=== PATIENT | male | born 1945 | race Caucasian/White ===

== ENCOUNTER 2017-09-05 23:33 | Emergency (ER) | payer OTHER ==
[~2017-09-05] VITALS: Ht 185.4 cm; Wt 97.0 kg
[~2017-09-05 23:33] MED LIST: ASPI81TA28 PO; ATEN-175 PO; GLC/500 PO; GLIP2.5T11 PO; HYDR-4079 PO; LOSA100T65 PO; MELO-83 PO; PRLSR20 PO; SIMV10TA2 PO
[2017-09-05 23:37] VITALS: TEMP 36.7; Ht 185.4 cm; Wt 97.0 kg
--- NOTE | 2017-09-06 00:07 | EMERGENCY ROOM VISIT NOTE ---
History Report prepared by Maki: Kaila Coe Under the Supervision of: Dr. Donna Duran D.O. 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 He denies any leg pain, chest pain, or SOB. 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 A total of 10 systems reviewed and were otherwise negative. Past Medical & Surgical Medical Problems: (1) Diabetes Family History Cancer Diabetes mellitus (DM) Heart disease High blood pressure Lung disease Social History Smoking Status: Former Smoker Smokeless Tobacco Use: No Alcohol Use: none Housing Status: lives alone Occupation Status: retired Current/Historical Medications Scheduled Aspirin (Aspirin Ec), 81 MG PO QAM Atenolol (Tenormin), 100 MG PO QAM Glipizide (Glipizide Er), 2.5 MG PO QAM Losartan Potassium (Cozaar), 100 MG PO QDD Meloxicam (Meloxicam), 15 MG PO QAM Metformin Hcl (Glucophage), 500 MG PO QDD Omeprazole (Prilosec), 20 MG PO QAM Simvastatin (Zocor), 10 MG PO QDD Scheduled PRN Hydrocodone/Acetaminophen 10MG/325MG (Pepin 10MG/325MG), 1 TAB PO QID PRN for Pain Allergies Coded Allergies: No Known Allergies (Verified , 07/18/17) Physical Exam Vital Signs Date Time Temp Pulse Resp B/P (MAP) Pulse Ox O2 Delivery O2 Flow Rate FiO2 09/06/17 00:34 78 18 148/47 97 09/05/17 23:37 36.7 61 18 193/79 95 Room Air Physical Exam LOWER EXTREMITIES: The patient has significant edema to the left knee and thigh. He is currently wearing compression stockings that are too small for him and cut off just below the knee. The swelling starts just proximal to the compression stockings. The right lower extremity is unremarkable. Patient has a blister on the left lower queen which is dressed. Medical Decision & Procedures ED Course 2351: Past medical records reviewed. The patient was evaluated in room B10. A complete history and physical exam was performed. 0002:: Nursing staff were able to fit the patient for thigh high NAY hose. 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 Differential diagnosis include DVT, cellulitis, functional edema, as well as others were entertained. This is a 71-year-old male patient who has edema to his left knee and thigh. This has developed secondary to the compression stockings which come up to just below the knee. This is a functional edema. Those stockings which were too small were removed. He was fitted for thigh-high NAY hose. I have encouraged the patient to follow-up with his PCP if the edema persists. Medication Reconcilliation Current Medication List: was personally reviewed by me Blood Pressure Screening Patient's blood pressure: Elevated blood pressure Blood pressure disposition: Elevated BP felt to be situational Impression Primary Impression: Edema of left lower extremity Scribe Attestation The scribe's documentation has been prepared under my direction and personally reviewed by me in its entirety. I confirm that the note above accurately reflects all work, treatment, procedures, and medical decision making performed by me. Departure Information Dispostion Home / Self-Care Referrals Nabeel Lopez D.O. (PCP) Forms HOME CARE DOCUMENTATION FORM, IMPORTANT VISIT INFORMATION Patient Instructions My [email or web address] Additional Instructions Wear the thigh high NAY hose for control of lower extremity edema. Follow up with PCP if swelling persists
[2017-09-06 00:34] VITALS: BP 148/47; PULSE 78; O2SAT 97
== END 2017-09-06 00:35 | disposition home or self-care (01) ==
LOC: C.EDB 23:35
DX: R60.0 Localized edema (principal); E11.9 Type 2 diabetes mellitus without complications; Z79.84 Long term (current) use of oral hypoglycemic drugs; Z79.82 Long term (current) use of aspirin; Z87.891 Personal history of nicotine dependence

== ENCOUNTER 2018-05-18 13:38 | Inpatient (IN) ==
[2018-05-18] MEDS ORDERED: SODIUM CHLORIDE 0.9% 250 ML IV PRN ×3 (14:21→22:27)
[2018-05-18 14:37] LABS: Albumin Level 1.6 gm/dl (3.4-5.0); BUN Creatinine Ratio 71.9 (10-20); Calcium 8.1 mg/dl (8.5-10.1); Creatinine Clr Calc Pharmacy 112.3 ml/min; Est GFR (Non-African American) 94.9; Hematocrit (blood only) 20.2 % (42-52); Hemoglobin 6.2 g/dL (14.0-18.0); Mean Corpuscular Hgb Conc 30.7 g/dL (32-36); Mean Corpuscular Volume 79.8 fL (80-100); Mean Platelet Volume 9.6 fL (7.4-10.4); Platelet Count 182 K/uL (130-400); Potassium 4.1 mmol/L (3.5-5.1); RDW Coefficient of Variation 19.5 % (11.5-14.5); RDW Standard Deviation 57.3 fL (36.4-46.3); Red Blood Count 2.53 M/uL (4.7-6.1); White Blood Count 8.72 K/uL (4.8-10.8)
[2018-05-18 14:40] LABS: Albumin Globulin Ratio 0.3 (0.9-2); Bilirubin,Total 0.5 mg/dl (0.2-1); Globulin 4.7 gm/dl (2.5-4.0); Total Protein 6.3 gm/dl (6.4-8.2)
[2018-05-18 14:44] LABS: INR 2.4 (0.9-1.1); Partial Thromboplastin Ratio 1.6; Partial Thromboplastin Time 42.4 Seconds (21.0-31.0); Prothrombin Time 23.5 Seconds (9.0-12.0)
[2018-05-18 14:51] LABS: Anisocytosis Present; Basophilic Stippling 1+; Basophils # (auto) 0.01 K/uL (0-0.2); Basophils % (auto) 0.1 %; Echinocytes 1+; Eosinophils # (auto) 0.15 K/uL (0-0.5); Eosinophils % (auto) 1.7 %; Hypochromasia Present; Immature Granulocytes # (auto) 0.03 K/uL (0.00-0.02); Immature Granulocytes % (auto) 0.3 %; Lymphocytes # (auto) 0.82 K/uL (1.2-3.4); Lymphocytes % (auto) 9.4 %; Monocytes # (auto) 0.53 K/uL (0.11-0.59); Monocytes % (auto) 6.1 %; Neutrophils # (auto) 7.18 K/uL (1.4-6.5); Neutrophils % (auto) 82.4 %
--- NOTE | 2018-05-18 14:51 | XRay Report ---
XR chest 1V portable CLINICAL HISTORY: Sepsis dyspnea COMPARISON STUDY: No previous studies for comparison. FINDINGS: Findings of a prior median sternotomy. Small parenchymal infiltrate medial aspect right low er lobe as well as left lower lobe. Mid and upper lungs are clear. Severe degenerative change of the shoulders bilaterally. IMPRESSION: Small bibasilar parenchymal infiltrates. The above report was generated using voice recognition software. It may contain grammatical, syntax or spelling errors. Electronically signed by: Kole Ro M.D. 05/18/2018 2:49 PM
--- NOTE | 2018-05-18 14:54 | XRay Report ---
XR ankle LT min 3V routine CLINICAL HISTORY: Wound at the level of the medial malleolus. COMPARISON: None DISCUSSION: There are extensive vascular calcifications present. There is periostitis at the level of the medial malleolus. Given history of overlying wound this could indicate early osteomyelitis. An M RI might be considered in follow-up for further evaluation. There is bony fragmentation involving the midfoot, likely on a neuropathic basis. IMPRESSION: 1. Periostitis the level of medial malleolus. Given history of overlying wound, this may indicate ost eomyelitis. An MRI could be obtained in follow-up as deemed clinically indicated. 2. Presumed neuropathic changes within the midfoot. Electronically signed by: Osbaldo Hoover M.D. 05/18/2018 2:53 PM
[2018-05-18] MEDS ORDERED: VANCOMYCIN HCL 1,750 MG in SODIUM CHLORIDE 0.9% 500 ML IV ONE (15:03)
[2018-05-18] MEDS ORDERED: VANCOMYCIN CONSULT ACTIVE PRN ×2 (15:03→20:22)
[2018-05-18] MEDS ORDERED: PIPERACILL/TAZOBAC CONSULT ACTIVE PRN ×2 (15:03→20:25)
[2018-05-18] MEDS ORDERED: PIPERACILLIN/TAZOBACTAM 4.5 GM/120 ML BAG IV ONE (15:03)
[2018-05-18] MEDS ORDERED: SODIUM CHLORIDE 0.9% 1000ML 1,000 ML IV ONE (15:18)
[2018-05-18] MEDS ORDERED: MoRPHine SULFATE 4 MG/ML 1 ML CARP\\VIAL IV STA (15:18)
[2018-05-18] MEDS ORDERED: GLUCOSE 40% GEL 15 GM TUBE PO PRN (20:09)
[2018-05-18] MEDS ORDERED: GLUCOSE 10 TABS/TUBE PO PRN (20:09)
[2018-05-18] MEDS ORDERED: ALBUT/IPRATROP 3MG/0.5MG NEB 3 ML VIAL INH PRN (20:09)
[2018-05-18] MEDS ORDERED: CARBOHYDRATES FOR HYPOGLYCEMIA PO PRN (20:09)
[2018-05-18] MEDS ORDERED: GLUCAGON FOR INJ 1 MG VIAL SQ PRN (20:09)
[2018-05-18] MEDS ORDERED: SODIUM CHLORIDE 0.9% 1000ML 1,000 ML IV SCH (20:30)
--- NOTE | 2018-05-18 21:19 | History & Physical Report ---
Date of Service May 18, 2018 Assessment & Plan (1) Anemia: Pt with hx iron deficiency anemia. Baseline Hgb: 8-9. Presented to ER with bleeding lower extremity wounds. No reported melena, hematochezia. Pt on plavix and xarelto In ER T: 36.5, P: 98, R: 21, BP: 110/52, 100% on RA. Hgb: 6.2, Hct: 20, Plt: 182, INR: 2.4, BUN: 51, Cr: 0.7 -tele to monitor -fecal occult blood pending -transfuse 2 units PRBCs -monitor H&H and transfuse as needed -gentle IVF -hold plavix and xarelto for now (2) Wound of lower extremity: Hx PVD. Hx MRSA WBC: 8, lactate 2.7 In ER pt given 1L NSS, zosyn, vancomycin L Ankle xray: Periostitis the level of medial malleolus. Given history of overlying wound, this may indicate osteomyelitis. Presumed neuropathic changes within the midfoot. -pending blood cultures -trend lactate -zosyn, vancomycin -MRI L ankle to r/o osteomyelitis -wound consult -monitor cbc -may need ID, ortho consult (3) PVD (peripheral vascular disease): Pt follows with vascular surgery in [place] Dr Fonseca. Pts sister reports that pt had recent bilateral leg revascularization in the past 1-2 months -obtain outside records -will hold plavix for now with anemia and re-evaluate and once have further info on if pt had stent placement (4) History of aortic valve replacement with bioprosthetic valve: aortic stenosis s/p bioprosthetic valve replacement in 09/2017 at [facility] (5) CAD (coronary artery disease): CAD s/p CABG x 2 in 09/2017 at [place] -continue statin, metoprolol (6) Atrial fibrillation: Hx a-fib after cardiac surgery in 09/2017, requiring cardioversion -hold xarelto at this time with anemia (7) Chronic diastolic heart failure: (8) Cirrhosis: Hx cirrhosis. LFT's chronically elevated with AST: 56, ALT: 45, Alk Phos: 123, normal bili. (04/2018: AST: 54, ALT: 46, Alk Phos: 136) -monitor liver functions (9) BPH (benign prostatic hyperplasia): (10) Urinary retention: Hx BPH and chronic urinary retention. Follows with Urology [facility]. Reported consideration for suprapubic cath placement in future. 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 Will hold on SCDs with active leg wounds and hold on chemo prophylaxis and reassess. Full Code as per discussion with pt and pt's sister Follows with Dr Campoverde at [facility] for routine care Pt was seen with Dr Gardner. See addendum History of Present Illness Chief Complaint: bleeding extremity wounds Primary Care Provider: [facility] Pt is 72 y/o M with complex past medical history, CAD s/p CABG x 2 in 09/2017 at [place], aortic stenosis s/p bioprosthetic valve replacement in 09/2017 at [facility], atrial fibrillation after surgery requiring cardioversion, HLD, DM II, diastolic HF, malnutrition, depression, BPH and urinary retention with chronic denis catheter, HIT, PVD, iron deficiency anemia presented to ER from [facility] with bleeding lower extremity wounds. Pt with chronic bilateral leg, ankle, feet ulcers. Reported that pt has been following Dr Aldana podiatry in [place] and wound clinic in [place]. Also has been following with vascular surgery in [place] Dr Fonseca. Pts sister reports that pt had recent bilateral leg revascularization in the past 1-2 months and she is unsure if stents were placed. Pts sister states that pt has been having bleeding from wounds but seems worse today. Reports chronic pain to bilateral feet. Pt also with sacral ulcer. Sister reports pt has been eating and drinking ok. Denies vomiting or diarrhea. Denies fever/chills, diaphoresis, GORMAN, dizziness, syncope, vision changes, neck pain, CP, SOB, orthopnea, palpitations, cough, sore throat, ch oking, otalgia, rhinorrhea, abdominal pain, extremity edema. Pt with hx rectal bleeding after cardiac surgery. It is reported that at that time pt had normal EGD and pt had to have rectal artery embolization. Denies recent melena, hematochezia, hematuria. Hx sternotomy wound seeping intermittently since surgery in 09/2017 with reported recurrent seeping over the past week and pt was started on doxycycline yesterday at [facility]. 02/23/[address] Gould: Normal esophagus, gastritis. EUS: Dilation common bile duct 10 mm History of hospitalization at [facility] 03/01/18-03/04/18 for extremity wounds/cellulitis, discharge summary report MRSA, lower extremity arterial Dopplers without significant stenosis, MRI left foot no osteomyelitis, MRI left tib-fib and right tib-fib no acute stenosis Allergies Allergy/AdvReac Type Severity Reaction Status Date / Time heparin Allergy Unknown Verified 05/18/18 16:18 Home Medications Home Medications Medication Instructions Recorded Confirmed Type Allevyn Gentle Border Lite 1 applic TOPICAL UD 05/18/18 05/18/18 History Aquacel Ag Dressing 1 applic TOPICAL Q OTHER DAY 05/18/18 05/18/18 History Med Pass Supplement 200 ml PO TID 05/18/18 05/18/18 History Silicone Border Dressing 1 applic TOPICAL UD 05/18/18 05/18/18 History Silver Alginate 1 applic TOPICAL Q OTHER DAY 05/18/18 05/18/18 History acetaminophen [Tylenol Extra 500 mg PO Q4 PRN 05/18/18 05/18/18 History Strength] amiodarone 200 mg PO AMHS 05/18/18 05/18/18 History ascorbic acid (vitamin C) [Vitamin 500 mg PO QAM 05/18/18 05/18/18 History C] atorvastatin 40 mg PO HS 05/18/18 05/18/18 History bumetanide 1 mg PO DAILY 05/18/18 05/18/18 History bumetanide 2 mg PO DAILY 05/18/18 05/18/18 History clopidogrel 75 mg PO DAILY 05/18/18 05/18/18 History doxycycline hyclate 100 mg PO BID 05/18/18 05/18/18 History duloxetine 60 mg PO DAILY 05/18/18 05/18/18 History ferrous sulfate 325 mg PO BID 05/18/18 05/18/18 History glipizide 2.5 mg PO QAM 05/18/18 05/18/18 History hydrocodone-acetaminophen [[place]] 1 tab PO Q6H PRN 05/18/18 05/18/18 History ipratropium-albuterol 3 ml INHALATION Q6 PRN 05/18/18 05/18/18 History magnesium oxide 400 mg PO BID 05/18/18 05/18/18 History melatonin 5 mg PO HS 05/18/18 05/18/18 History metoprolol succinate 12.5 mg PO DAILY 05/18/18 05/18/18 History omeprazole 20 mg PO DAILYBB 05/18/18 05/18/18 History oxycodone 5 mg PO QID 05/18/18 05/18/18 History polyethylene glycol 3350 17 g PO TID 05/18/18 05/18/18 History potassium chloride 10 meq PO DAILY 05/18/18 05/18/18 History pregabalin [Lyrica] 100 mg PO TID 05/18/18 05/18/18 History rivaroxaban [Xarelto] 20 mg PO HS 05/18/18 05/18/18 History tamsulosin 0.4 mg PO HS 05/18/18 05/18/18 History jcnx-ahs-awxi-C-Zn-Cu-tos 1 dose PO BID 05/18/18 05/18/18 History [ArgiMent AT] zinc oxide 1 applic TOPICAL QS 05/18/18 05/18/18 History Past Med/Surg History Medical History Cirrhosis (Chronic) 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) Chronic diastolic heart failure (Chronic) Atrial fibrillation (Chronic) PVD (peripheral vascular disease) (Chronic) Malnutrition (Chronic) Aortic stenosis (Chronic) CAD (coronary artery disease) (Chronic) Diastolic heart failure (Chronic) Urinary retention (Chronic) BPH (benign prostatic hyperplasia) (Chronic) Diabetes mellitus, type II (Chronic) GERD (gastroesophageal reflux disease) HLD (hyperlipidemia) (Chronic) Hypertension (Chronic) Surgical History History of cholecystectomy (Chronic) History of aortic valve replacement with bioprosthetic valve (Chronic) History of coronary artery bypass graft x 2 (Chronic) Social History Preferred Language: Israeli Communication Ability: Effective Beliefs That Will Affect Care: None Current Living Situation: Prison Other Information That Helps Us Care for You: No Feels Safe at Home: Yes Smoking Status: Former smoker Hx Alcohol Use: No Hx Substance Use: No Review of Systems All systems reviewed & are unremarkable except as noted in HPI & below Physical Exam Vital Signs (Past 24 Hours): Last Vital Signs Temp 36.5 C 05/18/18 20:53 Pulse 57 L 05/18/18 20:53 Resp 16 05/18/18 20:53 BP 95/57 L 05/18/18 20:53 Pulse Ox 97 05/18/18 20:53 Physical Exam: General: chronic ill appearing elderly male Head: normocephalic, atraumatic Eyes: PERRL, EOM's intact, conjunctiva non-injected, anicteric ENT: normal inspection external ears, nose, mucous membranes dry Neck: supple, trachea midline Lungs: clear, no respiratory distress CV: RRR, systolic murmur Abd: normal BS, soft, non-tender Ext: no calf tenderness, bilateral ankles and feet with multiple wounds, ulcers, escar, right medial ankle with some venous bleeding, left ankle without acute bleeding Neuro: Alert, oriented to person, place, flat affect Skin: warm, dry, sacral ulcer, as above in extremities Results & Data Laboratory Results Short CBC 05/18/18 Range/Units 13:49 WBC 8.72 (4.8-10.8) K/uL Hgb 6.2 L* (14.0-18.0) g/dL Hct 20.2 L* (42-52) % Plt Count 182 (130-400) K/uL BMP 05/18/18 13:49 Sodium 134 L Potassium 4.1 Chloride 98 Carbon Dioxide 28 BUN 51 H Creatinine 0.70 Glucose 203 H Calcium 8.1 L Liver Function 05/18/18 Range/Units 13:49 Total Bilirubin 0.5 (0.2-1) mg/dl AST 56 H (15-37) U/L ALT 45 (12-78) U/L Alkaline Phosphatase 123 H (45-117) U/L Albumin 1.6 L (3.4-5.0) gm/dl Diagnostic Findings CXR: IMPRESSION: Small bibasilar parenchymal infiltrates. XRAY L ANKLE: IMPRESSION: 1. Periostitis the level of medial malleolus. Given history of overlying wound, this may indicate osteomyelitis. An MRI could be obtained in follow-up as deemed clinically indicated. 2. Presumed neuropathic changes within the midfoot. Supervising Physician Co-Signing Physician Notes 1. Anemia-multifactorial 2. wounds, possible osteomyelitis 3. PVD 4. CAD s/p CABG 2018 with poorly healing sternotomy wound 5. Bedbound status 6. Atrial fibrillation on Xarelto 7. s/p AVR with bioprosthetic valve I have seen and examined the patient and have discussed the case with the provider above. I agree with the assessment and plan as stated. Baseline H&H is 8.5/25, now 6.2/20 on arrival today. Two units of packed red blood cells were given. He reports chronic bleeding from the wounds and is notably on Plavix and Xarelto. In fact, 2 weeks ago he reports significant bleeding from his wounds in his lower extremities. He reports being bedbound since his CABG last fall and resides at [facility]. There is a question of periostitis on the x-ray. He denies any fevers or chills and is not septic, however, osteomyelitis is a concern. Agree with MRI. Agree with broad-spectrum antibiotics pending clinical improvement and normal blood cultures. Holding Xarelto and Plavix as above. DO Jj (1) Anemia Anemia type: unspecified type Qualified Code(s): D64.9 - Anemia, unspecified
[2018-05-18] MEDS ORDERED: FUROSEMIDE 40 MG in SYRINGE 0 ML IV ONE (21:30)
[2018-05-18] MEDS: ATORVASTATIN 40 MG TAB PO SCH (22:04)
[2018-05-18] MEDS: OXYCODONE HCL IR 5 MG TAB (IMMEDIATE RELEASE) PO SCH (22:04)
[2018-05-18] MEDS: MAGNESIUM OXIDE 400 MG TAB PO SCH (22:04)
[2018-05-18] MEDS: PREGABALIN 100 MG CAP PO SCH (22:04)
[2018-05-18] MEDS: FERROUS SULFATE 325 MG TAB PO SCH (22:05)
[2018-05-18] MEDS: AMIODARONE 200 MG TAB PO SCH (22:05)
[2018-05-18] MEDS: INSULIN ASPART 100 UNITS/ML 3 ML PEN SC SCH (22:06)
[2018-05-18] MEDS: INSULIN GLARGINE SOLOSTAR 100 UNITS/ML 3 ML PEN SC SCH (22:06)
[2018-05-18] MEDS: TAMSULOSIN HCL 0.4 MG CAP PO SCH (22:09)
[2018-05-18] MEDS: PIPERACILLIN/TAZOBACTAM 3.375 GM in DEXTROSE 5% 100 ML IV SCH (22:39)
--- NOTE | 2018-05-18 22:52 | Pharmacy Report ---
Pharmacy Abx Dose Short Note - Date of Service May 18, 2018 - Assessment & Plan Assessment 72 year old M receiving vanco/zosyn for treatment of SST Day # 02/18 of antimicrobial therapy. Pt population p'kinetics: t1/2=7hrs, ke=0.0974. Plan Vancomycin * Vanco 1750mg IV x1 * Then Vanco 1250mg IV Q8 * Goal trough until c/s's result will be 15-20mcg/mL * Trough prior to Css ordered for 05/19 @1530 Zosyn * Appropriately dosed based on eCrCl>20cc/min and clinical status Pharmacy will continue to follow and will adjust dose/frequency as necessary. Thank you.
--- NOTE | 2018-05-18 23:01 | Emergency Department Note ---
Entered by Harinder Morales acting as a scribe for Jef Gutierrez MD History of Present Illness General Chief complaint: Foot Injury/Pain Stated complaint: L foot wound/bleed /[place] Time Seen by Provider: 05/18/18 13:58 Source: patient and family History of Present Illness Onset (ago): hour(s) (today) Location: left (foot) Pain Consistency: + other (persistent) Quality: + sharp Associated symptoms: no cough and no fever/chills The patient is a 72 year old white male with a history of diabetes, HTN, HLD, a fib, PVD, and GERD who presents to the Emergency Room from [facility] with complaints of persistent sharp left foot pain beginning today. The patient reports that he has had a wound in that area in the past, and a blister today appears to have ruptured. Family reports that the patient is on Oxycontin and does not walk at baseline. She states that the patient has chronic wounds in his left foot. She states that he had revascularization of the lower extremities one month ago. She also notes that the patient had a valve replacement and CABG in [place] last year. The patient denies recent trauma, coughing, fevers, or chills. He notes that he developed a rash on his hands over the past few days that currently appears improved. The nurse reports that the patient had lab work this morning at [facility], and his hemoglobin was 6.8. Home Medications Home Medications Medication Instructions Recorded Confirmed Type Allevyn Gentle Border Lite 1 applic TOPICAL UD 05/18/18 05/18/18 History Aquacel Ag Dressing 1 applic TOPICAL Q OTHER DAY 05/18/18 05/18/18 History Med Pass Supplement 200 ml PO TID 05/18/18 05/18/18 History Silicone Border Dressing 1 applic TOPICAL UD 05/18/18 05/18/18 History Silver Alginate 1 applic TOPICAL Q OTHER DAY 05/18/18 05/18/18 History acetaminophen [Tylenol Extra 500 mg PO Q4 PRN 05/18/18 05/18/18 History Strength] amiodarone 200 mg PO AMHS 05/18/18 05/18/18 History ascorbic acid (vitamin C) [Vitamin 500 mg PO QAM 05/18/18 05/18/18 History C] atorvastatin 40 mg PO HS 05/18/18 05/18/18 History bumetanide 1 mg PO DAILY 05/18/18 05/18/18 History bumetanide 2 mg PO DAILY 05/18/18 05/18/18 History clopidogrel 75 mg PO DAILY 05/18/18 05/18/18 History doxycycline hyclate 100 mg PO BID 05/18/18 05/18/18 History duloxetine 60 mg PO DAILY 05/18/18 05/18/18 History ferrous sulfate 325 mg PO BID 05/18/18 05/18/18 History glipizide 2.5 mg PO QAM 05/18/18 05/18/18 History hydrocodone-acetaminophen [Amelia] 1 tab PO Q6H PRN 05/18/18 05/18/18 History ipratropium-albuterol 3 ml INHALATION Q6 PRN 05/18/18 05/18/18 History magnesium oxide 400 mg PO BID 05/18/18 05/18/18 History melatonin 5 mg PO HS 05/18/18 05/18/18 History metoprolol succinate 12.5 mg PO DAILY 05/18/18 05/18/18 History omeprazole 20 mg PO DAILYBB 05/18/18 05/18/18 History oxycodone 5 mg PO QID 05/18/18 05/18/18 History polyethylene glycol 3350 17 g PO TID 05/18/18 05/18/18 History potassium chloride 10 meq PO DAILY 05/18/18 05/18/18 History pregabalin [Lyrica] 100 mg PO TID 05/18/18 05/18/18 History rivaroxaban [Xarelto] 20 mg PO HS 05/18/18 05/18/18 History tamsulosin 0.4 mg PO HS 05/18/18 05/18/18 History [id number]-[id number]-tos 1 dose PO BID 05/18/18 05/18/18 History [ArgiMent AT] zinc oxide 1 applic TOPICAL QS 05/18/18 05/18/18 History Allergies Allergy/AdvReac Type Severity Reaction Status Date / Time heparin Allergy Unknown Verified 05/18/18 16:18 Past Med/Surg History Medical History Cirrhosis (Chronic) 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) Chronic diastolic heart failure (Chronic) Atrial fibrillation (Chronic) PVD (peripheral vascular disease) (Chronic) Malnutrition (Chronic) Aortic stenosis (Chronic) CAD (coronary artery disease) (Chronic) Diastolic heart failure (Chronic) Urinary retention (Chronic) BPH (benign prostatic hyperplasia) (Chronic) Diabetes mellitus, type II (Chronic) GERD (gastroesophageal reflux disease) HLD (hyperlipidemia) (Chronic) Hypertension (Chronic) Surgical History History of cholecystectomy (Chronic) History of aortic valve replacement with bioprosthetic valve (Chronic) History of coronary artery bypass graft x 2 (Chronic) Social History Preferred Language: Turkmen Communication Ability: Effective Beliefs That Will Affect Care: None Current Living Situation: Shelter Other Information That Helps Us Care for You: No Feels Safe at Home: Yes Smoking Status: Former smoker Hx Alcohol Use: No Hx Substance Use: No Review of Systems See HPI for pertinent positives & negatives. and A total of 10 systems reviewed and were otherwise negative Physical Exam Vital Signs Vital Signs - 24 hr 05/18/18 13:48 05/18/18 14:00 05/18/18 14:21 Temperature 36.5 C Temperature Source Oral Sepsis Recent Fever Within 48 Hours No Sepsis New/Unexplained Change in Mental Status No Sepsis Action Taken by Nursing No Action Required Pulse Rate 98 H 77 Pulse Rate [Apical] Pulse Rate from SpO2 Sensor 87 Pulse Rhythm Pulse Rhythm [Apical] Pulse Strength Respiratory Rate 21 17 Blood Pressure 110/52 L 109/55 L Blood Pressure [Right Arm] Blood Pressure Mean 71 73 Blood Pressure Mean [Right Arm] Blood Pressure Position Pulse Oximetry 100 100 99 Oxygen Delivery Method Room Air Room Air Room Air 05/18/18 14:30 05/18/18 15:00 05/18/18 15:30 Temperature Temperature Source Sepsis Recent Fever Within 48 Hours Sepsis New/Unexplained Change in Mental Status Sepsis Action Taken by Nursing Pulse Rate 70 71 65 Pulse Rate [Apical] Pulse Rate from SpO2 Sensor 71 68 Pulse Rhythm Pulse Rhythm [Apical] Pulse Strength Respiratory Rate 20 25 H 17 Blood Pressure 101/50 L Blood Pressure [Right Arm] Blood Pressure Mean 67 Blood Pressure Mean [Right Arm] Blood Pressure Position Pulse Oximetry Oxygen Delivery Method 05/18/18 15:42 05/18/18 16:00 05/18/18 16:01 Temperature Temperature Source Sepsis Recent Fever Within 48 Hours Sepsis New/Unexplained Change in Mental Status Sepsis Action Taken by Nursing Pulse Rate 68 66 66 Pulse Rate [Apical] Pulse Rate from SpO2 Sensor 70 67 72 Pulse Rhythm Pulse Rhythm [Apical] Pulse Strength Respiratory Rate 20 16 16 Blood Pressure 102/53 L 99/59 L Blood Pressure [Right Arm] Blood Pressure Mean 69 72 Blood Pressure Mean [Right Arm] Blood Pressure Position Pulse Oximetry Oxygen Delivery Method 05/18/18 16:30 05/18/18 16:31 05/18/18 17:00 Temperature Temperature Source Sepsis Recent Fever Within 48 Hours Sepsis New/Unexplained Change in Mental Status Sepsis Action Taken by Nursing Pulse Rate 60 59 L 58 L Pulse Rate [Apical] Pulse Rate from SpO2 Sensor 60 59 L 59 L Pulse Rhythm Pulse Rhythm [Apical] Pulse Strength Respiratory Rate 12 12 16 Blood Pressure 88/46 L 101/54 L Blood Pressure [Right Arm] Blood Pressure Mean 60 69 Blood Pressure Mean [Right Arm] Blood Pressure Position Pulse Oximetry Oxygen Delivery Method 05/18/18 17:01 05/18/18 17:30 05/18/18 17:58 Temperature 36.5 C Temperature Source Oral Sepsis Recent Fever Within 48 Hours Sepsis New/Unexplained Change in Mental Status Sepsis Action Taken by Nursing Pulse Rate 57 L 57 L Pulse Rate [Apical] 59 L Pulse Rate from SpO2 Sensor 56 L Pulse Rhythm Pulse Rhythm [Apical] Regular Pulse Strength Respiratory Rate 16 13 15 Blood Pressure 94/47 L 98/49 L Blood Pressure [Right Arm] 101/54 L Blood Pressure Mean 62 65 Blood Pressure Mean [Right Arm] 69 Blood Pressure Position Pulse Oximetry 98 99 98 Oxygen Delivery Method Room Air Room Air 05/18/18 18:00 05/18/18 18:12 05/18/18 18:17 Temperature 36.4 C L 36.6 C Temperature Source Oral Oral Sepsis Recent Fever Within 48 Hours Sepsis New/Unexplained Change in Mental Status Sepsis Action Taken by Nursing Pulse Rate 57 L 58 L 55 L Pulse Rate [Apical] Pulse Rate from SpO2 Sensor 57 L Pulse Rhythm Pulse Rhythm [Apical] Pulse Strength Respiratory Rate 15 15 14 Blood Pressure 96/51 L 96/50 L 89/44 L Blood Pressure [Right Arm] Blood Pressure Mean 66 65 59 Blood Pressure Mean [Right Arm] Blood Pressure Position Pulse Oximetry 99 100 94 Oxygen Delivery Method Room Air 05/18/18 18:30 05/18/18 18:48 05/18/18 19:00 Temperature 36.6 C Temperature Source Oral Sepsis Recent Fever Within 48 Hours Sepsis New/Unexplained Change in Mental Status Sepsis Action Taken by Nursing Pulse Rate 58 L 55 L 56 L Pulse Rate [Apical] Pulse Rate from SpO2 Sensor Pulse Rhythm Pulse Rhythm [Apical] Pulse Strength Respiratory Rate 13 12 15 Blood Pressure 94/49 L 91/74 L 92/56 L Blood Pressure [Right Arm] Blood Pressure Mean 64 79 68 Blood Pressure Mean [Right Arm] Blood Pressure Position Pulse Oximetry 99 Oxygen Delivery Method 05/18/18 20:09 05/18/18 20:26 05/18/18 20:42 Temperature 36.3 C L 36.3 C L 36.6 C Temperature Source Oral Oral Oral Sepsis Recent Fever Within 48 Hours Sepsis New/Unexplained Change in Mental Status Sepsis Action Taken by Nursing Pulse Rate 59 L 52 L Pulse Rate [Apical] 65 Pulse Rate from SpO2 Sensor Pulse Rhythm Regular Regular Pulse Rhythm [Apical] Pulse Strength Normal Normal Respiratory Rate 16 16 Blood Pressure 86/49 L 96/45 L Blood Pressure [Right Arm] 116/60 Blood Pressure Mean 61 62 Blood Pressure Mean [Right Arm] 78 Blood Pressure Position Lying Lying Pulse Oximetry 97 97 96 Oxygen Delivery Method Room Air 05/18/18 20:53 05/18/18 21:15 05/18/18 21:45 Temperature 36.5 C 36.4 C L 36.8 C Temperature Source Oral Oral Oral Sepsis Recent Fever Within 48 Hours Sepsis New/Unexplained Change in Mental Status Sepsis Action Taken by Nursing Pulse Rate 57 L 57 L 54 L Pulse Rate [Apical] Pulse Rate from SpO2 Sensor Pulse Rhythm Regular Regular Regular Pulse Rhythm [Apical] Pulse Strength Normal Normal Normal Respiratory Rate 16 16 16 Blood Pressure 95/57 L 94/51 L 104/57 L Blood Pressure [Right Arm] Blood Pressure Mean 69 65 72 Blood Pressure Mean [Right Arm] Blood Pressure Position Lying Lying Lying Pulse Oximetry 97 97 94 Oxygen Delivery Method 05/18/18 21:57 05/18/18 22:48 Temperature 36.5 C 36.5 C Temperature Source Oral Oral Sepsis Recent Fever Within 48 Hours Sepsis New/Unexplained Change in Mental Status Sepsis Action Taken by Nursing Pulse Rate 50 L 56 L Pulse Rate [Apical] Pulse Rate from SpO2 Sensor Pulse Rhythm Regular Regular Pulse Rhythm [Apical] Pulse Strength Normal Normal Respiratory Rate 16 16 Blood Pressure 97/55 L 98/47 L Blood Pressure [Right Arm] Blood Pressure Mean 69 64 Blood Pressure Mean [Right Arm] Blood Pressure Position Lying Lying Pulse Oximetry 96 96 Oxygen Delivery Method GENERAL: Mildly uncomfortable and pale in appearance, non-toxic. EYE EXAM: Normal conjunctiva. PERRL, no anisocoria and EOM's grossly intact w/o pain. OROPHARYNX: Moist MM. NECK: Supple, no nuchal rigidity, no adenopathy, non-tender. No signs of meningismus. LUNGS: Clear to auscultation. Normal chest wall mechanics. HEART: NSR, no MRG. CHEST: Two small wounds to the midline anterior chest. ABDOMEN: Abdomen soft, non-tender, normo-active bowel sounds, no masses, no rebound or guarding. BACK: No CVA TTP. SKIN: No rashes and no bruising. UPPER EXTREMITIES: Upper extremities are grossly normal. LOWER EXTREMITIES: R leg is bandaged and non-bleeding. Left leg is well- perfused, warm, sensation intact, and compartments soft. There are multiple wounds over the left foot and continuous bleeding from the left medial malleolus, other wounds are non-bleeding. No fluctuance or crepitus. Left foot is tender to palpation. NEURO EXAM: A and O x3. GCS 15. Moves all 4 extremities on command w/o issue. Course 1413: The patient was evaluated in room A9B, and a complete history and physical examination were performed. 1530: I obtained consent for blood transfusion. The sister is the power of corporate attorney. 1609: I consulted Zoë Malik PA-C: [facility] Hospitalist with Dr. Gardner. The patient will be reevaluated for hospitalization. Consultations Consultation #1: I consulted Zoë Malik PA-C: [facility] Hospitalist with Dr. Gardner. The patient will be reevaluated for hospitalization. Time: 16:09 Administered Medications Amiodarone HCl (Cordarone) 200 mg PO AMHS ESTER Stop: 06/17/18 20:59 Last Admin: 05/18/18 22:05 Dose: 200 mg Documented by: [id number] Atorvastatin Calcium (Lipitor) 40 mg PO HS ESTER Stop: 06/17/18 20:59 Last Admin: 05/18/18 22:04 Dose: 40 mg Documented by: [id number] Ferrous Sulfate (Feosol) 325 mg PO BID ESTER Stop: 06/17/18 20:59 Last Admin: 05/18/18 22:05 Dose: 325 mg Documented by: [id number] Piperacillin Sod/Tazobactam (Sod 3.375 gm/ Dextrose) 115 mls @ 28.75 mls/hr IV Q8H [facility]; Protocol Stop: 05/28/18 21:59 Last Admin: 05/18/18 22:39 Dose: 28.8 mls/hr Documented by: [id number] Insulin Aspart (Novolog Flexpen) 0 units SC ACHS [facility] Stop: 06/17/18 20:59 Last Admin: 05/18/18 22:06 Dose: 1 units Documented by: [id number] Cosigned by: [id number] Insulin Glargine (Lantus Solostar Pen) 0 units SC BID [facility]; Protocol Stop: 06/17/18 20:59 Last Admin: 05/18/18 22:06 Dose: 5 units Documented by: [id number] Cosigned by: [id number] Magnesium Oxide (Mag-Ox) 400 mg PO BID [facility] Stop: 06/17/18 20:59 Last Admin: 05/18/18 22:04 Dose: 400 mg Documented by: [id number] Oxycodone HCl (Roxicodone Immediate Rel) 5 mg PO QID [facility] Stop: 06/01/18 20:59 Last Admin: 05/18/18 22:04 Dose: 5 mg Documented by: [id number] Pregabalin (Lyrica) 100 mg PO TID [facility] Stop: 06/17/18 20:59 Last Admin: 05/18/18 22:04 Dose: 100 mg Documented by: [id number] Tamsulosin HCl (Flomax) 0.4 mg PO HS [facility] Stop: 06/17/18 20:59 Last Admin: 05/18/18 22:09 Dose: 0.4 mg Documented by: [id number] Discontinued Medications Vancomycin HCl 1,750 mg/ (Sodium Chloride) 535 mls @ 200 mls/hr IV NOW ONE Stop: 05/18/18 17:43 Last Infusion: 05/18/18 19:09 Dose: 0 mls/hr Documented by: [id number] Admin: 05/18/18 16:28 Dose: 200 mls/hr Documented by: [id number] Piperacillin Sod/Tazobactam Sod (Zosyn) 4.5 gm in 120 mls @ 240 mls/hr IV NOW ONE Stop: 05/18/18 15:32 Last Infusion: 05/18/18 16:29 Dose: 0 mls/hr Documented by: [id number] Admin: 05/18/18 15:36 Dose: 240 mls/hr Documented by: [id number] Sodium Chloride (Nss 1000ml) 1,000 mls @ 999 mls/hr IV .Q1H1M ONE Stop: 05/18/18 16:18 Last Infusion: 05/18/18 16:29 Dose: 0 mls/hr Documented by: [id number] Admin: 05/18/18 15:31 Dose: 999 mls/hr Documented by: [id number] Sodium Chloride (Nss 1000ml) 1,000 mls @ 50 mls/hr IV .Q20H ESTER Stop: 05/19/18 16:29 Last Admin: 05/18/18 22:05 Dose: 50 mls/hr Documented by: [id number] Furosemide 40 mg/ Syringe 4 mls @ 4 mls/min IV ONE ONE Stop: 05/18/18 21:31 Last Admin: 05/18/18 22:39 Dose: 4 mls/min Documented by: [id number] Morphine Sulfate (Morphine Sulfate) 4 mg IV NOW STA Stop: 05/18/18 15:19 Last Admin: 05/18/18 15:33 Dose: 4 mg Documented by: [id number] Medical Decision Making Medical Records Attestation: I reviewed the patient's medical records. Home Medications Current Medication List: was personally reviewed by me Laboratory Data Attestation: I reviewed the patient's lab results. Result diagrams: 05/18/18 13:49 05/18/18 13:49 Lab Results 05/18/18 05/18/18 05/18/18 Range/Units 13:49 13:49 13:49 WBC 8.72 (4.8-10.8) K/uL RBC 2.53 L (4.7-6.1) M/uL Hgb 6.2 L* (14.0-18.0) g/dL Hct 20.2 L* (42-52) % MCV 79.8 L (80-100) fL MCH 24.5 L (25-34) pg MCHC 30.7 L (32-36) g/dL RDW Std Deviation 57.3 H (36.4-46.3) fL RDW Coeff of [place] 19.5 H (11.5-14.5) % Plt Count 182 (130-400) K/uL MPV 9.6 (7.4-10.4) fL Immature Gran % (Auto) 0.3 % Neut % (Auto) 82.4 % Lymph % (Auto) 9.4 % [place] % (Auto) 6.1 % Eos % (Auto) 1.7 % Baso % (Auto) 0.1 % Immature Gran # (Auto) 0.03 H (0.00-0.02) K/uL Neut # (Auto) 7.18 H (1.4-6.5) K/uL Lymph # (Auto) 0.82 L (1.2-3.4) K/uL [place] # (Auto) 0.53 (0.11-0.59) K/uL Eos # (Auto) 0.15 (0-0.5) K/uL Baso # (Auto) 0.01 (0-0.2) K/uL Hypochromasia Present Basophilic Stippling 1+ Anisocytosis Present Echinocytes 1+ PT 23.5 H (9.0-12.0) Seconds INR 2.4 H (0.9-1.1) APTT 42.4 H (21.0-31.0) Seconds PTT Ratio 1.6 Sodium 134 L (136-145) mmol/L Potassium 4.1 (3.5-5.1) mmol/L Chloride 98 (98-107) mmol/L Carbon Dioxide 28 (21-32) mmol/L Anion Gap 8.0 (3-11) BUN 51 H (7-18) mg/dl Creatinine 0.70 (0.6-1.4) mg/dl Est Cr Clr Drug Dosing 112.3 ml/min Est GFR ( Amer) 110.0 Est GFR (Non-Af Amer) 94.9 BUN/Creatinine Ratio 71.9 H (10-20) Glucose 203 H (70-99) mg/dl POC Glucose (70-99) Lactate (0.4-2.0) mmol/L Calcium 8.1 L (8.5-10.1) mg/dl Magnesium 2.0 (1.8-2.4) mg/dl Total Bilirubin 0.5 (0.2-1) mg/dl AST 56 H (15-37) U/L ALT 45 (12-78) U/L Alkaline Phosphatase 123 H (45-117) U/L Total Protein 6.3 L (6.4-8.2) gm/dl Albumin 1.6 L (3.4-5.0) gm/dl Globulin 4.7 H (2.5-4.0) gm/dl Albumin/Globulin Ratio 0.3 L (0.9-2) Nasal Screen MRSA (PCR) (Negative) Blood Type Antibody Screen Crossmatch 05/18/18 05/18/18 05/18/18 Range/Units 15:05 15:05 20:30 WBC (4.8-10.8) K/uL RBC (4.7-6.1) M/uL Hgb (14.0-18.0) g/dL Hct (42-52) % MCV (80-100) fL MCH (25-34) pg MCHC (32-36) g/dL RDW Std Deviation (36.4-46.3) fL RDW Coeff of [place] (11.5-14.5) % Plt Count (130-400) K/uL MPV (7.4-10.4) fL Immature Gran % (Auto) % Neut % (Auto) % Lymph % (Auto) % [place] % (Auto) % Eos % (Auto) % Baso % (Auto) % Immature Gran # (Auto) (0.00-0.02) K/uL Neut # (Auto) (1.4-6.5) K/uL Lymph # (Auto) (1.2-3.4) K/uL [place] # (Auto) (0.11-0.59) K/uL Eos # (Auto) (0-0.5) K/uL Baso # (Auto) (0-0.2) K/uL Hypochromasia Basophilic Stippling Anisocytosis Echinocytes PT (9.0-12.0) Seconds INR (0.9-1.1) APTT (21.0-31.0) Seconds PTT Ratio Sodium (136-145) mmol/L Potassium (3.5-5.1) mmol/L Chloride (98-107) mmol/L Carbon Dioxide (21-32) mmol/L Anion Gap (3-11) BUN (7-18) mg/dl Creatinine (0.6-1.4) mg/dl Est Cr Clr Drug Dosing ml/min Est GFR ( Amer) Est GFR (Non-Af Amer) BUN/Creatinine Ratio (10-20) Glucose (70-99) mg/dl POC Glucose (70-99) Lactate 2.7 H* (0.4-2.0) mmol/L Calcium (8.5-10.1) mg/dl Magnesium (1.8-2.4) mg/dl Total Bilirubin (0.2-1) mg/dl AST (15-37) U/L ALT (12-78) U/L Alkaline Phosphatase (45-117) U/L Total Protein (6.4-8.2) gm/dl Albumin (3.4-5.0) gm/dl Globulin (2.5-4.0) gm/dl Albumin/Globulin Ratio (0.9-2) Nasal Screen MRSA (PCR) Positive A (Negative) Blood Type A Positive Antibody Screen NEGATIVE Crossmatch See Detail 05/18/18 Range/Units 20:35 WBC (4.8-10.8) K/uL RBC (4.7-6.1) M/uL Hgb (14.0-18.0) g/dL Hct (42-52) % MCV (80-100) fL MCH (25-34) pg MCHC (32-36) g/dL RDW Std Deviation (36.4-46.3) fL RDW Coeff of [place] (11.5-14.5) % Plt Count (130-400) K/uL MPV (7.4-10.4) fL Immature Gran % (Auto) % Neut % (Auto) % Lymph % (Auto) % [place] % (Auto) % Eos % (Auto) % Baso % (Auto) % Immature Gran # (Auto) (0.00-0.02) K/uL Neut # (Auto) (1.4-6.5) K/uL Lymph # (Auto) (1.2-3.4) K/uL [place] # (Auto) (0.11-0.59) K/uL Eos # (Auto) (0-0.5) K/uL Baso # (Auto) (0-0.2) K/uL Hypochromasia Basophilic Stippling Anisocytosis Echinocytes PT (9.0-12.0) Seconds INR (0.9-1.1) APTT (21.0-31.0) Seconds PTT Ratio Sodium (136-145) mmol/L Potassium (3.5-5.1) mmol/L Chloride (98-107) mmol/L Carbon Dioxide (21-32) mmol/L Anion Gap (3-11) BUN (7-18) mg/dl Creatinine (0.6-1.4) mg/dl Est Cr Clr Drug Dosing ml/min Est GFR ( Amer) Est GFR (Non-Af Amer) BUN/Creatinine Ratio (10-20) Glucose (70-99) mg/dl POC Glucose 176 H (70-99) Lactate (0.4-2.0) mmol/L Calcium (8.5-10.1) mg/dl Magnesium (1.8-2.4) mg/dl Total Bilirubin (0.2-1) mg/dl AST (15-37) U/L ALT (12-78) U/L Alkaline Phosphatase (45-117) U/L Total Protein (6.4-8.2) gm/dl Albumin (3.4-5.0) gm/dl Globulin (2.5-4.0) gm/dl Albumin/Globulin Ratio (0.9-2) Nasal Screen MRSA (PCR) (Negative) Blood Type Antibody Screen Crossmatch Imaging Data Radiologist's Impression: Radiology results as stated below per my review and the radiologist's interpretation: XR ankle LT min 3V routine CLINICAL HISTORY: Wound at the level of the medial malleolus. COMPARISON: None DISCUSSION: There are extensive vascular calcifications present. There is periostitis at the level of the medial malleolus. Given history of overlying wound this could indicate early osteomyelitis. An MRI might be considered in follow-up for further evaluation. There is bony fragmentation involving the midfoot, likely on a neuropathic basis. IMPRESSION: 1. Periostitis the level of medial malleolus. Given history of overlying wound, this may indicate osteomyelitis. An MRI could be obtained in follow-up as deemed clinically indicated. 2. Presumed neuropathic changes within the midfoot. Electronically signed by: Osbaldo Hoover M.D. 05/18/2018 2:53 PM XR chest 1V portable CLINICAL HISTORY: Sepsis dyspnea COMPARISON STUDY: No previous studies for comparison. FINDINGS: Findings of a prior median sternotomy. Small parenchymal infiltrate medial aspect right lower lobe as well as left lower lobe. Mid and upper lungs are clear. Severe degenerative change of the shoulders bilaterally. IMPRESSION: Small bibasilar parenchymal infiltrates. The above report was generated using voice recognition software. It may contain grammatical, syntax or spelling errors. Electronically signed by: Kole Ro M.D. 05/18/2018 2:49 PM Blood Pressure Blood Pressure Findings: Low blood pressure Blood Pressure Disposition: further management by hospitalist MDM Narrative Prior records/ancillary studies reviewed. Triage nursing notes reviewed. The patient is a 72 year old white male with a history of diabetes, HTN, HLD, and GERD who presents to the Emergency Room from [facility] with complaints of persistent sharp left foot pain beginning today. Differential diagnosis: Etiologies such as osteomyelitis, coagulopathy, cellulitis, abscess, MRSA infection, DVT, necrotizing fasciitis, dermatitis, drug eruption, as well as others were entertained. Patient was seen and evaluated the bedside. The patient was having some left leg pain and associated bleeding from the wound. The patient does have a recent history of A. fib and started on a anticoagulant medication. The patient also does have a history of what the sister at bedside self describes as either a bypass or stent placement in the bilateral lower extremities for PAD. The patient's wounds were examined on the left lower extremity. There is some bleeding to the left medial malleolus. The other wounds do not appear bleeding at this time. Appears well perfused and is sensate soft compartments. Patient did have blood work completed along with a plain film of the ankle. The patient did have low hemoglobin was consented by his power of corporate attorney who is his sister . The patient was also given some pain medication and started on broad-spectrum antibiotics given concern for possible osteomyelitis of the left ankle. Given these concerns the patient was admitted to the medicine service for further evaluation and treatment. I did asked the patient about bright red blood per rectum or dark tarry stools which they denied. Rectal exam deferred at this time. The patient does have a history of anemia. Impression & Plan Osteomyelitis, Anemia Critical Care Time I have personally spent 55 minutes of critical care time in the direct management of this patient. This includes bedside care, interpretation of diagnostic studies, and testing, discussion with consultants, patient, and family members, and other required patient management activities. This 55 minutes is in excess of all separately billable procedures. Critical Care Time: Yes Total Critical Care Time: 55 Discharge Plan Visit Data *Final* Discharge Date/Time: 05/18/18 19:30 Chief Complaint: Foot Injury/Pain Stated Complaint: L foot wound/bleed /[place] ED Provider: Jef Gutierrez Discharge Problem: Osteomyelitis, Anemia Patient Disposition: Admitted As Inpatient Discharge Instructions Interventions: ED Discharge Assessment Last Done: 05/18/18 19:30 Discharge Problem: Osteomyelitis Qualifiers: Osteomyelitis type: unspecified type Osteomyelitis location: ankle Laterality: left Qualified Code(s): M86.9 - Osteomyelitis, unspecified Anemia Qualifiers: Anemia type: unspecified type Qualified Code(s): D64.9 - Anemia, unspecified The scribe's documentation has been prepared under my direction and personally reviewed by me in its entirety. I confirm that the note above accurately reflects all work, treatment, procedures, and medical decision making performed by me.
[2018-05-18 23:42] LABS: Hematocrit (blood only) 22.8 % (42-52); Hemoglobin 7.4 g/dL (14.0-18.0)
[2018-05-19] MEDS: VANCOMYCIN HCL 1,250 MG in SODIUM CHLORIDE 0.9% 250 ML IV SCH ×3 (00:21→17:00)
[2018-05-19] MEDS ORDERED: GADOBUTROL 65ML VIAL IV PRN (02:48)
[2018-05-19] MEDS: PIPERACILLIN/TAZOBACTAM 3.375 GM in DEXTROSE 5% 100 ML IV SCH ×3 (05:23→22:07)
[2018-05-19] MEDS: PANTOprazole 40 MG TAB PO SCH (05:23)
[2018-05-19] MEDS ORDERED: ACETAMINOPHEN 325 MG TAB PO SCH (06:00)
[2018-05-19 07:23] LABS: Hematocrit (blood only) 23.8 % (42-52); Hemoglobin 7.7 g/dL (14.0-18.0); Mean Corpuscular Hgb Conc 32.4 g/dL (32-36); Mean Corpuscular Volume 81.8 fL (80-100); Mean Platelet Volume 9.3 fL (7.4-10.4); Platelet Count 166 K/uL (130-400); RDW Coefficient of Variation 18.3 % (11.5-14.5); RDW Standard Deviation 55.1 fL (36.4-46.3); Red Blood Count 2.91 M/uL (4.7-6.1); White Blood Count 7.23 K/uL (4.8-10.8)
[2018-05-19 07:37] LABS: INR 1.6 (0.9-1.1); Prothrombin Time 16.1 Seconds (9.0-12.0)
[2018-05-19 07:47] LABS: Albumin Level 1.6 gm/dl (3.4-5.0); BUN Creatinine Ratio 90.4 (10-20); Calcium 8.3 mg/dl (8.5-10.1); Creatinine Clr Calc Pharmacy 167.5 ml/min; Est GFR (African American) 130.8; Est GFR (Non-African American) 112.8; Magnesium 1.9 mg/dl (1.8-2.4); Potassium 3.6 mmol/L (3.5-5.1)
--- NOTE | 2018-05-19 07:52 | Magnetic Resonance Report ---
MR ankle LT wo/w con HISTORY: 72 years-old Male ankle wound r/o osteo, chronic ankle wound with concern for osteomyelitis . COMPARISON: Left ankle radiographs 05/18/2018. TECHNIQUE: Multiplanar multisequence MRI of the left ankle was obtained both with and without the use of 8 mL Gadavist. FINDINGS: Motion degraded exam. The study is also limited secondary to positioning of the patient. There is ext ensive subcutaneous and deep tissue edema about the lower leg, ankle and imaged foot. Moderate to ext ensive atrophy of the intrinsic musculature. There is no drainable fluid collection identified. Moder ate tendinosis of the tibialis posterior tendon without acute tear identified. Moderate tendinosis of the peroneus longus and brevis tendons. There is a long segment split tear noted about the peroneus brevis tendon extending for a length of approximately 5.5 cm from the supramalleolar to inframalleola r distributions. The extensor tendons appear intact. Mild tendinosis of the Achilles tendon without t ear identified. Moderate sized enthesophytes of the calcaneus. Mild thickening about the medial and l ateral cords of the plantar fascia suggest sequela of chronic plantar fasciitis. Mild thickening abou t the anterior talofibular ligament is suggestive of chronic sprain. The interosseous ligaments, calc aneofibular and posterior talofibular ligaments appear intact. Interosseous band of the Lisfranc liga ment is identified and appears intact. Multifocal joint space narrowing with chondromalacia and marginal osteophytosis noted about the midfo ot and hindfoot. Moderate degenerative changes of the tibiotalar joint. Fragmentation about the midfo ot is better appreciated on comparison radiographs. 5 mm osteochondral defect about the lateral talar dome. Scattered multifocal bone marrow edema about the hindfoot and midfoot is likely degenerative r elated and/or secondary to neuropathic changes. Moderate bone marrow edema involves the medial malleo gabriele with only minimally decreased T1 marrow signal. Mild periostitis with periosteal edema and enhanc ement within this distribution. IMPRESSION: 1. Limited exam as above. 2. Moderate bone marrow edema with enhancement, periostitis and periosteal edema involves the medial malleolus correlating with the previously described radiographic findings. Additionally, there is sli ghtly decreased T1 marrow signal within this distribution. Constellation of findings are concerning f or early mild osteomyelitis. Correlate clinically. 3. Extensive subcutaneous and deep tissue edema about the lower leg, ankle and imaged foot with mild areas of associated enhancement are suggestive of cellulitis changes. No drainable fluid collection. 4. Atrophy of the intrinsic foot musculature suggests chronic denervation changes. 5. 5 mm osteochondral defect of the lateral talar dome. 6. Additional findings as above. The above report was generated using voice recognition software. It may contain grammatical, syntax o r spelling errors. Dictated: 05/19/2018 7:31 AM Transcribed: 05/19/2018 7:51 AM Tanisha [id number] [facility] Electronically signed by: Josh Machuca M.D. 05/19/2018 8:56 AM
[2018-05-19 07:56] LABS: Albumin Globulin Ratio 0.3 (0.9-2); Bilirubin,Total 1.2 mg/dl (0.2-1); C Reactive Protein 6.16 mg/dl (0-0.29); Globulin 4.7 gm/dl (2.5-4.0); Total Protein 6.3 gm/dl (6.4-8.2)
[2018-05-19] MEDS: PREGABALIN 100 MG CAP PO SCH ×3 (07:59→20:51)
[2018-05-19] MEDS: OXYCODONE HCL IR 5 MG TAB (IMMEDIATE RELEASE) PO SCH ×4 (07:59→20:51)
[2018-05-19] MEDS: AMIODARONE 200 MG TAB PO SCH ×2 (08:01→19:54)
[2018-05-19] MEDS: MAGNESIUM OXIDE 400 MG TAB PO SCH ×2 (08:02→19:53)
[2018-05-19] MEDS: FERROUS SULFATE 325 MG TAB PO SCH ×2 (08:02→19:54)
[2018-05-19] MEDS: DULOXETINE HCL 60 MG CAP PO SCH (08:02)
[2018-05-19] MEDS: ASCORBIC ACID 500 MG TAB PO SCH (08:03)
[2018-05-19] MEDS: METOPROLOL SUCC 25MG EXT REL TAB PO SCH (08:04)
[2018-05-19] MEDS: INSULIN GLARGINE SOLOSTAR 100 UNITS/ML 3 ML PEN SC SCH ×2 (08:06→20:51)
[2018-05-19] MEDS: INSULIN ASPART 100 UNITS/ML 3 ML PEN SC SCH ×4 (08:09→20:53)
[2018-05-19 08:31] LABS: Estimated Average Glucose 111 mg/dl; Hemoglobin A1C 5.5 % (4.5-5.6)
--- NOTE | 2018-05-19 13:23 | Wound Consultation ---
Date of Consultation May 19, 2018 Assessment & Plan (1) Diabetic foot ulcer associated with type 2 diabetes mellitus: Diabetic foot ulcer of the right lateral foot needed debridement. Using scissors eschar was removed. Patient tolerated this well with no complications. Represents non-excisional debridement less than 20 cm. Wound culture was obtained as it was purulent drainage. Would await cultures before making any changes to antibiotics. Wound will be dressed with Aquacel Ag. Present on Admission?: Yes (2) Osteomyelitis of ankle, left, acute: MRI was positive for osteomyelitis. Would recommend orthopedic and infectious disease consult. (3) Cellulitis of left leg: Patient with numerous wounds of his left lower extremity. Wounds of the left medial ankle, left anterior foot and left dorsal foot will be dressed with Aquacel Ag. The rest of the wounds are covered with black eschar will be painted with Betadine. We will continue to monitor the patient as needed. Thank you for allowing me to participate in the care of this patient. Please not hesitate to call with any questions. History of Present Illness Attending Physician: Walt Hicks MD This is a 72-year-old male with complicated medical history including aortic stenosis, CAD, diastolic heart failure, atrial fibrillation, peripheral vascular disease, type 2 diabetes mellitus, GERD, dyslipidemia, hypertension and anemia was admitted with cellulitis and anemia. Patient with numerous wounds on his bilateral lower extremities left greater than right. Left ankle x-ray showed periostitis at the level of the medial malleolus suggestive of possible osteomyelitis. MRI does suggest mild early osteomyelitis. Patient reports that he did have revascularization of his lower extremities 1-2 months ago done in [place]. We are still awaiting these records. Patient is currently on Vanco and Zosyn for cellulitis. Lactic acid has improved. Patient continues to complain of chronic pain. Allergies Allergy/AdvReac Type Severity Reaction Status Date / Time heparin Allergy Unknown Verified 05/18/18 16:18 Home Medications Home Medications Medication Instructions Recorded Confirmed Type Allevyn Gentle Border Lite 1 applic TOPICAL UD 05/18/18 05/18/18 History Aquacel Ag Dressing 1 applic TOPICAL Q OTHER DAY 05/18/18 05/18/18 History Med Pass Supplement 200 ml PO TID 05/18/18 05/18/18 History Silicone Border Dressing 1 applic TOPICAL UD 05/18/18 05/18/18 History Silver Alginate 1 applic TOPICAL Q OTHER DAY 05/18/18 05/18/18 History acetaminophen [Tylenol Extra 500 mg PO Q4 PRN 05/18/18 05/18/18 History Strength] amiodarone 200 mg PO AMHS 05/18/18 05/18/18 History ascorbic acid (vitamin C) [Vitamin 500 mg PO QAM 05/18/18 05/18/18 History C] atorvastatin 40 mg PO HS 05/18/18 05/18/18 History bumetanide 1 mg PO DAILY 05/18/18 05/18/18 History bumetanide 2 mg PO DAILY 05/18/18 05/18/18 History clopidogrel 75 mg PO DAILY 05/18/18 05/18/18 History doxycycline hyclate 100 mg PO BID 05/18/18 05/18/18 History duloxetine 60 mg PO DAILY 05/18/18 05/18/18 History ferrous sulfate 325 mg PO BID 05/18/18 05/18/18 History glipizide 2.5 mg PO QAM 05/18/18 05/18/18 History hydrocodone-acetaminophen [[place]] 1 tab PO Q6H PRN 05/18/18 05/18/18 History ipratropium-albuterol 3 ml INHALATION Q6 PRN 05/18/18 05/18/18 History magnesium oxide 400 mg PO BID 05/18/18 05/18/18 History melatonin 5 mg PO HS 05/18/18 05/18/18 History metoprolol succinate 12.5 mg PO DAILY 05/18/18 05/18/18 History omeprazole 20 mg PO DAILYBB 05/18/18 05/18/18 History oxycodone 5 mg PO QID 05/18/18 05/18/18 History polyethylene glycol 3350 17 g PO TID 05/18/18 05/18/18 History potassium chloride 10 meq PO DAILY 05/18/18 05/18/18 History pregabalin [Lyrica] 100 mg PO TID 05/18/18 05/18/18 History rivaroxaban [Xarelto] 20 mg PO HS 05/18/18 05/18/18 History tamsulosin 0.4 mg PO HS 05/18/18 05/18/18 History [id number]-C-Zn-Cu-tos 1 dose PO BID 05/18/18 05/18/18 History [ArgiMent AT] zinc oxide 1 applic TOPICAL QS 05/18/18 05/18/18 History Patient History Medical History Cirrhosis (Chronic) 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) Chronic diastolic heart failure (Chronic) Atrial fibrillation (Chronic) PVD (peripheral vascular disease) (Chronic) Malnutrition (Chronic) Aortic stenosis (Chronic) CAD (coronary artery disease) (Chronic) Diastolic heart failure (Chronic) Urinary retention (Chronic) BPH (benign prostatic hyperplasia) (Chronic) Diabetes mellitus, type II (Chronic) GERD (gastroesophageal reflux disease) HLD (hyperlipidemia) (Chronic) Hypertension (Chronic) Surgical History History of cholecystectomy (Chronic) History of aortic valve replacement with bioprosthetic valve (Chronic) History of coronary artery bypass graft x 2 (Chronic) Social History Preferred Language: Marshallese Communication Ability: Effective Beliefs That Will Affect Care: None Current Living Situation: Prison Other Information That Helps Us Care for You: No Feels Safe at Home: Yes Smoking Status: Former smoker Hx Alcohol Use: No Hx Substance Use: No Review of Systems 10 point review of systems negative except per. Physical Exam Vital Signs (Past 24 Hours): Last Vital Signs Temp 36.4 C L 05/19/18 12:39 Pulse 56 L 05/19/18 12:39 Resp 18 05/19/18 12:39 BP 103/51 L 05/19/18 12:39 Pulse Ox 94 05/19/18 12:39 Constitutional: + ill appearing Respiratory: normal respiratory effort, lungs clear to auscultation Skin: Patient with numerous lesions on left and right lower extremities measuring as recorded in nursing documentation. Right lateral midfoot wound measuring 1.3 x 2 x 0.2 cm. This wound is covered with eschar and has purulent drainage. Left medial ankle measuring 4.5 x 4.5 x 0.1 cm. This wound is covered with eschar and slough. There is moderate drainage. Left anterior foot wound measuring 1 x 1 x 0.2 cm. Wound is covered with eschar and slough. Dorsal foot wound measuring 2.5 x 2.5 x 0.1 cm. This is covered with eschar and slough. Neurologic: awake Psychiatric: A+Ox3, euthymic affect Results & Data Diagnostic Findings Left Ankle MRI Slightly decreased T1 marrow signal within this distribution. The constellation of findings are concerning for early mild osteomyelitis. Extensive subcutaneous and deep tissue edema about the lower leg ankle and foot with mild areas of associated enhancement suggestive of cellulitis change.
[2018-05-19] MEDS ORDERED: SODIUM CHLORIDE 0.9% 250 ML IV PRN (14:11)
--- NOTE | 2018-05-19 14:35 | Infectious Disease Consult ---
Date of Consultation May 19, 2018 Assessment & Plan (1) Wound of lower extremity: continue abx, follow cultures, ortho eval pending (2) Osteomyelitis: History of Present Illness Attending Physician: Walt Hicks MD pt admitted with bleeding lower leg wounds. follows with podiatry and wound care in [facility], vascular in [place]. Saw wound care here in hospital, debridement of right foot done at bedside, purulent drainage noted, cutlure obtained, results pending. afebrile since admission. placed on emperic abx, vanco and zosyn, tolerating well. dressing changed. MRI left ankle + osteo and soft tissue edema, esr 70, no abscess noted. ortho eval pending. wbc nml. no allergies to abx. no cp, sob, cough, denies n/v/d/abd pain ,eating well. only c/o pain in legs, chronic. Allergies Allergy/AdvReac Type Severity Reaction Status Date / Time heparin Allergy Unknown Verified 05/18/18 16:18 Home Medications Home Medications Medication Instructions Recorded Confirmed Type Allevyn Gentle Border Lite 1 applic TOPICAL UD 05/18/18 05/18/18 History Aquacel Ag Dressing 1 applic TOPICAL Q OTHER DAY 05/18/18 05/18/18 History Med Pass Supplement 200 ml PO TID 05/18/18 05/18/18 History Silicone Border Dressing 1 applic TOPICAL UD 05/18/18 05/18/18 History Silver Alginate 1 applic TOPICAL Q OTHER DAY 05/18/18 05/18/18 History acetaminophen [Tylenol Extra 500 mg PO Q4 PRN 05/18/18 05/18/18 History Strength] amiodarone 200 mg PO AMHS 05/18/18 05/18/18 History ascorbic acid (vitamin C) [Vitamin 500 mg PO QAM 05/18/18 05/18/18 History C] atorvastatin 40 mg PO HS 05/18/18 05/18/18 History bumetanide 1 mg PO DAILY 05/18/18 05/18/18 History bumetanide 2 mg PO DAILY 05/18/18 05/18/18 History clopidogrel 75 mg PO DAILY 05/18/18 05/18/18 History doxycycline hyclate 100 mg PO BID 05/18/18 05/18/18 History duloxetine 60 mg PO DAILY 05/18/18 05/18/18 History ferrous sulfate 325 mg PO BID 05/18/18 05/18/18 History glipizide 2.5 mg PO QAM 05/18/18 05/18/18 History hydrocodone-acetaminophen [[employer]] 1 tab PO Q6H PRN 05/18/18 05/18/18 History ipratropium-albuterol 3 ml INHALATION Q6 PRN 05/18/18 05/18/18 History magnesium oxide 400 mg PO BID 05/18/18 05/18/18 History melatonin 5 mg PO HS 05/18/18 05/18/18 History metoprolol succinate 12.5 mg PO DAILY 05/18/18 05/18/18 History omeprazole 20 mg PO DAILYBB 05/18/18 05/18/18 History oxycodone 5 mg PO QID 05/18/18 05/18/18 History polyethylene glycol 3350 17 g PO TID 05/18/18 05/18/18 History potassium chloride 10 meq PO DAILY 05/18/18 05/18/18 History pregabalin [Lyrica] 100 mg PO TID 05/18/18 05/18/18 History rivaroxaban [Xarelto] 20 mg PO HS 05/18/18 05/18/18 History tamsulosin 0.4 mg PO HS 05/18/18 05/18/18 History ecnz-[id number]-C-Zn-Cu-tos 1 dose PO BID 05/18/18 05/18/18 History [ArgiMent AT] zinc oxide 1 applic TOPICAL QS 05/18/18 05/18/18 History Patient History Medical History Cirrhosis (Chronic) 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) Chronic diastolic heart failure (Chronic) Atrial fibrillation (Chronic) PVD (peripheral vascular disease) (Chronic) Malnutrition (Chronic) Aortic stenosis (Chronic) CAD (coronary artery disease) (Chronic) Diastolic heart failure (Chronic) Urinary retention (Chronic) BPH (benign prostatic hyperplasia) (Chronic) Diabetes mellitus, type II (Chronic) GERD (gastroesophageal reflux disease) HLD (hyperlipidemia) (Chronic) Hypertension (Chronic) Surgical History History of cholecystectomy (Chronic) History of aortic valve replacement with bioprosthetic valve (Chronic) History of coronary artery bypass graft x 2 (Chronic) Family History Other Cancer Coronary heart disease Diabetes Social History Preferred Language: Armenian Communication Ability: Effective Beliefs That Will Affect Care: None Current Living Situation: Assisted Other Information That Helps Us Care for You: No Feels Safe at Home: Yes Smoking Status: Former smoker Hx Alcohol Use: No Hx Substance Use: No Review of Systems all remaining ros reviewed and are negative Physical Exam Vital Signs (Past 24 Hours): Last Vital Signs Temp 36.4 C L 05/19/18 12:39 Pulse 56 L 05/19/18 12:39 Resp 18 05/19/18 12:39 BP 103/51 L 05/19/18 12:39 Pulse Ox 94 05/19/18 12:39 Constitutional: WD/WN, vitals as above Eyes: PERRL, conjunctivae normal, anicteric sclerae ENMT: external ear and nose normal, oropharynx normal Neck: normal visual inspection Respiratory: normal respiratory effort, lungs clear to auscultation Cardiovascular: Rate/Rhythm: regular rate Heart Sounds: + murmur Gastrointestinal (Abdomen): normal bowel sounds, soft, nontender, no hepatosplenomegaly Musculoskeletal: no cyanosis or clubbing, extremities motor strength 5/5 Skin: no rashes, warm and dry b/l leg dressing c/d/i. no drainage or bleeding Psychiatric: A+Ox3, euthymic affect (1) Osteomyelitis Laterality: left Osteomyelitis location: ankle Osteomyelitis type: unspecified type Qualified Code(s): M86.9 - Osteomyelitis, unspecified
[2018-05-19] MEDS ORDERED: VANCOMYCIN TROUGH ONE (15:30)
--- NOTE | 2018-05-19 18:51 | Orthopedic Consultation ---
Date of Consultation May 19, 2018 Assessment & Plan (1) Osteomyelitis of ankle, left, acute: Primary reason for consult was osteomyelitis left tibia. Patient has no abscess but has bone edema within the tibia likely related osteomyelitis. He has periosteal reaction calcification around the medial malleolus area which would be consistent with chronic osteomyelitis. Patient also has multiple areas of eschar localized gangrene. I think the prognosis for these wounds to heal is poor. Patient not currently septic and would treat him with long-term IV antibiotics and wound care. We can consult with Dr. Joel when he returns in a week. I think he may want to consider amputations as he is nonambulatory. I did bring this up with him and he did not want to consider this option. History of Present Illness Attending Physician: Walt Hicks MD Elderly ill male with multiple nonhealing wounds both lower extremities. Patient apparently nonambulatory and bedbound Allergies Allergy/AdvReac Type Severity Reaction Status Date / Time heparin Allergy Unknown Verified 05/18/18 16:18 Home Medications Home Medications Medication Instructions Recorded Confirmed Type Allevyn Gentle Border Lite 1 applic TOPICAL UD 05/18/18 05/18/18 History Aquacel Ag Dressing 1 applic TOPICAL Q OTHER DAY 05/18/18 05/18/18 History Med Pass Supplement 200 ml PO TID 05/18/18 05/18/18 History Silicone Border Dressing 1 applic TOPICAL UD 05/18/18 05/18/18 History Silver Alginate 1 applic TOPICAL Q OTHER DAY 05/18/18 05/18/18 History acetaminophen [Tylenol Extra 500 mg PO Q4 PRN 05/18/18 05/18/18 History Strength] amiodarone 200 mg PO AMHS 05/18/18 05/18/18 History ascorbic acid (vitamin C) [Vitamin 500 mg PO QAM 05/18/18 05/18/18 History C] atorvastatin 40 mg PO HS 05/18/18 05/18/18 History bumetanide 1 mg PO DAILY 05/18/18 05/18/18 History bumetanide 2 mg PO DAILY 05/18/18 05/18/18 History clopidogrel 75 mg PO DAILY 05/18/18 05/18/18 History doxycycline hyclate 100 mg PO BID 05/18/18 05/18/18 History duloxetine 60 mg PO DAILY 05/18/18 05/18/18 History ferrous sulfate 325 mg PO BID 05/18/18 05/18/18 History glipizide 2.5 mg PO QAM 05/18/18 05/18/18 History hydrocodone-acetaminophen [[place]] 1 tab PO Q6H PRN 05/18/18 05/18/18 History ipratropium-albuterol 3 ml INHALATION Q6 PRN 05/18/18 05/18/18 History magnesium oxide 400 mg PO BID 05/18/18 05/18/18 History melatonin 5 mg PO HS 05/18/18 05/18/18 History metoprolol succinate 12.5 mg PO DAILY 05/18/18 05/18/18 History omeprazole 20 mg PO DAILYBB 05/18/18 05/18/18 History oxycodone 5 mg PO QID 05/18/18 05/18/18 History polyethylene glycol 3350 17 g PO TID 05/18/18 05/18/18 History potassium chloride 10 meq PO DAILY 05/18/18 05/18/18 History pregabalin [Lyrica] 100 mg PO TID 05/18/18 05/18/18 History rivaroxaban [Xarelto] 20 mg PO HS 05/18/18 05/18/18 History tamsulosin 0.4 mg PO HS 05/18/18 05/18/18 History [id number]-C-Zn-Cu-tos 1 dose PO BID 05/18/18 05/18/18 History [ArgiMent AT] zinc oxide 1 applic TOPICAL QS 05/18/18 05/18/18 History Patient History Medical History Cirrhosis (Chronic) 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) Chronic diastolic heart failure (Chronic) Atrial fibrillation (Chronic) PVD (peripheral vascular disease) (Chronic) Malnutrition (Chronic) Aortic stenosis (Chronic) CAD (coronary artery disease) (Chronic) Diastolic heart failure (Chronic) Urinary retention (Chronic) BPH (benign prostatic hyperplasia) (Chronic) Diabetes mellitus, type II (Chronic) GERD (gastroesophageal reflux disease) HLD (hyperlipidemia) (Chronic) Hypertension (Chronic) Surgical History History of cholecystectomy (Chronic) History of aortic valve replacement with bioprosthetic valve (Chronic) History of coronary artery bypass graft x 2 (Chronic) Family History Other Cancer Coronary heart disease Diabetes Social History Preferred Language: Persian Communication Ability: Effective Beliefs That Will Affect Care: None marital status: Single Current Living Situation: Shelter Other Information That Helps Us Care for You: No Feels Safe at Home: Yes Smoking Status: Former smoker Hx Alcohol Use: No Hx Substance Use: No Review of Systems Patient awake alert not feeling ill and review of systems otherwise non contributory Physical Exam Vital Signs (Past 24 Hours): Last Vital Signs Temp 36.6 C 05/19/18 17:31 Pulse 56 L 05/19/18 17:31 Resp 20 05/19/18 17:31 BP 103/54 L 05/19/18 17:31 Pulse Ox 97 05/19/18 17:31 Physical Exam: Left leg demonstrates multiple pretibial skin lesions demonstrates full-thickness eschar over the heel with open skin wound over the medial malleolus with exposed subcutaneous tissues no exposed bone no abscess but weeping drainage. He has full-thickness skin loss over his second toe with a hammertoe and eschar over the dorsum of the toe. Over his first MTP joint medially another eschar and some other smaller eschars. His foot is pink otherwise. Right leg he has an open wound with some drainage over the fifth metatarsal has a bandage over it. Has a smaller eschar over the heel has some other smaller eschars including over the medial first metatarsal phalangeal joint all likely full-thickness skin loss due to gangrene.
--- NOTE | 2018-05-19 19:49 | Pharmacy Report ---
Pharmacy Abx Dose Short Note - Date of Service May 19, 2018 - Assessment & Plan Assessment 72 year old M receiving empiric vancomycin and piperacillin/tazobactam for treatment of lower extremity wound/osteomyelitis Day #2 of antimicrobial therapy. Plan Purulence of the wound is noted. Ankle MRI indicative of early osteomyelitis. CRP: 6.6 and ESR: 70 (both elevated) Blood x 2 and deep right foot wound culture are pending. Broad spectrum antibiotics appropriate at this time. Vancomycin * Trough level of 22.9 mcg/mL is slightly supratherapeutic * Continue dose of 1250 mg IV, but will increase frequency to every 10 hours * Goal trough level for osteomyelitis : 15 to 20 mcg/mL * Trough level ordered for tomorrow prior to the third dose of this new regimen (@1130) * Ordered earlier than typical due to big change in renal function from yesterday (0.7 -> 0.46) Zosyn * Continue 3.375 g IV q8h (based on BMI less than 35 and CrCl > 20 mL/min) Pharmacy will continue to follow and will adjust dose/frequency as necessary. Thank you.
[2018-05-19] MEDS: BUMETANIDE 1 MG TAB PO SCH (19:51)
[2018-05-19] MEDS: TAMSULOSIN HCL 0.4 MG CAP PO SCH (19:53)
[2018-05-19] MEDS: ATORVASTATIN 40 MG TAB PO SCH (19:55)
--- NOTE | 2018-05-20 | Hospitalist Progress Note ---
Date of Service May 20, 2018 delayed entry date of service 05/19 Assessment & Plan (1) Anemia: Acute Blood Loss Anemia from Lower Leg Wound Bleeeding Pt with hx iron deficiency anemia. Baseline Hgb: 8-9. Presented to ER with bleeding lower extremity wounds. No reported melena, hematochezia. Pt on plavix and xarelto In ER T: 36.5, P: 98, R: 21, BP: 110/52, 100% on RA. Hgb: 6.2, Hct: 20, Plt: 182, INR: 2.4, BUN: 51, Cr: 0.7 -- Hg 7.7 after 2 units PRBC 1 more unit ordered - FOBT pending - hold Plavix and Xarelto for now (2) Wound of lower extremity: OSTEOMYELITIS LEFT ANKLE Hx PVD. Hx MRSA WBC: 8, lactate 2.7 In ER pt given 1L NSS, zosyn, vancomycin L Ankle xray: Periostitis the level of medial malleolus. Given history of overlying wound, this may indicate osteomyelitis. Presumed neuropathic changes within the midfoot. -- cultures pending -- Wound Care consulted -- ID and Ortho consulted -- continue Vanco and Zosyn (3) PVD (peripheral vascular disease): Pt follows with vascular surgery in [place] Dr Fonseca. Pts sister reports that pt had recent bilateral leg revascularization in the past 1-2 months -obtain outside records -will hold plavix for now with anemia and re-evaluate and once have further info on if pt had stent placement (4) History of aortic valve replacement with bioprosthetic valve: aortic stenosis s/p bioprosthetic valve replacement in 09/2017 at [facility] (5) CAD (coronary artery disease): CAD s/p CABG x 2 in 09/2017 at [place] -continue statin, metoprolol (6) Atrial fibrillation: Hx a-fib after cardiac surgery in 09/2017, requiring cardioversion -hold xarelto at this time with anemia -- in sinus rhythm (7) Chronic diastolic heart failure: resume Bumex 1mg daily (8) Cirrhosis: Hx cirrhosis. LFT's chronically elevated with AST: 56, ALT: 45, Alk Phos: 123, normal bili. (04/2018: AST: 54, ALT: 46, Alk Phos: 136) -monitor liver functions (9) BPH (benign prostatic hyperplasia): (10) Urinary retention: Hx BPH and chronic urinary retention. Follows with Urology [facility]. Reported consideration for suprapubic cath placement in future. 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 Will hold on SCDs with active leg wounds and hold on chemo prophylaxis and reassess. Full Code as per discussion with pt and pt's sister Follows with Dr Campoverde at [facility] for routine care Subjective ff up for anemia, chronic leg wounds seen resting in bed, not in distress comfortable states pain on the legs adequately controlled denies chest pain, dyspnea, dizziness denies fever/chills no other symptoms Physical Exam Vital Signs (Past 24 Hours): Last Vital Signs Temp 36.8 C 05/19/18 19:26 Pulse 52 L 05/19/18 19:26 Resp 18 05/19/18 19:26 BP 99/60 L 05/19/18 19:26 Pulse Ox 97 05/19/18 19:26 Physical Exam: General- oriented x 3, not in distress, speaks in sentences with no effort or accessory muscle use Eyes- anicteric Neck- no JVD Lungs- clear breath sounds bilaterally, no rales/wheezes Heart- normal rate, regular rhythm; no murmurs Abdomen- normal bowel sounds, nondistended, soft, nontender Extremities- lower leg wounds: dressingin place, no active bleeding no pretibial edema, no calf tenderness Neuro- alert, oriented x 3; no gross focal neurologic deficits Skin- warm & dry Results & Data Laboratory Results Laboratory Results - last 24 hr 05/18/18 05/19/18 05/19/18 15:05 06:49 06:49 WBC RBC Hgb Hct MCV MCH MCHC RDW Std Deviation RDW Coeff of [place] Plt Count MPV ESR PT INR Sodium 138 Potassium 3.6 Chloride 101 Carbon Dioxide 30 Anion Gap 7.0 BUN 41 H Creatinine 0.46 L Est Cr Clr Drug Dosing 167.5 Est GFR ( Amer) 130.8 Est GFR (Non-Af Amer) 112.8 BUN/Creatinine Ratio 90.4 H Glucose 65 L POC Glucose Estimat Average Glucose 111 Hemoglobin A1c 5.5 Calcium 8.3 L Magnesium 1.9 Total Bilirubin 1.2 H D AST 54 H ALT 43 Alkaline Phosphatase 114 C-Reactive Protein 6.16 H Total Protein 6.3 L Albumin 1.6 L Globulin 4.7 H Albumin/Globulin Ratio 0.3 L Vancomycin Trough Blood Type A Positive Antibody Screen NEGATIVE Crossmatch See Detail 05/19/18 05/19/18 05/19/18 06:49 06:49 06:49 WBC 7.23 RBC 2.91 L Hgb 7.7 L Hct 23.8 L MCV 81.8 MCH 26.5 MCHC 32.4 RDW Std Deviation 55.1 H RDW Coeff of [place] 18.3 H Plt Count 166 MPV 9.3 ESR 70 H PT 16.1 H INR 1.6 H Sodium Potassium Chloride Carbon Dioxide Anion Gap BUN Creatinine Est Cr Clr Drug Dosing Est GFR ( Amer) Est GFR (Non-Af Amer) BUN/Creatinine Ratio Glucose POC Glucose Estimat Average Glucose Hemoglobin A1c Calcium Magnesium Total Bilirubin AST ALT Alkaline Phosphatase C-Reactive Protein Total Protein Albumin Globulin Albumin/Globulin Ratio Vancomycin Trough Blood Type Antibody Screen Crossmatch 05/19/18 05/19/18 05/19/18 07:15 12:23 15:25 WBC RBC Hgb Hct MCV MCH MCHC RDW Std Deviation RDW Coeff of [place] Plt Count MPV ESR PT INR Sodium Potassium Chloride Carbon Dioxide Anion Gap BUN Creatinine Est Cr Clr Drug Dosing Est GFR ( Amer) Est GFR (Non-Af Amer) BUN/Creatinine Ratio Glucose POC Glucose 79 105 H Estimat Average Glucose Hemoglobin A1c Calcium Magnesium Total Bilirubin AST ALT Alkaline Phosphatase C-Reactive Protein Total Protein Albumin Globulin Albumin/Globulin Ratio Vancomycin Trough 22.9 Blood Type Antibody Screen Crossmatch 05/19/18 05/19/18 16:04 20:04 WBC RBC Hgb Hct MCV MCH MCHC RDW Std Deviation RDW Coeff of [place] Plt Count MPV ESR PT INR Sodium Potassium Chloride Carbon Dioxide Anion Gap BUN Creatinine Est Cr Clr Drug Dosing Est GFR ( Amer) Est GFR (Non-Af Amer) BUN/Creatinine Ratio Glucose POC Glucose 115 H 114 H Estimat Average Glucose Hemoglobin A1c Calcium Magnesium Total Bilirubin AST ALT Alkaline Phosphatase C-Reactive Protein Total Protein Albumin Globulin Albumin/Globulin Ratio Vancomycin Trough Blood Type Antibody Screen Crossmatch (1) Anemia Anemia type: unspecified type Qualified Code(s): D64.9 - Anemia, unspecified
[2018-05-20] MEDS: VANCOMYCIN HCL 1,250 MG in SODIUM CHLORIDE 0.9% 250 ML IV SCH ×2 (02:22→12:57)
[2018-05-20] MEDS: MoRPHine SULFATE 2 MG/ML CARP IV PRN ×2 (03:10→20:10)
[2018-05-20] MEDS: PIPERACILLIN/TAZOBACTAM 3.375 GM in DEXTROSE 5% 100 ML IV SCH ×3 (05:17→22:01)
[2018-05-20] MEDS: PANTOprazole 40 MG TAB PO SCH (05:18)
[2018-05-20 07:15] LABS: C Reactive Protein 5.65 mg/dl (0-0.29); Creatinine Clr Calc Pharmacy 158.9 ml/min; Est GFR (African American) 128.5; Est GFR (Non-African American) 110.9
[2018-05-20] MEDS: OXYCODONE HCL IR 5 MG TAB (IMMEDIATE RELEASE) PO SCH ×4 (08:13→22:11)
[2018-05-20] MEDS: FERROUS SULFATE 325 MG TAB PO SCH ×2 (08:14→22:04)
[2018-05-20] MEDS: METOPROLOL SUCC 25MG EXT REL TAB PO SCH (08:14)
[2018-05-20] MEDS: BUMETANIDE 1 MG TAB PO SCH (08:14)
[2018-05-20] MEDS: ASCORBIC ACID 500 MG TAB PO SCH (08:14)
[2018-05-20] MEDS: DULOXETINE HCL 60 MG CAP PO SCH (08:14)
[2018-05-20] MEDS: MAGNESIUM OXIDE 400 MG TAB PO SCH ×2 (08:15→22:03)
[2018-05-20] MEDS: AMIODARONE 200 MG TAB PO SCH ×2 (08:15→22:04)
[2018-05-20] MEDS: PREGABALIN 100 MG CAP PO SCH ×3 (08:26→22:11)
[2018-05-20] MEDS: INSULIN ASPART 100 UNITS/ML 3 ML PEN SC SCH ×4 (08:28→22:12)
[2018-05-20] MEDS: INSULIN GLARGINE SOLOSTAR 100 UNITS/ML 3 ML PEN SC SCH ×2 (08:29→22:11)
[2018-05-20] MEDS ORDERED: VANCOMYCIN TROUGH ONE (11:30)
--- NOTE | 2018-05-20 13:18 | Infectious Disease Progress Nt ---
Date of Service May 20, 2018 Assessment & Plan (1) Wound of lower extremity: continue abx, if no gnr growing tomorrow, will stop zosyn. continue vanco for now, await final sensitities of S. aureus, hopefully can transition to po, agree that amputation may be best option for treatment of left leg osteo but patient has declined. will need ongoing wound care post d/c. (2) Osteomyelitis: Subjective pt remains on IV abx. right leg wound growing S. aureus, final pending. afebrile. blood cultures negative. s/p ortho eval, suggest amp due to osteo left foot, pt declined. Physical Exam Vital Signs (Past 24 Hours): Last Vital Signs Temp 36.5 C 05/20/18 10:37 Pulse 53 L 05/20/18 10:37 Resp 16 05/20/18 10:37 BP 115/57 L 05/20/18 10:37 Pulse Ox 99 05/20/18 10:37 Results & Data Laboratory Results Microbiology 05/19/18 11:50 Foot,Right Gram Stain - Final 05/19/18 11:50 Foot,Right Deep Wound Culture - Preliminary Staphylococcus aureus 05/18/18 15:10 Blood Blood Culture - Preliminary No growth to date. 05/18/18 15:05 Blood Blood Culture - Preliminary No growth to date. (1) Osteomyelitis Laterality: left Osteomyelitis location: ankle Osteomyelitis type: unspecified type Qualified Code(s): M86.9 - Osteomyelitis, unspecified
[2018-05-20 13:21] LABS: Basophils # (auto) 0.01 K/uL (0-0.2); Basophils % (auto) 0.1 %; Hematocrit (blood only) 25.3 % (42-52); Immature Granulocytes # (auto) 0.02 K/uL (0.00-0.02); Immature Granulocytes % (auto) 0.3 %; Lymphocytes # (auto) 0.74 K/uL (1.2-3.4); Mean Corpuscular Hgb Conc 31.6 g/dL (32-36); Mean Corpuscular Volume 82.1 fL (80-100); Mean Platelet Volume 9.1 fL (7.4-10.4); Monocytes % (auto) 8.9 %; Neutrophils # (auto) 5.15 K/uL (1.4-6.5); Neutrophils % (auto) 76.7 %; Platelet Count 162 K/uL (130-400); RDW Coefficient of Variation 18.4 % (11.5-14.5); RDW Standard Deviation 55.3 fL (36.4-46.3); Red Blood Count 3.08 M/uL (4.7-6.1); White Blood Count 6.72 K/uL (4.8-10.8)
[2018-05-20 13:45] LABS: Calcium 8.1 mg/dl (8.5-10.1); Creatinine Clr Calc Pharmacy 173.4 ml/min; Est GFR (African American) 133.2; Est GFR (Non-African American) 114.9; Potassium 3.8 mmol/L (3.5-5.1)
--- NOTE | 2018-05-20 15:11 | Pharmacy Report ---
Pharmacy Abx Dose Short Note - Date of Service May 20, 2018 - Assessment & Plan Assessment * 72 year old M receiving empiric vancomycin and piperacillin/tazobactam for treatment of lower extremity wound/osteomyelitis * Day #3 of antimicrobial therapy. * Purulence of the wound is noted. Ankle MRI indicative of early osteomyelitis. * CRP: 6.6 and ESR: 70 (both elevated) * Blood x 2 are negative to date; deep right foot wound culture with S.aureus (sensitivities pending) * Broad spectrum antibiotics appropriate at this time. Plan Vancomycin * Trough level of 21.7 mcg/mL is ~therapeutic, but does indicate that patient is likely accumulating vancomycin somewhat * Continue dose of 1250 mg IV, but will increase frequency to every 12 hours * Goal trough level for osteomyelitis : 18 to 20 mcg/mL * Trough level ordered in 48 hours to assess appropriateness of new regimen. Zosyn * Continue 3.375 g IV q8h (based on BMI less than 35 and CrCl > 20 mL/min) Pharmacy will continue to follow and will adjust dose/frequency as necessary. Thank you.
--- NOTE | 2018-05-20 15:59 | Hospitalist Progress Note ---
Date of Service May 20, 2018 Assessment & Plan (1) Anemia: Acute Blood Loss Anemia from Lower Leg Wound Bleeeding Pt with hx iron deficiency anemia. Baseline Hgb: 8-9. Presented to ER with bleeding lower extremity wounds. No reported melena, hematochezia. Pt on plavix and xarelto In ER T: 36.5, P: 98, R: 21, BP: 110/52, 100% on RA. Hgb: 6.2, Hct: 20, Plt: 182, INR: 2.4, BUN: 51, Cr: 0.7 -- Hg 7.7 after 2 units PRBC 1 more unit ordered Hemoglobin at 8.0 Repeat CBC tomorrow - FOBT negative -No bleeding from legs today No planned procedure from Ortho -Resume Plavix and Xarelto, monitor for bleeding, monitor H&H (2) Wound of lower extremity: OSTEOMYELITIS LEFT ANKLE Hx PVD. Hx MRSA WBC: 8, lactate 2.7 In ER pt given 1L NSS, zosyn, vancomycin L Ankle xray: Periostitis the level of medial malleolus. Given history of overl sebastien wound, this may indicate osteomyelitis. Presumed neuropathic changes within the midfoot. --Blood cultures negative so far Wound cultures positive for staph -- Wound Care consulted -- ID and Ortho consulted ID recommends to continue Vanco and Zosyn at this time Course of service evaluated patient, patient declines amputation of the left lower extremity to address osteomyelitis -- continue Vanco and Zosyn (3) PVD (peripheral vascular disease): Pt follows with vascular surgery in [place] Dr Fonseca. Pts sister reports that pt had recent bilateral leg revascularization in the past 1-2 months -obtain outside records -Resume Xarelto and Plavix at this time (4) History of aortic valve replacement with bioprosthetic valve: aortic stenosis s/p bioprosthetic valve replacement in 09/2017 at [facility] (5) CAD (coronary artery disease): CAD s/p CABG x 2 in 09/2017 at [place] -continue statin, metoprolol Resume Plavix (6) Atrial fibrillation: Hx a-fib after cardiac surgery in 09/2017, requiring cardioversion -- in sinus rhythm Resume Xarelto Continue beta-alex (7) Chronic diastolic heart failure: Continue Bumex 1mg daily (8) Cirrhosis: Hx cirrhosis. LFT's chronically elevated with AST: 56, ALT: 45, Alk Phos: 123, normal bili. (04/2018: AST: 54, ALT: 46, Alk Phos: 136) -monitor liver functions (9) BPH (benign prostatic hyperplasia): (10) Urinary retention: Hx BPH and chronic urinary retention. Follows with Urology [facility]. Reported consideration for suprapubic cath placement in future. 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 Xarelto to be resumed today Full Code as per discussion with pt and pt's sister Follows with Dr Campoverde at [facility] for routine care Subjective ff up for anemia, chronic leg wounds Seen in bed, comfortable, appears brighter today States leg pain is improving, no fever chills Denies chest pain, dizziness, palpitations, nausea or vomiting No other symptoms Physical Exam Vital Signs (Past 24 Hours): Last Vital Signs Temp 36.3 C L 05/20/18 15:02 Pulse 52 L 05/20/18 15:02 Resp 18 05/20/18 15:02 BP 131/57 L 05/20/18 15:02 Pulse Ox 93 05/20/18 15:02 Physical Exam: General- oriented x 3, not in distress, speaks in sentences with no effort or accessory muscle use Eyes- anicteric Neck- no JVD Lungs- clear BS bilaterally, no crackles or wheezes Heart- normal rate, regular rhythm; no murmurs Abdomen- normal bowel sounds, nondistended, soft, nontender Extremities-dressings in place, no bleeding or discharge, no pretibial edema, no calf tenderness Neuro- alert, oriented x 3; no gross focal neurologic deficits Skin- warm & dry Results & Data Laboratory Results Laboratory Results - last 24 hr 05/18/18 05/19/18 05/19/18 15:05 15:25 16:04 WBC RBC Hgb Hct MCV MCH MCHC RDW Std Deviation RDW Coeff of [place] Plt Count MPV Immature Gran % (Auto) Neut % (Auto) Lymph % (Auto) [place] % (Auto) Eos % (Auto) Baso % (Auto) Immature Gran # (Auto) Neut # (Auto) Lymph # (Auto) [place] # (Auto) Eos # (Auto) Baso # (Auto) ESR Sodium Potassium Chloride Carbon Dioxide Anion Gap BUN Creatinine Est Cr Clr Drug Dosing Est GFR ( Amer) Est GFR (Non-Af Amer) BUN/Creatinine Ratio Glucose POC Glucose 115 H Calcium C-Reactive Protein Stool Occult Bld Scrn Vancomycin Trough 22.9 Crossmatch See Detail 05/19/18 05/20/18 05/20/18 20:04 05:56 05:56 WBC RBC Hgb Hct MCV MCH MCHC RDW Std Deviation RDW Coeff of [place] Plt Count MPV Immature Gran % (Auto) Neut % (Auto) Lymph % (Auto) [place] % (Auto) Eos % (Auto) Baso % (Auto) Immature Gran # (Auto) Neut # (Auto) Lymph # (Auto) [place] # (Auto) Eos # (Auto) Baso # (Auto) ESR 77 H Sodium Potassium Chloride Carbon Dioxide Anion Gap BUN Creatinine 0.48 L Est Cr Clr Drug Dosing 158.9 Est GFR ( Amer) 128.5 Est GFR (Non-Af Amer) 110.9 BUN/Creatinine Ratio Glucose POC Glucose 114 H Calcium C-Reactive Protein 5.65 H Stool Occult Bld Scrn Vancomycin Trough Crossmatch 05/20/18 05/20/18 05/20/18 06:59 11:00 12:12 WBC RBC Hgb Hct MCV MCH MCHC RDW Std Deviation RDW Coeff of [place] Plt Count MPV Immature Gran % (Auto) Neut % (Auto) Lymph % (Auto) [place] % (Auto) Eos % (Auto) Baso % (Auto) Immature Gran # (Auto) Neut # (Auto) Lymph # (Auto) [place] # (Auto) Eos # (Auto) Baso # (Auto) ESR Sodium Potassium Chloride Carbon Dioxide Anion Gap BUN Creatinine Est Cr Clr Drug Dosing Est GFR ( Amer) Est GFR (Non-Af Amer) BUN/Creatinine Ratio Glucose POC Glucose 101 H 120 H Calcium C-Reactive Protein Stool Occult Bld Scrn Vancomycin Trough 21.7 Crossmatch 05/20/18 05/20/18 05/20/18 13:09 13:09 14:45 WBC 6.72 RBC 3.08 L Hgb 8.0 L Hct 25.3 L MCV 82.1 MCH 26.0 MCHC 31.6 L RDW Std Deviation 55.3 H RDW Coeff of [place] 18.4 H Plt Count 162 MPV 9.1 Immature Gran % (Auto) 0.3 Neut % (Auto) 76.7 Lymph % (Auto) 11.0 [place] % (Auto) 8.9 Eos % (Auto) 3.0 Baso % (Auto) 0.1 Immature Gran # (Auto) 0.02 Neut # (Auto) 5.15 Lymph # (Auto) 0.74 L [place] # (Auto) 0.60 H Eos # (Auto) 0.20 Baso # (Auto) 0.01 ESR Sodium 138 Potassium 3.8 Chloride 102 Carbon Dioxide 30 Anion Gap 6.0 BUN 27 H Creatinine 0.44 L Est Cr Clr Drug Dosing 173.4 Est GFR ( Amer) 133.2 Est GFR (Non-Af Amer) 114.9 BUN/Creatinine Ratio 63.0 H Glucose 100 H POC Glucose Calcium 8.1 L C-Reactive Protein Stool Occult Bld Scrn Negative Vancomycin Trough Crossmatch 05/20/18 15:49 WBC RBC Hgb Hct MCV MCH MCHC RDW Std Deviation RDW Coeff of [place] Plt Count MPV Immature Gran % (Auto) Neut % (Auto) Lymph % (Auto) [place] % (Auto) Eos % (Auto) Baso % (Auto) Immature Gran # (Auto) Neut # (Auto) Lymph # (Auto) [place] # (Auto) Eos # (Auto) Baso # (Auto) ESR Sodium Potassium Chloride Carbon Dioxide Anion Gap BUN Creatinine Est Cr Clr Drug Dosing Est GFR ( Amer) Est GFR (Non-Af Amer) BUN/Creatinine Ratio Glucose POC Glucose 90 Calcium C-Reactive Protein Stool Occult Bld Scrn Vancomycin Trough Crossmatch (1) Anemia Anemia type: unspecified type Qualified Code(s): D64.9 - Anemia, unspecified
[2018-05-20] MEDS ORDERED: CLOPIDOGREL BISULFATE 75 MG TAB PO ONE (16:10)
--- NOTE | 2018-05-20 16:13 | Wound Progress Note ---
Date of Service May 20, 2018 Assessment & Plan (1) Diabetic foot ulcer associated with type 2 diabetes mellitus: No debridement was required. Wound appears marginally improved. Continue to dress wound with Aquacel Ag. (2) Osteomyelitis of ankle, left, acute: Orthopedics outpatient is recommending amputation. At this time patient is declining this. Infectious disease is following as well. They are recommending long-term antibiotics for the patient. (3) Cellulitis of left leg: Wounds appear minimally improved. Wound of the left medial ankle, left anterior foot left dorsal foot we will continue to dress with Aquacel Ag. We will continue to paint the rest the wounds which are covered with plastic eschar with Betadine. We will continue to follow the patient. Patient can follow-up in the office a week after discharge. Subjective Is a 72-year-old male seen in follow-up of diabetic foot ulcer, osteomyelitis of his left ankle and cellulitis of his left leg. Patient has been dressing wound to left medial ankle, left anterior foot and left dorsal foot with Aquacel Ag. Rest the wounds have been dressed with Betadine. Orthopedics recommending amputation as patient's best option however patient is declining at this time. Infectious disease monitoring his antibiotics. Patient denies any new complaints. Review of Systems All systems reviewed & are unremarkable except as noted in HPI & below Physical Exam Vital Signs (Past 24 Hours): Temp Pulse Resp BP Pulse Ox 36.3 C L 52 L 18 131/57 L 93 05/20/18 15:02 05/20/18 15:02 05/20/18 15:02 05/20/18 15:02 05/20/18 15:02 Skin: Wounds are stable may be slightly improved.
[2018-05-20] MEDS: RIVAROXABAN 20 MG TAB PO SCH (17:17)
[2018-05-20] MEDS: TAMSULOSIN HCL 0.4 MG CAP PO SCH (22:03)
[2018-05-20] MEDS: ATORVASTATIN 40 MG TAB PO SCH (22:04)
[2018-05-21] MEDS ORDERED: VANCOMYCIN HCL 1,250 MG in SODIUM CHLORIDE 0.9% 250 ML IV SCH
[2018-05-21] MEDS: MoRPHine SULFATE 2 MG/ML CARP IV PRN ×2 (05:05→21:30)
[2018-05-21] MEDS: PIPERACILLIN/TAZOBACTAM 3.375 GM in DEXTROSE 5% 100 ML IV SCH (06:36)
[2018-05-21] MEDS: PANTOprazole 40 MG TAB PO SCH (06:36)
[2018-05-21] MEDS: METOPROLOL SUCC 25MG EXT REL TAB PO SCH (08:53)
[2018-05-21] MEDS: DULOXETINE HCL 60 MG CAP PO SCH (08:53)
[2018-05-21] MEDS: OXYCODONE HCL IR 5 MG TAB (IMMEDIATE RELEASE) PO SCH ×4 (08:53→21:26)
[2018-05-21] MEDS: MAGNESIUM OXIDE 400 MG TAB PO SCH ×2 (08:53→17:31)
[2018-05-21] MEDS: ASCORBIC ACID 500 MG TAB PO SCH (08:54)
[2018-05-21] MEDS: BUMETANIDE 1 MG TAB PO SCH (08:54)
[2018-05-21] MEDS: FERROUS SULFATE 325 MG TAB PO SCH ×2 (08:54→21:28)
[2018-05-21] MEDS: CLOPIDOGREL BISULFATE 75 MG TAB PO SCH (08:54)
[2018-05-21] MEDS: INSULIN ASPART 100 UNITS/ML 3 ML PEN SC SCH ×4 (08:56→21:24)
[2018-05-21] MEDS: PREGABALIN 100 MG CAP PO SCH ×3 (08:58→21:30)
[2018-05-21] MEDS: INSULIN GLARGINE SOLOSTAR 100 UNITS/ML 3 ML PEN SC SCH ×2 (08:59→21:22)
[2018-05-21] MEDS: AMIODARONE 200 MG TAB PO SCH ×2 (08:59→21:23)
--- NOTE | 2018-05-21 09:26 | Infectious Disease Progress Nt ---
Date of Service May 21, 2018 Assessment & Plan (1) Wound of lower extremity: will change abx to doxy 100mg po bid, will need 6 weeks. Right leg wound improving per wound care, will need continued wound care post d/c. Unclear if MRSA cause for osteo noted on imaging of left foot, no cultures done, blood cultures negative, no gnr identified. will continue with doxy and assess response. Suspect he will ultimately need surgical intervention to left leg but is currently declining. will plan to continue doxy x 6 weeks and will follow at wound center post d/c. (2) Osteomyelitis: Subjective pt remains on IV abx. right leg wound growing MRSA afebrile. blood cultures negative. s/p ortho eval, suggest amp due to osteo left foot, pt declined. Physical Exam Vital Signs (Past 24 Hours): Last Vital Signs Temp 36.4 C L 05/21/18 07:31 Pulse 45 L 05/21/18 07:31 Resp 19 05/21/18 07:31 BP 109/62 05/21/18 07:31 Pulse Ox 96 05/21/18 07:31 Results & Data Laboratory Results Microbiology 05/19/18 11:50 Foot,Right Gram Stain - Final 05/19/18 11:50 Foot,Right Deep Wound Culture - Preliminary Staph aureus MRSA 05/18/18 15:10 Blood Blood Culture - Preliminary No growth to date. 05/18/18 15:05 Blood Blood Culture - Preliminary No growth to date. (1) Osteomyelitis Laterality: left Osteomyelitis location: ankle Osteomyelitis type: unspecified type Qualified Code(s): M86.9 - Osteomyelitis, unspecified
[2018-05-21] MEDS: DOXYCYCLINE HYCLATE 100 MG CAP PO SCH ×2 (12:24→21:27)
--- NOTE | 2018-05-21 14:58 | Hospitalist Progress Note ---
Date of Service May 21, 2018 Assessment & Plan (1) Anemia: Acute Blood Loss Anemia from Lower Leg Wound Bleeding Stool has been negative for any blood Complicated by chronic disease and malnutrition Admitted with hemoglobin of 6.9 and received 3 units of packed red cells blood until now Hemoglobin is 8.0 as of 05/20 No more bleeding from the legs Monitor CBC -Resume Plavix and Xarelto, monitor for bleeding, monitor H&H (2) Wound of lower extremity: OSTEOMYELITIS LEFT ANKLE Hx PVD. Hx MRSA Received 1L NSS and started on intravenous Zosyn, vancomycin L Ankle xray: Periostitis the level of medial malleolus. Given history of overlying wound, this may indicate osteomyelitis. Presumed neuropathic changes within the midfoot. Blood cultures negative so far Wound cultures positive for staph Appreciate Ortho input and recommendation; Orthopedic is recommending amputation. At this time patient is declining this. Appreciate wound care input and recommendation::Wounds appear stable. Wound of the left medial ankle, left anterior foot left dorsal foot we will continue to dress with Aquacel Ag. No debridement was required. Wound appears stable. Continue to dress wound with Aquacel Ag. Appreciate ID input and recommendation:Suspect he will ultimately need surgical intervention to left leg but is currently declining. will plan to continue doxy x 6 weeks and will follow at wound center post d/c. Advised to oral doxycycline for 6 weeks in total Clinically stable to be discharged (3) PVD (peripheral vascular disease): Pt follows with vascular surgery in [place] Dr Fonseca. Pts sister reports that pt had recent bilateral leg revascularization in the past 1-2 months -obtain outside records -Resume Xarelto and Plavix at this time (4) History of aortic valve replacement with bioprosthetic valve: Aortic stenosis s/p bioprosthetic valve replacement in 09/2017 at [facility] (5) CAD (coronary artery disease): CAD s/p CABG x 2 in 09/2017 at [place] Continue statin, metoprolol Resume Plavix (6) Atrial fibrillation: Hx a-fib after cardiac surgery in 09/2017, requiring cardioversion -- in sinus rhythm Resume Xarelto Continue beta-alex (7) Chronic diastolic heart failure: Continue Bumex 1mg daily (8) Cirrhosis: Hx cirrhosis. LFT's chronically elevated with AST: 56, ALT: 45, Alk Phos: 123, normal bili. (04/2018: AST: 54, ALT: 46, Alk Phos: 136) -monitor liver functions (9) BPH (benign prostatic hyperplasia): (10) Urinary retention: Hx BPH and chronic urinary retention. Follows with Urology [facility]. Reported consideration for suprapubic cath placement in future. 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 (13) Malnutrition: Hx protein-calorie malnutrition -fruit dumper consult DVT Prophylaxis Xarelto to be resumed today Full Code as per discussion with pt and pt's sister Follows with Dr Campoverde at [facility] for routine care Subjective 05/21 The patient was seen and examined in telemetry unit Pt is 72 y/o M with complex past medical history, CAD s/p CABG x 2 in 09/2017 at [facility], aortic stenosis s/p bioprosthetic valve replacement in 09/2017 at [facility], atrial fibrillation after surgery requiring cardioversion, HLD, DM II, diastolic HF, malnutrition, depression, BPH and urinary retention with chronic denis catheter, HIT, PVD, iron deficiency anemia presented to ER from [facility] with bleeding lower extremity wounds. Complains of some pain in the legs Has been bedbound for the last 3 or 4 months Generalized weakness, denies any other significant symptoms Physical Exam Vital Signs (Past 24 Hours): Last Vital Signs Temp 36.4 C L 05/21/18 10:38 Pulse 52 L 05/21/18 10:38 Resp 19 05/21/18 10:38 BP 111/56 L 05/21/18 10:38 Pulse Ox 95 05/21/18 10:38 Physical Exam: Lying in bed comfortably Constitutional: + ill appearing, + thin and + lethargic Eyes: PERRL, conjunctivae normal, anicteric sclerae ENMT: external ear and nose normal, oropharynx normal Neck: trachea midline, no thyromegaly Respiratory: normal respiratory effort, lungs clear to auscultation Cardiovascular: Rate/Rhythm: regular rate and regular rhythm Heart Sounds: normal S1 and normal S2 Gastrointestinal (Abdomen): Inspection/Auscultation: abdomen normal to inspection and normal bowel sounds Musculoskeletal: Extremities: + muscle atrophy, + lower extremity abnormal to inspection (Both legs are bandaged, left ankle with possible osteomyelitis) Bilateral and + limited ROM of lower extremity (Chronic leg wounds bilaterally) Bilateral Skin: + ecchymosis (Generalized ecchymosis) Neurologic: Alert and awake. Very weak and lethargic. Has been been bedbound for the last 3 or 4 months Results & Data Medications Administered Current Inpatient Medications Albuterol (Duoneb) 3 ml INH Q6 PRN PRN Reason: Shortness Of Breath Or Wheezing Stop: 06/17/18 20:08 Amiodarone HCl (Cordarone) 200 mg PO AMHS ESTER Stop: 06/17/18 20:59 Last Admin: 05/21/18 08:59 Dose: Not Given Documented by: Ascorbic Acid (Vitamin C) 500 mg PO QAM ESTER Stop: 06/18/18 08:59 Last Admin: 05/21/18 08:54 Dose: 500 mg Documented by: Atorvastatin Calcium (Lipitor) 40 mg PO HS ESTER Stop: 06/17/18 20:59 Last Admin: 05/20/18 22:04 Dose: 40 mg Documented by: Bumetanide (Bumex) 1 mg PO DAILY ESTER Stop: 06/18/18 19:44 Last Admin: 05/21/18 08:54 Dose: 1 mg Documented by: Clopidogrel Bisulfate (Plavix) 75 mg PO DAILY ESTER Stop: 06/20/18 08:59 Last Admin: 05/21/18 08:54 Dose: 75 mg Documented by: Dextrose (Dextrose 50%) 25 - 50 ml IV UD PRN; Protocol PRN Reason: Hypoglycemia Protocol Stop: 06/17/18 20:08 Doxycycline Hyclate (Vibramycin) 100 mg PO BID ESTER Stop: 07/02/18 09:29 Last Admin: 05/21/18 12:24 Dose: 100 mg Documented by: Duloxetine HCl (Cymbalta) 60 mg PO DAILY ESTER Stop: 06/18/18 08:59 Last Admin: 05/21/18 08:53 Dose: 60 mg Documented by: Ferrous Sulfate (Feosol) 325 mg PO 1000,2200 ESTER Stop: 06/17/18 20:59 Gadobutrol (Gadavist 65ml) 8 ml IV ONCE PRN PRN Reason: Interaction Checking Stop: 05/23/18 02:47 Last Admin: 05/19/18 02:27 Dose: 8 ml Documented by: Glucagon (Glucagen) 1 mg SQ UD PRN; Protocol PRN Reason: Hypoglycemia Protocol Stop: 06/17/18 20:08 Glucose (Dex4 Glucose) 4 - 8 tabs PO UD PRN; Protocol PRN Reason: Hypoglycemia Protocol Stop: 06/17/18 20:08 Glucose (Glucose 40%) 15 - 30 gm PO UD PRN; Protocol PRN Reason: Hypoglycemia Protocol Stop: 06/17/18 20:08 Sodium Chloride (Nss) 250 mls @ 15 mls/hr IV .[id number] PRN PRN Reason: For Transfusion Stop: 06/18/18 14:10 Insulin Aspart (Novolog Flexpen) 0 units SC ACHS [facility] Stop: 06/17/18 20:59 Last Admin: 05/21/18 12:22 Dose: 4 units Documented by: Insulin Glargine (Lantus Solostar Pen) 0 units SC BID [facility]; Protocol Stop: 06/17/18 20:59 Last Admin: 05/21/18 08:59 Dose: Not Given Documented by: Magnesium Oxide (Mag-Ox) 400 mg PO 1200,1800 [facility] Stop: 06/17/18 20:59 Metoprolol Succinate (Toprol Xl) 12.5 mg PO DAILY [facility] Stop: 06/18/18 08:59 Last Admin: 05/21/18 08:53 Dose: Not Given Documented by: Miscellaneous (Carbohydrates For Hypoglycemia) 15 - 30 gm PO UD PRN PRN Reason: Hypoglycemia Treatment Stop: 06/17/18 20:08 Morphine Sulfate (Morphine Sulfate) 2 mg IV Q4H PRN PRN Reason: Severe Pain Stop: 06/01/18 20:08 Last Admin: 05/21/18 05:05 Dose: 2 mg Documented by: Oxycodone HCl (Roxicodone Immediate Rel) 5 mg PO QID [facility] Stop: 06/01/18 20:59 Last Admin: 05/21/18 12:21 Dose: 5 mg Documented by: Pantoprazole Sodium (Protonix) 40 mg PO DAILYBB [facility] Stop: 06/18/18 06:29 Last Admin: 05/21/18 06:36 Dose: 40 mg Documented by: Pregabalin (Lyrica) 100 mg PO TID [facility] Stop: 05/09/19 20:59 Last Admin: 05/21/18 14:55 Dose: 100 mg Documented by: Rivaroxaban (Xarelto) 20 mg PO QDD [facility] Stop: 06/19/18 16:29 Last Admin: 05/20/18 17:17 Dose: 20 mg Documented by: Tamsulosin HCl (Flomax) 0.4 mg PO HS [facility] Stop: 06/17/18 20:59 Last Admin: 05/20/18 22:03 Dose: 0.4 mg Documented by: (1) Anemia Anemia type: unspecified type Qualified Code(s): D64.9 - Anemia, unspecified
--- NOTE | 2018-05-21 15:31 | Wound Progress Note ---
Date of Service May 21, 2018 Assessment & Plan (1) Diabetic foot ulcer associated with type 2 diabetes mellitus: No debridement was required. Wound appears stable. Continue to dress wound with Aquacel Ag. (2) Osteomyelitis of ankle, left, acute: Orthopedics outpatient is recommending amputation. At this time patient is declining this. Infectious disease is following as well. They are recommending long-term antibiotics for the patient. Long conversation with patient and his sister. Sister is more open to the idea of amputation. Patient is noncommittal. I answered all her questions satisfactorily. (3) Cellulitis of left leg: Wounds appear stable. Wound of the left medial ankle, left anterior foot left dorsal foot we will continue to dress with Aquacel Ag. We will continue to paint the rest the wounds which are covered with plastic eschar with Betadine. We will continue to follow the patient. Patient can follow-up in the office a week after discharge. Subjective 72-year-old male seen for follow-up of diabetic foot ulcer, osteomyelitis of his left ankle and talus of his left leg. He has been dressing the wound of his right foot, left medial ankle left anterior foot left dorsal foot with Aquacel Ag. The rest the wounds are being pain with Betadine. Patient remains noncommittal regarding amputation. I did spend a good amount of time talking to assist her and she is more open to the idea. Antibiotic to be monitored by infectious disease. Patient denies any new complaints. Physical Exam Vital Signs (Past 24 Hours): Last Vital Signs Temp 36.4 C L 05/21/18 10:38 Pulse 52 L 05/21/18 10:38 Resp 19 05/21/18 10:38 BP 111/56 L 05/21/18 10:38 Pulse Ox 95 05/21/18 10:38 Skin: Wounds remain stable. There has been no significant improvement. Neurologic: awake Psychiatric: A+Ox3, euthymic affect
[2018-05-21] MEDS: RIVAROXABAN 20 MG TAB PO SCH (17:31)
[2018-05-21] MEDS: ATORVASTATIN 40 MG TAB PO SCH (21:23)
[2018-05-21] MEDS: TAMSULOSIN HCL 0.4 MG CAP PO SCH (21:23)
[2018-05-22] MEDS: MoRPHine SULFATE 2 MG/ML CARP IV PRN ×2 (01:05→06:13)
[2018-05-22] MEDS: PANTOprazole 40 MG TAB PO SCH (06:13)
[2018-05-22 07:10] LABS: Eosinophils # (auto) 0.27 K/uL (0-0.5); Hematocrit (blood only) 26.8 % (42-52); Hemoglobin 8.4 g/dL (14.0-18.0); Immature Granulocytes # (auto) 0.01 K/uL (0.00-0.02); Immature Granulocytes % (auto) 0.1 %; Lymphocytes # (auto) 1.09 K/uL (1.2-3.4); Lymphocytes % (auto) 16.2 %; Mean Corpuscular Hgb Conc 31.3 g/dL (32-36); Mean Corpuscular Volume 84.8 fL (80-100); Mean Platelet Volume 9.1 fL (7.4-10.4); Monocytes # (auto) 0.55 K/uL (0.11-0.59); Monocytes % (auto) 8.2 %; Neutrophils # (auto) 4.79 K/uL (1.4-6.5); Neutrophils % (auto) 71.5 %; Platelet Count 158 K/uL (130-400); RDW Standard Deviation 58.5 fL (36.4-46.3); Red Blood Count 3.16 M/uL (4.7-6.1); White Blood Count 6.71 K/uL (4.8-10.8)
[2018-05-22 07:38] LABS: BUN Creatinine Ratio 61.6 (10-20); Blood Urea Nitrogen 19 mg/dl (7-18); Calcium 8.2 mg/dl (8.5-10.1); Carbon Dioxide 32 mmol/L (21-32); Chloride 103 mmol/L (98-107); Creatinine Clr Calc Pharmacy 243.9 ml/min; Est GFR (African American) > 150.0; Est GFR (Non-African American) 132.7; Glucose 90 mg/dl (70-99); Magnesium 1.9 mg/dl (1.8-2.4); Potassium 3.7 mmol/L (3.5-5.1); Sodium 137 mmol/L (136-145)
[2018-05-22] MEDS: OXYCODONE HCL IR 5 MG TAB (IMMEDIATE RELEASE) PO SCH ×4 (09:35→21:47)
[2018-05-22] MEDS: PREGABALIN 100 MG CAP PO SCH ×3 (09:36→21:54)
[2018-05-22] MEDS: CLOPIDOGREL BISULFATE 75 MG TAB PO SCH (09:36)
[2018-05-22] MEDS: DULOXETINE HCL 60 MG CAP PO SCH (09:36)
[2018-05-22] MEDS: DOXYCYCLINE HYCLATE 100 MG CAP PO SCH ×2 (09:37→21:34)
[2018-05-22] MEDS: AMIODARONE 200 MG TAB PO SCH ×2 (09:37→21:33)
[2018-05-22] MEDS: FERROUS SULFATE 325 MG TAB PO SCH ×2 (09:37→21:34)
[2018-05-22] MEDS: METOPROLOL SUCC 25MG EXT REL TAB PO SCH (09:37)
[2018-05-22] MEDS: BUMETANIDE 1 MG TAB PO SCH (09:37)
[2018-05-22] MEDS: ASCORBIC ACID 500 MG TAB PO SCH (09:37)
[2018-05-22] MEDS: INSULIN GLARGINE SOLOSTAR 100 UNITS/ML 3 ML PEN SC SCH ×2 (09:38→22:03)
[2018-05-22] MEDS: INSULIN ASPART 100 UNITS/ML 3 ML PEN SC SCH ×4 (09:41→22:04)
[2018-05-22] MEDS ORDERED: SODIUM CHLORIDE 0.9% 250 ML IV PRN (11:05)
--- NOTE | 2018-05-22 11:05 | Hospitalist Progress Note ---
Date of Service May 22, 2018 delayed entry date of service as noted above Assessment & Plan (1) Anemia: Acute Blood Loss Anemia from Lower Leg Wound Bleeding Stool has been negative for any blood Complicated by chronic disease and malnutrition Patient still reports weakness Hemoglobin 8.4 Ordered 1 more unit of packed RBCs Hemoglobin stable since Xarelto and Plavix resumed, continue to closely monitor (2) Wound of lower extremity: OSTEOMYELITIS LEFT ANKLE Hx PVD. Hx MRSA Received 1L NSS and started on intravenous Zosyn, vancomycin L Ankle xray: Periostitis the level of medial malleolus. Given history of overlying wound, this may indicate osteomyelitis. Presumed neuropathic changes within the midfoot. Blood cultures negative so far Wound cultures positive for MRSA Appreciate Ortho input and recommendation; Orthopedic is recommending a mputation. --Patient would like to think further about proceeding with amputation, to discuss this with his sister for the next Advised to oral doxycycline for 6 weeks in total (3) PVD (peripheral vascular disease): Pt follows with vascular surgery in [place] Dr Fonseca. Pts sister reports that pt had recent bilateral leg revascularization in the past 1-2 months -obtain outside records --Continue Xarelto and Plavix at this time (4) History of aortic valve replacement with bioprosthetic valve: Aortic stenosis s/p bioprosthetic valve replacement in 09/2017 at [facility] (5) CAD (coronary artery disease): CAD s/p CABG x 2 in 09/2017 at [place] Continue statin, metoprolol , Plavix (6) Atrial fibrillation: Hx a-fib after cardiac surgery in 09/2017, requiring cardioversion -- in sinus rhythm Continue beta-alex, Xarelto (7) Chronic diastolic heart failure: Continue Bumex 1mg daily (8) Cirrhosis: Hx cirrhosis. LFT's chronically elevated with AST: 56, ALT: 45, Alk Phos: 123, normal bili. (04/2018: AST: 54, ALT: 46, Alk Phos: 136) -monitor liver functions (9) BPH (benign prostatic hyperplasia): (10) Urinary retention: Hx BPH and chronic urinary retention. Follows with Urology [facility]. Reported consideration for suprapubic cath placement in future. 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 (13) Malnutrition: Hx protein-calorie malnutrition -americanization teacher consult DVT Prophylaxis Xarelto Full Code as per discussion with pt and pt's sister Follows with Dr Campoverde at [facility] for routine care Subjective Follow-up for anemia, osteomyelitis left foot Seen resting in bed, not in distress Comfortable States he feels slightly better but still feels weak Denies chest pain, shortness of breath, dizziness, nausea Pain in the lower legs well-controlled No recurrence of bleeding on the legs Physical Exam Vital Signs (Past 24 Hours): Last Vital Signs Temp 36.4 C L 05/22/18 07:04 Pulse 55 L 05/22/18 07:04 Resp 18 05/22/18 07:04 BP 115/61 05/22/18 07:04 Pulse Ox 97 05/22/18 07:04 Physical Exam: General- oriented x 3, not in distress, speaks in sentences with no effort or accessory muscle use Eyes- anicteric Neck- no JVD Lungs- clear breath sounds BL No crackles or wheezing Heart- normal rate, regular rhythm; no murmurs Abdomen- normal bowel sounds, nondistended, soft, nontender Extremities-dressings in place, no bleeding, no discharge no pretibial edema, no calf tenderness Neuro- alert, oriented x 3; no gross focal neurologic deficits Skin- warm & dry Results & Data Laboratory Results Laboratory Results - last 24 hr 05/22/18 05/22/18 05/23/18 11:23 20:39 07:44 WBC RBC Hgb Hct MCV MCH MCHC RDW Std Deviation RDW Coeff of [place] Plt Count MPV POC Glucose 107 H 110 H Stl C. diff Tox B Gene Blood Type A Positive Antibody Screen NEGATIVE Crossmatch See Detail 05/23/18 05/23/18 05/23/18 07:55 10:22 11:46 WBC 7.94 RBC 3.66 L Hgb 9.9 L Hct 30.9 L MCV 84.4 MCH 27.0 MCHC 32.0 RDW Std Deviation 57.2 H RDW Coeff of [place] 18.6 H Plt Count 171 MPV 9.7 POC Glucose 132 H Stl C. diff Tox B Gene Negative Cdiff Gene Blood Type Antibody Screen Crossmatch 05/23/18 16:28 WBC RBC Hgb Hct MCV MCH MCHC RDW Std Deviation RDW Coeff of [place] Plt Count MPV POC Glucose 119 H Stl C. diff Tox B Gene Blood Type Antibody Screen Crossmatch (1) Anemia Anemia type: unspecified type Qualified Code(s): D64.9 - Anemia, unspecified
[2018-05-22] MEDS ORDERED: VANCOMYCIN TROUGH ONE (11:30)
[2018-05-22] MEDS: MAGNESIUM OXIDE 400 MG TAB PO SCH ×2 (13:51→17:29)
[2018-05-22] MEDS: RIVAROXABAN 20 MG TAB PO SCH (17:29)
[2018-05-22] MEDS: TAMSULOSIN HCL 0.4 MG CAP PO SCH (21:33)
[2018-05-22] MEDS: ATORVASTATIN 40 MG TAB PO SCH (21:33)
[2018-05-23] MEDS: PANTOprazole 40 MG TAB PO SCH (06:19)
[2018-05-23 08:30] LABS: Hematocrit (blood only) 30.9 % (42-52); Hemoglobin 9.9 g/dL (14.0-18.0); Mean Corpuscular Volume 84.4 fL (80-100); Mean Platelet Volume 9.7 fL (7.4-10.4); Platelet Count 171 K/uL (130-400); RDW Coefficient of Variation 18.6 % (11.5-14.5); RDW Standard Deviation 57.2 fL (36.4-46.3); Red Blood Count 3.66 M/uL (4.7-6.1); White Blood Count 7.94 K/uL (4.8-10.8)
[2018-05-23] MEDS: PREGABALIN 100 MG CAP PO SCH ×3 (08:33→21:36)
[2018-05-23] MEDS: INSULIN GLARGINE SOLOSTAR 100 UNITS/ML 3 ML PEN SC SCH ×2 (08:34→21:40)
[2018-05-23] MEDS: DULOXETINE HCL 60 MG CAP PO SCH (08:34)
[2018-05-23] MEDS: OXYCODONE HCL IR 5 MG TAB (IMMEDIATE RELEASE) PO SCH ×4 (08:34→21:35)
[2018-05-23] MEDS: CLOPIDOGREL BISULFATE 75 MG TAB PO SCH (08:34)
[2018-05-23] MEDS: AMIODARONE 200 MG TAB PO SCH ×2 (08:34→21:39)
[2018-05-23] MEDS: ASCORBIC ACID 500 MG TAB PO SCH (08:35)
[2018-05-23] MEDS: DOXYCYCLINE HYCLATE 100 MG CAP PO SCH ×2 (08:36→21:38)
[2018-05-23] MEDS: FERROUS SULFATE 325 MG TAB PO SCH ×2 (08:36→21:37)
[2018-05-23] MEDS: INSULIN ASPART 100 UNITS/ML 3 ML PEN SC SCH ×4 (08:37→21:38)
[2018-05-23] MEDS: MAGNESIUM OXIDE 400 MG TAB PO SCH ×2 (12:33→17:14)
[2018-05-23] MEDS: LOPERAMIDE HCL 2 MG CAP PO PRN ×2 (12:57→23:45)
--- NOTE | 2018-05-23 14:00 | Hospitalist Progress Note ---
Date of Service May 23, 2018 Assessment & Plan (1) Anemia: Acute Blood Loss Anemia from Lower Leg Wound Bleeding Stool has been negative for any blood Complicated by chronic disease and malnutrition Patient still reports weakness Hemoglobin 8.4 Ordered 1 more unit of packed RBCs Hemoglobin improved to 9, clinically better Hemoglobin stable since Xarelto and Plavix resumed, continue to closely monitor (2) Diarrhea: C. difficile negative Imodium as needed, clear liquids for now Possibly advance diet to soft diet tomorrow morning is better (3) Wound of lower extremity: OSTEOMYELITIS LEFT ANKLE Hx PVD. Hx MRSA Received 1L NSS and started on intravenous Zosyn, vancomycin L Ankle xray: Periostitis the level of medial malleolus. Given history of overlying wound, this may indicate osteomyelitis. Presumed neuropathic changes within the midfoot. Blood cultures negative so far Wound cultures positive for staph Appreciate Ortho input and recommendation; Orthopedic is recommending amputation. At this time patient is declining this. --Discussed with patient and his sister at length at the bedside Patient would like to speak with orthopedic service again regarding details of amputation Will request orthopedic service to discuss possible amputation with patient again (4) PVD (peripheral vascular disease): Pt follows with vascular surgery in [place] Dr Fonseca. Pts sister reports that pt had recent bilateral leg revascularization in the past 1-2 months -obtain outside records --Continue Plavix and Xarelto (5) History of aortic valve replacement with bioprosthetic valve: Aortic stenosis s/p bioprosthetic valve replacement in 09/2017 at [facility] (6) CAD (coronary artery disease): CAD s/p CABG x 2 in 09/2017 at [place] Continue statin, metoprolol, Plavix (7) Atrial fibrillation: Hx a-fib after cardiac surgery in 09/2017, requiring cardioversion -- in sinus rhythm Continue beta-alex, Xarelto (8) Chronic diastolic heart failure: Hold Bumex in light of diarrhea Monitor, resume Bumex when diarrhea resolves (9) Cirrhosis: Hx cirrhosis. LFT's chronically elevated with AST: 56, ALT: 45, Alk Phos: 123, normal bili. (04/2018: AST: 54, ALT: 46, Alk Phos: 136) -monitor liver functions (10) BPH (benign prostatic hyperplasia): (11) Urinary retention: Hx BPH and chronic urinary retention. Follows with Urology [facility]. Reported consideration for suprapubic cath placement in future. 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 difficile negative Diarrhea Seems to be slowing down this afternoon Leg pain about the same, no bleeding noted on the wounds No other symptoms Physical Exam Vital Signs (Past 24 Hours): Last Vital Signs Temp 36.6 C 05/23/18 12:00 Pulse 57 L 05/23/18 12:00 Resp 16 05/23/18 12:00 BP 125/72 05/23/18 12:00 Pulse Ox 97 05/23/18 12:00 Physical Exam: General- oriented x 3, not in distress, speaks in sentences with no effort or accessory muscle use Eyes- anicteric Neck- no JVD Lungs- clear BS bilaterally Heart- normal rate, regular rhythm; no murmurs Abdomen- normal bowel sounds, nondistended, soft, nontender Extremities- no pretibial edema, no calf tenderness Neuro- alert, oriented x 3; no gross focal neurologic deficits Skin- warm & dry (1) Anemia Anemia type: unspecified type Qualified Code(s): D64.9 - Anemia, unspecified
[2018-05-23] MEDS: RIVAROXABAN 20 MG TAB PO SCH (17:14)
[2018-05-23] MEDS: TRAMADOL HCL 50 MG TABLET PO PRN (20:53)
[2018-05-23] MEDS: TAMSULOSIN HCL 0.4 MG CAP PO SCH (21:39)
[2018-05-23] MEDS: ATORVASTATIN 40 MG TAB PO SCH (21:39)
[2018-05-24] MEDS: PANTOprazole 40 MG TAB PO SCH (06:45)
[2018-05-24] MEDS: INSULIN ASPART 100 UNITS/ML 3 ML PEN SC SCH ×4 (08:34→20:58)
[2018-05-24] MEDS: INSULIN GLARGINE SOLOSTAR 100 UNITS/ML 3 ML PEN SC SCH ×2 (08:35→20:59)
[2018-05-24] MEDS: FERROUS SULFATE 325 MG TAB PO SCH ×2 (08:37→20:52)
[2018-05-24] MEDS: DOXYCYCLINE HYCLATE 100 MG CAP PO SCH ×2 (08:37→20:52)
[2018-05-24] MEDS: ASCORBIC ACID 500 MG TAB PO SCH (08:37)
[2018-05-24] MEDS: OXYCODONE HCL IR 5 MG TAB (IMMEDIATE RELEASE) PO SCH ×4 (08:37→20:51)
[2018-05-24] MEDS: PREGABALIN 100 MG CAP PO SCH ×3 (08:37→20:51)
[2018-05-24] MEDS: AMIODARONE 200 MG TAB PO SCH ×2 (08:38→20:53)
[2018-05-24] MEDS: CLOPIDOGREL BISULFATE 75 MG TAB PO SCH (08:38)
[2018-05-24] MEDS: DULOXETINE HCL 60 MG CAP PO SCH (08:38)
[2018-05-24] MEDS: MAGNESIUM OXIDE 400 MG TAB PO SCH ×2 (13:06→18:25)
--- NOTE | 2018-05-24 14:54 | Hospitalist Progress Note ---
Date of Service May 24, 2018 Assessment & Plan (1) Anemia: Acute Blood Loss Anemia from Lower Leg Wound Bleeding Stool has been negative for any blood Complicated by chronic disease and malnutrition Patient still reports weakness Hemoglobin 8.4 Ordered 1 more unit of packed RBCs Hemoglobin improved to 9, clinically better Hemoglobin stable since Xarelto and Plavix resumed, continue to closely monitor We will check CBC tomorrow (2) Diarrhea: C. difficile negative Imodium as needed, clear liquids for now Possibly advance diet to soft diet tomorrow morning is better No more diarrhea (3) Wound of lower extremity: OSTEOMYELITIS LEFT ANKLE Hx PVD. Hx MRSA Received 1L NSS and started on intravenous Zosyn, vancomycin L Ankle xray: Periostitis the level of medial malleolus. Given history of overlying wound, this may indicate osteomyelitis. Presumed neuropathic changes within the midfoot. Blood cultures negative so far Wound cultures positive for staph Appreciate Ortho input and recommendation; Orthopedic is recommending amputation. At this time patient is declining this. --Discussed with patient and his sister at length at the bedside Patient would like to speak with orthopedic service again regarding details of amputation Will request orthopedic service to discuss possible amputation with patient again Patient has been planning for possible surgery Ortho will evaluate him today (4) PVD (peripheral vascular disease): Pt follows with vascular surgery in [place] Dr Fonseca. Pts sister reports that pt had recent bilateral leg revascularization in the past 1-2 months -obtain outside records --Continue Plavix and Xarelto (5) History of aortic valve replacement with bioprosthetic valve: Aortic stenosis s/p bioprosthetic valve replacement in 09/2017 at [facility] (6) CAD (coronary artery disease): CAD s/p CABG x 2 in 09/2017 at [place] Continue statin, metoprolol, Plavix (7) Atrial fibrillation: Hx a-fib after cardiac surgery in 09/2017, requiring cardioversion -- in sinus rhythm Continue beta-alex, Xarelto (8) Chronic diastolic heart failure: Hold Bumex in light of diarrhea Monitor, resume Bumex when diarrhea resolves No acute fluid overload (9) Cirrhosis: Hx cirrhosis. LFT's chronically elevated with AST: 56, ALT: 45, Alk Phos: 123, normal bili. (04/2018: AST: 54, ALT: 46, Alk Phos: 136) -monitor liver functions (10) BPH (benign prostatic hyperplasia): (11) Urinary retention: Hx BPH and chronic urinary retention. Follows with Urology [facility]. Reported consideration for suprapubic cath placement in future. 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 There is a large risk for surgery as well given his overall condition Overall prognosis is guarded Subjective 05/24 Patient was seen and examined the medical floor He remains a stable and planning to go for surgery for the foot He denies any other symptoms of chest pain, shortness of breath, palpitation, any abdominal pain, nausea and/or vomiting Physical Exam Vital Signs (Past 24 Hours): Last Vital Signs Temp 36.4 C L 05/24/18 08:00 Pulse 60 05/24/18 09:59 Resp 20 05/24/18 08:00 BP 128/56 L 05/24/18 08:00 Pulse Ox 60 L 05/24/18 08:00 Physical Exam: No apparent distress at rest Constitutional: + ill appearing, + thin and + lethargic Eyes: PERRL, conjunctivae normal, anicteric sclerae ENMT: external ear and nose normal, oropharynx normal Neck: trachea midline, no thyromegaly Respiratory: normal respiratory effort, lungs clear to auscultation Cardiovascular: Rate/Rhythm: regular rate and regular rhythm Heart Sounds: normal S1 and normal S2 Gastrointestinal (Abdomen): Inspection/Auscultation: abdomen normal to inspection and normal bowel sounds Musculoskeletal: Extremities: + muscle atrophy, + lower extremity abnormal to inspection (Both legs are bandaged, left ankle with possible osteomyelitis) Bilateral and + limited ROM of lower extremity (Chronic leg wounds bilaterally) Bilateral Skin: + ecchymosis (Generalized ecchymosis) Neurologic: Alert, awake, pleasantly confused Results & Data Medications Administered Current Inpatient Medications Albuterol (Duoneb) 3 ml INH Q6 PRN PRN Reason: Shortness Of Breath Or Wheezing Stop: 06/17/18 20:08 Amiodarone HCl (Cordarone) 200 mg PO AMHS [facility] Stop: 06/17/18 20:59 Last Admin: 05/24/18 08:38 Dose: 200 mg Documented by: Ascorbic Acid (Vitamin C) 500 mg PO QAM [facility] Stop: 06/18/18 08:59 Last Admin: 05/24/18 08:37 Dose: 500 mg Documented by: Atorvastatin Calcium (Lipitor) 40 mg PO HS [facility] Stop: 06/17/18 20:59 Last Admin: 05/23/18 21:39 Dose: 40 mg Documented by: Clopidogrel Bisulfate (Plavix) 75 mg PO DAILY [facility] Stop: 06/20/18 08:59 Last Admin: 05/24/18 08:38 Dose: 75 mg Documented by: Dextrose (Dextrose 50%) 25 - 50 ml IV UD PRN; Protocol PRN Reason: Hypoglycemia Protocol Stop: 06/17/18 20:08 Doxycycline Hyclate (Vibramycin) 100 mg PO BID [facility] Stop: 07/02/18 09:29 Last Admin: 05/24/18 08:37 Dose: 100 mg Documented by: Duloxetine HCl (Cymbalta) 60 mg PO DAILY [facility] Stop: 06/18/18 08:59 Last Admin: 05/24/18 08:38 Dose: 60 mg Documented by: Ferrous Sulfate (Feosol) 325 mg PO 1000,2200 [facility] Stop: 06/17/18 20:59 Last Admin: 05/24/18 08:37 Dose: 325 mg Documented by: Glucagon (Glucagen) 1 mg SQ UD PRN; Protocol PRN Reason: Hypoglycemia Protocol Stop: 06/17/18 20:08 Glucose (Dex4 Glucose) 4 - 8 tabs PO UD PRN; Protocol PRN Reason: Hypoglycemia Protocol Stop: 06/17/18 20:08 Glucose (Glucose 40%) 15 - 30 gm PO UD PRN; Protocol PRN Reason: Hypoglycemia Protocol Stop: 06/17/18 20:08 Insulin Aspart (Novolog Flexpen) 0 units SC ACHS [facility] Stop: 06/17/18 20:59 Last Admin: 05/24/18 12:22 Dose: Not Given Documented by: Insulin Glargine (Lantus Solostar Pen) 0 units SC BID [facility]; Protocol Stop: 06/17/18 20:59 Last Admin: 05/24/18 08:35 Dose: Not Given Documented by: Loperamide HCl (Imodium) 2 mg PO UD PRN PRN Reason: Diarrhea Stop: 06/22/18 12:29 Last Admin: 05/23/18 23:45 Dose: 2 mg Documented by: Magnesium Oxide (Mag-Ox) 400 mg PO 1200,1800 [facility] Stop: 06/17/18 20:59 Last Admin: 05/24/18 13:06 Dose: 400 mg Documented by: Miscellaneous (Carbohydrates For Hypoglycemia) 15 - 30 gm PO UD PRN PRN Reason: Hypoglycemia Treatment Stop: 06/17/18 20:08 Oxycodone HCl (Roxicodone Immediate Rel) 5 mg PO QID [facility] Stop: 06/01/18 20:59 Last Admin: 05/24/18 13:06 Dose: 5 mg Documented by: Pantoprazole Sodium (Protonix) 40 mg PO DAILYBB [facility] Stop: 06/18/18 06:29 Last Admin: 05/24/18 06:45 Dose: 40 mg Documented by: Pregabalin (Lyrica) 100 mg PO TID [facility] Stop: 06/17/18 20:59 Last Admin: 05/24/18 13:06 Dose: 100 mg Documented by: Rivaroxaban (Xarelto) 20 mg PO QDD [facility] Stop: 06/19/18 16:29 Last Admin: 05/23/18 17:14 Dose: 20 mg Documented by: Tamsulosin HCl (Flomax) 0.4 mg PO HS [facility] Stop: 06/17/18 20:59 Last Admin: 05/23/18 21:39 Dose: 0.4 mg Documented by: Tramadol HCl (Ultram) 50 mg PO Q6H PRN PRN Reason: Pain Stop: 06/22/18 08:52 Last Admin: 05/23/18 20:53 Dose: 50 mg Documented by: (1) Anemia Anemia type: unspecified type Qualified Code(s): D64.9 - Anemia, unspecified
[2018-05-24] MEDS: RIVAROXABAN 20 MG TAB PO SCH (16:57)
[2018-05-24] MEDS: TAMSULOSIN HCL 0.4 MG CAP PO SCH (20:52)
[2018-05-24] MEDS: ATORVASTATIN 40 MG TAB PO SCH (20:53)
[2018-05-25] MEDS: TRAMADOL HCL 50 MG TABLET PO PRN (03:40)
[2018-05-25] MEDS: PANTOprazole 40 MG TAB PO SCH (05:40)
[2018-05-25] MEDS: FERROUS SULFATE 325 MG TAB PO SCH ×2 (08:28→20:56)
[2018-05-25] MEDS: OXYCODONE HCL IR 5 MG TAB (IMMEDIATE RELEASE) PO SCH ×4 (08:28→20:56)
[2018-05-25] MEDS: PREGABALIN 100 MG CAP PO SCH ×3 (08:28→20:56)
[2018-05-25] MEDS: ASCORBIC ACID 500 MG TAB PO SCH (08:29)
[2018-05-25] MEDS: CLOPIDOGREL BISULFATE 75 MG TAB PO SCH (08:29)
[2018-05-25] MEDS: DOXYCYCLINE HYCLATE 100 MG CAP PO SCH ×2 (08:29→20:56)
[2018-05-25] MEDS: AMIODARONE 200 MG TAB PO SCH ×2 (08:29→20:56)
[2018-05-25] MEDS: DULOXETINE HCL 60 MG CAP PO SCH (08:29)
[2018-05-25] MEDS: INSULIN GLARGINE SOLOSTAR 100 UNITS/ML 3 ML PEN SC SCH ×2 (08:30→20:56)
[2018-05-25] MEDS: INSULIN ASPART 100 UNITS/ML 3 ML PEN SC SCH ×4 (08:31→20:57)
[2018-05-25 08:44] LABS: Basophils # (auto) 0.01 K/uL (0-0.2); Basophils % (auto) 0.1 %; Eosinophils # (auto) 0.22 K/uL (0-0.5); Eosinophils % (auto) 3.2 %; Hematocrit (blood only) 31.2 % (42-52); Hemoglobin 9.9 g/dL (14.0-18.0); Immature Granulocytes # (auto) 0.01 K/uL (0.00-0.02); Immature Granulocytes % (auto) 0.1 %; Lymphocytes # (auto) 0.85 K/uL (1.2-3.4); Lymphocytes % (auto) 12.4 %; Mean Corpuscular Hgb Conc 31.7 g/dL (32-36); Mean Corpuscular Volume 84.8 fL (80-100); Mean Platelet Volume 9.6 fL (7.4-10.4); Monocytes # (auto) 0.53 K/uL (0.11-0.59); Monocytes % (auto) 7.7 %; Neutrophils # (auto) 5.24 K/uL (1.4-6.5); Neutrophils % (auto) 76.5 %; Platelet Count 169 K/uL (130-400); RDW Standard Deviation 59.6 fL (36.4-46.3); Red Blood Count 3.68 M/uL (4.7-6.1); White Blood Count 6.86 K/uL (4.8-10.8)
[2018-05-25 09:21] LABS: BUN Creatinine Ratio 49.7 (10-20); Blood Urea Nitrogen 14 mg/dl (7-18); Calcium 8.8 mg/dl (8.5-10.1); Carbon Dioxide 30 mmol/L (21-32); Chloride 104 mmol/L (98-107); Creatinine Clr Calc Pharmacy 264.4 ml/min; Est GFR (African American) > 150.0; Est GFR (Non-African American) 136.4; Glucose 84 mg/dl (70-99); Potassium 3.9 mmol/L (3.5-5.1); Sodium 138 mmol/L (136-145)
[2018-05-25] MEDS: MAGNESIUM OXIDE 400 MG TAB PO SCH ×2 (12:14→17:08)
--- NOTE | 2018-05-25 15:10 | Hospitalist Progress Note ---
Date of Service May 25, 2018 Assessment & Plan (1) Wound of lower extremity: OSTEOMYELITIS LEFT ANKLE Hx PVD. Hx MRSA Received 1L NSS and started on intravenous Zosyn, vancomycin L Ankle xray: Periostitis the level of medial malleolus. Given history of overlying wound, this may indicate osteomyelitis. Presumed neuropathic changes within the midfoot. Blood cultures negative so far Wound cultures positive for staph Appreciate Ortho input and recommendation; Orthopedic is recommending am putation. At this time patient is declining this. --Discussed with patient and his sister at length at the bedside Patient would like to speak with orthopedic service again regarding details of amputation Will request orthopedic service to discuss possible amputation with patient again Appreciate orthopedic input and recommendation for possible surgery Discussed with family members especially the sister The patient will have amputation of the left leg most likely on Thursday The family members and the patient are in agreement (2) PVD (peripheral vascular disease): Pt follows with vascular surgery in [place] Dr Fonseca. Pts sister reports that pt had recent bilateral leg revascularization in the past 1-2 months -obtain outside records --Continue Plavix and Xarelto -We will hold Plavix and Xarelto for now (3) Anemia: Acute Blood Loss Anemia from Lower Leg Wound Bleeding Stool has been negative for any blood Complicated by chronic disease and malnutrition Patient still reports weakness Hemoglobin 8.4 Ordered 1 more unit of packed RBCs Hemoglobin improved to 9, clinically better Hemoglobin stable since Xarelto and Plavix resumed, continue to closely monitor We will check CBC tomorrow-hemoglobin remains stable at 9.9 (4) Diarrhea: C. difficile negative Imodium as needed, clear liquids for now Possibly advance diet to soft diet tomorrow morning is better No more diarrhea (5) History of aortic valve replacement with bioprosthetic valve: Aortic stenosis s/p bioprosthetic valve replacement in 09/2017 at [facility] (6) CAD (coronary artery disease): CAD s/p CABG x 2 in 09/2017 at [place] Continue statin, metoprolol, Plavix No acute cardiac symptoms (7) Atrial fibrillation: Hx a-fib after cardiac surgery in 09/2017, requiring cardioversion -- in sinus rhythm Continue beta-alex, Xarelto (8) Chronic diastolic heart failure: Hold Bumex in light of diarrhea Monitor, resume Bumex when diarrhea resolves No acute fluid overload (9) Cirrhosis: Hx cirrhosis. LFT's chronically elevated with AST: 56, ALT: 45, Alk Phos: 123, normal bili. (04/2018: AST: 54, ALT: 46, Alk Phos: 136) -monitor liver functions (10) BPH (benign prostatic hyperplasia): (11) Urinary retention: Hx BPH and chronic urinary retention. Follows with Urology [facility]. Reported consideration for suprapubic cath placement in future. 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 There is a higher risk for surgery as well given his overall condition Overall prognosis is guarded Subjective 05/24 Patient was seen and examined the medical floor He remains a stable and planning to go for surgery for the foot He denies any other symptoms of chest pain, shortness of breath, palpitation, any abdominal pain, nausea and/or vomiting 05/25 The patient was seen and examined in medical floor in presence of the sister and other family members He has been stable for the last few days The patient and the family members agreed to go ahead with the plan of amputation of left leg He denies any acute symptoms as of today Physical Exam Vital Signs (Past 24 Hours): Last Vital Signs Temp 36.5 C 05/25/18 12:00 Pulse 65 05/25/18 12:00 Resp 18 05/25/18 12:00 BP 144/64 H 05/25/18 12:00 Pulse Ox 99 05/25/18 12:00 Physical Exam: No apparent distress at rest Constitutional: + ill appearing, + thin and + lethargic Eyes: PERRL, conjunctivae normal, anicteric sclerae ENMT: external ear and nose normal, oropharynx normal Neck: trachea midline, no thyromegaly Respiratory: normal respiratory effort, lungs clear to auscultation Cardiovascular: Rate/Rhythm: regular rate and regular rhythm Heart Sounds: normal S1 and normal S2 Gastrointestinal (Abdomen): Inspection/Auscultation: abdomen normal to inspection and normal bowel sounds Musculoskeletal: Extremities: + muscle atrophy, + lower extremity abnormal to inspection (Both legs are bandaged, left ankle with possible osteomyelitis) Bilateral and + limited ROM of lower extremity (Chronic leg wounds bilaterally) Bilateral Skin: + ecchymosis (Generalized ecchymosis) Neurologic: Alert, awake and oriented x3, occasional confusion, generally weak. Has been bedbound for the last 3 months or so Results & Data Laboratory Results Short CBC 05/25/18 Range/Units 08:15 WBC 6.86 (4.8-10.8) K/uL Hgb 9.9 L (14.0-18.0) g/dL Hct 31.2 L (42-52) % Plt Count 169 (130-400) K/uL BMP 05/25/18 08:15 Sodium 138 Potassium 3.9 Chloride 104 Carbon Dioxide 30 BUN 14 Creatinine 0.29 L Glucose 84 Calcium 8.8 Medications Administered Current Inpatient Medications Albuterol (Duoneb) 3 ml INH Q6 PRN PRN Reason: Shortness Of Breath Or Wheezing Stop: 06/17/18 20:08 Amiodarone HCl (Cordarone) 200 mg PO AMHS [facility] Stop: 06/17/18 20:59 Last Admin: 05/25/18 08:29 Dose: 200 mg Documented by: Ascorbic Acid (Vitamin C) 500 mg PO QAM [facility] Stop: 06/18/18 08:59 Last Admin: 05/25/18 08:29 Dose: 500 mg Documented by: Atorvastatin Calcium (Lipitor) 40 mg PO HS [facility] Stop: 06/17/18 20:59 Last Admin: 05/24/18 20:53 Dose: 40 mg Documented by: Clopidogrel Bisulfate (Plavix) 75 mg PO DAILY [facility] Stop: 06/20/18 08:59 Last Admin: 05/25/18 08:29 Dose: 75 mg Documented by: Dextrose (Dextrose 50%) 25 - 50 ml IV UD PRN; Protocol PRN Reason: Hypoglycemia Protocol Stop: 06/17/18 20:08 Doxycycline Hyclate (Vibramycin) 100 mg PO BID [facility] Stop: 07/02/18 09:29 Last Admin: 05/25/18 08:29 Dose: 100 mg Documented by: Duloxetine HCl (Cymbalta) 60 mg PO DAILY [facility] Stop: 06/18/18 08:59 Last Admin: 05/25/18 08:29 Dose: 60 mg Documented by: Ferrous Sulfate (Feosol) 325 mg PO 1000,2200 [facility] Stop: 06/17/18 20:59 Last Admin: 05/25/18 08:28 Dose: 325 mg Documented by: Glucagon (Glucagen) 1 mg SQ UD PRN; Protocol PRN Reason: Hypoglycemia Protocol Stop: 06/17/18 20:08 Glucose (Dex4 Glucose) 4 - 8 tabs PO UD PRN; Protocol PRN Reason: Hypoglycemia Protocol Stop: 06/17/18 20:08 Glucose (Glucose 40%) 15 - 30 gm PO UD PRN; Protocol PRN Reason: Hypoglycemia Protocol Stop: 06/17/18 20:08 Insulin Aspart (Novolog Flexpen) 0 units SC ACHS [facility] Stop: 06/17/18 20:59 Last Admin: 05/25/18 12:40 Dose: 1 units Documented by: Insulin Glargine (Lantus Solostar Pen) 0 units SC BID [facility]; Protocol Stop: 06/17/18 20:59 Last Admin: 05/25/18 08:30 Dose: Not Given Documented by: Loperamide HCl (Imodium) 2 mg PO UD PRN PRN Reason: Diarrhea Stop: 06/22/18 12:29 Last Admin: 05/23/18 23:45 Dose: 2 mg Documented by: Magnesium Oxide (Mag-Ox) 400 mg PO 1200,1800 [facility] Stop: 06/17/18 20:59 Last Admin: 05/25/18 12:14 Dose: 400 mg Documented by: Miscellaneous (Carbohydrates For Hypoglycemia) 15 - 30 gm PO UD PRN PRN Reason: Hypoglycemia Treatment Stop: 06/17/18 20:08 Oxycodone HCl (Roxicodone Immediate Rel) 5 mg PO QID [facility] Stop: 06/01/18 20:59 Last Admin: 05/25/18 12:14 Dose: 5 mg Documented by: Pantoprazole Sodium (Protonix) 40 mg PO DAILYBB [facility] Stop: 06/18/18 06:29 Last Admin: 05/25/18 05:40 Dose: 40 mg Documented by: Pregabalin (Lyrica) 100 mg PO TID [facility] Stop: 06/17/18 20:59 Last Admin: 05/25/18 13:46 Dose: 100 mg Documented by: Rivaroxaban (Xarelto) 20 mg PO QDD [facility] Stop: 06/19/18 16:29 Last Admin: 05/24/18 16:57 Dose: 20 mg Documented by: Tamsulosin HCl (Flomax) 0.4 mg PO HS [facility] Stop: 06/17/18 20:59 Last Admin: 05/24/18 20:52 Dose: 0.4 mg Documented by: Tramadol HCl (Ultram) 50 mg PO Q6H PRN PRN Reason: Pain Stop: 06/22/18 08:52 Last Admin: 05/25/18 03:40 Dose: 50 mg Documented by: (1) Anemia Anemia type: unspecified type Qualified Code(s): D64.9 - Anemia, unspecified
[2018-05-25] MEDS ORDERED: ENOXAPARIN INJ 40 MG/0.4 ML SYR SQ SCH (15:15)
[2018-05-25] MEDS: LOPERAMIDE HCL 2 MG CAP PO PRN (17:59)
[2018-05-25] MEDS: ATORVASTATIN 40 MG TAB PO SCH (20:56)
[2018-05-25] MEDS: TAMSULOSIN HCL 0.4 MG CAP PO SCH (20:56)
[2018-05-26] MEDS: TRAMADOL HCL 50 MG TABLET PO PRN ×3 (01:30→15:05)
[2018-05-26] MEDS: PANTOprazole 40 MG TAB PO SCH (05:55)
[2018-05-26] MEDS: INSULIN ASPART 100 UNITS/ML 3 ML PEN SC SCH ×4 (09:09→20:41)
[2018-05-26] MEDS: OXYCODONE HCL IR 5 MG TAB (IMMEDIATE RELEASE) PO SCH ×2 (09:10→12:43)
[2018-05-26] MEDS: INSULIN GLARGINE SOLOSTAR 100 UNITS/ML 3 ML PEN SC SCH ×2 (09:10→20:49)
[2018-05-26] MEDS: PREGABALIN 100 MG CAP PO SCH ×3 (09:11→20:36)
[2018-05-26] MEDS: DULOXETINE HCL 60 MG CAP PO SCH (09:12)
[2018-05-26] MEDS: AMIODARONE 200 MG TAB PO SCH ×2 (09:12→20:37)
[2018-05-26] MEDS: DOXYCYCLINE HYCLATE 100 MG CAP PO SCH ×2 (09:13→20:36)
[2018-05-26] MEDS: FERROUS SULFATE 325 MG TAB PO SCH ×2 (09:13→20:36)
[2018-05-26] MEDS: ASCORBIC ACID 500 MG TAB PO SCH (09:14)
[2018-05-26] MEDS: MAGNESIUM OXIDE 400 MG TAB PO SCH ×2 (12:39→17:11)
--- NOTE | 2018-05-26 14:55 | Orthopedic Progress Note ---
Date of Service May 26, 2018 Assessment & Plan (1) Osteomyelitis of ankle, left, acute: Primary reason for consult was osteomyelitis left tibia. Patient has no abscess but has bone edema within the tibia likely related osteomyelitis. He has periosteal reaction calcification around the medial malleolus area which would be consistent with chronic osteomyelitis. Patient also has multiple areas of eschar localized gangrene. I think the prognosis for these wounds to heal is poor. Patient not currently septic and would treat him with long-term IV antibiotics and wound care. Dr Joel notified and to make final decision on plan of care. BKA left vs debridement; Right foot debridement. I spoke to Dr George today. Pt has been bedridden for 2-3 months and may be in that state until his feet begin to heel. Dr Frias to be consulted regarding vascular status. Subjective Pt awake and alert. Undergoing bed repositioning with staff. No new complaints since seen by Dr Dockery. Continues to have pain in the feet, L > R. Physical Exam Physical Exam: No obvious changes from Dr Dockery's exam. Continues with full thickness eschar over the left heel and open wound over the medial malleolus. Scant drainage noted on the silver dressing. Eshcar over the dorsum of the 2nd toe with hammertoe. Eschar over the 1st MTP joint medially. Small skin eschars noted. Right foot with small eschar over the heel compared to the left. Smaller eschars noted over the 1st MTP medially. Results & Data Vital Signs (Past 12 Hours) Vital Signs Temp Pulse Resp BP Pulse Ox 05/26/18 11:18 36.5 C 63 18 110/65 96 05/26/18 07:25 36.4 C L 59 L 18 103/58 L 96 05/26/18 03:00 36.5 C 63 20 100/60 96
[2018-05-26] MEDS: OXYCODONE HCL IR 5 MG TAB (IMMEDIATE RELEASE) PO PRN ×2 (17:05→20:39)
--- NOTE | 2018-05-26 17:49 | Hospitalist Progress Note ---
Date of Service May 26, 2018 Assessment & Plan (1) Wound of lower extremity: OSTEOMYELITIS LEFT ANKLE Hx PVD. Hx MRSA Received 1L NSS and started on intravenous Zosyn, vancomycin L Ankle xray: Periostitis the level of medial malleolus. Given history of overlying wound, this may indicate osteomyelitis. Presumed neuropathic changes within the midfoot. Blood cultures negative so far Wound cultures positive for staph Appreciate Ortho input and recommendation; Orthopedic is recommending a mputation. At this time patient is declining this. --Discussed with patient and his sister at length at the bedside Patient would like to speak with orthopedic service again regarding details of amputation Will request orthopedic service to discuss possible amputation with patient again Appreciate orthopedic input and recommendation for possible surgery Discussed with family members especially the sister The patient will have amputation of the left leg most likely on Thursday The family members and the patient are in agreement Appreciate Ortho evaluation today-likely to have amputation of the left leg on Thursday (2) PVD (peripheral vascular disease): Pt follows with vascular surgery in [place] Dr Fonseca. Pts sister reports that pt had recent bilateral leg revascularization in the past 1-2 months -obtain outside records --Continue Plavix and Xarelto -We will hold Plavix and Xarelto for now -Vascular surgery has been consulted for peripheral vascular disease evaluation and any further treatment (3) Anemia: Acute Blood Loss Anemia from Lower Leg Wound Bleeding Stool has been negative for any blood Complicated by chronic disease and malnutrition Patient still reports weakness Hemoglobin 8.4 Ordered 1 more unit of packed RBCs Hemoglobin improved to 9, clinically better Hemoglobin stable since Xarelto and Plavix resumed, continue to closely monitor We will check CBC tomorrow-hemoglobin remains stable at 9.9 (4) Diarrhea: C. difficile negative Imodium as needed, clear liquids for now Possibly advance diet to soft diet tomorrow morning is better No more diarrhea (5) History of aortic valve replacement with bioprosthetic valve: Aortic stenosis s/p bioprosthetic valve replacement in 09/2017 at [facility] (6) CAD (coronary artery disease): CAD s/p CABG x 2 in 09/2017 at [place] Continue statin, metoprolol, Plavix No acute cardiac symptoms (7) Atrial fibrillation: Hx a-fib after cardiac surgery in 09/2017, requiring cardioversion -- in sinus rhythm Continue beta-alex, Xarelto General tone and aspirin Plavix are on hold for possible surgery on Thursday (8) Chronic diastolic heart failure: Hold Bumex in light of diarrhea Monitor, resume Bumex when diarrhea resolves No acute fluid overload (9) Cirrhosis: Hx cirrhosis. LFT's chronically elevated with AST: 56, ALT: 45, Alk Phos: 123, normal bili. (04/2018: AST: 54, ALT: 46, Alk Phos: 136) -monitor liver functions (10) BPH (benign prostatic hyperplasia): (11) Urinary retention: Hx BPH and chronic urinary retention. Follows with Urology [facility]. Reported consideration for suprapubic cath placement in future. 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 for routine care The patient has been bedbound for the last few months secondary to comorbid medical conditions and peripheral vascular disease with osteomyelitis of the foot Following surgery, his bedbound status may not be improved. There is a higher risk for surgery as well given his overall condition Overall prognosis is guarded Subjective 05/24 Patient was seen and examined the medical floor He remains a stable and planning to go for surgery for the foot He denies any other symptoms of chest pain, shortness of breath, palpitation, any abdominal pain, nausea and/or vomiting 05/25 The patient was seen and examined in medical floor in presence of the sister and other family members He has been stable for the last few days The patient and the family members agreed to go ahead with the plan of amputation of left leg He denies any acute symptoms as of today 05/26 The patient was seen and examined the medical He complains of pain especially at nighttime Otherwise he denies any symptoms Review of Systems Constitutional: + fatigue and + weakness Eyes: No problems reported Respiratory: no cough, no dyspnea and no wheezing Cardiovascular: no palpitations, no syncope and no edema Neurologic: + gait abnormality (Has been bedbound for the last 2-3 months) and + memory loss (Confused) Physical Exam Physical Exam: Physical Exam: No apparent distress at rest Constitutional: + ill appearing, + thin and + lethargic Eyes: PERRL, conjunctivae normal, anicteric sclerae ENMT: external ear and nose normal, oropharynx normal Neck: trachea midline, no thyromegaly Respiratory: normal respiratory effort, lungs clear to auscultation Cardiovascular: Rate/Rhythm: regular rate and regular rhythm Heart Sounds: normal S1 and normal S2 Gastrointestinal (Abdomen): Inspection/Auscultation: abdomen normal to inspection and normal bowel sounds Musculoskeletal: Extremities: + muscle atrophy, + lower extremity abnormal to inspection (Both legs are bandaged, left ankle with possible osteomyelitis) Bilateral and + limited ROM of lower extremity (Chronic leg wounds bilaterally) Bilateral Skin: + ecchymosis (Generalized ecchymosis) Neurologic: Alert, awake and oriented x3, occasional confusion, generally weak. Has been bedbound for the last 3 months or so Results & Data Vital Signs (Past 12 Hours) Vital Signs Temp Pulse Resp BP Pulse Ox 05/26/18 15:04 36.8 C 67 18 105/63 97 05/26/18 11:18 36.5 C 63 18 110/65 96 05/26/18 07:25 36.4 C L 59 L 18 103/58 L 96 Medications Administered Current Inpatient Medications Albuterol (Duoneb) 3 ml INH Q6 PRN PRN Reason: Shortness Of Breath Or Wheezing Stop: 06/17/18 20:08 Amiodarone HCl (Cordarone) 200 mg PO AMHS [facility]ER Stop: 06/17/18 20:59 Last Admin: 05/26/18 09:12 Dose: 200 mg Documented by: Ascorbic Acid (Vitamin C) 500 mg PO QAM [facility] Stop: 06/18/18 08:59 Last Admin: 05/26/18 09:14 Dose: 500 mg Documented by: Atorvastatin Calcium (Lipitor) 40 mg PO HS [facility]ER Stop: 06/17/18 20:59 Last Admin: 05/25/18 20:56 Dose: 40 mg Documented by: Clopidogrel Bisulfate (Plavix) 75 mg PO DAILY [facility] Stop: 06/20/18 08:59 Last Admin: 05/25/18 08:29 Dose: 75 mg Documented by: Dextrose (Dextrose 50%) 25 - 50 ml IV UD PRN; Protocol PRN Reason: Hypoglycemia Protocol Stop: 06/17/18 20:08 Doxycycline Hyclate (Vibramycin) 100 mg PO BID [facility] Stop: 07/02/18 09:29 Last Admin: 05/26/18 09:13 Dose: 100 mg Documented by: Duloxetine HCl (Cymbalta) 60 mg PO DAILY [facility] Stop: 06/18/18 08:59 Last Admin: 05/26/18 09:12 Dose: 60 mg Documented by: Ferrous Sulfate (Feosol) 325 mg PO 1000,2200 [facility] Stop: 06/17/18 20:59 Last Admin: 05/26/18 09:13 Dose: 325 mg Documented by: Glucagon (Glucagen) 1 mg SQ UD PRN; Protocol PRN Reason: Hypoglycemia Protocol Stop: 06/17/18 20:08 Glucose (Dex4 Glucose) 4 - 8 tabs PO UD PRN; Protocol PRN Reason: Hypoglycemia Protocol Stop: 06/17/18 20:08 Glucose (Glucose 40%) 15 - 30 gm PO UD PRN; Protocol PRN Reason: Hypoglycemia Protocol Stop: 06/17/18 20:08 Insulin Aspart (Novolog Flexpen) 0 units SC ACHS [facility] Stop: 06/17/18 20:59 Last Admin: 05/26/18 17:09 Dose: 1 units Documented by: Insulin Glargine (Lantus Solostar Pen) 0 units SC BID [facility]; Protocol Stop: 06/17/18 20:59 Last Admin: 05/26/18 09:10 Dose: Not Given Documented by: Loperamide HCl (Imodium) 2 mg PO UD PRN PRN Reason: Diarrhea Stop: 06/22/18 12:29 Last Admin: 05/25/18 17:59 Dose: 2 mg Documented by: Magnesium Oxide (Mag-Ox) 400 mg PO 1200,1800 [facility] Stop: 06/17/18 20:59 Last Admin: 05/26/18 17:11 Dose: 400 mg Documented by: Miscellaneous (Carbohydrates For Hypoglycemia) 15 - 30 gm PO UD PRN PRN Reason: Hypoglycemia Treatment Stop: 06/17/18 20:08 Oxycodone HCl (Roxicodone Immediate Rel) 5 mg PO Q4H PRN PRN Reason: Pain Stop: 06/09/18 15:29 Last Admin: 05/26/18 17:05 Dose: 5 mg Documented by: Pantoprazole S[facility] ([facility]ix) [facility] Stop: 06/18/18 06:29 Last Admin: 05/26/18 05:55 Dose: 40 mg Documented by: Pregabalin (Lyrica) 100 mg PO TID [facility] Stop: 06/17/18 20:59 Last Admin: 05/26/18 15:06 Dose: 100 mg Documented by: Rivaroxaban (Xarelto) 20 mg PO QDD [facility] Stop: 06/19/18 16:29 Last Admin: 05/24/18 16:57 Dose: 20 mg Documented by: Tamsulosin HCl (Flomax) 0.4 mg PO HS [facility] Stop: 06/17/18 20:59 Last Admin: 05/25/18 20:56 Dose: 0.4 mg Documented by: Tramadol HCl (Ultram) 50 mg PO Q6H PRN PRN Reason: Pain Stop: 06/22/18 08:52 Last Admin: 05/26/18 15:05 Dose: 50 mg Documented by: (1) Anemia Anemia type: unspecified type Qualified Code(s): D64.9 - Anemia, unspecified
[2018-05-26] MEDS: ATORVASTATIN 40 MG TAB PO SCH (20:36)
[2018-05-26] MEDS: TAMSULOSIN HCL 0.4 MG CAP PO SCH (20:38)
[2018-05-27] MEDS: TRAMADOL HCL 50 MG TABLET PO PRN ×4 (02:03→20:25)
[2018-05-27] MEDS: OXYCODONE HCL IR 5 MG TAB (IMMEDIATE RELEASE) PO PRN ×2 (06:49→17:06)
[2018-05-27] MEDS: PANTOprazole 40 MG TAB PO SCH (06:49)
[2018-05-27] MEDS: PREGABALIN 100 MG CAP PO SCH ×3 (08:08→20:25)
[2018-05-27] MEDS: AMIODARONE 200 MG TAB PO SCH ×2 (08:09→20:29)
[2018-05-27] MEDS: DOXYCYCLINE HYCLATE 100 MG CAP PO SCH ×2 (08:10→20:27)
[2018-05-27] MEDS: DULOXETINE HCL 60 MG CAP PO SCH (08:10)
[2018-05-27] MEDS: ASCORBIC ACID 500 MG TAB PO SCH (08:11)
[2018-05-27] MEDS: FERROUS SULFATE 325 MG TAB PO SCH ×2 (08:11→20:27)
[2018-05-27] MEDS: INSULIN ASPART 100 UNITS/ML 3 ML PEN SC SCH ×4 (08:36→20:47)
[2018-05-27] MEDS: INSULIN GLARGINE SOLOSTAR 100 UNITS/ML 3 ML PEN SC SCH ×2 (08:37→20:47)
--- NOTE | 2018-05-27 14:23 | Anesthesiology Consultation ---
Date of Service May 27, 2018 Assessment & Plan Chart Review Chart Review: Acceptable Risk for Surgery and Patient NOT seen in Pre Admission Testing Unable to find recent echo in [facility]. I spoke to Dr. George who stated he will order one now. Consults Requested none ASA ASA4 Proposed Anesthesia Anesthesia Type: General Anesthesia Line Insertion: Arterial line Risk / Benefits Reviewed With: PT / POA / Parent / Guardian, Accepts Plan and Informed Consent Obtained NPO Date Last Intake of Fluids: 05/27/18 Time Last Intake of Fluids: 18:00 Date Last Intake of Solids: 05/27/18 Time Last Intake of Solids: 18:00 History Surgery Operation Date: 05/28/18 12:40 Proposed Procedures p Left Below Knee Amputation, - Leno Joel DO s Right Foot Debridement of Ulcers - Leno Joel DO Height/Weight Height: 6 ft 2 in Weight: 83 kg Allergies Allergy/AdvReac Type Severity Reaction Status Date / Time heparin Allergy Unknown Verified 05/18/18 16:18 Medications Home Medications Medication Instructions Recorded Confirmed Last Taken Allevyn Gentle Border Lite 1 applic TOPICAL UD 05/18/18 05/18/18 05/17/18 Aquacel Ag Dressing 1 applic TOPICAL Q OTHER DAY 05/18/18 05/18/18 05/18/18 Med Pass Supplement 200 ml PO TID 05/18/18 05/18/18 05/18/18 13:00 Silicone Border Dressing 1 applic TOPICAL UD 05/18/18 05/18/18 05/18/18 Silver Alginate 1 applic TOPICAL Q OTHER DAY 05/18/18 05/18/18 Unknown acetaminophen [Tylenol Extra 500 mg PO Q4 PRN 05/18/18 05/18/18 Unknown Strength] amiodarone 200 mg PO AMHS 05/18/18 05/18/18 05/18/18 09:00 ascorbic acid (vitamin C) [Vitamin 500 mg PO QAM 05/18/18 05/18/18 05/18/18 09:00 C] atorvastatin 40 mg PO HS 05/18/18 05/18/18 05/17/18 21:00 bumetanide 1 mg PO DAILY 05/18/18 05/18/18 Unknown bumetanide 2 mg PO DAILY 05/18/18 05/18/18 05/18/18 09:00 clopidogrel 75 mg PO DAILY 05/18/18 05/18/18 05/18/18 09:00 doxycycline hyclate 100 mg PO BID 05/18/18 05/18/18 05/18/18 09:00 duloxetine 60 mg PO DAILY 05/18/18 05/18/18 05/18/18 09:00 ferrous sulfate 325 mg PO BID 05/18/18 05/18/18 05/18/18 09:00 glipizide 2.5 mg PO QAM 05/18/18 05/18/18 05/18/18 09:00 hydrocodone-acetaminophen [[place]] 1 tab PO Q6H PRN 05/18/18 05/18/18 05/18/18 ipratropium-albuterol 3 ml INHALATION Q6 PRN 05/18/18 05/18/18 Unknown magnesium oxide 400 mg PO BID 05/18/18 05/18/18 05/18/18 09:00 melatonin 5 mg PO HS 05/18/18 05/18/18 05/17/18 metoprolol succinate 12.5 mg PO DAILY 05/18/18 05/18/18 05/12/18 omeprazole 20 mg PO DAILYBB 05/18/18 05/18/18 05/18/18 06:30 oxycodone 5 mg PO QID 05/18/18 05/18/18 05/18/18 13:00 polyethylene glycol 3350 17 g PO TID 05/18/18 05/18/18 05/18/18 12:00 potassium chloride 10 meq PO DAILY 05/18/18 05/18/18 05/18/18 09:00 pregabalin [Lyrica] 100 mg PO TID 05/18/18 05/18/18 05/18/18 09:00 rivaroxaban [Xarelto] 20 mg PO HS 05/18/18 05/18/18 05/17/18 21:00 tamsulosin 0.4 mg PO HS 05/18/18 05/18/18 05/17/18 21:00 [id number] 1 dose PO BID 05/18/18 05/18/18 05/18/18 09:00 [ArgiMent AT] zinc oxide 1 applic TOPICAL QS 05/18/18 05/18/18 05/18/18 07:00 Active Medications Generic Name Dose Route Start Last Admin Trade Name Freq PRN Reason Stop Dose Admin Amiodarone HCl 200 mg 05/18/18 21:00 05/28/18 07:17 Cordarone PO 06/17/18 20:59 Not Given AMHS [facility] Ascorbic Acid 500 mg 05/19/18 09:00 05/28/18 07:17 Vitamin C PO 06/18/18 08:59 Not Given QAM [facility] Atorvastatin Calcium 40 mg 05/18/18 21:00 05/27/18 20:29 Lipitor PO 06/17/18 20:59 40 mg HS ESTER Administration Clopidogrel Bisulfate 75 mg 05/21/18 09:00 05/25/18 08:29 Plavix PO 06/20/18 08:59 75 mg DAILY ESTER Administration Doxycycline Hyclate 100 mg 05/21/18 09:30 05/28/18 07:17 Vibramycin PO 07/02/18 09:29 Not Given BID [facility] Duloxetine HCl 60 mg 05/19/18 09:00 05/28/18 07:17 Cymbalta PO 06/18/18 08:59 Not Given DAILY [facility] Ferrous Sulfate 325 mg 05/21/18 22:00 05/28/18 07:17 Feosol PO 06/17/18 20:59 Not Given 1000,2200 [facility] Hydromorphone HCl 0.5 mg 05/28/18 07:22 05/28/18 07:41 Dilaudid IV 06/11/18 07:21 0.5 mg Q4H PRN Administration Pain Promethazine HCl 12.5 mg/ 50.5 mls @ 202 mls/hr 05/27/18 23:22 05/28/18 13:24 Sodium Chloride IV 06/26/18 23:21 Infused Q6H PRN Infusion Nausea And Vomiting Insulin Aspart 0 units 05/18/18 21:00 05/28/18 13:23 Novolog Flexpen SC 06/17/18 20:59 Not Given ACHS [facility] Insulin Glargine 0 units 05/18/18 21:00 05/28/18 10:25 Lantus Solostar Pen SC 06/17/18 20:59 Not Given BID [facility] Protocol Loperamide HCl 2 mg 05/23/18 12:30 05/25/18 17:59 Imodium PO 06/22/18 12:29 2 mg UD PRN Administration Diarrhea Magnesium Oxide 400 mg 05/21/18 18:00 05/28/18 12:13 Mag-Ox PO 06/17/18 20:59 Not Given 1200,1800 [facility] Oxycodone HCl 5 mg 05/26/18 15:30 05/27/18 17:06 Roxicodone Immediate Rel PO 06/09/18 15:29 5 mg Q4H PRN Administration Pain Pantoprazole Sodium 40 mg 05/19/18 06:30 05/28/18 04:37 Protonix PO 06/18/18 06:29 40 mg DAILYBB ESTER Administration Pregabalin 100 mg 05/18/18 21:00 05/28/18 12:13 Lyrica PO 06/17/18 20:59 Not Given TID [facility] Rivaroxaban 20 mg 05/20/18 16:30 05/27/18 17:03 Xarelto PO 06/19/18 16:29 20 mg QDD ESTER Administration Tamsulosin HCl 0.4 mg 05/18/18 21:00 05/27/18 20:27 Flomax PO 06/17/18 20:59 0.4 mg HS ESTER Administration Tramadol HCl 50 mg 05/23/18 08:53 05/27/18 20:25 Ultram PO 06/22/18 08:52 50 mg Q6H PRN Administration Pain Past Medical History Medical History Cirrhosis (Chronic) 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) Chronic diastolic heart failure (Chronic) Atrial fibrillation (Chronic) PVD (peripheral vascular disease) (Chronic) Malnutrition (Chronic) Aortic stenosis (Chronic) CAD (coronary artery disease) (Chronic) Diastolic heart failure (Chronic) Urinary retention (Chronic) BPH (benign prostatic hyperplasia) (Chronic) Diabetes mellitus, type II (Chronic) GERD (gastroesophageal reflux disease) HLD (hyperlipidemia) (Chronic) Hypertension (Chronic) Past Family History Family History Other Cancer Coronary heart disease Diabetes Past Surgical History Surgical History History of cholecystectomy (Chronic) History of aortic valve replacement with bioprosthetic valve (Chronic) History of coronary artery bypass graft x 2 (Chronic) Past Anesthesia History No Hx of Anesthesia Complications and No Family Hx of Anesthesia Complications History of PONV No Motion Sickness Screening History of Motion Sickness: No Social History Smoking Status: Former smoker Hx Alcohol Use: No Hx Substance Use: No Exercise / Class Metabolic Activity IV < 2 Limit ADL/Bedbound Physical Exam Vital Signs Last Vital Signs Temp 36.5 C 05/28/18 14:01 Pulse 77 05/28/18 14:01 Resp 19 05/28/18 14:01 BP 118/77 05/28/18 14:01 Pulse Ox 93 05/28/18 14:01 ENMT Mouth: + edentulous Thyromental Distance: > or= 3.5 Finger Breadths Mallampati Class: II Neck normal visual inspection and trachea midline; neck extension not limited Respiratory normal respiratory effort Auscultation: lungs clear to auscultation bilaterally Cardiovascular Rate/Rhythm: regular rate and regular rhythm Heart Sounds: + murmur Vessels: no carotid bruit Musculoskeletal Spine: normal cervical ROM Neurologic moves all extremities Motor/Sensory: + sensory deficit Psychiatric Orientation: + not alert (sedated) and + not oriented x 3 (sedated) Testing Electrocardiogram Date: 05/19/18 Sinus bradycardia with 1st degree A-V block Nonspecific T wave abnormality Prolonged QT Abnormal ECG When compared with ECG of 19-MAY-2018 06:25, No significant change was found Confirmed by TONYA ESTRADA ([id number]) on 05/20/2018 5:40:37 AM Chest X-Ray Date: 05/18/18 small bibasilar parenchymal infiltrates Laboratory Results 05/28/18 07:14 05/28/18 07:14 Blood Type A Positive 05/27/18 15:12 Antibody Screen NEGATIVE 05/27/18 15:12 PT 15.5 Seconds (9.0-12.0) H 05/28/18 07:14 INR 1.6 (0.9-1.1) H 05/28/18 07:14 APTT 42.4 Seconds (21.0-31.0) H 05/18/18 13:49 Hemoglobin A1c 5.5 % (4.5-5.6) 05/19/18 06:49 05/18/18 15:10 Blood Culture - Final Blood No growth 05/18/18 15:05 Blood Culture - Final Blood No growth 05/19/18 11:50 Gram Stain - Final Foot,Right Deep Wound Culture - Final Staph aureus MRSA 05/28/18 05/28/18 11:43 07:43 POC Glucose 144 H 166 H
[2018-05-27] MEDS: MAGNESIUM OXIDE 400 MG TAB PO SCH ×2 (14:25→17:07)
--- NOTE | 2018-05-27 14:30 | Ultrasound Report ---
ULTRASOUND BILATERAL LOWER EXTREMITY ARTERIAL CLINICAL HISTORY: Osteomyelitis of left foot. COMPARISON STUDY: No priors. TECHNIQUE: Real-time, grayscale, and color Doppler sonography of the arteries of the right and left l ower extremities performed from the inguinal crease to the foot. Ankle-brachial indices could not be assessed. FINDINGS: Right lower extremity: There is advanced atherosclerotic plaque and irregularity seen throughout the arteries of the right lower extremity. There are triphasic arterial waveforms in the right common fem oral artery with velocities measuring up to 82 cm/s. The profunda femoris artery is patent with veloc ities measuring up to 62 cm/s. There are biphasic to triphasic arterial waveforms seen throughout the superficial femoral artery with velocities measuring up to 105 cm/s. There is mild blunting of the a rterial upstroke in the popliteal artery. Velocities in the popliteal artery measure up to 108 cm/s. Waveforms are biphasic to triphasic. There is two-vessel runoff to the foot. The proximal posterior t ibial artery is patent with velocities measuring up to 50 cm/s. No flow is shown within the mid to di stal posterior tibial artery. Velocities within the anterior tibial artery measure up to 97 cm/s, and velocities within the peroneal artery measure up to 35 cm/s. The right dorsalis pedis artery is olson nt with velocities measuring up to 28 cm/s. Left lower extremity: Advanced atherosclerotic plaque is identified throughout the arteries of the le ft lower extremity. There are triphasic waveforms in the common femoral artery with velocities measur ing up to 67 cm/s. No flow is shown within the profundus femoris artery. There are biphasic to tripha sic waveforms seen throughout the left superficial femoral artery with velocities measuring up to 99 cm/s. Velocities in the popliteal artery measure up to 81 cm/s. There is three-vessel runoff to the f oot. Velocities within the posterior tibial artery measure up to 159 cm/s, velocities within the kunal tanika artery measure up to 30 cm/s, and velocities within the anterior tibial artery measure up to 72 cm/s. The dorsalis pedis artery is patent with velocities measuring up to 34 cm/s. IMPRESSION: 1. No flow is identified within the right posterior tibial artery which is likely occluded. 2. 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 3. The remaining vessels of the lower extremities are patent. See above. Dictated: 05/27/2018 2:10 PM Transcribed: 05/27/2018 2:29 PM Devora [id number] [email or web address] Electronically signed by: Derick Rosales M.D. 05/27/2018 2:31 PM
[2018-05-27] MEDS: RIVAROXABAN 20 MG TAB PO SCH (17:03)
--- NOTE | 2018-05-27 17:43 | Hospitalist Progress Note ---
Date of Service May 27, 2018 Assessment & Plan (1) Wound of lower extremity: OSTEOMYELITIS LEFT ANKLE Hx PVD. Hx MRSA Received 1L NSS and started on intravenous Zosyn, vancomycin L Ankle xray: Periostitis the level of medial malleolus. Given history of overlying wound, this may indicate osteomyelitis. Presumed neuropathic changes within the midfoot. Blood cultures negative so far Wound cultures positive for staph Appreciate Ortho input and recommendation; Orthopedic is recommending a mputation. At this time patient is declining this. --Discussed with patient and his sister at length at the bedside Patient would like to speak with orthopedic service again regarding details of amputation Will request orthopedic service to discuss possible amputation with patient again Appreciate orthopedic input and recommendation for possible surgery Discussed with family members especially the sister The patient will have amputation of the left leg most likely on Thursday The family members and the patient are in agreement Appreciate Ortho evaluation today-likely to have amputation of the left leg on Thursday Remains stable and denies any significant symptoms He is going to have a left below knee amputation and right foot debridement by Dr. Almonte tomorrow (2) PVD (peripheral vascular disease): Pt follows with vascular surgery in [place] Dr Fonseca. Pts sister reports that pt had recent bilateral leg revascularization in the past 1-2 months -obtain outside records --Continue Plavix and Xarelto -We will hold Plavix and Xarelto for now -Vascular surgery has been consulted for peripheral vascular disease evaluation and any further treatment -Duplex scan of the lower extremity noted; showed no flow within the right posterior tibial artery which is likely occluded, occlusion of the left profunda femoral artery. -Vascular surgery consulted for recommendation (3) Anemia: Acute Blood Loss Anemia from Lower Leg Wound Bleeding Stool has been negative for any blood Complicated by chronic disease and malnutrition Patient still reports weakness Hemoglobin 8.4 Ordered 1 more unit of packed RBCs Hemoglobin improved to 9, clinically better Hemoglobin stable since Xarelto and Plavix resumed, continue to closely monitor We will check CBC tomorrow-hemoglobin remains stable at 9.9 recheck blood tomorrow (4) Diarrhea: C. difficile negative Imodium as needed, clear liquids for now Possibly advance diet to soft diet tomorrow morning is better No more diarrhea (5) History of aortic valve replacement with bioprosthetic valve: Aortic stenosis s/p bioprosthetic valve replacement in 09/2017 at [facility] ECHO: Left ventricle is normal with moderate concentric left ventricular hypertrophy, left ventricular wall motion is normal, and is hyperdynamic, EF is more than 70%, grade 3 diastolic dysfunction consistent with markedly increased left atrial pressure, there is a bioprosthetic aortic valve with normal gradient, aortic regurg regurgitation is present, there is moderate to severe annular calcification, there is no mitral valvular stenosis (6) CAD (coronary artery disease): CAD s/p CABG x 2 in 09/2017 at [place] Continue statin, metoprolol, Plavix No acute cardiac symptoms (7) Atrial fibrillation: Hx a-fib after cardiac surgery in 09/2017, requiring cardioversion -- in sinus rhythm Continue beta-alex, Xarelto General tone and aspirin Plavix are on hold for possible surgery on Thursday (8) Chronic diastolic heart failure: Hold Bumex in light of diarrhea Monitor, resume Bumex when diarrhea resolves No acute fluid overload (9) Cirrhosis: Hx cirrhosis. LFT's chronically elevated with AST: 56, ALT: 45, Alk Phos: 123, normal bili. (04/2018: AST: 54, ALT: 46, Alk Phos: 136) -monitor liver functions (10) BPH (benign prostatic hyperplasia): (11) Urinary retention: Hx BPH and chronic urinary retention. Follows with [facility]. Reported consideration for suprapubic cath placement in future. 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 There is a higher risk for surgery as well given his overall condition Overall prognosis is guarded Subjective 05/24 Patient was seen and examined the medical floor He remains a stable and planning to go for surgery for the foot He denies any other symptoms of chest pain, shortness of breath, palpitation, any abdominal pain, nausea and/or vomiting 05/25 The patient was seen and examined in medical floor in presence of the sister and other family members He has been stable for the last few days The patient and the family members agreed to go ahead with the plan of amputation of left leg He denies any acute symptoms as of today 05/26 The patient was seen and examined the medical He complains of pain especially at nighttime Otherwise he denies any symptoms 05/26 Patient was seen and examined in medical telemetry unit He does not have any symptoms but says that he is scared to for the proposed surgery tomorrow He denies any chest pain, palpitation, shortness of breath Denies any abdominal pain, nausea and/or vomiting Review of Systems Review of Systems: All systems reviewed and are unremarkable except as noted below Musculoskeletal: + joint pain and + muscle weakness Neurologic: Generally weak and lethargic Physical Exam Physical Exam: No apparent distress at rest Constitutional: + ill appearing, + thin and + lethargic Eyes: PERRL, conjunctivae normal, anicteric sclerae ENMT: external ear and nose normal, oropharynx normal Neck: trachea midline, no thyromegaly Respiratory: normal respiratory effort, lungs clear to auscultation Cardiovascular: Rate/Rhythm: regular rate and regular rhythm Heart Sounds: normal S1, normal S2 and + murmur (Ejection systolic murmur 2/6 over precordium) Gastrointestinal (Abdomen): Inspection/Auscultation: abdomen normal to inspection and normal bowel sounds Musculoskeletal: Extremities: + muscle atrophy, + lower extremity abnormal to inspection (Both legs are bandaged, left ankle with possible osteomyelitis) Bilateral and + limited ROM of lower extremity (Chronic leg wounds bilaterally) Bilateral Skin: + ecchymosis (Generalized ecchymosis) Neurologic: Alert awake and oriented x3,. Generally weak and lethargy Results & Data Vital Signs (Past 12 Hours) Vital Signs Temp Pulse Resp BP Pulse Ox 05/27/18 11:16 36.4 C L 66 20 126/56 L 97 05/27/18 07:28 36.4 C L 59 L 18 108/61 96 Medications Administered Current Inpatient Medications Albuterol (Duoneb) 3 ml INH Q6 PRN PRN Reason: Shortness Of Breath Or Wheezing Stop: 06/17/18 20:08 Amiodarone HCl (Cordarone) 200 mg PO AMHS [facility] Stop: 06/17/18 20:59 Last Admin: 05/27/18 08:09 Dose: 200 mg Documented by: Ascorbic Acid (Vitamin C) 500 mg PO QAM [facility] Stop: 06/18/18 08:59 Last Admin: 05/27/18 08:11 Dose: 500 mg Documented by: Atorvastatin Calcium (Lipitor) 40 mg PO HS [facility] Stop: 06/17/18 20:59 Last Admin: 05/26/18 20:36 Dose: 40 mg Documented by: Clopidogrel Bisulfate (Plavix) 75 mg PO DAILY [facility] Stop: 06/20/18 08:59 Last Admin: 05/25/18 08:29 Dose: 75 mg Documented by: Dextrose (Dextrose 50%) 25 - 50 ml IV UD PRN; Protocol PRN Reason: Hypoglycemia Protocol Stop: 06/17/18 20:08 Doxycycline Hyclate (Vibramycin) 100 mg PO BID [facility] Stop: 07/02/18 09:29 Last Admin: 05/27/18 08:10 Dose: 100 mg Documented by: Duloxetine HCl (Cymbalta) 60 mg PO DAILY [facility] Stop: 06/18/18 08:59 Last Admin: 05/27/18 08:10 Dose: 60 mg Documented by: Ferrous Sulfate (Feosol) 325 mg PO 1000,2200 [facility] Stop: 06/17/18 20:59 Last Admin: 05/27/18 08:11 Dose: 325 mg Documented by: Glucagon (Glucagen) 1 mg SQ UD PRN; Protocol PRN Reason: Hypoglycemia Protocol Stop: 06/17/18 20:08 Glucose (Dex4 Glucose) 4 - 8 tabs PO UD PRN; Protocol PRN Reason: Hypoglycemia Protocol Stop: 06/17/18 20:08 Glucose (Glucose 40%) 15 - 30 gm PO UD PRN; Protocol PRN Reason: Hypoglycemia Protocol Stop: 06/17/18 20:08 Insulin Aspart (Novolog Flexpen) 0 units SC ACHS [facility] Stop: 06/17/18 20:59 Last Admin: 05/27/18 17:22 Dose: 2 units Documented by: Insulin Glargine (Lantus Solostar Pen) 0 units SC BID [facility]; Protocol Stop: 06/17/18 20:59 Last Admin: 05/27/18 08:37 Dose: Not Given Documented by: Loperamide HCl (Imodium) 2 mg PO UD PRN PRN Reason: Diarrhea Stop: 06/22/18 12:29 Last Admin: 05/25/18 17:59 Dose: 2 mg Documented by: Magnesium Oxide (Mag-Ox) 400 mg PO 1200,1800 [facility] Stop: 06/17/18 20:59 Last Admin: 05/27/18 17:07 Dose: 400 mg Documented by: Miscellaneous (Carbohydrates For Hypoglycemia) 15 - 30 gm PO UD PRN PRN Reason: Hypoglycemia Treatment Stop: 06/17/18 20:08 Oxycodone HCl (Roxicodone Immediate Rel) 5 mg PO Q4H PRN PRN Reason: Pain Stop: 06/09/18 15:29 Last Admin: 05/27/18 17:06 Dose: 5 mg Documented by: Pantoprazole Sodium (Protonix) 40 mg PO DAILYBB [facility] Stop: 06/18/18 06:29 Last Admin: 05/27/18 06:49 Dose: 40 mg Documented by: Pregabalin (Lyrica) 100 mg PO TID [facility] Stop: 06/17/18 20:59 Last Admin: 05/27/18 14:25 Dose: 100 mg Documented by: Rivaroxaban (Xarelto) 20 mg PO QDD [facility] Stop: 06/19/18 16:29 Last Admin: 05/27/18 17:03 Dose: 20 mg Documented by: Tamsulosin HCl (Flomax) 0.4 mg PO HS [facility] Stop: 06/17/18 20:59 Last Admin: 05/26/18 20:38 Dose: 0.4 mg Documented by: Tramadol HCl (Ultram) 50 mg PO Q6H PRN PRN Reason: Pain Stop: 06/22/18 08:52 Last Admin: 05/27/18 14:25 Dose: 50 mg Documented by: (1) Anemia Anemia type: unspecified type Qualified Code(s): D64.9 - Anemia, unspecified
[2018-05-27] MEDS: TAMSULOSIN HCL 0.4 MG CAP PO SCH (20:27)
[2018-05-27] MEDS: ATORVASTATIN 40 MG TAB PO SCH (20:29)
[2018-05-27] MEDS: PROMETHAZINE HCL 12.5 MG in SODIUM CHLORIDE 0.9% 50 ML IV PRN (23:47)
[2018-05-28] MEDS: PANTOprazole 40 MG TAB PO SCH (04:37)
[2018-05-28] MEDS: PROMETHAZINE HCL 12.5 MG in SODIUM CHLORIDE 0.9% 50 ML IV PRN ×2 (05:27→11:30)
[2018-05-28] MEDS: ASCORBIC ACID 500 MG TAB PO SCH (07:17)
[2018-05-28] MEDS: AMIODARONE 200 MG TAB PO SCH ×2 (07:17→21:24)
[2018-05-28] MEDS: PREGABALIN 100 MG CAP PO SCH ×3 (07:17→21:23)
[2018-05-28] MEDS: FERROUS SULFATE 325 MG TAB PO SCH ×2 (07:17→21:23)
[2018-05-28] MEDS: DOXYCYCLINE HYCLATE 100 MG CAP PO SCH ×2 (07:17→21:23)
[2018-05-28] MEDS: DULOXETINE HCL 60 MG CAP PO SCH (07:17)
[2018-05-28] MEDS ORDERED: HYDROmorphone INJ 0.5 MG/0.5 ML SYR IV PRN (07:22)
[2018-05-28 07:53] LABS: Hematocrit (blood only) 34.5 % (42-52); Immature Granulocytes # (auto) 0.01 K/uL (0.00-0.02); Immature Granulocytes % (auto) 0.1 %; Lymphocytes # (auto) 0.49 K/uL (1.2-3.4); Lymphocytes % (auto) 6.6 %; Mean Corpuscular Hgb Conc 31.9 g/dL (32-36); Mean Corpuscular Volume 85.4 fL (80-100); Mean Platelet Volume 9.4 fL (7.4-10.4); Monocytes % (auto) 2.7 %; Neutrophils # (auto) 6.73 K/uL (1.4-6.5); Neutrophils % (auto) 90.6 %; Platelet Count 159 K/uL (130-400); RDW Coefficient of Variation 18.8 % (11.5-14.5); Red Blood Count 4.04 M/uL (4.7-6.1); White Blood Count 7.43 K/uL (4.8-10.8)
[2018-05-28 08:06] LABS: INR 1.6 (0.9-1.1); Prothrombin Time 15.5 Seconds (9.0-12.0)
[2018-05-28 08:34] LABS: Bilirubin,Total 0.7 mg/dl (0.2-1); Calcium 8.8 mg/dl (8.5-10.1); Creatinine Clr Calc Pharmacy 167.6 ml/min; Est GFR (African American) 129.6; Est GFR (Non-African American) 111.8; Magnesium 1.8 mg/dl (1.8-2.4); Potassium 4.1 mmol/L (3.5-5.1)
[2018-05-28 08:38] LABS: Bilirubin Direct 0.5 mg/dl (0-0.2); Total Protein 7.1 gm/dl (6.4-8.2)
[2018-05-28] MEDS: INSULIN GLARGINE SOLOSTAR 100 UNITS/ML 3 ML PEN SC SCH ×2 (10:25→22:30)
[2018-05-28] MEDS: INSULIN ASPART 100 UNITS/ML 3 ML PEN SC SCH ×3 (10:25→21:24)
--- NOTE | 2018-05-28 12:11 | Consultation ---
Date of Consultation May 28, 2018 Assessment & Plan (1) PVD (peripheral vascular disease): Pt with known hx of PAD and recent procedure done at [place]. US imaging demonstrates adequate flow to BLE. Pt discussed with Dr Frias, does not recommend any vascular surgical intervention at this tiime. Pt scheduled to undergo amputation vs debridement of BLE by orthopedics. Please call if needed. Patient was seen, examined, and chart reviewed. Agree with exam and treatment plan of the Vascular PA. Thank you very much for letting us participate in the care of this patient. Present on Admission?: Yes History of Present Illness Reason for Consultation: 72 yo m with multiple medical problems, including DMII, a fib, bioprosthetic aortic valve replacement, PAD, CAD s/p CABG x2, BPH, GERD, and heart failure, admitted with worsening wounds to BLE, seen in consultation today for hx of PAD. Pt has had the wounds to BLE for many months, recently underwent angiography with intervention at [place] by Dr Fonseca, but unsure what intervention was performed. Pt admits nausea since last evening, improved now. Denies GORMAN, fever, chills, chest pain, SOB, abd pain, claudication(does not ambulate), other complaints. Imaging demonstrates osteomyelitis of LLE. Arterial US demonstrates biphasic waveforms and 2 vessel runoff to BLE. Attending Physician: Jordana George MD Allergies Allergy/AdvReac Type Severity Reaction Status Date / Time heparin Allergy Unknown Verified 05/18/18 16:18 Home Medications Home Medications Medication Instructions Recorded Confirmed Type Allevyn Gentle Border Lite 1 applic TOPICAL UD 05/18/18 05/18/18 History Aquacel Ag Dressing 1 applic TOPICAL Q OTHER DAY 05/18/18 05/18/18 History Med Pass Supplement 200 ml PO TID 05/18/18 05/18/18 History Silicone Border Dressing 1 applic TOPICAL UD 05/18/18 05/18/18 History Silver Alginate 1 applic TOPICAL Q OTHER DAY 05/18/18 05/18/18 History acetaminophen [Tylenol Extra 500 mg PO Q4 PRN 05/18/18 05/18/18 History Strength] amiodarone 200 mg PO AMHS 05/18/18 05/18/18 History ascorbic acid (vitamin C) [Vitamin 500 mg PO QAM 05/18/18 05/18/18 History C] atorvastatin 40 mg PO HS 05/18/18 05/18/18 History bumetanide 1 mg PO DAILY 05/18/18 05/18/18 History bumetanide 2 mg PO DAILY 05/18/18 05/18/18 History clopidogrel 75 mg PO DAILY 05/18/18 05/18/18 History doxycycline hyclate 100 mg PO BID 05/18/18 05/18/18 History duloxetine 60 mg PO DAILY 05/18/18 05/18/18 History ferrous sulfate 325 mg PO BID 05/18/18 05/18/18 History glipizide 2.5 mg PO QAM 05/18/18 05/18/18 History hydrocodone-acetaminophen [[place]] 1 tab PO Q6H PRN 05/18/18 05/18/18 History ipratropium-albuterol 3 ml INHALATION Q6 PRN 05/18/18 05/18/18 History magnesium oxide 400 mg PO BID 05/18/18 05/18/18 History melatonin 5 mg PO HS 05/18/18 05/18/18 History metoprolol succinate 12.5 mg PO DAILY 05/18/18 05/18/18 History omeprazole 20 mg PO DAILYBB 05/18/18 05/18/18 History oxycodone 5 mg PO QID 05/18/18 05/18/18 History polyethylene glycol 3350 17 g PO TID 05/18/18 05/18/18 History potassium chloride 10 meq PO DAILY 05/18/18 05/18/18 History pregabalin [Lyrica] 100 mg PO TID 05/18/18 05/18/18 History rivaroxaban [Xarelto] 20 mg PO HS 05/18/18 05/18/18 History tamsulosin 0.4 mg PO HS 05/18/18 05/18/18 History [id number] 1 dose PO BID 05/18/18 05/18/18 History [ArgiMent AT] zinc oxide 1 applic TOPICAL QS 05/18/18 05/18/18 History Patient History Medical History Cirrhosis (Chronic) 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) Chronic diastolic heart failure (Chronic) Atrial fibrillation (Chronic) PVD (peripheral vascular disease) (Chronic) Malnutrition (Chronic) Aortic stenosis (Chronic) CAD (coronary artery disease) (Chronic) Diastolic heart failure (Chronic) Urinary retention (Chronic) BPH (benign prostatic hyperplasia) (Chronic) Diabetes mellitus, type II (Chronic) GERD (gastroesophageal reflux disease) HLD (hyperlipidemia) (Chronic) Hypertension (Chronic) Surgical History History of cholecystectomy (Chronic) History of aortic valve replacement with bioprosthetic valve (Chronic) History of coronary artery bypass graft x 2 (Chronic) Family History Other Cancer Coronary heart disease Diabetes Social History Preferred Language: Azerbaijani Communication Ability: Effective Beliefs That Will Affect Care: None marital status: Single Current Living Situation: [facility] Other Information That Helps Us Care for You: No Feels Safe at Home: Yes Smoking Status: Former smoker Hx Alcohol Use: No Hx Substance Use: No Physical Exam Vital Signs (Past 24 Hours): Last Vital Signs Temp 36.4 C L 05/28/18 07:12 Pulse 73 05/28/18 07:12 Resp 20 05/28/18 07:12 BP 146/80 H 05/28/18 07:12 Pulse Ox 94 05/28/18 07:12 Constitutional: WD/WN, vitals as above well developed, + ill appearing, + thin, + frail appearing, + disheveled, cooperative and comfortable; not in distress and not combative Eyes: PERRL, conjunctivae normal, anicteric sclerae ENMT: external ear and nose normal, oropharynx normal Ears: + hearing impairment Nose: no nasal discharge Neck: trachea midline, no thyromegaly no tracheal deviation, no neck crepitus and neck nontender Respiratory: normal respiratory effort, lungs clear to auscultation able to speak in complete sentences; no cough Auscultation: lungs clear to auscultation bilaterally and + diminished lung sounds; no rhonchi and no wheezes Cardiovascular: Rate/Rhythm: regular rate; + abnormal rhythm Heart Sounds: no gallop and no murmur Vessels: femoral pulses present, brachial pulses present and radial pulses present; no carotid bruit, no femoral bruit, + abnormal peripheral pulses, + posterior tibial pulses abnormal (nonpalpable) and + dorsalis pedis pulses abnormal (nonpalpable BLE) Extremities: normal capillary refill Chest (Breasts): Chest: normal inspection of chest Gastrointestinal (Abdomen): normal bowel sounds, soft, nontender, no hepatosplenomegaly Inspection/Auscultation: abdomen normal to inspection and normal bowel sounds; abdomen not distended Percussion/Palpation: abdomen soft; abdomen nontender, no guarding and abdomen not rigid Musculoskeletal: no cyanosis or clubbing, extremities motor strength 5/5 Head/Neck/Chest: normocephalic, head atraumatic and neck supple Extremities: + extremities abnormal to inspection (BLE wounds), + abnormal strength, normal strength and no amputation noted Skin: no rashes, warm and dry normal turgor, + wound (BLE wounds noted, eschars), + erythema and + eschar; no rashes, no induration and no mottling Trauma: no hematoma and no puncture Neurologic: moves all extremities, awake and + confused; no focal motor deficits Speech / Cognition: no expressive aphasia and no receptive aphasia Motor/Sensory: no tremor and no sensory deficit Cranial Nerves: EOM intact bilaterally and normal facial strength Psychiatric: Orientation: alert, oriented to person, oriented to place and cooperative Apperance: + disheveled; + did not appear stated age Affect: euthymic affect and + irritable affect Thought Process: goal directed thought process, linear/logical thought process and clear/coherent thought process Cognition: attention grossly intact and language grossly intact; + recent memory not intact and + remote memory not intact Estimated Intelligence: average estimated intelligence Lymphatic: no lymphedema
[2018-05-28] MEDS: MAGNESIUM OXIDE 400 MG TAB PO SCH ×2 (12:13→21:24)
[2018-05-28] MEDS ORDERED: LORazepam 0.5 MG/1 ML VIAL IV STA (13:10)
[2018-05-28] MEDS ORDERED: LORazepam 2 MG/4 ML VIAL ONE (13:14)
[2018-05-28] MEDS ORDERED: LIDOCAINE HCL 2% 2 ML VIAL/AMP(20MG/ML) INFIL ONE (14:35)
[2018-05-28] MEDS ORDERED: PROPOFOL IV EMULSION 10 MG/ML 20 ML VIAL IV ONE ×3 (14:35→14:36)
[2018-05-28] MEDS ORDERED: fentaNYL citrate 100 MCG/2 ML VIAL ONE ×2 (14:35→16:28)
[2018-05-28] MEDS ORDERED: CEFAZOLIN 1,000 MG/7.5 ML IV PUSH IV ONE (14:48)
[2018-05-28] MEDS ORDERED: BUPIVACAINE 0.5 % 5 MG/1 ML MPF 30ML VIAL ONE (14:54)
[2018-05-28] MEDS ORDERED: CEFAZOLIN 1000MG 1,000 MG/7.5 ML SYR IV ONE (14:55)
--- NOTE | 2018-05-28 14:56 | History & Physical Bridge Note ---
Date of Service May 28, 2018 History & Physical Bridge Note I have examined the patient, reviewed the History & Physical and in the interval since the performance of the History & Physical I have noted the following changes of clinical significance: Osteomyelitis left lower leg with severe chronic peripheral vascular disease necessitating left lower extremity below- knee amputation. Right lower extremity ischemic ulcers requiring surgical debridement.
[2018-05-28] MEDS ORDERED: ONDANSETRON INJ 2 MG/ML 2 ML VIAL ONE (15:12)
[2018-05-28] MEDS ORDERED: SUCCINYLCHOLINE CHLORIDE 20 MG/ML 10 ML VIAL ONE (15:12)
--- NOTE | 2018-05-28 15:24 | Hospitalist Progress Note ---
Date of Service May 28, 2018 Assessment & Plan (1) Wound of lower extremity: OSTEOMYELITIS LEFT ANKLE Hx PVD. Hx MRSA Received 1L NSS and started on intravenous Zosyn, vancomycin L Ankle xray: Periostitis the level of medial malleolus. Given history of overlying wound, this may indicate osteomyelitis. Presumed neuropathic changes within the midfoot. Blood cultures negative so far Wound cultures positive for staph Appreciate Ortho input and recommendation; Orthopedic is recommending a mputation. --Discussed with patient and his sister at length at the bedside Patient would like to speak with orthopedic service again regarding details of amputation Will request orthopedic service to discuss possible amputation with patient again Appreciate orthopedic input and recommendation for possible surgery Discussed with family members especially the sister about the proposed surgery Appreciate Ortho and vascular input and recommendation Will have surgery as proposed this afternoon;; left below-knee amputation and right foot debridement (2) PVD (peripheral vascular disease): Pt follows with vascular surgery in [place] Dr Fonseca. Pts sister reports that pt had recent bilateral leg revascularization in the past 1-2 months -obtain outside records --Continue Plavix and Xarelto -We will hold Plavix and Xarelto for now -Vascular surgery has been consulted for peripheral vascular disease evaluation and any further treatment -Duplex scan of the lower extremity noted; showed no flow within the right posterior tibial artery which is likely occluded, occlusion of the left profunda femoral artery. -Vascular surgery consulted for recommendation-no further intervention (3) Anemia: Acute Blood Loss Anemia from Lower Leg Wound Bleeding Stool has been negative for any blood Complicated by chronic disease and malnutrition Patient still reports weakness Hemoglobin 8.4 Ordered 1 more unit of packed RBCs Hemoglobin improved to 9, clinically better Hemoglobin stable since Xarelto and Plavix resumed, continue to closely monitor We will check CBC tomorrow-hemoglobin remains stable at 9.9 recheck blood tomorrow Monitor hemoglobin and PRP following surgery (4) Diarrhea: C. difficile negative Imodium as needed, clear liquids for now Possibly advance diet to soft diet tomorrow morning is better No more diarrhea (5) History of aortic valve replacement with bioprosthetic valve: Aortic stenosis s/p bioprosthetic valve replacement in 09/2017 at [facility] ECHO: Left ventricle is normal with moderate concentric left ventricular hypertrophy, left ventricular wall motion is normal, and is hyperdynamic, EF is more than 70%, grade 3 diastolic dysfunction consistent with markedly increased left atrial pressure, there is a bioprosthetic aortic valve with normal gradient, aortic regurg regurgitation is present, there is moderate to severe annular calcification, there is no mitral valvular stenosis (6) CAD (coronary artery disease): CAD s/p CABG x 2 in 09/2017 at [place] Continue statin, metoprolol, Plavix No acute cardiac symptoms (7) Atrial fibrillation: Hx a-fib after cardiac surgery in 09/2017, requiring cardioversion -- in sinus rhythm Continue beta-alex, Xarelto General tone and aspirin Plavix are on hold for possible surgery on Thursday (8) Chronic diastolic heart failure: Hold Bumex in light of diarrhea Monitor, resume Bumex when diarrhea resolves No acute fluid overload Echo as above Watch for acute diastolic heart failure following surgery (9) Cirrhosis: Hx cirrhosis. LFT's chronically elevated with AST: 56, ALT: 45, Alk Phos: 123, normal bili. (04/2018: AST: 54, ALT: 46, Alk Phos: 136) -monitor liver functions -INR is 1.6 (10) BPH (benign prostatic hyperplasia): (11) Urinary retention: Hx BPH and chronic urinary retention. Follows with Urology [facility]. Reported consideration for suprapubic cath placement in future. 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 There is a higher risk for surgery as well given his overall condition Overall prognosis is guarded Subjective 05/24 Patient was seen and examined the medical floor He remains a stable and planning to go for surgery for the foot He denies any other symptoms of chest pain, shortness of breath, palpitation, any abdominal pain, nausea and/or vomiting 05/25 The patient was seen and examined in medical floor in presence of the sister and other family members He has been stable for the last few days The patient and the family members agreed to go ahead with the plan of amputation of left leg He denies any acute symptoms as of today 05/26 The patient was seen and examined the medical He complains of pain especially at nighttime Otherwise he denies any symptoms 05/27 Patient was seen and examined in medical telemetry unit He does not have any symptoms but says that he is scared to for the proposed surgery tomorrow He denies any chest pain, palpitation, shortness of breath Denies any abdominal pain, nausea and/or vomiting 05/28 The patient was seen and examined the medical floor in presence of the cyst Remains clinically drowsy secondary to medication Complaint history of some nausea but no vomiting Leg pain is controlled Awaiting surgery this afternoon Review of Systems Review of Systems: All systems reviewed and are unremarkable except as noted Musculoskeletal: Has been bedbound for the last 2-3 months Neurologic: Alert, awake, pleasantly confused with generalized weakness. Physical Exam Physical Exam: Little drowsy secondary medication but no apparent distress Constitutional: + ill appearing, + thin and + lethargic Eyes: PERRL, conjunctivae normal, anicteric sclerae ENMT: external ear and nose normal, oropharynx normal Neck: trachea midline, no thyromegaly Respiratory: normal respiratory effort, lungs clear to auscultation Cardiovascular: Rate/Rhythm: regular rate and regular rhythm Heart Sounds: normal S1, normal S2 and + murmur (Ejection systolic murmur 2/6 over precordium) Gastrointestinal (Abdomen): Inspection/Auscultation: abdomen normal to inspection and normal bowel sounds Musculoskeletal: Extremities: + muscle atrophy, + lower extremity abnormal to inspection (Both legs are bandaged, left ankle with possible osteomyelitis) Bilateral and + limited ROM of lower extremity (Chronic leg wounds bilaterally) Bilateral Skin: + ecchymosis (Generalized ecchymosis) Neurologic: + confused Results & Data Vital Signs (Past 12 Hours) Vital Signs Temp Pulse Pulse Pulse Resp BP Pulse Ox 05/28/18 14:01 36.5 C 77 19 118/77 93 05/28/18 07:12 36.4 C L 73 20 146/80 H 94 05/28/18 04:00 71 05/28/18 03:49 36.4 C L 73 18 118/71 95 Laboratory Results Short CBC 05/28/18 Range/Units 07:14 WBC 7.43 (4.8-10.8) K/uL Hgb 11.0 L (14.0-18.0) g/dL Hct 34.5 L (42-52) % Plt Count 159 (130-400) K/uL BMP 05/28/18 07:14 Sodium 136 Potassium 4.1 Chloride 101 Carbon Dioxide 29 BUN 23 H Creatinine 0.47 L Glucose 164 H Calcium 8.8 Liver Function 05/28/18 Range/Units 07:14 Total Bilirubin 0.7 (0.2-1) mg/dl Direct Bilirubin 0.5 H (0-0.2) mg/dl AST 58 H (15-37) U/L ALT 43 (12-78) U/L Alkaline Phosphatase 158 H (45-117) U/L Albumin 2.0 L (3.4-5.0) gm/dl Medications Administered Current Inpatient Medications Albuterol (Duoneb) 3 ml INH Q6 PRN PRN Reason: Shortness Of Breath Or Wheezing Stop: 06/17/18 20:08 Amiodarone HCl (Cordarone) 200 mg PO AMHS ESTER Stop: 06/17/18 20:59 Last Admin: 05/28/18 07:17 Dose: Not Given Documented by: Ascorbic Acid (Vitamin C) 500 mg PO QAM ESTER Stop: 06/18/18 08:59 Last Admin: 05/28/18 07:17 Dose: Not Given Documented by: Atorvastatin Calcium (Lipitor) 40 mg PO HS ESTER Stop: 06/17/18 20:59 Last Admin: 05/27/18 20:29 Dose: 40 mg Documented by: Clopidogrel Bisulfate (Plavix) 75 mg PO DAILY ESTER Stop: 06/20/18 08:59 Last Admin: 05/25/18 08:29 Dose: 75 mg Documented by: Dextrose (Dextrose 50%) 25 - 50 ml IV UD PRN; Protocol PRN Reason: Hypoglycemia Protocol Stop: 06/17/18 20:08 Doxycycline Hyclate (Vibramycin) 100 mg PO BID ESTER Stop: 07/02/18 09:29 Last Admin: 05/28/18 07:17 Dose: Not Given Documented by: Duloxetine HCl (Cymbalta) 60 mg PO DAILY ESTER Stop: 06/18/18 08:59 Last Admin: 05/28/18 07:17 Dose: Not Given Documented by: Ferrous Sulfate (Feosol) 325 mg PO 1000,2200 [facility] Stop: 06/17/18 20:59 Last Admin: 05/28/18 07:17 Dose: Not Given Documented by: Glucagon (Glucagen) 1 mg SQ UD PRN; Protocol PRN Reason: Hypoglycemia Protocol Stop: 06/17/18 20:08 Glucose (Dex4 Glucose) 4 - 8 tabs PO UD PRN; Protocol PRN Reason: Hypoglycemia Protocol Stop: 06/17/18 20:08 Glucose (Glucose 40%) 15 - 30 gm PO UD PRN; Protocol PRN Reason: Hypoglycemia Protocol Stop: 06/17/18 20:08 Hydromorphone HCl (Dilaudid) 0.5 mg IV Q4H PRN PRN Reason: Pain Stop: 06/11/18 07:21 Last Admin: 05/28/18 07:41 Dose: 0.5 mg Documented by: Promethazine HCl 12.5 mg/ (Sodium Chloride) 50.5 mls @ 202 mls/hr IV Q6H PRN PRN Reason: Nausea And Vomiting Stop: 06/26/18 23:21 Last Infusion: 05/28/18 13:24 Dose: Infused Documented by: Insulin Aspart (Novolog Flexpen) 0 units SC ACHS [facility] Stop: 06/17/18 20:59 Last Admin: 05/28/18 13:23 Dose: Not Given Documented by: Insulin Glargine (Lantus Solostar Pen) 0 units SC BID [facility]; Protocol Stop: 06/17/18 20:59 Last Admin: 05/28/18 10:25 Dose: Not Given Documented by: Loperamide HCl (Imodium) 2 mg PO UD PRN PRN Reason: Diarrhea Stop: 06/22/18 12:29 Last Admin: 05/25/18 17:59 Dose: 2 mg Documented by: Magnesium Oxide (Mag-Ox) 400 mg PO 1200,1800 [facility] Stop: 06/17/18 20:59 Last Admin: 05/28/18 12:13 Dose: Not Given Documented by: Miscellaneous (Carbohydrates For Hypoglycemia) 15 - 30 gm PO UD PRN PRN Reason: Hypoglycemia Treatment Stop: 06/17/18 20:08 Oxycodone HCl (Roxicodone Immediate Rel) 5 mg PO Q4H PRN PRN Reason: Pain Stop: 06/09/18 15:29 Last Admin: 05/27/18 17:06 Dose: 5 mg Documented by: Pantoprazole Sodium (Protonix) 40 mg PO DAILYBB [facility] Stop: 06/18/18 06:29 Last Admin: 05/28/18 04:37 Dose: 40 mg Documented by: Pregabalin (Lyrica) 100 mg PO TID [facility] Stop: 06/17/18 20:59 Last Admin: 05/28/18 12:13 Dose: Not Given Documented by: Rivaroxaban (Xarelto) 20 mg PO QDD [facility] Stop: 06/19/18 16:29 Last Admin: 05/27/18 17:03 Dose: 20 mg Documented by: Tamsulosin HCl (Flomax) 0.4 mg PO HS [facility] Stop: 06/17/18 20:59 Last Admin: 05/27/18 20:27 Dose: 0.4 mg Documented by: Tramadol HCl (Ultram) 50 mg PO Q6H PRN PRN Reason: Pain Stop: 06/22/18 08:52 Last Admin: 05/27/18 20:25 Dose: 50 mg Documented by: (1) Anemia Anemia type: unspecified type Qualified Code(s): D64.9 - Anemia, unspecified
[2018-05-28] MEDS ORDERED: BACITRACIN INJ 50,000 UNIT VIAL ONE (16:01)
[2018-05-28] MEDS ORDERED: ONDANSETRON INJ 2 MG/ML 2 ML VIAL IV PRN (16:34)
[2018-05-28] MEDS ORDERED: METOCLOPRAMIDE HCL INJ 5 MG/ML 2 ML VIAL IV PRN (16:34)
[2018-05-28] MEDS ORDERED: BISACODYL 10 MG SUPP PR PRN (16:34)
[2018-05-28] MEDS ORDERED: MAGNESIUM HYDROXIDE SUSP 30 ML UDC PO PRN (16:34)
[2018-05-28] MEDS ORDERED: NALOXONE HCL 0.4 MG/1 ML VIAL/CARP IV PRN (16:34)
[2018-05-28] MEDS ORDERED: VASOPRESSIN 20 UNIT/ML VIAL ONE (17:06)
[2018-05-28] MEDS ORDERED: PHENYLEPHRINE HCL 10 MG/ML VIAL ONE (17:06)
[2018-05-28] MEDS ORDERED: ALBUMIN HUMAN 5% 12.5 GM/250 ML VIAL IV ONE (17:20)
[2018-05-28] MEDS ORDERED: MIDAZOLAM HCL 1 MG/ML 2ML VIAL ONE (18:23)
--- NOTE | 2018-05-28 18:30 | Post Operative Brief Note ---
Immediate Post Op Note v1 Date of Surgery May 28, 2018 Pre & Post Diagnosis Operation Date: 05/28/18 12:40 <Preop diagnosis: Left medial malleolar osteomyelitis. Peripheral vascular disease bilateral lower extremities. Right foot ischemic ulcers of the first metatarsal phalangeal joint/fifth metatarsophalangeal joint/lateral foot/posterior heel. Postoperative diagnosis: Left medial malleolar osteomyelitis. Peripheral vascular disease bilateral lower extremities. Right foot ischemic ulcers of the first metatarsal phalangeal joint/fifth metatarsophalangeal joint/lateral foot/posterior heel. Procedure Operation Date: 05/28/18 12:40 Left lower extremity below-knee amputation. Right foot debridement and ischemic ulcers of the first metatarsal phalangeal joint/fifth metatarsal phalangeal joint separate sites involving skin/subcutaneous fat/fascia/joint capsule. Right foot debridement ischemic ulcers of the posterior heel and lateral foot separate sites involving skin/subcutaneous fat/fascia. Surgeon Leno Joel DO [employer] Cutter Igor Liriano PA-C Estimated Blood Loss 300 Findings Consistent with Post-Op Diagnosis Specimens Left lower leg specimen Drains Hemovac Drain (dual hemovac drain ) Anesthesia Type General Complications none Disposition Accompanied Patient To Recovery: No Disposition: Surgical ICU
[2018-05-28 19:21] LABS: iSTAT Arterial Bld Gas O2 Sat 79; iSTAT FiO2 100 %; iSTAT Hematocrit 26 % (42-52); iSTAT Hemoglobin 8.8 g/dl (14.0-18.0); iSTAT Potassium 3.7 mEq/L (3.3-5.0); iSTAT Site L Brachial; iSTAT Sodium 138 mEq/L (135-144)
[2018-05-28] MEDS ORDERED: CISATRACURIUM BESYLATE IV SOLN 2 MG/ML 10 ML VIAL IV STA (19:24)
--- NOTE | 2018-05-28 19:44 | Anesthesiology Progress Note ---
Date of Service May 28, 2018 Anesthesia Post Procedure Vital Signs Vital Signs: Temp Pulse Pulse Pulse Resp BP BP 05/28/18 20:16 36.5 C 101 H 26 H 98/55 L 05/28/18 19:50 36.6 C 87 22 72/46 L 05/28/18 19:35 36.6 C 86 24 85/50 L 05/28/18 19:30 86 16 05/28/18 19:22 36.4 C L 90 16 100/56 L 05/28/18 19:05 93 H 24 90/52 L 05/28/18 18:55 94 H 20 104/50 L 05/28/18 18:48 36.4 C L 80 16 101/54 L 05/28/18 14:01 36.5 C 77 19 118/77 05/28/18 07:12 36.4 C L 73 20 146/80 H 05/28/18 04:00 71 05/28/18 03:49 36.4 C L 73 18 118/71 05/27/18 23:29 36.5 C 74 22 130/76 05/27/18 22:00 68 05/27/18 21:45 71 05/27/18 21:30 66 Pulse Ox 05/28/18 20:16 89 L 05/28/18 19:50 85 L 05/28/18 19:35 88 L 05/28/18 19:30 88 L 05/28/18 19:22 85 L 05/28/18 19:05 85 L 05/28/18 18:55 85 L 05/28/18 18:48 85 L 05/28/18 14:01 93 05/28/18 07:12 94 05/28/18 04:00 05/28/18 03:49 95 05/27/18 23:29 96 05/27/18 22:00 05/27/18 21:45 05/27/18 21:30 Pain Intensity Left Lower Leg: Pain Intensity: 7 Notes Mental Status: see notes below Nausea / Vomiting: see Notes below Pain: see Notes below Airway Patency, RR, SpO2: see Notes below BP & HR: see Notes below Hydration State: see Notes below Anesthetic Complications: see Notes below Notes: The patient is a 72 y/o male with a complex medical history including CAD s/p CABG x 2, diastolic CHF, atrial fibrillation, aortic stenosis s/p AVR, PVD, HTN, dyslipidemia, Type 2 DM, cirrhosis, HIT, anemia, and osteomyelitis who is status post L BKA and R foot debridement with Dr. Joel. I took over this case from Dr. Pollack. Dr. Pollack mentioned that he was unable to place an arterial line but the patient was stable. Dr. Joel had started the operation. Shortly after taking over for Dr. Pollack, the nurse oracle pl sql developer, Gordo notified me that the patient had possibly aspirated during intubation which had not been relayed to me by Dr. Pollack. Gordo informed me that when he went to intubate the patient he noted gastric secretions pooled in the back of the patient's mouth. The patient was immediately suctioned and intubated and the endotracheal tube was immediately s uctioned. Approximately 100 ml of gastric contents were suctioned out of the patient's oropharynx and endotracheal tube by Gordo and Dr. Pollack. The patient had not desaturated during the event. His SpO2 was 98 on FiO2 1. His blood pressures, however, were labile and he was requiring intermittent doses of phenylephrine and vasopressin to maintain systolic blood pressure in the 90s. I decided to place a fiberoptic scope to see if there was anything that could be suctioned out of the airway. Some thicker secretions were noted at the end of the endotracheal tube but were not able to be suctioned from the side of the trachea. I then went to the ICU and spoke to Dr. Rubio who stated that he would come to the OR to do a bronchoscopy as soon he was available. Dr. Joel was made aware. Since the patient was tolerating the procedure and it was well underway, the decision was made to finish the operation. After the procedure was completed, Dr. Rubio arrived and performed a bronchoscopy. He observed secretions throughout the lung. He was unsure if the patient was already developing a pneumonia preoperatively or if this was the result of the aspiration event. The decision was made to keep the patient intubated and to transfer him to the ICU. After the bronchoscopy, the patient started desaturating to the highs 80s. He was manually ventilated to bring his SpO2 to the low 90s. His lungs were course bilaterally on auscultation. The patient was also requiring a phenylephrine gtt and vasopressin to maintain SBP in the 90s. He had received 500 ml of 5% albumin and 1800 ml of LR during the procedure. EBL was 300 ml. The patient was transferred on monitors to the ICU intubated with an Ambu bag. On arrival to the ICU, Dr. Rubio and Johny took report. Central access was obtained by the ICU team. The patient was transfused two units PRBC due to Hgb of 8.6. Dr. Rubio updated the patient's family who has now decided to make the patient DNR.
[2018-05-28] MEDS ORDERED: CISATRACURIUM BESYLATE IV ONE (19:45)
[2018-05-28] MEDS ORDERED: VANCOMYCIN CONSULT ACTIVE PRN (19:46)
[2018-05-28 19:47] LABS: Hematocrit (blood only) 27.4 % (42-52); Hemoglobin 8.6 g/dL (14.0-18.0); Immature Granulocytes # (auto) 0.02 K/uL (0.00-0.02); Immature Granulocytes % (auto) 0.8 %; Lymphocytes # (auto) 0.32 K/uL (1.2-3.4); Lymphocytes % (auto) 12.5 %; Mean Corpuscular Volume 88.7 fL (80-100); Mean Platelet Volume 9.6 fL (7.4-10.4); Monocytes % (auto) 3.9 %; Neutrophils # (auto) 2.12 K/uL (1.4-6.5); Neutrophils % (auto) 82.8 %; Platelet Count 147 K/uL (130-400); RDW Coefficient of Variation 18.2 % (11.5-14.5); Red Blood Count 3.09 M/uL (4.7-6.1); White Blood Count 2.56 K/uL (4.8-10.8)
--- NOTE | 2018-05-28 19:51 | Procedure Note ---
Procedure Note Date of Service May 28, 2018 Procedure: Arterial Line Placement Attending: Dr. Rubio APC: Johny Jefferson PA-C Indication: Monitoring on Pressors Anesthesia: Lidocaine 1% Emergent consent was implied in the setting of active extravasation need for accurate blood pressure readings, frequent ABGs, and frequent labs. A time-out was completed verifying correct patient, procedure, site, positioning, and implant(s) or special equipment if applicable. Patients RIGHT Groin was prepped and draped in the usual sterile fashion. Ultrasound guidance was used to aid needle placement. A guide needle was utilized to appreciate cannulation of the RIGHT femoral vein. Arterial blood flow was noted. I did attempt to place the guidewire Via Seldinger technique through the guide needle, however this was unsuccessful. My attending, Dr. Rubio, did step and at that time and was successfully able to wire over and place 20g Arrow arterial line was introduced into the RIGHT Femoral artery. Catheter was threaded, and the wire was removed intact with appropriate blood return. Good waveform was observed. The patient tolerated the procedure well. Confirmation of placement with ultrasound. Blood Loss: Minimal Complications: None Procedural Ultrasound Guidance: Procedure Date: 05/28/2018 Indication: Pressors, ABGs, Labs Attending: Dr. Rubio APC: Johny Jefferson PA-C Artery Identified: YES Line confirmed in Artery with ultrasound: YES Complications: NONE Patient tolerated procedure: WELL Coding
--- NOTE | 2018-05-28 19:52 | Procedure Note ---
Procedure Note Date of Service May 28, 2018 Procedure: Femoral Central Line Placement Attending: Dr. Rubio APC: Johny Jefferson PA-C Indication: Central Drug Administration, Poor Venous Access, Multiple Lab Draws Necessary, etc. Anesthesia: Lidocaine 1% Emergent consent implied in the patient's current state of extremis and need for vascular access for multiple pressors, lab draws, etc. A time-out was completed verifying correct patient, procedure, site, positioning, and implants(s) or special equipment if applicable. Patients RIGHT Groin was cleansed and draped in the typical sterile fashion using Chloraprep. The Femoral Vein and Femoral Artery were identified using ultrasound. The superficial tissue was anesthetized using 3.0 mL of 1% lidocaine without epinephrine under direct visualization with the ultrasound. After adequate anesthetization was achieved, the Femoral Vein was cannulated under direct ultrasound guidance using an introducer needle on a syringe. Good venous blood return was maintained prior to removal of syringe from introducer needle. Using Seldinger Technique, a guide wire was advanced through the introducer needle without resistance. The introducer needle was removed and ultrasound images were obtained of the guide wire within the Femoral Vein and saved to the patients medical record. A small incision was made in penetrating fashion at the guide wire insertion site utilizing an 11 blade scalpel. The dilator was advanced to the vessel without resistance. The dilator was exchanged for the triple lumen catheter which was advanced into the vessel without resistance. The guide wire was removed intact from the catheter without issue. Claves were placed on each catheter tip with confirmation of good blood flow from each lumen. Each port was easily flushed with sterile saline. The catheter was placed at the hub and sutured in place. BioPatch was applied to the catheter and a sterile Tegaderm dressing was applied over the catheter with careful attention to sterility. Patient tolerated procedure well. No immediate complications were met. Images obtained are saved for permanent record Procedural Ultrasound Guidance: Procedure Date: 05/28/2018 Indication: Pressors, Poor Access, Multiple Medications, Frequent Lab Draws Attending: Dr. Rubio APC: Johny Jefferson PA-C Artery AND Vein visualized: YES Compressible Vein: YES Guidewire or Short Catheter seen in vein prior to dilation: YES Line confirmed in Vein with ultrasound: Yes Images obtained are saved for permanent record. Coding
--- NOTE | 2018-05-28 19:56 | Critical Care Consultation ---
Date of Consultation May 28, 2018 Assessment & Plan (1) Admitted to intensive care unit: Reason Critically Ill: 72-year-old male with severe hypotension in the setting of sepsis likely related to pulmonary source and ARDS status post BKA of the LEFT lower extremity in the setting of osteomyelitis. NEURO - * CAM ICU: Unable to assess secondary to current state of sedation w/ new profound hypotension. * Sedation: Propofol, Fentanyl gtts * Plan for neuromuscular blockade to facilitate ventilation in the setting of ARDS. CARDIAC/VASCULAR - * Hypotension: * Multifactorial - chronic anemia s/p BKA, sepsis 2/2 PNA w/ ARDS, Osteomyelitis, recent anesthesia. * Received adequate IVF intraoperatively. * Will resuscitate w/ PRBCs in the fragile cardiac patient. * Initially started on Levophed and Vasopressin. Will add Basil-Synephrine as next pressors if needed as patient was initially tachy w/ hopes of reflexive bradycardic effect. * Added a one time stress dose of solu-cortef - will hold further doses as he will be under neuromuscular blockade. * CAD, A-Fib, Recent CABG/Aortic Valve Repair: * Plan to reinstitute home Rx when clinical improvment acheived. * EKG (05/19): Sinus Haroldo@53bpm. No significant ST/T-wave changes. QTc 527. * ECHO (05/27): LVH, EF >70%. Diastolic dysfunction. * Monitor on telemetry. RESPIRATORY - * Acute Respiratory Failure in the Setting of Aspiration Pneumonia w/ Progression to ARDS: * To remain intubated. * Will paralyze to facilitate control of breathing. * Plan to use ARDSNET protocol w/ goal to increase PEEP and subsequently lower FiO2 as tolerated. * Serial ABGs to asses pulmonary function. * Antibiotic Coverage - Vanc, Zosyn, Flagyl. * Scheduled Nebs. * One time Solu-cortef dose. Will hold while on neuromuscular blockade to prevent acquired weakness or myopathy. * BAL Pending. GI/NUTRITION - * OG In place. * Will continue w/ intermittent suction as large amount of stomach contents. * Prophylaxis: Protonix RENAL/LYTES - * Hypokalemia, Hypomagnesemia, Hypocalcemia: * Initially treated w/ calcium chloride, magnesium sulfate, and potassium chloride. * Repeat labs and replace as needed. * IVF: Normosol@125mL/hr. - * Plunkett in place - Strict I&Os. ENDO - * DMII: * BSGs per unit protocol. ISS --> gtt per unit policy. HEME - * Chronic Anemia: * Received an additional 2U PRBCs s/p LLE BKA. * Will plan to maintain hemoglobin >9 w/ sever cardiac disease in the setting of active extremis. ID - * Aspiration Pneumonia: * Vanc, Cefepime. * After c/o aspiration, will add Flagyl for Anaerobic coverage. * Trend Lactate. * Uncertain of utility of ProCal at this time. * Currently being treated for Osteo of the LLE s/p LLE BKA. LINES/IV ACCESS - * PIVs x2 * RIGHT Femoral CVL * RIGHT Femoral A-Line * Plunkett * ET Tube DVT PROPHYLAXIS - * May restart anticoagulation per surgical services. * Avoid Heparin w/ known h/o HIT CODE STATUS - * Spoke with patient's sister, Greta, at 2008 as she called in for an update. She is the patient's POA. After conversation, she is comfortable with continuing current plan, however she would not wish to intervene further in the event of cardiac arrest. At this point, it was agreeable to patient will be made a DO NOT RESUSCITATE. She will be contacted with any changes in the patient's status. I have personally spent 90 minutes of critical care time in the direct management of this patient. This is a life/limb threatening event. This includes time spent evaluating patient, direct bedside care, chart review, placing orders, interpretation of diagnostic studies, discussion with consultants, patient, and family members, as well as other required patient management activities. This time is exclusive of all separately billable procedures, and teaching time and separate from and in addition to any other critical care service time. Thank you for allowing us to participate in the care of this patient. Please refer to my attending physician's documentation for any further recommendations. (2) Sepsis associated hypotension: (3) Osteomyelitis of ankle, left, acute: (4) Cellulitis of left leg: (5) Diabetic foot ulcer associated with type 2 diabetes mellitus: (6) HIT (heparin-induced thrombocytopenia): (7) Chronic diastolic heart failure: (8) Atrial fibrillation: (9) PVD (peripheral vascular disease): (10) Malnutrition: (11) History of aortic valve replacement with bioprosthetic valve: (12) Aortic stenosis: (13) History of coronary artery bypass graft x 2: (14) CAD (coronary artery disease): (15) Diastolic heart failure: (16) Diabetes mellitus, type II: (17) HLD (hyperlipidemia): (18) Anemia: Supervising Physician Co-Signing Physician Notes I have personally evaluated and examined this patient. I agree with assessment and plan of Patrizia Jefferson PA-C. Initially saw the patient in the operating room with when I performed a bronchoscopy at the request of Dr. Aaron secondary to known aspiration. I later took signout from Dr. Aaron when the patient arrived in the critical care department. I assisted Patrizia Jefferson placing the arterial line. I actively manage the patient from 730 pm until 805 which time I transition care to Patrizia Jefferson. I have personally spent 35 minutes of critical care time in the direct management of this patient. This is a life/limb threatening event. This includes time spent evaluating patient, direct bedside care, chart review, placing orders, interpretation of diagnostic studies, discussion with consultants, patient, and/or family members regarding treatment decisions, as well as other required patient management activities. This time is exclusive of all separately billable procedures, and teaching time and separate from and in addition to any other critical care service time. History of Present Illness Attending Physician: Jordana George MD History of present illness obtained from prior records as patient is currently intubated and sedated. Patient is a 72-year-old male with significant past medical history of coronary artery disease status post CABG x2 with aortic valve repair in November 2017, peripheral vascular disease status post bilateral lower extremity revascularization within the last 1 to 2 months, chronic anemia with wounds to the bilateral lower extremities. The patient was initially admitted with symptomatic anemia and wounds to the lower extremities LEFT greater than right. Throughout his stay, the patient's LEFT lower extremity continue to worsen with findings consistent with acute osteomyelitis. The patient had been on Zosyn as well as vancomycin. He underwent LEFT lower extremity BKA today. Prior to operation, the patient had an aspiration event and underwent emergent bronchoscopy. Postoperatively, the patient remained hypotensive with poor o xygen saturations in the mid to high 80s. Upon arrival in the ICU, the patient is with blood pressures in the 60s to 70s. Poor palpable pulses appreciated distally. He is receiving as needed pushes of pressors. He remains intubated. Unable to contribute to past medical history secondary to current state of extremis. Allergies Allergy/AdvReac Type Severity Reaction Status Date / Time heparin Allergy Unknown Verified 05/18/18 16:18 Home Medications Home Medications Medication Instructions Recorded Confirmed Type Allevyn Gentle Border Lite 1 applic TOPICAL UD 05/18/18 05/18/18 History Aquacel Ag Dressing 1 applic TOPICAL Q OTHER DAY 05/18/18 05/18/18 History Med Pass Supplement 200 ml PO TID 05/18/18 05/18/18 History Silicone Border Dressing 1 applic TOPICAL UD 05/18/18 05/18/18 History Silver Alginate 1 applic TOPICAL Q OTHER DAY 05/18/18 05/18/18 History acetaminophen [Tylenol Extra 500 mg PO Q4 PRN 05/18/18 05/18/18 History Strength] amiodarone 200 mg PO AMHS 05/18/18 05/18/18 History ascorbic acid (vitamin C) [Vitamin 500 mg PO QAM 05/18/18 05/18/18 History C] atorvastatin 40 mg PO HS 05/18/18 05/18/18 History bumetanide 1 mg PO DAILY 05/18/18 05/18/18 History bumetanide 2 mg PO DAILY 05/18/18 05/18/18 History clopidogrel 75 mg PO DAILY 05/18/18 05/18/18 History doxycycline hyclate 100 mg PO BID 05/18/18 05/18/18 History duloxetine 60 mg PO DAILY 05/18/18 05/18/18 History ferrous sulfate 325 mg PO BID 05/18/18 05/18/18 History glipizide 2.5 mg PO QAM 05/18/18 05/18/18 History hydrocodone-acetaminophen [[place]] 1 tab PO Q6H PRN 05/18/18 05/18/18 History ipratropium-albuterol 3 ml INHALATION Q6 PRN 05/18/18 05/18/18 History magnesium oxide 400 mg PO BID 05/18/18 05/18/18 History melatonin 5 mg PO HS 05/18/18 05/18/18 History metoprolol succinate 12.5 mg PO DAILY 05/18/18 05/18/18 History omeprazole 20 mg PO DAILYBB 05/18/18 05/18/18 History oxycodone 5 mg PO QID 05/18/18 05/18/18 History polyethylene glycol 3350 17 g PO TID 05/18/18 05/18/18 History potassium chloride 10 meq PO DAILY 05/18/18 05/18/18 History pregabalin [Lyrica] 100 mg PO TID 05/18/18 05/18/18 History rivaroxaban [Xarelto] 20 mg PO HS 05/18/18 05/18/18 History tamsulosin 0.4 mg PO HS 05/18/18 05/18/18 History ytkm-mcc-jepf-C-Zn-Cu-tos 1 dose PO BID 05/18/18 05/18/18 History [ArgiMent AT] zinc oxide 1 applic TOPICAL QS 05/18/18 05/18/18 History Patient History Medical History Cirrhosis (Chronic) 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) Chronic diastolic heart failure (Chronic) Atrial fibrillation (Chronic) PVD (peripheral vascular disease) (Chronic) Malnutrition (Chronic) Aortic stenosis (Chronic) CAD (coronary artery disease) (Chronic) Diastolic heart failure (Chronic) Urinary retention (Chronic) BPH (benign prostatic hyperplasia) (Chronic) Diabetes mellitus, type II (Chronic) GERD (gastroesophageal reflux disease) HLD (hyperlipidemia) (Chronic) Hypertension (Chronic) Surgical History History of cholecystectomy (Chronic) History of aortic valve replacement with bioprosthetic valve (Chronic) History of coronary artery bypass graft x 2 (Chronic) Family History Other Cancer Coronary heart disease Diabetes Social History Preferred Language: Albanian Communication Ability: Effective Beliefs That Will Affect Care: None marital status: Single Current Living Situation: [facility] Other Information That Helps Us Care for You: No Feels Safe at Home: Yes Smoking Status: Former smoker Hx Alcohol Use: No Hx Substance Use: No Review of Systems Review of Systems: Unobtainable due to endotracheal tube Physical Exam Physical Exam: VITAL SIGNS - Vital signs and nursing notes were reviewed. GENERAL - 72-year-old male appearing older than his stated age. Intubated and sedated. SKIN - Dressing in place to ulceration on the RIGHT foot. Dressing in place to the new LEFT BKA. HEAD - NC/AT. EYES - PERRL with EOMI bilaterally. Sclera anicteric. EARS - No deformities of external structures noted on gross examination bilaterally. NOSE - Midline and without cyanosis. MOUTH/OROPHARYNX - Without perioral cyanosis. NECK - Neck with FROM. Supple to palpation. LUNGS - Chest wall symmetric without accessory muscle use, intercostals retractions, or central cyanosis. Coarse breath sounds appreciated throughout all lung [place]. CARDIAC - RRR with S1/S2. No murmur, rubs, or gallops appreciated. ABDOMEN - Abdominal contour obese without pulsations or visible masses. BS normoactive all four quadrants. No tenderness, palpable masses, hepatosplen omegaly, or ascites noted. EXTREMITIES - Dressing intact to the new LLE BKA. Dressing in place to a foot ulcer of the RIGHT Foot. Poor distal pulses of the upper extremities bilaterally. NEURO/PSYCH - Unable to assess secondary to active state of extremis. Results & Data Vital Signs (Past 12 Hours) Vital Signs Temp Pulse Pulse Resp BP BP Pulse Ox 05/28/18 19:50 36.6 C 87 22 72/46 L 85 L 05/28/18 19:22 36.4 C L 90 16 100/56 L 85 L 05/28/18 14:01 36.5 C 77 19 118/77 93 (1) Anemia Anemia type: unspecified type Qualified Code(s): D64.9 - Anemia, unspecified
[2018-05-28] MEDS: CISATRACURIUM BESYLATE 40 MG in 0.9 % SODIUM CHLORIDE 80 ML IV SCH (19:58)
[2018-05-28] MEDS ORDERED: HYDROCORTISONE SOD 100 MG in SYRINGE 0 ML IV SCH (20:00)
[2018-05-28] MEDS ORDERED: VANCOMYCIN HCL 2,000 MG in SODIUM CHLORIDE 0.9% 500 ML IV ONE (20:00)
[2018-05-28 20:01] LABS: Fibrinogen 232 mg/dl (184-400); INR 2.5 (0.9-1.1); Prothrombin Time 23.8 Seconds (9.0-12.0)
[2018-05-28] MEDS: VASOPRESSIN 20 UNITS in 0.9 % SODIUM CHLORIDE 100 ML IV SCH (20:01)
[2018-05-28] MEDS: NOREPINEPHRINE BIT INJ 8 MG in DEXTROSE 5% 500 ML IV SCH (20:01)
[2018-05-28] MEDS ORDERED: fentaNYL citrate 100 MCG/2 ML VIAL IV PRN (20:02)
[2018-05-28] MEDS ORDERED: ICU PROTOCOL FOR HYPERGLYCEMIA PRN (20:02)
[2018-05-28] MEDS: CEFEPIME 1,000 MG in SYRINGE 0 ML IV SCH (20:02)
[2018-05-28 20:09] LABS: Albumin Level 1.6 gm/dl (3.4-5.0); BUN Creatinine Ratio 38.7 (10-20); Bilirubin Direct 0.5 mg/dl (0-0.2); Creatinine Clr Calc Pharmacy 127.1 ml/min; Est GFR (African American) 115.7; Est GFR (Non-African American) 99.8; Magnesium 1.5 mg/dl (1.8-2.4); Potassium 3.4 mmol/L (3.5-5.1)
[2018-05-28 20:14] LABS: Bilirubin,Total 0.7 mg/dl (0.2-1); Calcium 7.2 mg/dl (8.5-10.1); Phosphorus 3.5 mg/dl (2.5-4.9); Total Protein 4.4 gm/dl (6.4-8.2); Troponin I 0.042 ng/ml (0-0.045)
[2018-05-28] MEDS ORDERED: PROPOFOL 1,000 MG/100 ML VIAL IV SCH (20:15)
[2018-05-28] MEDS ORDERED: SODIUM CHLORIDE 0.9% 1000ML 1,000 ML IV SCH (20:15)
[2018-05-28] MEDS ORDERED: MAGNESIUM SULFATE / D5W 1 GM/100 ML BAG IV ONE (20:17)
[2018-05-28 20:26] LABS: Mean Corpuscular Hgb Conc 31.4 g/dL (32-36)
[2018-05-28] MEDS ORDERED: CALCIUM GLUCONATE 10% 1,000 MG in SODIUM CHLORIDE 0.9% 50 ML IV STA (20:26)
[2018-05-28] MEDS: NORMOSOL-R 1,000 ML IV SCH (20:33)
[2018-05-28] MEDS: fentaNYL DRIP 1,250 MCG/250 ML BAG IV SCH (20:33)
--- NOTE | 2018-05-28 20:42 | XRay Report ---
XR chest 1V portable HISTORY: hypoxic s/p OR COMPARISON: Chest 05/18/2018. FINDINGS: The endotracheal tube terminates approximately 2 cm from the rose. Nasogastric tube termi nates in the expected location of the stomach. There are poststernotomy changes. No definite pneumoth orax. There are diffuse bilateral airspace opacities, right greater than left. Suspect trace bilatera l pleural effusions. The heart is stable in size. IMPRESSION: 1. Interval development of near diffuse bilateral airspace opacities, right greater than left. This c ould represent pulmonary edema, ARDS, or possibly a pneumonia. 2. Suspect trace bilateral pleural effusions. 3. Satisfactory support line placement. Electronically signed by: Carson Zamarripa M.D. 05/28/2018 8:41 PM
[2018-05-28] MEDS ORDERED: CALCIUM CHLORIDE 10% 1,000 MG in SODIUM CHLORIDE 0.9% 50 ML IV STA (20:58)
[2018-05-28] MEDS: POTASSIUM CHLORIDE / WTR 10 MEQ/100 ML PLCT IV SCH ×2 (21:14→22:30)
[2018-05-28 21:18] LABS: Hematocrit (blood only) 33.5 % (42-52); Hemoglobin 10.6 g/dL (14.0-18.0)
[2018-05-28] MEDS: ATORVASTATIN 40 MG TAB PO SCH (21:23)
[2018-05-28] MEDS: SENNA 8.6 MG TAB PO SCH (21:23)
[2018-05-28] MEDS: TAMSULOSIN HCL 0.4 MG CAP PO SCH (21:23)
[2018-05-28] MEDS: DOCUSATE SODIUM 100 MG CAP PO SCH (21:24)
[2018-05-28 21:58] LABS: iSTAT Allen Test Pass; iSTAT Arterial Blood Gas HCO3 23 meg/L (19-24); iSTAT Arterial Blood Gas pCO2 48 mmHg (35-46); iSTAT Arterial Blood Gas pH 7.28 (7.35-7.45); iSTAT Carbon Dioxide 24 mEq/l (24-31); iSTAT FiO2 100 %; iSTAT Site Art Line
[2018-05-28] MEDS: metroNIDAZOLE 500 MG/100 ML BAG IV SCH (22:30)
[2018-05-28] MEDS ORDERED: SODIUM BICARB 8.4% INJ 50 MEQ/50 ML SYR IV STA (23:11)
[2018-05-28] MEDS: ALBUT/IPRATROP 3MG/0.5MG NEB 3 ML VIAL INH SCH (23:48)
--- NOTE | 2018-05-29 00:11 | Operative Report ---
DATE OF OPERATION: 05/28/2018 PREOPERATIVE DIAGNOSES: 1. Left medial malleolar osteomyelitis. 2. Peripheral vascular disease, bilateral lower extremities, severe. 3. Ischemic ulcers of the right lower extremity involving the first metatarsophalangeal joint, the fifth metatarsophalangeal joint, the lateral foot and the posterior heel, separate sites x4. First MTP was 2 cm in diameter, the fifth MTP (2 cm in diameter), lateral foot (1.5 cm in diameter), and then the posterior heel (1.5 cm in diameter). POSTOPERATIVE DIAGNOSES: 1. Left medial malleolar osteomyelitis. 2. Peripheral vascular disease, bilateral lower extremities, severe. 3. Ischemic ulcers of the right lower extremity involving the first metatarsophalangeal joint, the fifth metatarsophalangeal joint, the lateral foot and the posterior heel, separate sites x4. First MTP was 2 cm in diameter, the fifth MTP (2 cm in diameter), lateral foot (1.5 cm in diameter), and then the posterior heel (1.5 cm in diameter). PROCEDURE: 1. Left below knee amputation. 2. Right foot debridement ischemic ulcer, first metatarsophalangeal joint including skin, fascia, joint capsule, and subcutaneous fat. 3. Right foot debridement ischemic ulcer, separate site, fifth metatarsophalangeal joint involving skin, fascia, subcutaneous fat, and joint capsule. 4. Right foot debridement ischemic ulcer, separate site, posterior heel 1.5 cm in diameter involving skin, subcutaneous fat, and fascia. 5. Right foot debridement ischemic ulcer, separate site, lateral foot involving skin, subcutaneous fat, and fascia. SURGEON: Leno Joel DO FLIGHT TOWER DISPATCHER: Igor Liriano PA-C, who was present for patient positioning, sterile prep and drape, management of retractors and instruments. He was present through the critical portions of the case including wound closure, application of sterile dressing and transport of the patient to recovery. ANESTHESIA: General. SPECIMENS: Residual left lower extremity. DRAINS: Hemovac x2, left below knee amputation stump. COMPLICATIONS: None. BLOOD LOSS: 300 mL. PERTINENT HISTORY: This is a 72-year-old gentleman with severe peripheral vascular disease, diabetes mellitus type 2, and essentially nonambulatory status. He had been a patient of Dr. Doyle in [place] and had some vascular procedures done previously. He was then admitted to [facility] on 05/18/2018 and was evaluated by multiple medical subspecialties including vascular and orthopedics. Patient was noted to have MRI positive findings of osteomyelitis of the medial malleolus of the left lower extremity based upon recommendations from multiple subspecialties including vascular surgery. The patient was a poor candidate for any revascularization procedures and then was scheduled for below-knee amputation on the left and debridement of multiple ischemic ulcers on the right as indicated. All potential risks, benefits, complications, alternatives, rehab, potential for incomplete relief of symptoms, need for further surgery, DVT, PE, , persistent pain, swelling, scarring, weakness, neurovascular injury, wound complications and possible need for further amputation were discussed with the patient and the family. They all decided to proceed with procedure as indicated. DESCRIPTION OF PROCEDURE: The patient was taken to the operative suite, placed supine on the operating table. I reviewed consent and identification of proper operative site. The patient was anesthetized. Tourniquets were applied on bilateral lower extremities. Bilateral lower extremities were then sterilely prepped and draped in the usual fashion and the left lower extremity was then elevated and tourniquet inflated to 350 mmHg. The right lower extremity tourniquet was not inflated. Next, approximately 10 cm distal to the tibial tubercle, the level of bony resection was planned and then approximately 1 cm distal to that the skin incision was then planned anteriorly and a longer posterior tapered flap for the posterior limb of the incision. A 10-blade scalpel was used to make a transverse incision at the level of the skin incision, approximately 11 cm distal to the tibial tubercle. The incision was deepened through subcutaneous tissue. Meticulous hemostasis was achieved with electrocautery. Full thickness skin flaps were developed. This incision was carried both medially and laterally to the mid lateral lines respectively. Next, periosteum was then stripped approximately 1 cm proximal to the skin incision and then careful dissection was performed around the tibia with Metzenbaum scissors followed by placement of two blunt Hohmanns posterior to the tibia. A tibial bone cut was made with a sagittal saw. Next, attention was then directed toward the peroneal musculature, which was then carefully dissected to the level of the fibula. Hohmann retractors were placed around the fibula and an angled resection of the distal fibula was then performed just slightly above the level of the tibial resection cut. This was angled appropriately. Next, the soft tissues and muscle from the anterior compartment was then transected with electrocautery. The vessels were identified and cross clamped with hemostats. Next, after the neurovascular structures were identified and clamped, the posterior flap was then shaped. The medial and lateral flaps were then incised and then completed posteriorly with 10-blade scalpel. Electrocautery was used to achieve hemostasis on the superficial veins. Next, the gastroc soleus fascia was then incised followed by a deep incision through and through the posterior compartment. The lower limb was then detached and then passed off as specimen. The residual left lower extremity was then assessed for hemostasis. A #2 silk ties were then used to tie the neurovascular bundles with doubled silk ties. Once hemostasis was achieved, there was note made of the significant calcification of the major arteries of the left lower extremity. The tibial nerve was then placed on traction, transected with electrocautery, and then allowed to retract into the lower extremity. Next, the posterior flap was then contoured and shaved with a 10-blade scalpel. Irrigation was performed with sterile normal saline with bacitracin and the gastrocsoleus fascia was then sutured to the anterior fascia of the distal residual tibia with buried interrupted #1 Vicryl sutures. Next, 10-Icelandic single lumen Hemovac drains x2 were placed both medial and lateral extending through puncture holes in the distal aspect of the residual limb. Next, the buried #1 Vicryl sutures were then completed followed by closure of the dermis with buried interrupted 2-0 Vicryl. Next, skin was closed using the interrupted 3-0 nylon horizontal mattress sutures. Next, the left lower extremity was then sterilely cleansed and then a sterile compressive dressing was applied over the left lower extremity. The tourniquet was then released. Attention was then directed toward the right lower extremity. The tourniquet was not inflated to the right lower extremity. Next, 10-blade scalpel was then used to debride the first metatarsophalangeal eschar and ischemic ulcer measured approximately 2 cm in diameter. This was debrided through the skin, subcutaneous fat, fascia, and joint capsule. Joint capsule was left intact, however, there was noted to be some insufficiency. There was noted to be no obvious osteomyelitis of the first metatarsophalangeal. There was bright red blood noted at the margins. Next, attention was then directed toward the fifth metatarsophalangeal separate site and the 10-blade scalpel was then used to debride the eschar, skin, subcutaneous fat, fascia, and joint capsule back to more viable appearing tissue with a 15-blade scalpel and a rongeur. This measured approximately 1.5-2 cm in diameter. Next, attention was then directed toward the lateral foot ischemic ulcer. It was debrided with a 15-blade scalpel through the skin, subcutaneous fat, and fascia. It measured approximately 1.5 cm in diameter. This was resected back to its healthy appearing tissue. There was bright red blood bleeding at the margins. Next, the 10-blade scalpel was then used to debride the posterior calcaneal ischemic ulcer, separate site, through the ischemic ulceration, the subcutaneous fat, skin, and fascia to bleeding margins and healthy viable appearing tissue measuring approximately 2 cm in diameter. Once necrotic tissue was then resected in all separate sites as mentioned, they were all irrigated with copious sterile normal saline with bacitracin. Next, these were all dressed with a sterile compressive dressing consisting of Xeroform gauze, sterile 4 x 4s, ABD pad, Kerlix roll, and a 4-inch Webril, and a 4-inch Lv wrap. The patient was left intubated as there was desire by the anesthesia staff to have bronchoscopy performed. The patient was then transported to ICU for further care and monitoring. I attest to the content of the Intraoperative Record and any orders documented therein. Any exception s are noted below.
[2018-05-29] MEDS: INSULIN ASPART 100 UNITS/ML 3 ML PEN SC SCH ×6 (00:20→20:11)
[2018-05-29] MEDS ORDERED: Nursing to Pharmacy Communication ONE (00:31)
[2018-05-29 02:15] LABS: iSTAT Allen Test Pass; iSTAT Arterial Blood Gas HCO3 24 meg/L (19-24); iSTAT Arterial Blood Gas pCO2 42 mmHg (35-46); iSTAT Arterial Blood Gas pH 7.36 (7.35-7.45); iSTAT Carbon Dioxide 25 mEq/l (24-31); iSTAT FiO2 100 %; iSTAT Site Art Line
[2018-05-29] MEDS: ALBUT/IPRATROP 3MG/0.5MG NEB 3 ML VIAL INH SCH ×7 (03:02→23:43)
[2018-05-29] MEDS: VANCOMYCIN HCL 1,250 MG in SODIUM CHLORIDE 0.9% 250 ML IV SCH ×2 (04:10→15:43)
[2018-05-29] MEDS: VASOPRESSIN 20 UNITS in 0.9 % SODIUM CHLORIDE 100 ML IV SCH ×3 (04:10→21:14)
[2018-05-29] MEDS: CISATRACURIUM BESYLATE 40 MG in 0.9 % SODIUM CHLORIDE 80 ML IV SCH (04:10)
[2018-05-29] MEDS: CEFEPIME 1,000 MG in SYRINGE 0 ML IV SCH ×3 (04:11→20:12)
[2018-05-29] MEDS: NORMOSOL-R 1,000 ML IV SCH ×2 (04:20→17:09)
[2018-05-29 04:30] LABS: Hematocrit (blood only) 30.9 % (42-52); Hemoglobin 10.1 g/dL (14.0-18.0); Immature Granulocytes # (auto) 0.03 K/uL (0.00-0.02); Immature Granulocytes % (auto) 0.4 %; Lymphocytes # (auto) 0.18 K/uL (1.2-3.4); Lymphocytes % (auto) 2.6 %; Mean Corpuscular Hgb Conc 32.7 g/dL (32-36); Mean Corpuscular Volume 83.7 fL (80-100); Monocytes # (auto) 0.34 K/uL (0.11-0.59); Monocytes % (auto) 4.8 %; Neutrophils % (auto) 92.2 %; Platelet Count 135 K/uL (130-400); RDW Coefficient of Variation 17.6 % (11.5-14.5); RDW Standard Deviation 54.1 fL (36.4-46.3); Red Blood Count 3.69 M/uL (4.7-6.1); White Blood Count 7.05 K/uL (4.8-10.8)
[2018-05-29 04:41] LABS: iSTAT Allen Test Pass; iSTAT Arterial Blood Gas HCO3 22 meg/L (19-24); iSTAT Arterial Blood Gas pCO2 37 mmHg (35-46); iSTAT Arterial Blood Gas pH 7.39 (7.35-7.45); iSTAT Carbon Dioxide 24 mEq/l (24-31); iSTAT FiO2 100 %; iSTAT Site Art Line
[2018-05-29 04:57] LABS: BUN Creatinine Ratio 50.7 (10-20); Calcium 7.5 mg/dl (8.5-10.1); Creatinine Clr Calc Pharmacy 135.8 ml/min; Est GFR (African American) 118.9; Est GFR (Non-African American) 102.6; Magnesium 1.8 mg/dl (1.8-2.4); Potassium 4.4 mmol/L (3.5-5.1)
[2018-05-29] MEDS: NOREPINEPHRINE BIT INJ 8 MG in DEXTROSE 5% 500 ML IV SCH ×2 (05:17→18:10)
[2018-05-29 05:18] LABS: Troponin I 0.031 ng/ml (0-0.045)
[2018-05-29] MEDS: metroNIDAZOLE 500 MG/100 ML BAG IV SCH ×2 (05:43→14:56)
[2018-05-29] MEDS ORDERED: INSULIN ASPART 100 UNITS/ML 3 ML PEN SC SCH ×2 (06:00→22:00)
--- NOTE | 2018-05-29 06:28 | Critical Care Progress Note ---
Date of Service May 29, 2018 Assessment & Plan (1) Admitted to intensive care unit: Elton Laureano is a 72 y/o male with multiple co-medical comorbidities who had left BKA yesterday and developed severe hypotension related to sepsis likely pulmonary in source and ARDS. 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 NEURO - CAM ICU: Unable to assess intubation with sedation Sedation: Propofol, Fentanyl gtts, Versad Plan for neuromuscular blockade to facilitate ventilation in the setting of ARDS, which was started last night and ordered for discontinuation this morning. CARDIAC/VASCULAR - Hypotension: Multifactorial - acute blood loss anemia s/p BKA on top of anemai of chronic diseasem, sepsis causing vasodilation, recent anesthesia. Received adequate IVF intraoperatively. Will resuscitate w/ PRBCs in the fragile cardiac patient. Last night, initially started on Levophed and Vasopressin. -Last night, one time stress dose of solu-cortef - held further doses because of neuromuscular blockade. Hx CAD, A-Fib, Recent CABG/Aortic Valve Repair: - Can restart home meds once appropriate. - EKG (05/19): Sinus Haroldo@53bpm. No significant ST/T-wave changes. QTc 527. - ECHO (05/27): LVH, EF >70%. Diastolic dysfunction. Currently on telemetry monitoring. RESPIRATORY - Acute Respiratory Failure in the Setting of Aspiration Pneumonia w/ Progression to ARDS: To remain intubated. Will paralyze to facilitate control of breathing. Plan to use ARDSNET protocol w/ goal to increase PEEP and subsequently lower FiO2 as tolerated. Serial ABGs to asses pulmonary function. Antibiotic Coverage - Vanc, Zosyn, Flagyl. Scheduled Nebs. One time Solu-cortef dose. Will hold while on neuromuscular blockade to prevent acquired weakness or myopathy. BAL Pending. GI/NUTRITION - OG In place. Will continue w/ intermittent suction as large amount of stomach contents. GI Prophylaxis: Protonix RENAL/LYTES - On presentation to ICU: Hypokalemia, Hypomagnesemia, Hypocalcemia: - Initially treated w/ calcium chloride, magnesium sulfate, and potassium chloride. This morning, K WNL, Na 135, Corrected ca WNL as hypoalbuminemia of 1.6. IVF: Normosol@80mL/hr. JONATHON Denis in place - Record I&Os. ENDO - DMII: ICU Hyperglycemic protocol HEME - Chronic Anemia: Received an additional 2 units of pRBCs s/p left BKA. Goal: Maintain hemoglobin >9 secondary to severe cardiac disease ID - Aspiration Pneumonia: Vanc, Cefepime, Flagyl added for Anaerobic coverage after concerns for aspiration. Trend Lactate. Uncertain of utility of ProCal at this time. Currently being treated for Osteo of the LLE s/p LLE BKA. LINES/IV ACCESS - PIVs x2 RIGHT Femoral CVL RIGHT Femoral A-Line Denis ET Tube DVT PROPHYLAXIS - May restart anticoagulation per surgical services. Avoid Heparin w/ known h/o HIT CODE STATUS -DNR Supervising Physician Co-Signing Physician Notes Were able to isolate gram-negative bacilli out of the bronchial washingDr. Adrien was resident physician during care of patient. I separately evaluated patient for jimenes portions of the history and the exam. I was present during the critical portion of medical decision making, and I discussed the case with the resident. I generally agree with the findings and plan. We were able to discontinue neuromuscular blockade as patient's oxygenation and ventilation significantly improved. Patient did require some blood products after the operating room from acute blood loss anemia and appears to have a mild coagulopathy most likely delusional in nature. We will administer 5 mg of IV vitamin K. Continue to wean ventilator settings following [employer] guidelines, follow serial lactates. Patient's blood pressure overnight improved with administration of calcium which is likely secondary to hypocalcemia and citrate with blood product. Troponins not outside of reference range. EKG now demonstrates nonspecific T wave abnormality in the inferior leads. He has a prolonged QTC at 497. Magnesium supplementation. We were able to isolate gram- negative bacilli out of the bronchial washing. We will discontinue the Flagyl and continue cefepime until speciation. Transition from propofol sedation to intermittent bolus secondary to active infection and need for vasoactive support. I doubt we will be able to extubate the patient today however his oxygen requirements appear to be decreasing at this point. I have personally spent 60 minutes of critical care time in the direct management of this patient. This is a life/limb threatening event. This includes time spent evaluating patient, direct bedside care, chart review, placing orders, interpretation of diagnostic studies, discussion with consultants, patient, and/or family members regarding treatment decisions, as well as other required patient management activities. This time is exclusive of all separately billable procedures, and teaching time and separate from and in addition to any other critical care service time. Subjective Caveat: History limited by Intubation with sedation. Post-op day 1 Review of Systems Review of Systems: Other (Caveat: ROS unobtainable/limited by Intubation with sedation.) Physical Exam Constitutional: + ill appearing Exam limited by intubation with sedation ENMT: Nose: no nasal discharge Neck: normal visual inspection and trachea midline Respiratory: Auscultation: no rales and no wheezes mechanically ventilated Cardiovascular: Rate/Rhythm: regular rate and regular rhythm Gastrointestinal (Abdomen): Inspection/Auscultation: normal bowel sounds Percussion/Palpation: abdomen soft Musculoskeletal: Left BKA with bandage and surgical drain in place Skin: there is a significant ulceration to central chest superior to Xiphoid that appears consistent with a possible BCC Neurologic: intubation with sedation. Psychiatric: unable to assess Genitourinary: denis cath in place Results & Data Vital Signs (Past 12 Hours) Vital Signs Temp Pulse Pulse Resp BP BP Pulse Ox 05/29/18 06:00 93 H 109/67 100 05/29/18 05:01 96 H 24 100 05/29/18 05:00 94 H 96/59 L 100 05/29/18 04:59 24 05/29/18 04:00 36.7 C 95 H 116/63 100 05/29/18 03:11 92 H 24 100 05/29/18 03:00 89 102/62 100 05/29/18 02:00 91 H 93/67 L 100 05/29/18 01:00 97 H 107/61 99 05/29/18 00:23 89 24 98 05/29/18 00:15 94 H 102/60 99 05/29/18 00:00 36.5 C 92 H 102/57 L 98 05/28/18 23:58 92 H 98 05/28/18 23:45 90 106/61 99 05/28/18 23:30 92 H 111/63 99 05/28/18 23:15 93 H 107/63 98 05/28/18 23:11 88 24 98 05/28/18 23:00 93 H 113/63 98 05/28/18 22:45 95 H 109/64 97 05/28/18 22:30 95 H 114/62 97 05/28/18 22:15 96 H 117/62 96 05/28/18 22:00 97 H 114/61 95 05/28/18 21:45 100 H 125/64 95 05/28/18 21:30 100 H 122/61 94 05/28/18 21:15 102 H 100/58 L 91 05/28/18 21:00 102 H 103/59 L 89 L 05/28/18 20:45 98 H 88/55 L 84 L 05/28/18 20:30 99 H 90/54 L 83 L 05/28/18 20:20 102 H 96/59 L 89 L 05/28/18 20:18 101 H 93/54 L 88 L 05/28/18 20:16 36.5 C 102 H 26 H 98/55 L 89 L 05/28/18 20:14 99 H 99/51 L 90 05/28/18 20:12 97 H 98/56 L 90 05/28/18 20:10 98 H 112/56 L 90 05/28/18 20:08 96 H 114/47 L 91 05/28/18 20:06 100 H 108/52 L 91 05/28/18 20:04 96 H 106/56 L 91 05/28/18 20:02 96 H 112/57 L 91 05/28/18 20:00 36.5 C 102 H 103/54 L 90 05/28/18 19:58 91 H 106/48 L 90 05/28/18 19:56 94 H 104/53 L 90 05/28/18 19:54 92 H 93/49 L 88 L 05/28/18 19:52 88 72/43 L 86 L 05/28/18 19:50 36.6 C 87 22 72/46 L 84 L 05/28/18 19:48 88 77/45 L 85 L 05/28/18 19:46 87 75/46 L 85 L 05/28/18 19:44 86 81/45 L 86 L 05/28/18 19:42 87 83/49 L 85 L 05/28/18 19:40 92 H 85/47 L 87 L 05/28/18 19:38 87 82/49 L 88 L 05/28/18 19:36 86 78/47 L 88 L 05/28/18 19:35 36.6 C 86 24 85/50 L 88 L 05/28/18 19:34 86 85/50 L 87 L 05/28/18 19:32 86 83/49 L 89 L 04/19/19 19:30 86 16 88/51 L 88 L 05/28/18 19:22 36.4 C L 90 16 100/56 L 85 L 05/28/18 19:20 90 100/56 L 87 L 05/28/18 19:15 91 H 89/50 L 86 L 05/28/18 19:14 93 H 90/53 L 84 L 05/28/18 19:12 90 96/54 L 85 L 05/28/18 19:10 89 78/44 L 85 L 05/28/18 19:06 92 H 90/52 L 88 L 05/28/18 19:05 93 H 24 90/52 L 85 L 05/28/18 19:04 92 H 115/49 L 70 L 05/28/18 19:00 91 H 78/41 L 79 L 05/28/18 18:55 94 H 20 104/50 L 85 L 05/28/18 18:48 36.4 C L 80 16 101/54 L 85 L Resident Activity Tracking Resident Involvement: Resident Care Provided Care Provided: Adult Hospital Medicine (ICU)
--- NOTE | 2018-05-29 07:31 | XRay Report ---
XR chest 1V portable CLINICAL HISTORY: Respiratory failure. Abnormal chest x-ray. Follow-up study. COMPARISON STUDY: 05/28/2018 FINDINGS: The cardiac and mediastinal contours remain stable. There is an endotracheal tube 3.1 cm ab ove the rose. There is a nasogastric tube within the stomach. There is slight improvement in extens juana bilateral pulmonary airspace opacities.[ Trace pleural effusions are suspected IMPRESSION: Slight improvement in the extensive bilateral pulmonary airspace opacities Electronically signed by: Osbaldo Hoover M.D. 05/29/2018 7:29 AM
--- NOTE | 2018-05-29 08:52 | Orthopedic Progress Note ---
Date of Service May 29, 2018 Assessment & Plan (1) Osteomyelitis of ankle, left, acute: POD#1:PROCEDURE: 1. Left below knee amputation. 2. Right foot debridement ischemic ulcer, first metatarsophalangeal joint including skin, fascia, joint capsule, and subcutaneous fat. 3. Right foot debridement ischemic ulcer, separate site, fifth metatarsophalangeal joint involving skin, fascia, subcutaneous fat, and joint capsule. 4. Right foot debridement ischemic ulcer, separate site, posterior heel 1.5 cm in diameter involving skin, subcutaneous fat, and fascia. 5. Right foot debridement ischemic ulcer, separate site, lateral foot involving skin, subcutaneous fat, and fascia. Will continue to monitor. Will plan for possible dressing change tomorrow. Patient is currently intubated and sedated. NWB b/l LE (2) Diabetic foot ulcer associated with type 2 diabetes mellitus: Subjective Patient is POD#1. He is currently intubated and sedated. Physical Exam Physical Exam: Patient in bed, intubated and sedated. Dressings are c/d/i. Hemovac on left intact. Results & Data Vital Signs (Past 12 Hours) Vital Signs Temp Pulse Pulse Resp BP Pulse Ox 05/29/18 07:26 93 H 24 100 05/29/18 06:00 93 H 109/67 100 05/29/18 05:01 96 H 24 100 05/29/18 05:00 94 H 96/59 L 100 05/29/18 04:59 24 05/29/18 04:00 36.7 C 95 H 116/63 100 05/29/18 03:11 92 H 24 100 05/29/18 03:00 89 102/62 100 05/29/18 02:00 91 H 93/67 L 100 05/29/18 01:00 97 H 107/61 99 05/29/18 00:23 89 24 98 05/29/18 00:15 94 H 102/60 99 05/29/18 00:00 36.5 C 92 H 102/57 L 98 05/28/18 23:58 92 H 98 05/28/18 23:45 90 106/61 99 05/28/18 23:30 92 H 111/63 99 05/28/18 23:15 93 H 107/63 98 05/28/18 23:11 88 24 98 05/28/18 23:00 93 H 113/63 98 04/19/19 22:45 95 H 109/64 97 05/28/18 22:30 95 H 114/62 97 05/28/18 22:15 96 H 117/62 96 05/28/18 22:00 97 H 114/61 95 05/28/18 21:45 100 H 125/64 95 05/28/18 21:30 100 H 122/61 94 05/28/18 21:15 102 H 100/58 L 91 05/28/18 21:00 102 H 103/59 L 89 L
--- NOTE | 2018-05-29 09:27 | Pharmacy Report ---
Pharmacy Abx Dose Short Note - Date of Service May 29, 2018 - Assessment & Plan Assessment 72 year old M receiving Vancomycin, cefepime and doxycycline for pulm indication with sepsis. Pt s/p bka of LLE for osteomyelitis. Pharmacy consulted to dose vancomycin on 05/28/18. Day # 2 of antimicrobial therapy. * Blood cultures pending * MRSA nasal positive * Pt recently on vanc/zosyn in on 05/18-05/20/18 for osteomyelitis Plan Vancomycin * Loading dose: 2000mg (24mg/kg) * Maintenance dose: 1250mg (15mg/kg) iv q 12 hours * Goal trough level: 15 to 20 mcg/mL * Trough level ordered prior to steady state for: 05/30/18 @0335 Pharmacy will continue to follow and will adjust dose/frequency as necessary. Thank you.
[2018-05-29] MEDS ORDERED: PHARMACY GLYCEMIC MGMT CONSULT PRN (09:32)
[2018-05-29] MEDS: FERROUS SULFATE 325 MG TAB PO SCH (10:08)
[2018-05-29] MEDS: DOCUSATE SODIUM 100 MG CAP PO SCH ×2 (10:08→20:10)
[2018-05-29] MEDS: PREGABALIN 100 MG CAP PO SCH ×2 (10:10→12:48)
[2018-05-29] MEDS: DULOXETINE HCL 60 MG CAP PO SCH (10:10)
[2018-05-29] MEDS: DOXYCYCLINE HYCLATE 100 MG in DEXTROSE 5% 100 ML IV SCH ×2 (10:11→20:12)
[2018-05-29] MEDS: ASCORBIC ACID 500 MG TAB PO SCH (10:11)
[2018-05-29] MEDS: AMIODARONE 200 MG TAB PO SCH (10:11)
[2018-05-29] MEDS: FAMOTIDINE 20 MG in SYRINGE 3 ML IV SCH (10:11)
[2018-05-29] MEDS ORDERED: MIDAZOLAM HCL 1 MG/ML 2ML VIAL IV PRN (10:51)
[2018-05-29] MEDS ORDERED: INSULIN GLARGINE SOLOSTAR 100 UNITS/ML 3 ML PEN SC ONE ×2 (11:15→21:00)
[2018-05-29] MEDS: MAGNESIUM OXIDE 400 MG TAB PO SCH (11:18)
[2018-05-29 11:30] LABS: iSTAT Arterial Blood Gas HCO3 22 meg/L (19-24); iSTAT Arterial Blood Gas pCO2 39 mmHg (35-46); iSTAT Arterial Blood Gas pH 7.36 (7.35-7.45); iSTAT Carbon Dioxide 23 mEq/l (24-31); iSTAT FiO2 70 %; iSTAT Site Art Line
--- NOTE | 2018-05-29 14:38 | Procedure Note ---
Procedure Note: Bronchoscopy Procedure Procedure date: May 28, 2018 Procedure: fiberoptic bronchoscopy Pre-procedure indication: Aspiration events upon induction, reported mucoid impaction in right mainstem Post-procedure Diagnosis: same as above Prior to Procedure: Informed Consent: This is a emergent procedure to physician consent performed by myself and Dr. Rodney Aaron Attending Staff: Nikole Rubio DO Resident/APC: Adrien Skin Prep: Not applicable Anesthesia: General anesthesia The identity of the patient was confirmed and a bedside time out was performed. Description of Procedure: Fiberoptic bronchoscopy was performed via endotracheal tube. Bronchioalveolar lavage of the left lower lobe was performed. Findings included: Diffuse pisano dishwater appearing fluid and mucus was suctioned from all lobes. Complications: Hypoxia into the mid 80s Specimens: Bronchial washings sent for culture and Gram stain, cytology, fungal elements, and AFB stain and culture. Estimated blood loss: Zero
--- NOTE | 2018-05-29 14:45 | Pharmacy Report ---
Glycemic Control Consultation - Date of Service May 29, 2018 - Scope Scope: Glycemic Pharmacist consulted for glycemic control and to write orders per [facility] inpatient glycemic control protocol - Objective Weight: 87.2 kg Accuchecks BSG (last 24hrs): 05/28/18 05/28/18 05/29/18 19:37 21:50 00:14 Glucose 123 H POC Glucose (other) 172 H 193 H 05/29/18 05/29/18 05/29/18 04:14 05:52 11:17 Glucose 194 H POC Glucose (other) 205 H 184 H Laboratory Data (last 24hrs): 05/28/18 05/29/18 19:37 04:14 Potassium 3.4 L D 4.4 D Carbon Dioxide 26 26 Anion Gap 4.0 4.0 Creatinine 0.62 0.58 L Est Cr Clr Drug Dosing 127.1 135.8 HbA1c: Hemoglobin A1c 5.5 % (4.5-5.6) 05/19/18 06:49 - Recent Pertinent Medications Outpatient Anti-diabetic Regimen: * Glipizide 2.5 mg po qAM * A1c = 5.5 % on 05/19/18 The patient is currently receiving: * Basal insulin: Lantus 0 units on 05/27 and 5 units on 05/28 * Correctional Insulin: Novolog Correction per scale ACHS Goal Range: Low 120 mg/dL - High 160 mg/dL Correction Factor: 55 mg/dL/unit * Prandial insulin: Per carb ratio of 1 unit per 18 grams CHO consumed * Oral Agents: on hold Risk Factors for Insulin Resistance: * Steroids: hydrocortisone 100 mg IV x1 yesterday PM * Infection: Sepsis 2nd PNA and osteomyelitis * Pressors: norepinephrine and vasopressin * Recent Surgery: POD 1 s/p BKA * Diet: ?T2DM ordered but patient is currently intubated therefore is not eating * Mechanical Ventilation: YES - Assessment & Plan Assessment & Plan: ASSESSMENT: * 72 yo M in ICU requiring mechanical ventillation for ARDS, multiple antibiotics for sepsis 2nd pulmonary vs. osteomyelitis, pressors for severe hypotension, and is now only POD 1 s/p BKA for osteomyelitis. Paralytics were held this AM. * Basal insulin * Despite significant stressors (above) and BSG's in the 200's, will not be overly aggressive with Lantus as this time as the patient is well controlled on a single oral agent alone at home, BSG's were well controlled previously during this admission on small doses of Lantus and Novolog until acute events yesterday, and patient is NPO. * Will initiate at a total daily dose slightly above mild stress and slightly below moderate stress estimates per weight * OK to give additional tonight, up to total daily dose moderate stress est imate, for BSG >180 mg/dL * Bolus insulin * Will change Novolog to q4h checks and tighten to weight-based moderate stress estimate PLAN FOR INPATIENT GLYCEMIC CONTROL: * Basal insulin * Lantus 20 units SQ x1 now. Additional 10 units tonight if BSG > 180 mg/dL * Bolus insulin * NovoLog per scale ACHS or Q6hrs while NPO * Goal Range: Low 120 mg/dL - High 160 mg/dL * Correction Factor: 25 mg/dL/unit * Nutritional / Prandial insulin per carb ratio of 1 unit per 9 grams CHO consumed * Please note that the plan above was derived based on current level of insulin resistance and hospital stress. These recommendations are appropriate for inpatient admission only. Plan of care upon discharge will need to be reassessed to avoid potential outpatient hypo/hyperglycemia. Thank you.
[2018-05-29] MEDS ORDERED: PHYTONADIONE 5 MG in SODIUM CHLORIDE 0.9% 50 ML IV ONE (15:00)
--- NOTE | 2018-05-29 15:26 | Anesthesiology Progress Note ---
Date of Service May 29, 2018 Anesthesia Post Procedure Vital Signs Vital Signs: Temp Pulse Pulse Resp BP BP Pulse Ox 05/29/18 14:03 94 H 24 100 05/29/18 11:15 95 H 24 100 05/29/18 11:00 92 H 100 05/29/18 10:00 86 96/61 L 100 05/29/18 09:00 90 97/61 L 100 05/29/18 08:00 36.9 C 94 H 114/61 100 05/29/18 07:26 93 H 24 100 05/29/18 07:00 97 H 114/73 100 05/29/18 06:00 93 H 109/67 100 05/29/18 05:01 96 H 24 100 05/29/18 05:00 94 H 96/59 L 100 05/29/18 04:59 24 05/29/18 04:00 36.7 C 95 H 116/63 100 05/29/18 03:11 92 H 24 100 05/29/18 03:00 89 102/62 100 05/29/18 02:00 91 H 93/67 L 100 05/29/18 01:00 97 H 107/61 99 05/29/18 00:23 89 24 98 05/29/18 00:15 94 H 102/60 99 05/29/18 00:00 36.5 C 92 H 102/57 L 98 05/28/18 23:58 92 H 98 05/28/18 23:45 90 106/61 99 05/28/18 23:30 92 H 111/63 99 05/28/18 23:15 93 H 107/63 98 05/28/18 23:11 88 24 98 05/28/18 23:00 93 H 113/63 98 05/28/18 22:45 95 H 109/64 97 05/28/18 22:30 95 H 114/62 97 05/28/18 22:15 96 H 117/62 96 05/28/18 22:00 97 H 114/61 95 05/28/18 21:45 100 H 125/64 95 05/28/18 21:30 100 H 122/61 94 05/28/18 21:15 102 H 100/58 L 91 05/28/18 21:00 102 H 103/59 L 89 L 05/28/18 20:45 98 H 88/55 L 84 L 05/28/18 20:30 99 H 90/54 L 83 L 05/28/18 20:20 102 H 96/59 L 89 L 05/28/18 20:18 101 H 93/54 L 88 L 05/28/18 20:16 36.5 C 102 H 26 H 98/55 L 89 L 05/28/18 20:14 99 H 99/51 L 90 05/28/18 20:12 97 H 98/56 L 90 05/28/18 20:10 98 H 112/56 L 90 05/28/18 20:08 96 H 114/47 L 91 05/28/18 20:06 100 H 108/52 L 91 05/28/18 20:04 96 H 106/56 L 91 05/28/18 20:02 96 H 112/57 L 91 05/28/18 20:00 36.5 C 102 H 103/54 L 90 05/28/18 19:58 91 H 106/48 L 90 05/28/18 19:56 94 H 104/53 L 90 05/28/18 19:54 92 H 93/49 L 88 L 05/28/18 19:52 88 72/43 L 86 L 05/28/18 19:50 36.6 C 87 22 72/46 L 84 L 05/28/18 19:48 88 77/45 L 85 L 05/28/18 19:46 87 75/46 L 85 L 05/28/18 19:44 86 81/45 L 86 L 05/28/18 19:42 87 83/49 L 85 L 05/28/18 19:40 92 H 85/47 L 87 L 05/28/18 19:38 87 82/49 L 88 L 05/28/18 19:36 86 78/47 L 88 L 05/28/18 19:35 36.6 C 86 24 85/50 L 88 L 05/28/18 19:34 86 85/50 L 87 L 05/28/18 19:32 86 83/49 L 89 L 05/28/18 19:30 86 16 88/51 L 88 L 05/28/18 19:22 36.4 C L 90 16 100/56 L 85 L 05/28/18 19:20 90 100/56 L 87 L 05/28/18 19:15 91 H 89/50 L 86 L 05/28/18 19:14 93 H 90/53 L 84 L 05/28/18 19:12 90 96/54 L 85 L 05/28/18 19:10 89 78/44 L 85 L 05/28/18 19:06 92 H 90/52 L 88 L 05/28/18 19:05 93 H 24 90/52 L 85 L 05/28/18 19:04 92 H 115/49 L 70 L 05/28/18 19:00 91 H 78/41 L 79 L 05/28/18 18:55 94 H 20 104/50 L 85 L 05/28/18 18:48 36.4 C L 80 16 101/54 L 85 L Pain Intensity Left Lower Leg: Pain Intensity: 0 Notes Mental Status: see notes below Nausea / Vomiting: see Notes below Pain: see Notes below Anesthetic Complications: see Notes below Notes: The patient is POD 1 s/p L BKA and R foot debridement with Dr. Joel. The patient's intraoperative course was complicated by aspiration which lead to aspiration pneumonia and ARDS. Please see anesthesia post procedure note from 05/28/18 for details. The patient remains stable Intubated and sedated this morning. His oxygenation has improved as his Fi02 requirements have decreased from 1.0 to 0.4 and his lung sounds are less course. ARDS net protocol has been initiated by the ICU team. He is receiving Vancomycin, Cefepime and Flagyl for aspiration pneumonia. The patient is still requiring vasopressin and levophed gtt to maintain MAPs in the 70s and 80s. Hypotension likely the result of hypovolemia, sepsis, and sedation. The patient was given 2U PRBC overnight to help with volume as well as anemia as he had lost around 300cc in the operating room. He has a history diastolic heart failure so fluid administration must be carefully titrated.
--- NOTE | 2018-05-29 15:29 | XRay Report ---
XR KUB/Abdomen 1 view CLINICAL HISTORY: Abdominal pain COMPARISON STUDY: No previous studies for comparison. FINDINGS: The study is somewhat limited from a medical standpoint. There is diffuse gaseous prominenc e of both large and small bowel loops. A discrete transition zone is not identified. The findings are suggestive of a generalized ileus. Incidental note is made of extensive bilateral pulmonary airspace opacities. There is a lumbar scoliosis. There are moderately advanced multilevel degenerative change s. There are surgical clips within the right upper quadrant consistent with a prior cholecystectomy. A nasogastric tube is visualized. IMPRESSION: 1. Technically limited portable study 2. Gaseous distention of the bowel, likely secondary to an ileus Electronically signed by: Osbaldo Hoover M.D. 05/29/2018 3:28 PM
[2018-05-29] MEDS: MAGNESIUM SULFATE / D5W 1 GM/100 ML BAG IV SCH ×4 (15:43→19:29)
[2018-05-29] MEDS: SENNA 8.6 MG TAB PO SCH (20:10)
[2018-05-29 22:19] LABS: iSTAT Arterial Blood Gas HCO3 20 meg/L (19-24); iSTAT Arterial Blood Gas pCO2 28 mmHg (35-46); iSTAT Arterial Blood Gas pH 7.47 (7.35-7.45); iSTAT Carbon Dioxide 21 mEq/l (24-31); iSTAT FiO2 30 %; iSTAT Site Art Line
[2018-05-29] MEDS: AMIODARONE / D5W 360 MG/200 ML BAG IV SCH (22:39)
--- NOTE | 2018-05-29 23:38 | Hospitalist Progress Note ---
Date of Service delayed entry date of service noted below May 29, 2018 Assessment & Plan (1) Wound of lower extremity: OSTEOMYELITIS LEFT ANKLE Hx PVD. Hx MRSA started on intravenous Zosyn, vancomycin L Ankle xray: Periostitis the level of medial malleolus. Given history of overlying wound, this may indicate osteomyelitis. Presumed neuropathic changes within the midfoot. Blood cultures negative so far Wound cultures positive for staph Appreciate Ortho input and recommendation; Orthopedic is recommending amputation. s/p left below-knee amputation and right foot debridement Remains intubated, on 2 types of vasopressors Management per intensive care service Hypotension may be multifactorial, including infection, sedation Further management service Continue cefazolin and doxycycline IV (2) PVD (peripheral vascular disease): Pt follows with vascular surgery in [place] Dr Fonseca. Pts sister reports that pt had recent bilateral leg revascularization in the past 1-2 months -obtain outside records --Holding Plavix and Xarelto in light of recent surgery -We will hold Plavix and Xarelto for now -Vascular surgery has been consulted for peripheral vascular disease evaluation and any further treatment -Duplex scan of the lower extremity noted; showed no flow within the right posterior tibial artery which is likely occluded, occlusion of the left profunda femoral artery. -Vascular surgery consulted for recommendation-no further intervention (3) Anemia: Acute Blood Loss Anemia from Lower Leg Wound Bleeding Stool has been negative for any blood Complicated by chronic disease and malnutrition Patient still reports weakness Hemoglobin 8.4 Ordered 1 more unit of packed RBCs Hemoglobin improved to 9, clinically better Monitor hemoglobin (4) Diarrhea: C. difficile negative Imodium as needed, clear liquids for now Possibly advance diet to soft diet tomorrow morning is better Resolved (5) History of aortic valve replacement with bioprosthetic valve: Aortic stenosis s/p bioprosthetic valve replacement in 09/2017 at [facility] ECHO: Left ventricle is normal with moderate concentric left ventricular hypertrophy, left ventricular wall motion is normal, and is hyperdynamic, EF is more than 70%, grade 3 diastolic dysfunction consistent with markedly increased left atrial pressure, there is a bioprosthetic aortic valve with normal gradient, aortic regurg regurgitation is present, there is moderate to severe annular calcification, there is no mitral valvular stenosis Monitor volume status (6) CAD (coronary artery disease): CAD s/p CABG x 2 in 09/2017 at [place] Plavix on hold Metoprolol on hold (7) Atrial fibrillation: Hx a-fib after cardiac surgery in 09/2017, requiring cardioversion -- in sinus rhythm Toprol on hold, Xarelto on hold (8) Chronic diastolic heart failure: Monitor volume status closely (9) Cirrhosis: Hx cirrhosis. LFT's chronically elevated with AST: 56, ALT: 45, Alk Phos: 123, normal bili. (04/2018: AST: 54, ALT: 46, Alk Phos: 136) (10) BPH (benign prostatic hyperplasia): (11) Urinary retention: Hx BPH and chronic urinary retention. Follows with [facility]. Reported consideration for suprapubic cath placement in future. 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 Post-op day 1 Review of Systems Review of Systems: Unobtainable due to endotracheal tube Physical Exam Physical Exam: General-awake, intubated Eyes- anicteric Neck- no JVD Lungs-mild rhonchi bilaterally Heart- normal rate, regular rhythm; no murmurs Abdomen- normal bowel sounds, nondistended, soft, nontender Extremities- (+) L bka, no bleeding noted Neuro-sedated Skin- warm & dry Results & Data Vital Signs (Past 12 Hours) Vital Signs Temp Pulse Resp BP Pulse Ox 05/29/18 23:00 109 H 103/57 L 100 05/29/18 22:03 116 H 20 100 05/29/18 22:00 89 95/50 L 100 05/29/18 21:00 94 H 92/50 L 99 05/29/18 20:00 37.4 C 96 H 92/55 L 99 05/29/18 19:41 91 H 24 99 05/29/18 19:00 93 H 105/54 L 100 05/29/18 17:35 97 H 24 98 05/29/18 15:32 95 H 24 100 05/29/18 14:03 94 H 24 100 Laboratory Results Noted and reviewed (1) Anemia Anemia type: unspecified type Qualified Code(s): D64.9 - Anemia, unspecified
[2018-05-30] MEDS: INSULIN ASPART 100 UNITS/ML 3 ML PEN SC SCH ×6 (00:35→19:36)
[2018-05-30] MEDS: ALBUT/IPRATROP 3MG/0.5MG NEB 3 ML VIAL INH SCH ×2 (03:26→07:20)
[2018-05-30] MEDS: fentaNYL DRIP 1,250 MCG/250 ML BAG IV SCH (03:28)
[2018-05-30] MEDS: NORMOSOL-R 1,000 ML IV SCH (03:28)
[2018-05-30] MEDS ORDERED: VANCOMYCIN TROUGH ONE (03:30)
[2018-05-30 03:52] LABS: Hematocrit (blood only) 24.7 % (42-52); Hemoglobin 8.2 g/dL (14.0-18.0); Mean Corpuscular Hgb Conc 33.2 g/dL (32-36); Mean Corpuscular Volume 82.9 fL (80-100); RDW Coefficient of Variation 17.8 % (11.5-14.5); RDW Standard Deviation 54.4 fL (36.4-46.3); Red Blood Count 2.98 M/uL (4.7-6.1); White Blood Count 9.13 K/uL (4.8-10.8)
[2018-05-30 04:08] LABS: INR 1.6 (0.9-1.1); Prothrombin Time 15.8 Seconds (9.0-12.0)
[2018-05-30 04:25] LABS: BUN Creatinine Ratio 64.7 (10-20); Calcium 7.4 mg/dl (8.5-10.1); Creatinine Clr Calc Pharmacy 145.9 ml/min; Est GFR (African American) 122.4; Est GFR (Non-African American) 105.6; Magnesium 2.6 mg/dl (1.8-2.4); Phosphorus 1.9 mg/dl (2.5-4.9)
[2018-05-30] MEDS: VANCOMYCIN HCL 1,250 MG in SODIUM CHLORIDE 0.9% 250 ML IV SCH (04:27)
[2018-05-30] MEDS: CEFEPIME 1,000 MG in SYRINGE 0 ML IV SCH (04:28)
[2018-05-30 04:29] LABS: Mean Platelet Volume 9.5 fL (7.4-10.4); Platelet Count 94 K/uL (130-400)
[2018-05-30 04:30] LABS: Basophils # (auto) 0.01 K/uL (0-0.2); Basophils % (auto) 0.1 %; Eosinophils # (auto) 0.01 K/uL (0-0.5); Eosinophils % (auto) 0.1 %; Immature Granulocytes # (auto) 0.31 K/uL (0.00-0.02); Immature Granulocytes % (auto) 3.4 %; Lymphocytes # (auto) 0.72 K/uL (1.2-3.4); Lymphocytes % (auto) 7.9 %; Monocytes # (auto) 0.57 K/uL (0.11-0.59); Monocytes % (auto) 6.2 %; Neutrophils # (auto) 7.51 K/uL (1.4-6.5); Neutrophils % (auto) 82.3 %; Platelet Estimate Decreased (Normal)
[2018-05-30] MEDS: VASOPRESSIN 20 UNITS in 0.9 % SODIUM CHLORIDE 100 ML IV SCH (05:54)
[2018-05-30] MEDS ORDERED: POTASSIUM PHOS 3 MMOL/1 ML INFUSION IV STA ×2 (06:02→06:33)
[2018-05-30 06:08] LABS: iSTAT Arterial Blood Gas HCO3 22 meg/L (19-24); iSTAT Arterial Blood Gas pCO2 36 mmHg (35-46); iSTAT Arterial Blood Gas pH 7.41 (7.35-7.45); iSTAT Carbon Dioxide 23 mEq/l (24-31); iSTAT FiO2 30 %; iSTAT Site Art Line
[2018-05-30] MEDS ORDERED: POTASSIUM PHOSPHATE 9 MMOL in SODIUM CHLORIDE 0.9% 250 ML IV ONE (06:15)
[2018-05-30] MEDS: NOREPINEPHRINE BIT INJ 8 MG in DEXTROSE 5% 500 ML IV SCH ×2 (07:14→17:55)
[2018-05-30] MEDS: DOCUSATE SODIUM 100 MG CAP PO SCH (07:35)
--- NOTE | 2018-05-30 07:48 | XRay Report ---
XR chest 1V portable HISTORY: Respiratory failure. Follow-up. COMPARISON: Chest 05/29/2018. FINDINGS: Endotracheal tube terminates approximately 3 cm from the rose. This remains unchanged. Th e nasogastric tube terminates in the stomach. No pneumothorax. Bilateral hazy airspace opacities have slightly improved. There are low lung volumes. The heart remains top normal in size. IMPRESSION: 1. Satisfactory support line placement. 2. Slight improvement in the bilateral airspace opacities. Electronically signed by: Carson Zamarripa M.D. 05/30/2018 7:47 AM
--- NOTE | 2018-05-30 07:56 | XRay Report ---
KUB HISTORY: Ileus. COMPARISON: KUB 05/29/2018. FINDINGS: Nasogastric tube terminates in the stomach.] Quadrant surgical clips are noted. The right c ommon femoral intravenous line identified. Multiple distended gas-filled loops of large and small bow el are again noted. These are similar to the prior study. No renal calculi. No ureteral calculi. No definite pneumoperitoneum or pneumatosis. Rotated study. Chronic changes within the left hip and levo scoliosis are again noted. IMPRESSION: No change in the gas-filled distended loops of large and small bowel. Therefore, this favors an ileus . Electronically signed by: Carson Zamarripa M.D. 05/30/2018 7:55 AM
[2018-05-30 08:17] LABS: Hematocrit (blood only) 25.4 % (42-52); Hemoglobin 8.2 g/dL (14.0-18.0)
[2018-05-30] MEDS: DOXYCYCLINE HYCLATE 100 MG in DEXTROSE 5% 100 ML IV SCH ×2 (08:21→19:37)
[2018-05-30] MEDS: FAMOTIDINE 20 MG in SYRINGE 3 ML IV SCH (08:21)
--- NOTE | 2018-05-30 09:04 | Pharmacy Report ---
Pharmacy Abx Dose Short Note - Date of Service May 30, 2018 - Assessment & Plan Assessment 72 year old M receiving Vancomycin and cefepime for treatment of aspiration pneumonia/ARDS and osteomyelitis? Day # 3 of antimicrobial therapy. * Renal function unchanged. * Bronch wash culture from 05/28 growing proteus mirabilis. * Blood cultures have NGTD. Plan Vancomycin * Trough level of 21 mcg/mL is supratherapeutic. Trough is prior to steadystate so we will lengthen dosing interval. * Change to 1250 mg (14mg/kg) IV every 16 hours * Goal trough level for pneumonia : ~ 20 mcg/mL * Trough level ordered for: 06/01/18 @1130 Pharmacy will continue to follow and will adjust dose/frequency as necessary. Thank you.
--- NOTE | 2018-05-30 09:17 | Orthopedic Progress Note ---
Date of Service May 30, 2018 Assessment & Plan (1) Osteomyelitis of ankle, left, acute: POD#2:PROCEDURE: 1. Left below knee amputation. 2. Right foot debridement ischemic ulcer, first metatarsophalangeal joint including skin, fascia, joint capsule, and subcutaneous fat. 3. Right foot debridement ischemic ulcer, separate site, fifth metatarsophalangeal joint involving skin, fascia, subcutaneous fat, and joint capsule. 4. Right foot debridement ischemic ulcer, separate site, posterior heel 1.5 cm in diameter involving skin, subcutaneous fat, and fascia. 5. Right foot debridement ischemic ulcer, separate site, lateral foot involving skin, subcutaneous fat, and fascia. Will continue to monitor. Dressings changed to bilateral lower extremity today. Hemovac has had minimal drainage. Pulled during dressing change without complication. (2) Diabetic foot ulcer associated with type 2 diabetes mellitus: Subjective Patient is POD#2 left BKA and right ulcer debridement. Patient is more awake today, still intubated so history is limited. No issues overnight. Physical Exam Physical Exam: Left: Incision c/d/i, well approximated. Hemovac in place, was removed. Right: Dressing removed. Multiple ulcers s/p debridement. Mild blood drainage. Toes are mobile. Sensation intact. Results & Data Vital Signs (Past 12 Hours) Vital Signs Temp Pulse Resp BP Pulse Ox 05/30/18 08:01 36.8 C 113 H 122/96 93 05/30/18 07:20 100 H 17 97 05/30/18 07:00 93 H 99/53 L 97 05/30/18 06:00 97 H 95/68 L 100 05/30/18 05:11 94 H 12 98 05/30/18 05:00 118 H 90/56 L 98 05/30/18 03:25 20 05/30/18 03:00 105 H 95/53 L 100 05/30/18 02:05 101 H 20 100 05/30/18 02:00 94 H 82/55 L 100 05/30/18 01:00 104 H 87/53 L 100 05/30/18 00:00 37.1 C 131 H 98/57 L 100 05/29/18 23:43 105 H 20 100 05/29/18 23:00 109 H 103/57 L 100 05/29/18 22:03 116 H 20 100 05/29/18 22:00 89 95/50 L 100
--- NOTE | 2018-05-30 09:27 | XRay Report ---
KUB HISTORY: NG tube placement. COMPARISON: KUB 05/30/2018. FINDINGS: Nasogastric tube is seen within the stomach. There are postoperative changes. Endotracheal tube terminates 3 cm from the rose. Patchy bilateral airspace opacities persist. Surgical clips wit hin the right upper quadrant. Multiple mildly dilated gas-filled loops of large and small bowel are s een throughout the abdomen. No pneumoperitoneum or pneumatosis. IMPRESSION: NG tube is curled within the expected location of the stomach. Electronically signed by: Carson Zamarripa M.D. 05/30/2018 9:25 AM
[2018-05-30] MEDS ORDERED: SODIUM CHLORIDE 0.9% 250 ML IV PRN (09:35)
[2018-05-30] MEDS ORDERED: ALBUT/IPRATROP 3MG/0.5MG NEB 3 ML VIAL INH PRN (09:40)
[2018-05-30] MEDS ORDERED: VANCOMYCIN HCL 1,250 MG in SODIUM CHLORIDE 0.9% 250 ML IV SCH ×2 (10:00→12:00)
--- NOTE | 2018-05-30 10:04 | Anesthesiology Progress Note ---
Date of Service May 30, 2018 Anesthesia Post Procedure Vital Signs Vital Signs: Temp Pulse Resp BP Pulse Ox 05/30/18 08:01 36.8 C 113 H 122/96 93 05/30/18 07:20 100 H 17 97 05/30/18 07:00 93 H 99/53 L 97 05/30/18 06:00 97 H 95/68 L 100 05/30/18 05:11 94 H 12 98 05/30/18 05:00 118 H 90/56 L 98 05/30/18 03:25 20 05/30/18 03:00 105 H 95/53 L 100 05/30/18 02:05 101 H 20 100 05/30/18 02:00 94 H 82/55 L 100 05/30/18 01:00 104 H 87/53 L 100 05/30/18 00:00 37.1 C 131 H 98/57 L 100 05/29/18 23:43 105 H 20 100 05/29/18 23:00 109 H 103/57 L 100 05/29/18 22:03 116 H 20 100 05/29/18 22:00 89 95/50 L 100 05/29/18 21:00 94 H 92/50 L 99 05/29/18 20:00 37.4 C 96 H 92/55 L 99 05/29/18 19:41 91 H 24 99 05/29/18 19:00 93 H 105/54 L 100 05/29/18 17:35 97 H 24 98 05/29/18 15:32 95 H 24 100 05/29/18 14:03 94 H 24 100 05/29/18 11:15 95 H 24 100 05/29/18 11:00 92 H 100 Pain Intensity Left Lower Leg: Pain Intensity: 0 Notes Mental Status: alert / awake / arousable Nausea / Vomiting: see Notes below Pain: see Notes below Airway Patency, RR, SpO2: see Notes below BP & HR: see Notes below Hydration State: see Notes below Anesthetic Complications: see Notes below Notes: The patient is POD 2 s/p L BKA and R foot debridement with Dr. Joel. The patient's intraoperative course was complicated by aspiration which lead to aspiration pneumonia and ARDS. Please see anesthesia post procedure note from 05/28/18 for details. The patient is awake today and his Fi02 requirement has decreased to 0.3. He has also been weaned off of all pressors and BP is stable at 122/96. Per the ICU team, the plan is to extubate the patient today.
[2018-05-30] MEDS: AMIODARONE / D5W 360 MG/200 ML BAG IV SCH ×2 (10:14→21:59)
--- NOTE | 2018-05-30 10:50 | Critical Care Progress Note ---
Date of Service May 30, 2018 Assessment & Plan (1) Admitted to intensive care unit: Elton Laureano is a 72 y/o male with multiple co-medical comorbidities who had left BKA and developed severe hypoxia and ARDS. 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 NEURO - Postoperative pain. -Decrease Dilaudid 0.2 milligrams every 6 -Chronic narcotic use of baseline CARDIAC/VASCULAR - Hypotension: Multifactorial - acute blood loss anemia s/p BKA on top of anemia of chronic disease, sepsis causing vasodilation. -Additional unit of packed red blood cells today -Aspects of sepsis secondary to aspiration pneumonia -Appears to be hypervolemic: 3 L positive -Will give trial dose of Lasix to see if that improves hemodynamics and if patient is having aspects of congestive failure Hx CAD, A-Fib, Recent CABG/Aortic Valve Repair: - Can restart home meds once appropriate. - EKG (05/19): Sinus [email or web address]. No significant ST/T-wave changes. QTc 527. - ECHO (05/27): LVH, EF >70%. Diastolic dysfunction. Atrial fibrillation -On Xarelto status post cardioversion -Patient has returned to atrial fibrillation from normal sinus rhythm -On amiodarone half milligram per hour continuously -Will give 150 mg bolus x1 as patient has returned to atrial fibrillation Long-term anticoagulation -Patient previously on Xarelto -Cannot anticoagulate with heparin due to history of HIT -Given ileus no oral access for novel oral anticoagulant -We will continue to trend H&H required additional unit today -Patient would most likely require argatroban for intravenous therapeutic anticoagulation -Given higher risk of bleeding with argatroban and correctability and need for blood transfusion today will hold systemic anticoagulation as risk for embolic phenomena is lower than bleeding risk RESPIRATORY - Aspiration pneumonia: Proteus resistant to fluoroquinolones -De-escalate to cefazolin 1 g q. 8 and for 7 days total treatment: Day 3 of 7 effective therapy Patient liberated from ventilator today GI/NUTRITION - Ileus: Await return of bowel function NG In place. Will continue w/ intermittent suction as large amount of stomach contents. GI Prophylaxis: Protonix -Methylnaltrexone x1 for ileus RENAL/LYTES - Hypophosphatemia Hyponatremia IVF: Holding additional IV fluid and will trial diuretic as patient may have pushed off cesar Starling curve JONATHON Denis in place - Record I&Os. ENDO - DMII: ICU Hyperglycemic protocol HEME - Chronic Anemia: -Trending hemoglobin every 6 -If hemoglobin continues to drop will need evaluation for retroperitoneal hematoma History heparin-induced thrombocytopenia -Previously on Xarelto -This is complicated by ileus -Would consider argatroban for systemic anticoagulation however I think bleeding risk outweighs embolic risk at this time ID - Aspiration Pneumonia: Proteus Cefazolin for Proteus Osteomyelitis -Doxycycline per ID notes We will discontinue vancomycin today as that was added for possible pulmonary infection. LINES/IV ACCESS - PIVs x2 RIGHT Femoral CVL RIGHT Femoral A-Line Denis DVT PROPHYLAXIS - SCD on right lower extremity and left thigh CODE STATUS -DNR I have personally spent 85 minutes of critical care time in the direct management of this patient. This is a life/limb threatening event. This includes time spent evaluating patient, direct bedside care, chart review, placing orders, interpretation of diagnostic studies, discussion with consultants, patient, and/or family members regarding treatment decisions, as well as other required patient management activities. This time is exclusive of all separately billable procedures, and teaching time and separate from and in addition to any other critical care service time. Subjective Postop day 3 left BKA for right ulcer debridement. Patient able to follow complex commands and was ultimately extubated after placement of nasogastric tube for decompression of ileus Patient is POD#2 left BKA and right ulcer debridement. Patient is more awake today, still intubated so history is limited. No issues overnight. Review of Systems Review of Systems: Unobtainable due to endotracheal tube Physical Exam Physical Exam: Constitutional Elderly male ENMT Nose: no nasal discharge Neck normal visual inspection and trachea midline Respiratory Auscultation: no rales and no wheezes mechanically ventilated Cardiovascular Rate/Rhythm: regular rate and regular rhythm Gastrointestinal (Abdomen) Inspection/Auscultation: normal bowel sounds Percussion/Palpation: abdomen soft Musculoskeletal Left BKA with bandage and surgical drain in place Neurologic Following complex commands Genitourinary denis cath in place Results & Data Vital Signs (Past 12 Hours) Vital Signs Temp Pulse Resp BP Pulse Ox 05/30/18 10:25 36.3 C L 100 H 20 98/51 L 98 05/30/18 10:00 125 H 18 98/51 L 97 05/30/18 09:30 104 H 98 05/30/18 09:15 103 H 93/54 L 98 05/30/18 08:46 115 H 96/51 L 98 05/30/18 08:30 111 H 97 05/30/18 08:01 36.8 C 113 H 122/96 93 05/30/18 07:20 100 H 17 97 05/30/18 07:00 93 H 99/53 L 97 05/30/18 06:00 97 H 95/68 L 100 05/30/18 05:11 94 H 12 98 05/30/18 05:00 118 H 90/56 L 98 05/30/18 03:25 20 05/30/18 03:00 105 H 95/53 L 100 05/30/18 02:05 101 H 20 100 05/30/18 02:00 94 H 82/55 L 100 05/30/18 01:00 104 H 87/53 L 100 05/30/18 00:00 37.1 C 131 H 98/57 L 100 05/29/18 23:43 105 H 20 100 05/29/18 23:00 109 H 103/57 L 100 Laboratory Results 05/30/18 05/30/18 05/30/18 Range/Units 10:42 08:09 07:55 WBC (4.8-10.8) K/uL RBC (4.7-6.1) M/uL Hgb 8.2 L (14.0-18.0) g/dL Hct 25.4 L (42-52) % MCV (80-100) fL MCH (25-34) pg MCHC (32-36) g/dL RDW Std Deviation (36.4-46.3) fL RDW Coeff of [place] (11.5-14.5) % Plt Count (130-400) K/uL MPV (7.4-10.4) fL Immature Gran % (Auto) % Neut % (Auto) % Lymph % (Auto) % [place] % (Auto) % Eos % (Auto) % Baso % (Auto) % Immature Gran # (Auto) (0.00-0.02) K/uL Neut # (Auto) (1.4-6.5) K/uL Lymph # (Auto) (1.2-3.4) K/uL [place] # (Auto) (0.11-0.59) K/uL Eos # (Auto) (0-0.5) K/uL Baso # (Auto) (0-0.2) K/uL Platelet Estimate (Normal) PT (9.0-12.0) Seconds INR (0.9-1.1) Sample Site POC pH (7.35-7.45) POC pCO2 (35-46) mmHg POC pO2 (80-95) mmHg POC HCO3 (19-24) mansoro/L POC Total CO2 (24-31) mEq/l POC Base Excess (-9-1.8) mansoor/L POC ABG O2 Sat (90-95) % Dk Test O2 Delivery Device POC O2 Rate Minute Ventilation POC FiO2 % Tidal Volume PEEP Sodium (136-145) mmol/L Potassium (3.5-5.1) mmol/L Chloride (98-107) mmol/L Carbon Dioxide (21-32) mmol/L Anion Gap (3-11) BUN (7-18) mg/dl Creatinine (0.6-1.4) mg/dl Est Cr Clr Drug Dosing ml/min Est GFR ( Amer) Est GFR (Non-Af Amer) BUN/Creatinine Ratio (10-20) Glucose (70-99) mg/dl POC Glucose 90 (70-99) POC Glucose (other) (70-99) mg/dl Lactate Pending (0.4-2.0) mmol/L Calcium (8.5-10.1) mg/dl Phosphorus (2.5-4.9) mg/dl Magnesium (1.8-2.4) mg/dl Troponin I (0-0.045) ng/ml Vancomycin Trough (See Comment) mcg/ml Blood Type Antibody Screen Crossmatch 05/30/18 05/30/18 05/30/18 Range/Units 05:55 03:43 03:42 WBC (4.8-10.8) K/uL RBC (4.7-6.1) M/uL Hgb (14.0-18.0) g/dL Hct (42-52) % MCV (80-100) fL MCH (25-34) pg MCHC (32-36) g/dL RDW Std Deviation (36.4-46.3) fL RDW Coeff of [place] (11.5-14.5) % Plt Count (130-400) K/uL MPV (7.4-10.4) fL Immature Gran % (Auto) % Neut % (Auto) % Lymph % (Auto) % [place] % (Auto) % Eos % (Auto) % Baso % (Auto) % Immature Gran # (Auto) (0.00-0.02) K/uL Neut # (Auto) (1.4-6.5) K/uL Lymph # (Auto) (1.2-3.4) K/uL [place] # (Auto) (0.11-0.59) K/uL Eos # (Auto) (0-0.5) K/uL Baso # (Auto) (0-0.2) K/uL Platelet Estimate (Normal) PT (9.0-12.0) Seconds INR (0.9-1.1) Sample Site Art Line POC pH 7.41 (7.35-7.45) POC pCO2 36 (35-46) mmHg POC pO2 88 (80-95) mmHg POC HCO3 22 (19-24) mansoor/L POC Total CO2 23 L (24-31) mEq/l POC Base Excess -2.0 (-9-1.8) mansoor/L POC ABG O2 Sat 97.0 H (90-95) % Dk Test NA O2 Delivery Device Ventilator POC O2 Rate Minute Ventilation POC FiO2 30 % Tidal Volume PEEP 8 Sodium 133 L (136-145) mmol/L Potassium 4.0 (3.5-5.1) mmol/L Chloride 103 (98-107) mmol/L Carbon Dioxide 26 (21-32) mmol/L Anion Gap 4.0 (3-11) BUN 35 H (7-18) mg/dl Creatinine 0.54 L (0.6-1.4) mg/dl Est Cr Clr Drug Dosing 145.9 ml/min Est GFR ( Amer) 122.4 Est GFR (Non-Af Amer) 105.6 BUN/Creatinine Ratio 64.7 H (10-20) Glucose 105 H (70-99) mg/dl POC Glucose (70-99) POC Glucose (other) 108 H (70-99) mg/dl Lactate (0.4-2.0) mmol/L Calcium 7.4 L (8.5-10.1) mg/dl Phosphorus 1.9 L D (2.5-4.9) mg/dl Magnesium 2.6 H (1.8-2.4) mg/dl Troponin I (0-0.045) ng/ml Vancomycin Trough (See Comment) mcg/ml Blood Type Antibody Screen Crossmatch 05/30/18 05/30/18 05/30/18 Range/Units 03:42 03:42 03:42 WBC 9.13 (4.8-10.8) K/uL RBC 2.98 L (4.7-6.1) M/uL Hgb 8.2 L (14.0-18.0) g/dL Hct 24.7 L (42-52) % MCV 82.9 (80-100) fL MCH 27.5 (25-34) pg MCHC 33.2 (32-36) g/dL RDW Std Deviation 54.4 H (36.4-46.3) fL RDW Coeff of [place] 17.8 H (11.5-14.5) % Plt Count 94 L (130-400) K/uL MPV 9.5 (7.4-10.4) fL Immature Gran % (Auto) 3.4 % Neut % (Auto) 82.3 % Lymph % (Auto) 7.9 % Loup % (Auto) 6.2 % Eos % (Auto) 0.1 % Baso % (Auto) 0.1 % Immature Gran # (Auto) 0.31 H (0.00-0.02) K/uL Neut # (Auto) 7.51 H (1.4-6.5) K/uL Lymph # (Auto) 0.72 L (1.2-3.4) K/uL [place] # (Auto) 0.57 (0.11-0.59) K/uL Eos # (Auto) 0.01 (0-0.5) K/uL Baso # (Auto) 0.01 (0-0.2) K/uL Platelet Estimate Decreased (Normal) PT 15.8 H (9.0-12.0) Seconds INR 1.6 H (0.9-1.1) Sample Site POC pH (7.35-7.45) POC pCO2 (35-46) mmHg POC pO2 (80-95) mmHg POC HCO3 (19-24) mansoor/L POC Total CO2 (24-31) mEq/l POC Base Excess (-9-1.8) mansoor/L POC ABG O2 Sat (90-95) % Dk Test O2 Delivery Device POC O2 Rate Minute Ventilation POC FiO2 % Tidal Volume PEEP Sodium (136-145) mmol/L Potassium (3.5-5.1) mmol/L Chloride (98-107) mmol/L Carbon Dioxide (21-32) mmol/L Anion Gap (3-11) BUN (7-18) mg/dl Creatinine (0.6-1.4) mg/dl Est Cr Clr Drug Dosing ml/min Est GFR ( Amer) Est GFR (Non-Af Amer) BUN/Creatinine Ratio (10-20) Glucose (70-99) mg/dl POC Glucose (70-99) POC Glucose (other) (70-99) mg/dl Lactate 1.8 (0.4-2.0) mmol/L Calcium (8.5-10.1) mg/dl Phosphorus (2.5-4.9) mg/dl Magnesium (1.8-2.4) mg/dl Troponin I (0-0.045) ng/ml Vancomycin Trough (See Comment) mcg/ml Blood Type Antibody Screen Crossmatch 05/30/18 05/30/18 05/29/18 Range/Units 03:42 00:29 22:01 WBC (4.8-10.8) K/uL RBC (4.7-6.1) M/uL Hgb (14.0-18.0) g/dL Hct (42-52) % MCV (80-100) fL MCH (25-34) pg MCHC (32-36) g/dL RDW Std Deviation (36.4-46.3) fL RDW Coeff of [place] (11.5-14.5) % Plt Count (130-400) K/uL MPV (7.4-10.4) fL Immature Gran % (Auto) % Neut % (Auto) % Lymph % (Auto) % [place] % (Auto) % Eos % (Auto) % Baso % (Auto) % Immature Gran # (Auto) (0.00-0.02) K/uL Neut # (Auto) (1.4-6.5) K/uL Lymph # (Auto) (1.2-3.4) K/uL [place] # (Auto) (0.11-0.59) K/uL Eos # (Auto) (0-0.5) K/uL Baso # (Auto) (0-0.2) K/uL Platelet Estimate (Normal) PT (9.0-12.0) Seconds INR (0.9-1.1) Sample Site Art Line POC pH 7.47 H (7.35-7.45) POC pCO2 28 L (35-46) mmHg POC pO2 75 L (80-95) mmHg POC HCO3 20 (19-24) mansoor/L POC Total CO2 21 L (24-31) mEq/l POC Base Excess -3.0 (-9-1.8) mansoor/L POC ABG O2 Sat 96.0 H (90-95) % Dk Test NA O2 Delivery Device Ventilator POC O2 Rate 24 Minute Ventilation 13.2 POC FiO2 30 % Tidal Volume 550 PEEP 10 Sodium (136-145) mmol/L Potassium (3.5-5.1) mmol/L Chloride (98-107) mmol/L Carbon Dioxide (21-32) mmol/L Anion Gap (3-11) BUN (7-18) mg/dl Creatinine (0.6-1.4) mg/dl Est Cr Clr Drug Dosing ml/min Est GFR ( Amer) Est GFR (Non-Af Amer) BUN/Creatinine Ratio (10-20) Glucose (70-99) mg/dl POC Glucose (70-99) POC Glucose (other) 123 H (70-99) mg/dl Lactate (0.4-2.0) mmol/L Calcium (8.5-10.1) mg/dl Phosphorus (2.5-4.9) mg/dl Magnesium (1.8-2.4) mg/dl Troponin I (0-0.045) ng/ml Vancomycin Trough 21.0 (See Comment) mcg/ml Blood Type Antibody Screen Crossmatch 05/29/18 05/29/18 05/29/18 Range/Units 19:46 19:46 19:45 WBC (4.8-10.8) K/uL RBC (4.7-6.1) M/uL Hgb (14.0-18.0) g/dL Hct (42-52) % MCV (80-100) fL MCH (25-34) pg MCHC (32-36) g/dL RDW Std Deviation (36.4-46.3) fL RDW Coeff of [place] (11.5-14.5) % Plt Count (130-400) K/uL MPV (7.4-10.4) fL Immature Gran % (Auto) % Neut % (Auto) % Lymph % (Auto) % [place] % (Auto) % Eos % (Auto) % Baso % (Auto) % Immature Gran # (Auto) (0.00-0.02) K/uL Neut # (Auto) (1.4-6.5) K/uL Lymph # (Auto) (1.2-3.4) K/uL [place] # (Auto) (0.11-0.59) K/uL Eos # (Auto) (0-0.5) K/uL Baso # (Auto) (0-0.2) K/uL Platelet Estimate (Normal) PT (9.0-12.0) Seconds INR (0.9-1.1) Sample Site POC pH (7.35-7.45) POC pCO2 (35-46) mmHg POC pO2 (80-95) mmHg POC HCO3 (19-24) mansoor/L POC Total CO2 (24-31) mEq/l POC Base Excess (-9-1.8) mansoor/L POC ABG O2 Sat (90-95) % Dk Test O2 Delivery Device POC O2 Rate Minute Ventilation POC FiO2 % Tidal Volume PEEP Sodium (136-145) mmol/L Potassium (3.5-5.1) mmol/L Chloride (98-107) mmol/L Carbon Dioxide (21-32) mmol/L Anion Gap (3-11) BUN (7-18) mg/dl Creatinine (0.6-1.4) mg/dl Est Cr Clr Drug Dosing ml/min Est GFR ( Amer) Est GFR (Non-Af Amer) BUN/Creatinine Ratio (10-20) Glucose (70-99) mg/dl POC Glucose (70-99) POC Glucose (other) 159 H (70-99) mg/dl Lactate 2.7 H* (0.4-2.0) mmol/L Calcium (8.5-10.1) mg/dl Phosphorus (2.5-4.9) mg/dl Magnesium (1.8-2.4) mg/dl Troponin I 0.031 (0-0.045) ng/ml Vancomycin Trough (See Comment) mcg/ml Blood Type Antibody Screen Crossmatch 05/29/18 05/29/18 05/29/18 Range/Units 16:25 13:54 13:54 WBC (4.8-10.8) K/uL RBC (4.7-6.1) M/uL Hgb (14.0-18.0) g/dL Hct (42-52) % MCV (80-100) fL MCH (25-34) pg MCHC (32-36) g/dL RDW Std Deviation (36.4-46.3) fL RDW Coeff of [place] (11.5-14.5) % Plt Count (130-400) K/uL MPV (7.4-10.4) fL Immature Gran % (Auto) % Neut % (Auto) % Lymph % (Auto) % [place] % (Auto) % Eos % (Auto) % Baso % (Auto) % Immature Gran # (Auto) (0.00-0.02) K/uL Neut # (Auto) (1.4-6.5) K/uL Lymph # (Auto) (1.2-3.4) K/uL [place] # (Auto) (0.11-0.59) K/uL Eos # (Auto) (0-0.5) K/uL Baso # (Auto) (0-0.2) K/uL Platelet Estimate (Normal) PT (9.0-12.0) Seconds INR (0.9-1.1) Sample Site POC pH (7.35-7.45) POC pCO2 (35-46) mmHg POC pO2 (80-95) mmHg POC HCO3 (19-24) mansoor/L POC Total CO2 (24-31) mEq/l POC Base Excess (-9-1.8) mansoor/L POC ABG O2 Sat (90-95) % Dk Test O2 Delivery Device POC O2 Rate Minute Ventilation POC FiO2 % Tidal Volume PEEP Sodium (136-145) mmol/L Potassium (3.5-5.1) mmol/L Chloride (98-107) mmol/L Carbon Dioxide (21-32) mmol/L Anion Gap (3-11) BUN (7-18) mg/dl Creatinine (0.6-1.4) mg/dl Est Cr Clr Drug Dosing ml/min Est GFR ( Amer) Est GFR (Non-Af Amer) BUN/Creatinine Ratio (10-20) Glucose (70-99) mg/dl POC Glucose (70-99) POC Glucose (other) 160 H (70-99) mg/dl Lactate 2.8 H* (0.4-2.0) mmol/L Calcium (8.5-10.1) mg/dl Phosphorus (2.5-4.9) mg/dl Magnesium (1.8-2.4) mg/dl Troponin I 0.029 (0-0.045) ng/ml Vancomycin Trough (See Comment) mcg/ml Blood Type Antibody Screen Crossmatch 05/29/18 05/29/18 05/28/18 Range/Units 11:17 11:12 19:37 WBC (4.8-10.8) K/uL RBC (4.7-6.1) M/uL Hgb (14.0-18.0) g/dL Hct (42-52) % MCV (80-100) fL MCH (25-34) pg MCHC (32-36) g/dL RDW Std Deviation (36.4-46.3) fL RDW Coeff of [place] (11.5-14.5) % Plt Count (130-400) K/uL MPV (7.4-10.4) fL Immature Gran % (Auto) % Neut % (Auto) % Lymph % (Auto) % [place] % (Auto) % Eos % (Auto) % Baso % (Auto) % Immature Gran # (Auto) (0.00-0.02) K/uL Neut # (Auto) (1.4-6.5) K/uL Lymph # (Auto) (1.2-3.4) K/uL [place] # (Auto) (0.11-0.59) K/uL Eos # (Auto) (0-0.5) K/uL Baso # (Auto) (0-0.2) K/uL Platelet Estimate (Normal) PT (9.0-12.0) Seconds INR (0.9-1.1) Sample Site Art Line POC pH 7.36 (7.35-7.45) POC pCO2 39 (35-46) mmHg POC pO2 154 H (80-95) mmHg POC HCO3 22 (19-24) mansoor/L POC Total CO2 23 L (24-31) mEq/l POC Base Excess -3.0 (-9-1.8) mansoor/L POC ABG O2 Sat 99.0 H (90-95) % Dk Test NA O2 Delivery Device Ventilator POC O2 Rate 24 Minute Ventilation 13.1 POC FiO2 70 % Tidal Volume 550 PEEP 14 Sodium (136-145) mmol/L Potassium (3.5-5.1) mmol/L Chloride (98-107) mmol/L Carbon Dioxide (21-32) mmol/L Anion Gap (3-11) BUN (7-18) mg/dl Creatinine (0.6-1.4) mg/dl Est Cr Clr Drug Dosing ml/min Est GFR ( Amer) Est GFR (Non-Af Amer) BUN/Creatinine Ratio (10-20) Glucose (70-99) mg/dl POC Glucose (70-99) POC Glucose (other) 184 H (70-99) mg/dl Lactate (0.4-2.0) mmol/L Calcium (8.5-10.1) mg/dl Phosphorus (2.5-4.9) mg/dl Magnesium (1.8-2.4) mg/dl Troponin I (0-0.045) ng/ml Vancomycin Trough (See Comment) mcg/ml Blood Type A Positive Antibody Screen NEGATIVE Crossmatch See Detail
[2018-05-30] MEDS: CEFAZOLIN 1000MG 1,000 MG/7.5 ML SYR IV SCH ×2 (12:12→19:35)
[2018-05-30] MEDS ORDERED: METHYLNALTREXONE BROMIDE 12 MG/0.6 ML VIAL SQ ONE (12:45)
--- NOTE | 2018-05-30 12:57 | Pharmacy Report ---
Pharmacy Glycemic Short Note 2 - Date of Service May 30, 2018 - Glycemic Short BSG Results (Last 24 hours): 05/29/18 05/29/18 05/30/18 16:25 19:45 00:29 Glucose POC Glucose POC Glucose (other) 160 H 159 H 123 H 05/30/18 05/30/18 05/30/18 03:42 03:43 07:55 Glucose 105 H POC Glucose 90 POC Glucose (other) 108 H 05/30/18 12:10 Glucose POC Glucose 78 POC Glucose (other) Outpatient Anti-diabetic Regimen: * Glipizide 2.5 mg po qAM * A1c = 5.5 % on 05/19/18 The patient is currently receiving: * Basal insulin: Lantus 5 units on 05/28 PM and 20 units on 05/29 @ 1 200 * Correctional Insulin: Novolog - none received since Lantus yesterday * Oral Agents: on hold Risk Factors for Insulin Resistance: * Steroids: hydrocortisone 100 mg IV x1 05/28 PM * Infection: Sepsis 2nd PNA and osteomyelitis * Pressors: norepinephrine * Recent Surgery: POD 2 s/p BKA * Diet: not ordered * Mechanical Ventilation: YES : ASSESSMENT: 05/30/18 * BSG's slowly but very steadily trending down q4h 123, 108, 90, and 78 mg/dL (rate decrease = 12-18 mg/dL q4h). No Lantus administered since 1200 yesterday therefore effects will be dissipating. However, will check next BSG 2 hours after the 78 mg/dL - plan to intervene for any BSG less than 78 mg/dL, even if not below threshold of 70 mg/dL * BSG was 57 mg/dL - received D50% per RN. Ongoing BSG checks a minimum of q4h - discussed with Lakshmi (EAMON) who is aware * Hold additional Lantus for now 05/29/18 * 72 yo M in ICU requiring mechanical ventillation for ARDS, multiple antibiotics for sepsis 2nd pulmonary vs. osteomyelitis, pressors for severe hypotension, and is now only POD 1 s/p BKA for osteomyelitis. Paralytics were held this AM. * Basal insulin * Despite significant stressors (above) and BSG's in the 200's, will not be overly aggressive with Lantus as this time as the patient is well controlled on a single oral agent alone at home, BSG's were well controlled previously during this admission on small doses of Lantus and Novolog until acute events yesterday, and patient is NPO. * Will initiate at a total daily dose slightly above mild stress and slightly below moderate stress estimates per weight * OK to give additional tonight, up to total daily dose moderate stress estimate, for BSG >180 mg/dL * Bolus insulin * Will change Novolog to q4h checks and tighten to weight-based moderate stress estimate PLAN FOR INPATIENT GLYCEMIC CONTROL: * Basal insulin * Hold * Bolus insulin * NovoLog per scale q4h * Goal Range: Low 140 mg/dL - High 180 mg/dL * Correction Factor: 30 mg/dL/unit * Nutritional / Prandial insulin per carb ratio of 1 unit per 11 grams CHO consumed
[2018-05-30] MEDS ORDERED: AMIODARONE / D5W 150 MG/100 ML BAG IV ONE (13:03)
[2018-05-30] MEDS ORDERED: FUROSEMIDE 40 MG in SYRINGE 0 ML IV ONE (13:07)
[2018-05-30] MEDS: HYDROmorphone INJ 0.5 MG/0.5 ML SYR IV PRN ×2 (13:56→21:16)
[2018-05-30 14:24] LABS: Hematocrit (blood only) 28.4 % (42-52); Hemoglobin 9.3 g/dL (14.0-18.0)
[2018-05-30] MEDS: DEXTROSE 50% 50 ML SYRINGE IV PRN ×2 (15:11→19:34)
--- NOTE | 2018-05-30 18:59 | Hospitalist Progress Note ---
Date of Service delayed entry date of service May 30, 2018 Assessment & Plan (1) Wound of lower extremity: OSTEOMYELITIS LEFT ANKLE Hx PVD. Hx MRSA started on intravenous Zosyn, vancomycin L Ankle xray: Periostitis the level of medial malleolus. Given history of overlying wound, this may indicate osteomyelitis. Presumed neuropathic changes within the midfoot. Blood cultures negative so far Wound cultures positive for staph Appreciate Ortho input and recommendation; Orthopedic is recommending amputation. s/p left below-knee amputation and right foot debridement Status post extubation today Now only on one vasopressor Management per intensive care service Hypotension may be multifactorial, including infection, sedation Further management per ICU service Continue cefazolin and doxycycline IV (2) PVD (peripheral vascular disease): Pt follows with vascular surgery in [place] Dr Fonseca. Pts sister reports that pt had recent bilateral leg revascularization in the past 1-2 months -obtain outside records --Holding Plavix and Xarelto in light of recent surgery -We will hold Plavix and Xarelto for now -Vascular surgery has been consulted for peripheral vascular disease evaluation and any further treatment -Duplex scan of the lower extremity noted; showed no flow within the right posterior tibial artery which is likely occluded, occlusion of the left profunda femoral artery. -Vascular surgery consulted for recommendation-no further intervention (3) Anemia: Acute Blood Loss Anemia from Lower Leg Wound Bleeding Stool has been negative for any blood Complicated by chronic disease and malnutrition Patient still reports weakness Hemoglobin 8.4 -- s/p 1 more unit of pRBC to maintain Hg >9 no overt GI bleed noted (4) Diarrhea: C. difficile negative Imodium as needed, clear liquids for now Possibly advance diet to soft diet tomorrow morning is better Resolved (5) History of aortic valve replacement with bioprosthetic valve: Aortic stenosis s/p bioprosthetic valve replacement in 09/2017 at [facility] ECHO: Left ventricle is normal with moderate concentric left ventricular hypertrophy, left ventricular wall motion is normal, and is hyperdynamic, EF is more than 70%, grade 3 diastolic dysfunction consistent with markedly increased left atrial pressure, there is a bioprosthetic aortic valve with normal gradient, aortic regurg regurgitation is present, there is moderate to severe annular calcification, there is no mitral valvular stenosis Monitor volume status (6) CAD (coronary artery disease): CAD s/p CABG x 2 in 09/2017 at [place] Plavix on hold Metoprolol on hold (7) Atrial fibrillation: Hx a-fib after cardiac surgery in 09/2017, requiring cardioversion -- (+) afib in RVR -- Amiodarone started Toprol on hold, Xarelto on hold (8) Chronic diastolic heart failure: Monitor volume status closely (9) Cirrhosis: Hx cirrhosis. LFT's chronically elevated with AST: 56, ALT: 45, Alk Phos: 123, normal bili. (04/2018: AST: 54, ALT: 46, Alk Phos: 136) (10) BPH (benign prostatic hyperplasia): (11) Urinary retention: Hx BPH and chronic urinary retention. Follows with Urology [facility]. Reported consideration for suprapubic cath placement in future. 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 (14) Malnutrition: Hx protein-calorie malnutrition -access lead consult DVT Prophylaxis Xarelto -on hold now Restart Xarelto and Plavix when hemostasis is stable Subjective ff up for s/p BKA seen resting in bed, s/p extubation awake, somewhat drowsy confused not in distress no overt bleeding per staff on 1 pressor no other signs noted Review of Systems Review of Systems: All systems reviewed & are unremarkable except as noted in HPI & below Physical Exam Physical Exam: General- awake, somewhat drowsy Eyes- anicteric Neck- no JVD Lungs- (+) mild rhonchi b/l , no wheezing Heart- normal rate, irregular irregular rhythm; no murmurs Abdomen- normal bowel sounds, nondistended, soft, nontender Extremities- no pretibial edema, no calf tenderness Neuro- alert, oriented x 3; no gross focal neurologic deficits Skin- warm & dry Results & Data Vital Signs (Past 12 Hours) Vital Signs Temp Pulse Resp BP Pulse Ox 05/30/18 16:01 36.7 C 106 H 29 H 109/85 95 05/30/18 15:30 107 H 27 H 93 05/30/18 15:01 104 H 32 H 112/62 96 05/30/18 14:30 109 H 25 H 89 L 05/30/18 14:01 113 H 29 H 113/36 L 92 05/30/18 13:59 105 H 22 109/69 93 05/30/18 13:46 107 H 23 109/69 94 05/30/18 13:31 105 H 30 H 88/57 L 92 05/30/18 13:16 104 H 25 H 108/65 92 05/30/18 13:01 110 H 25 H 104/55 L 93 05/30/18 12:31 36.9 C 106 H 37 H 99/60 L 90 05/30/18 12:15 102 H 33 H 96/51 L 92 05/30/18 12:00 36.6 C 98 H 43 H 87/52 L 93 05/30/18 11:46 104 H 27 H 90/51 L 96 05/30/18 11:30 36.5 C 125 H 50 H 108/47 L 93 05/30/18 11:16 102 H 28 H 84/50 L 95 05/30/18 11:01 36.9 C 107 H 28 H 93/46 L 99 05/30/18 10:46 36.9 C 100 H 26 H 115/97 97 05/30/18 10:30 36.3 C L 108 H 22 96/50 L 94 05/30/18 10:25 36.3 C L 100 H 20 98/51 L 98 05/30/18 10:00 125 H 18 98/51 L 97 05/30/18 09:30 104 H 98 05/30/18 09:15 103 H 93/54 L 98 05/30/18 08:46 115 H 96/51 L 98 05/30/18 08:30 111 H 97 05/30/18 08:01 36.8 C 113 H 122/96 93 05/30/18 07:20 100 H 17 97 05/30/18 07:00 93 H 99/53 L 97 (1) Anemia Anemia type: unspecified type Qualified Code(s): D64.9 - Anemia, unspecified
[2018-05-30 20:04] LABS: Hematocrit (blood only) 28.8 % (42-52); Hemoglobin 9.2 g/dL (14.0-18.0)
[2018-05-30 20:19] LABS: iSTAT Arterial Blood Gas HCO3 23 meg/L (19-24); iSTAT Arterial Blood Gas pCO2 59 mmHg (35-46); iSTAT Arterial Blood Gas pH 7.19 (7.35-7.45); iSTAT Carbon Dioxide 25 mEq/l (24-31); iSTAT Site Art Line
--- NOTE | 2018-05-30 20:32 | Critical Care Progress Note ---
Date of Service May 30, 2018 Subjective Change of shift, I did independently review the patient. He was resting comfortably, however he appeared more somnolent than when he was previously intubated. The patient had repeat labs which were ordered for trending of his H&H as he had received 1 unit earlier today. Pulse oximetry readings were in the low 90s to high 80s. Patient had poor inspiratory effort and poor cough. After repeat labs were obtained which demonstrated a stable H&H, and ABG was ordered which demonstrated a respiratory acidosis with hypercapnia. At this time, respiratory therapy did perform NT suction and is gastric contents was aggressively suction as well. We will place the patient on BiPAP to help facilitate adequate ventilation and oxygenation. We will reassess, however I am not optimistic that we may need to proceed with reintubation. At 2029, I did speak with the patient's sister, Greta. She was updated for all information at this point. She is comfortable with proceeding with endotracheal intubation if necessary. I did discuss with her that at this point, we will attempt to utilize positive pressure ventilatory techniques, however I am not optimistic that this will be the case. She is comfortable with intubation, however she would not wish to proceed any further in the event of cardiovascular collapse. At this point, status will still remain DO NOT RESUSCITATE with the caveat that he would be intubated in the event of worsening airway compromise or progression of poor ventilatory status. After NT suction and gastric suctioning, patient did have improvement of oxygenation and mentation. He was placed on BiPAP with great improvement of respiratory status. Plans to repeat ABGs to titrate down FiO2 as tolerated. Patient will likely benefit from intermittent use of BiPAP to help maintain respiratory status. I have personally spent 35 minutes of critical care time in the direct management of this patient. This is a life/limb threatening event. This includes time spent evaluating patient, direct bedside care, chart review, placing orders, interpretation of diagnostic studies, discussion with consultants, patient, and family members, as well as other required patient management activities. This time is exclusive of all separately billable procedures, and teaching time and separate from and in addition to any other critical care service time. Results & Data Vital Signs (Past 12 Hours) Vital Signs Temp Pulse Resp BP Pulse Ox 05/30/18 19:00 97 H 24 91 05/30/18 16:01 36.7 C 106 H 29 H 109/85 95 05/30/18 15:30 107 H 27 H 93 05/30/18 15:01 104 H 32 H 112/62 96 05/30/18 14:30 109 H 25 H 89 L 05/30/18 14:01 113 H 29 H 113/36 L 92 05/30/18 13:59 105 H 22 109/69 93 05/30/18 13:46 107 H 23 109/69 94 05/30/18 13:31 105 H 30 H 88/57 L 92 05/30/18 13:16 104 H 25 H 108/65 92 05/30/18 13:01 110 H 25 H 104/55 L 93 05/30/18 12:31 36.9 C 106 H 37 H 99/60 L 90 05/30/18 12:15 102 H 33 H 96/51 L 92 05/30/18 12:00 36.6 C 98 H 43 H 87/52 L 93 05/30/18 11:46 104 H 27 H 90/51 L 96 05/30/18 11:30 36.5 C 125 H 50 H 108/47 L 93 05/30/18 11:16 102 H 28 H 84/50 L 95 05/30/18 11:01 36.9 C 107 H 28 H 93/46 L 99 05/30/18 10:46 36.9 C 100 H 26 H 115/97 97 05/30/18 10:30 36.3 C L 108 H 22 96/50 L 94 05/30/18 10:25 36.3 C L 100 H 20 98/51 L 98 05/30/18 10:00 125 H 18 98/51 L 97 05/30/18 09:30 104 H 98 05/30/18 09:15 103 H 93/54 L 98 05/30/18 08:46 115 H 96/51 L 98 05/30/18 08:30 111 H 97
[2018-05-30 22:20] LABS: iSTAT Arterial Blood Gas HCO3 23 meg/L (19-24); iSTAT Arterial Blood Gas pCO2 42 mmHg (35-46); iSTAT Arterial Blood Gas pH 7.34 (7.35-7.45); iSTAT Carbon Dioxide 24 mEq/l (24-31); iSTAT FiO2 60 %; iSTAT Site Art Line
[2018-05-31] MEDS: INSULIN ASPART 100 UNITS/ML 3 ML PEN SC SCH ×7 (00:03→23:59)
[2018-05-31] MEDS: HYDROmorphone INJ 0.5 MG/0.5 ML SYR IV PRN ×3 (00:03→04:07)
[2018-05-31] MEDS ORDERED: fentaNYL citrate 100 MCG/2 ML CARP IV ONE (02:44)
[2018-05-31] MEDS ORDERED: ATROPINE SULFATE 0.1 MG/ML 10ML SYR IV ONE ×2 (02:45→05:43)
[2018-05-31] MEDS ORDERED: SODIUM CHLORIDE 0.9% 10ML FLUSH IV ONE (02:45)
[2018-05-31] MEDS: CEFAZOLIN 1000MG 1,000 MG/7.5 ML SYR IV SCH (03:50)
[2018-05-31] MEDS: DEXTROSE 50% 50 ML SYRINGE IV PRN ×2 (03:51→07:25)
[2018-05-31] MEDS: D5W NORMOSOL-R 1,000 ML IV SCH ×2 (04:33→18:26)
[2018-05-31 04:45] LABS: Hematocrit (blood only) 28.2 % (42-52); Hemoglobin 9.1 g/dL (14.0-18.0); Mean Corpuscular Hgb Conc 32.3 g/dL (32-36); Mean Corpuscular Volume 87.6 fL (80-100); RDW Coefficient of Variation 17.1 % (11.5-14.5); RDW Standard Deviation 55.2 fL (36.4-46.3); Red Blood Count 3.22 M/uL (4.7-6.1)
[2018-05-31 05:25] LABS: Albumin Level 1.7 gm/dl (3.4-5.0); BUN Creatinine Ratio 64.3 (10-20); Bilirubin Direct 0.5 mg/dl (0-0.2); Bilirubin,Total 0.8 mg/dl (0.2-1); Calcium 7.7 mg/dl (8.5-10.1); Creatinine Clr Calc Pharmacy 143.2 ml/min; Est GFR (African American) 121.5; Est GFR (Non-African American) 104.8; Magnesium 2.2 mg/dl (1.8-2.4); Phosphorus 2.3 mg/dl (2.5-4.9); Potassium 3.4 mmol/L (3.5-5.1); Total Protein 5.4 gm/dl (6.4-8.2)
[2018-05-31 05:30] LABS: Basophils # (auto) 0.01 K/uL (0-0.2); Basophils % (auto) 0.1 %; Dohle Bodies 1+; Echinocytes 1+; Eosinophils # (auto) 0.01 K/uL (0-0.5); Eosinophils % (auto) 0.1 %; Immature Granulocytes # (auto) 0.05 K/uL (0.00-0.02); Immature Granulocytes % (auto) 0.4 %; Lymphocytes # (auto) 0.31 K/uL (1.2-3.4); Lymphocytes % (auto) 2.5 %; Mean Platelet Volume 9.6 fL (7.4-10.4); Monocytes # (auto) 0.51 K/uL (0.11-0.59); Neutrophils # (auto) 11.71 K/uL (1.4-6.5); Neutrophils % (auto) 92.9 %; Platelet Count 88 K/uL (130-400); Platelet Estimate Decreased (Normal); Toxic Vacuolation 1+
[2018-05-31 05:45] LABS: iSTAT Arterial Bld Gas O2 Sat 59; iSTAT FiO2 40 %; iSTAT Hematocrit 28 % (42-52); iSTAT Hemoglobin 9.5 g/dl (14.0-18.0); iSTAT Potassium 3.5 mEq/L (3.3-5.0); iSTAT Site Art Line; iSTAT Sodium 136 mEq/L (135-144)
[2018-05-31 05:45] LABS: iSTAT Arterial Blood Gas HCO3 23 meg/L (19-24); iSTAT Arterial Blood Gas pCO2 49 mmHg (35-46); iSTAT Arterial Blood Gas pH 7.28 (7.35-7.45); iSTAT Carbon Dioxide 25 mEq/l (24-31); iSTAT FiO2 40 %; iSTAT Site Art Line
[2018-05-31 05:48] LABS: HCO3 ABG 25 mmol/L (19-24); Oxygen Saturation ABG 80.2 % (90-95); PCO2 ABG 51 mmHg (35-46); PO2 ABG 49 mm/Hg (80-95); pH ABG 7.31 (7.35-7.45)
[2018-05-31] MEDS ORDERED: RAPID SEQUENCE INDUCTION BAG ONE (05:48)
[2018-05-31] MEDS ORDERED: NOREPINEPHRINE BITARTRATE 1 MG/ML 4 ML VIAL IV ONE (05:58)
[2018-05-31] MEDS ORDERED: PROPOFOL IV EMULSION 10 MG/ML 100 ML VIAL IV ONE (06:00)
--- NOTE | 2018-05-31 06:14 | Procedure Note ---
Procedure Note Date of Service May 31, 2018 APC: Johny Jefferson PA-C. Attending: Dr. Rubio A time-out was completed verifying correct patient, procedure, site, positioning. Patient was evaluated and required intubation for acute respiratory failure with hypoxia. Sedative agent used: Fentanyl Paralysis agent used: None Emergent consent was implied given patients rapidly declining clinical status and need for airway protection. Consent signed and placed on chart per physician supervising procedure. The patient was prepared in the appropriate fashion. Sedation was achieved utilizing Fentanyl per Dr. Simmons administration. The patient was easily ventilated using [id number] to achieve adequate oxygenation. A 7.5 Anguillan endotracheal tube was placed under Glidescope to 24 cm at the lip. The stylette was removed and balloon was inflated with 10mL of air. Appropriate Colorimetric change was appreciated. Bilateral breath sounds were heard without air sounds in the abdomen. Dr. Simmons was present for the entire procedure. CT images reviewed and demonstrate no pneumothorax. Endotracheal tube appropriately positioned. Patient tolerated the procedure well and there were no immediate complications. Coding
--- NOTE | 2018-05-31 06:16 | Critical Care Progress Note ---
Date of Service May 31, 2018 Subjective At approximately 0545, while reviewing patient's labs, patient was noted to have a decrease in his heart rate. As I was walking towards the room, nursing staff was present and reports the patient had become obtunded. Sternal rubs were initiated, however the patient was not responsive. His heart rate did decrease to the 50s. I did verbally order atropine, however at that point, a code cart was brought to the room. Prior to administration of medications, I did speak to the patient's sister and Greta LUCIANO. I did explain the situation and inform her of patient's decline. I asked if she was comfortable with us providing medications to help correct his bradycardia and near nonexistent heart rate. She confirms that she is. She agrees that we would not perform compressions in agreement with his previous wishes. She is comfortable with medications alone at this time. She is comfortable with intubation. 1 dose of 1 mg IV epinephrine was administered with return of heart rate and blood pressure. Patient was being manually bagged at this time. I did reach out to the emergency department colleague for back-up for airway. Please see separate note for intubation procedure. A verbal order for epinephrine drip was given, however the patient maintain a heart rate and blood pressure. At this point, we did transition to a verbal order for Levophed if needed. Propofol was added for sedation. Fentanyl drip for discomfort. I did reach of the patient's sister a gain and update her on her current situation. She reports that she is currently in route to this facility. I have personally spent 60 minutes of critical care time in the direct management of this patient. This is a life/limb threatening event. This includes time spent evaluating patient, direct bedside care, chart review, placing orders, interpretation of diagnostic studies, discussion with consultants, patient, and family members, as well as other required patient management activities. This time is exclusive of all separately billable procedures, and teaching time and separate from and in addition to any other critical care service time. Results & Data Vital Signs (Past 12 Hours) Vital Signs Temp Pulse Pulse Resp BP Pulse Ox 05/31/18 05:00 89 22 92 05/31/18 04:00 36.4 C L 91 H 24 94/52 L 95 05/31/18 03:00 83 22 91/55 L 94 04/22/19 02:00 88 25 H 98/46 L 93 05/31/18 01:00 87 20 131/46 L 90 05/31/18 00:00 36.6 C 91 H 26 H 103/55 L 90 05/30/18 23:35 90 25 H 93 05/30/18 23:00 91 H 20 111/68 99 05/30/18 22:00 78 17 99/56 L 100 05/30/18 21:00 97 H 21 98 05/30/18 20:46 105 H 105 H 22 95 05/30/18 20:00 36.5 C 88 24 106/67 88 L 05/30/18 19:00 97 H 24 91
[2018-05-31] MEDS ORDERED: OPTIRAY 320 125ml IV PRN (06:32)
--- NOTE | 2018-05-31 06:40 | CT Scan Report ---
CT head/brain wo con CLINICAL HISTORY: Acute change in mental status COMPARISON STUDY: No previous studies for comparison. TECHNIQUE: Axial CT of the brain is performed from the vertex to the skull base. IV contrast was not administered for this examination. A dose lowering technique was utilized adhering to the principles of ALARA. CT DOSE: FINDINGS: No intra or extra-axial mass lesions are visualized. There is no CT evidence of acute cortical infarc tion. There is no evidence of midline shift. There is no acute hemorrhage. No calvarial fractures ar e visualized. There are patchy white matter hypodensities likely on a small vessel basis. There is no evidence of pathologic ventricular dilatation. There is no evidence of acute sinusitis IMPRESSION: 1. Study compromised by motion artifact 2. No acute intracranial findings Electronically signed by: Osbaldo Hoover M.D. 05/31/2018 6:38 AM
[2018-05-31] MEDS ORDERED: fentaNYL citrate 100 MCG/2 ML VIAL IV PRN (06:46)
--- NOTE | 2018-05-31 06:48 | CT Scan Report ---
CT angio chest PE protocol CT DOSE: HISTORY: Chest pain. Dyspnea. PE TECHNIQUE: Multiaxial CT images of the chest were performed following the intravenous administration of contrast to evaluate the pulmonary arteries. Maximal intensity projection images were also obtaine d. A dose lowering technique was utilized adhering to the principles of ALARA. COMPARISON STUDY: None. FINDINGS: Thoracic aorta is normal in course and caliber. There is no endotracheal tube 2 cm above th e rose. There is a nasogastric tube inferior to the diaphragm within the gastric fundus. The pulmonary vasculature enhances appropriately There are findings of diffuse bilateral parenchymal infiltrative change versus pulmonary edema. Moder ate atherosclerotic change thoracic aorta. Small bilateral pleural effusions. Moderate body wall anasarca. Severe degenerative change of the shoulders bilaterally. Upper abdominal ascites. IMPRESSION: 1. Study is negative for pulmonary embolus. 2. Diffuse bilateral parenchymal infiltrative change versus pulmonary edema. 3. Ascites. 4. Body wall anasarca. The above report was generated using voice recognition software. It may contain grammatical, syntax or spelling errors. Electronically signed by: Kole Ro M.D. 05/31/2018 6:47 AM
--- NOTE | 2018-05-31 06:55 | CT Scan Report ---
ABDOMEN AND PELVIS CT WITH IV CONTRAST CT DOSE: 2679.80 mGy.cm HISTORY: Acute anemia anemia TECHNIQUE: Multiaxial CT images of the abdomen and pelvis were performed following the use of intrave nous contrast. A dose lowering technique was utilized adhering to the principles of ALARA. COMPARISON STUDY: CTA chest of same day. FINDINGS: Dense calcifications of the aortic and mitral annuli. Coronary arterial calcifications. Prior median sternotomy with findings suggestive of prior CABG. Small right and trace left pleural effusions are noted along with bibasilar patchy alveolar and groundglass opacities with associated air bronchograms . Study is mildly motion degraded and also limited secondary to positioning of the patient's upper ex tremities. There is no pneumatosis or pneumoperitoneum identified. Prior cholecystectomy. Mild periportal edema. Spleen is mildly enlarged, 14.9 cm. The liver, and left adrenal gland are unremarkable. Calcifications of the right adrenal glands suggest remote hemorrhage or infection. Mild generalized pancreatic atrophy. Dilation of the common bile duct is likely on a p ostsurgical basis. There may be slightly decreased enhancement of the left kidney compared to the right. Calcification o f the inferior pole right kidney measuring 4 mm suggests nonobstructing calculus. Nonobstructing calc lorena are also seen about the left kidney measuring up to 3 mm. No ureteral calculi or obstructive urop athy. Decompressed urinary bladder with Plunkett catheter in place. Bladder wall thickening is noted tomas ng with intraluminal air within the bladder. Calcifications adjacent to the Plunkett catheter balloon on image 410 series 8 suggests bladder calculi. Prostatic calcifications are noted. Small fat filled bi lateral inguinal hernias. Extensive calcifications of the abdominal aorta and branch vessels. Portal vein appears patent. No re troperitoneal hematoma. Enteric tube is noted with distal tip terminating in the proximal gastric lumen. There is mild wall t hickening noted about the distal stomach which may be secondary to partial distention. There is no sm all bowel obstruction. Moderate to extensive formed stool about the distal sigmoid and rectum with re ctal wall thickening and perirectal stranding. Appendix appears normal. Mesenteric edema is noted wit h diffuse body wall edema. No drainable fluid collections. Demineralized appearance of the bones. Multilevel degenerative changes of the spine. Levoscoliosis of the lumbar spine. Chronic appearing deformity about the left femoral acetabular joint with erosive c hanges of the left proximal femur. Left hip joint effusion. IMPRESSION: 1. Fluid overload manifested by bilateral pleural effusions, diffuse mesenteric edema with trace abdo minopelvic ascites and diffuse body wall edema. 2. Bibasilar groundglass and consolidative opacities suggest pneumonia or aspiration pneumonitis. 3. No bowel obstruction. 4. Moderate to extensive formed stool about the distal sigmoid and rectum with associated rectal wall thickening and perirectal stranding. Correlate clinically to exclude stercoral proctitis. 5. Nonobstructing bilateral nephrolithiasis with suggestion of bladder calculi. 6. Additional findings as above. Electronically signed by: Josh Machuca M.D. 05/31/2018 6:54 AM
[2018-05-31] MEDS: PROPOFOL 1,000 MG/100 ML VIAL IV PRN ×3 (07:02→18:26)
[2018-05-31] MEDS: fentaNYL DRIP 1,250 MCG/250 ML BAG IV SCH (07:18)
[2018-05-31] MEDS: NOREPINEPHRINE BIT INJ 8 MG in DEXTROSE 5% 500 ML IV SCH (07:42)
[2018-05-31] MEDS: ALBUT/IPRATROP 3MG/0.5MG NEB 3 ML VIAL INH SCH ×5 (07:45→23:49)
[2018-05-31] MEDS: FAMOTIDINE 20 MG in SYRINGE 3 ML IV SCH ×2 (09:20→21:29)
[2018-05-31] MEDS: DOXYCYCLINE HYCLATE 100 MG in DEXTROSE 5% 100 ML IV SCH ×2 (09:20→21:29)
[2018-05-31] MEDS: HYDROCORTISONE SOD 100 MG in SYRINGE 0 ML IV SCH ×3 (09:21→23:58)
[2018-05-31] MEDS: AMIODARONE / D5W 360 MG/200 ML BAG IV SCH ×2 (10:00→22:16)
[2018-05-31 10:29] LABS: iSTAT Arterial Blood Gas pH 7.31 (7.35-7.45)
[2018-05-31 10:30] LABS: iSTAT Art Bld Gas pCO2 Correct 47 mmHg (35-46); iSTAT Arterial Blood Gas HCO3 24 meg/L (19-24); iSTAT Arterial Blood Gas pCO2 48 mmHg (35-46); iSTAT Carbon Dioxide 26 mEq/l (24-31)
[2018-05-31 10:33] LABS: iSTAT Art Bld Gas pCO2 Correct 57 mmHg (35-46); iSTAT Art Bld Gas pH Corrected 7.241 (7.35-7.45); iSTAT Arterial Blood Gas pCO2 59 mmHg (35-46); iSTAT Arterial Blood Gas pH 7.23 (7.35-7.45)
[2018-05-31 10:34] LABS: iSTAT Arterial Blood Gas HCO3 24 meg/L (19-24); iSTAT Carbon Dioxide 27 mEq/l (24-31)
--- NOTE | 2018-05-31 11:14 | Pharmacy Report ---
Pharmacy Glycemic Short Note 2 - Date of Service May 31, 2018 - Glycemic Short BSG Results (Last 24 hours): 05/30/18 05/30/18 05/30/18 12:10 15:07 15:26 Glucose POC Glucose 78 57 L* 149 H 05/30/18 05/30/18 05/30/18 19:25 19:27 20:00 Glucose POC Glucose 66 L* 63 L* 145 H 05/30/18 05/31/18 05/31/18 23:55 03:43 03:45 Glucose POC Glucose 86 52 L* 55 L* 05/31/18 05/31/18 04:12 04:35 Glucose 74 POC Glucose 89 Outpatient Anti-diabetic Regimen: * Glipizide 2.5 mg po qAM * A1c = 5.5 % on 05/19/18 The patient is currently receiving: * Basal insulin: no basal since Lantus 5 units on 05/28 PM and 20 units on 05/29 @ 1200 * Correctional Insulin: Novolog - none received since Lantus yesterday * Oral Agents: on hold Risk Factors for Insulin Resistance: * Steroids: hydrocortisone 100 mg IV x1 05/28 PM; 100mg q8 * Infection: Sepsis 2nd PNA and osteomyelitis * Pressors: norepinephrine * Recent Surgery: POD 3 s/p BKA * Diet: not ordered * Mechanical Ventilation: YES : ASSESSMENT: 05/31/18: * BSG's persistently low yesterday and this morning. Basal insulin continues to be on hold. No bolus insulin given in the past 24 hours. Novolog remains active with a conservative goal range and Carb ratio/correction factor in the event of hyperglycemia. Dextrose containing fluids in addition to hydro cortisone (impaired adrenal response) were added today. Will continue to monitor responsiveness and assess need for basal insulin resumption/novolog adjustments. 05/30/18 * BSG's slowly but very steadily trending down q4h 123, 108, 90, and 78 mg/dL (rate decrease = 12-18 mg/dL q4h). No Lantus administered since 1200 yesterday therefore effects will be dissipating. However, will check next BSG 2 hours after the 78 mg/dL - plan to intervene for any BSG less than 78 mg/dL, even if not below threshold of 70 mg/dL * BSG was 57 mg/dL - received D50% per RN. Ongoing BSG checks a minimum of q4h - discussed with Lakshmi (RN) who is aware * Hold additional Lantus for now 05/29/18 * 72 yo M in ICU requiring mechanical ventillation for ARDS, multiple antibiotics for sepsis 2nd pulmonary vs. osteomyelitis, pressors for severe hypotension, and is now only POD 1 s/p BKA for osteomyelitis. Paralytics were held this AM. * Basal insulin * Despite significant stressors (above) and BSG's in the 200's, will not be overly aggressive with Lantus as this time as the patient is well controlled on a single oral agent alone at home, BSG's were well controlled previously during this admission on small doses of Lantus and Novolog until acute events yesterday, and patient is NPO. * Will initiate at a total daily dose slightly above mild stress and slightly below moderate stress estimates per weight * OK to give additional tonight, up to total daily dose moderate stress estimate, for BSG >180 mg/dL * Bolus insulin * Will change Novolog to q4h checks and tighten to weight-based moderate stress estimate PLAN FOR INPATIENT GLYCEMIC CONTROL: * Basal insulin * Hold * Bolus insulin * NovoLog per scale q4h * Goal Range: Low 140 mg/dL - High 180 mg/dL * Correction Factor: 30 mg/dL/unit * Nutritional / Prandial insulin per carb ratio of 1 unit per 15 grams CHO consumed
--- NOTE | 2018-05-31 11:23 | XRay Report ---
XR chest 1V portable CLINICAL HISTORY: s/p central venous placement tube position COMPARISON STUDY: 05/30/2018 FINDINGS: Somewhat progressive components of pulmonary edematous change. Endotracheal tube placed 3 c m above the rose. Findings of progressive pulmonary edema. Minimal nodularity is again noted. IMPRESSION: 1. Moderately progressive pulmonary edematous change. 2. Endotracheal tube 3 cm above the rose. 3. Nasogastric tube gastric fundus. 4. Central catheter at the juncture of the left internal jugular and left subclavian vein. No evidenc e for pneumothorax. The above report was generated using voice recognition software. It may contain grammatical, syntax or spelling errors. Electronically signed by: Kole Ro M.D. 05/31/2018 11:21 AM
--- NOTE | 2018-05-31 13:49 | Orthopedic Progress Note ---
Date of Service May 31, 2018 Assessment & Plan (1) Osteomyelitis of ankle, left, acute: POD#3:PROCEDURE: 1. Left below knee amputation. 2. Right foot debridement ischemic ulcer, first metatarsophalangeal joint including skin, fascia, joint capsule, and subcutaneous fat. 3. Right foot debridement ischemic ulcer, separate site, fifth metatarsophalangeal joint involving skin, fascia, subcutaneous fat, and joint capsule. 4. Right foot debridement ischemic ulcer, separate site, posterior heel 1.5 cm in diameter involving skin, subcutaneous fat, and fascia. 5. Right foot debridement ischemic ulcer, separate site, lateral foot involving skin, subcutaneous fat, and fascia. Will continue to monitor. Dressings kept in place on bilateral LE's. Sutures will stay in place at the BKA for 4-6 weeks. Will monitor right foot with dressing changes. Consider wound care nursing. (2) Diabetic foot ulcer associated with type 2 diabetes mellitus: Subjective Patient is POD#3 left BKA and right foot ulcers debridement. Patient is once again intubated and obtunded today. Physical Exam Musculoskeletal: Left leg: BKA dressing is clean, dry, and intact from change yesterday. The lower leg is soft within the dressing. Right foot dressing is clean, dry, and intact from dressing change yesterday. Dressing kept in place. Results & Data Vital Signs (Past 12 Hours) Vital Signs Temp Pulse Resp BP Pulse Ox 05/31/18 13:00 86 91/54 L 100 05/31/18 12:06 94 H 97/61 L 97 05/31/18 12:01 92 H 97/61 L 97 05/31/18 11:30 99 H 96 05/31/18 11:10 77 25 H 91 05/31/18 11:01 85 80/50 L 99 05/31/18 10:30 83 100 05/31/18 10:02 92 H 96/55 L 100 05/31/18 09:30 94 H 100 05/31/18 09:01 106 H 87/56 L 100 05/31/18 09:00 97 H 100 05/31/18 08:30 87 100 05/31/18 08:00 36.9 C 93 H 95/63 L 100 05/31/18 07:45 91 H 24 100 05/31/18 07:30 95 H 100 05/31/18 07:08 97 H 26 H 100 05/31/18 07:01 96 H 79/55 L 98 05/31/18 07:00 90 99 05/31/18 06:45 91 H 99 05/31/18 06:36 99 H 05/31/18 06:07 128 H 127/63 100 05/31/18 06:02 108 H 120/55 L 92 05/31/18 06:00 130 H 99 05/31/18 05:45 0 L 27 H 05/31/18 05:30 88 23 89 L 05/31/18 05:15 91 H 24 92 05/31/18 05:00 89 22 92 05/31/18 04:00 36.4 C L 91 H 24 94/52 L 95 05/31/18 03:00 83 22 91/55 L 94 05/31/18 02:00 88 25 H 98/46 L 93
--- NOTE | 2018-05-31 14:49 | Critical Care Progress Note ---
Date of Service May 31, 2018 Assessment & Plan (1) Cellulitis of left leg: Impression: 1. Sepsis secondary to MRSA cellulitis. 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 2. Recurrent aspiration, etiology could be related to pharyngeal muscle weakness with exposure to sedation and multiple intubations. 3. History of coronary artery disease status post CABG, difficult to heal sternal wound. 4. Diabetes with diabetic foot. Noted recurrent hypoglycemia, likely related to adrenal insufficiency. 5. Acute lung injury resulted in the above. 6. GERD. 7. Easy bruisability, concerning for bleeding disorder. The patient is off Xarelto. 8. Osteomyelitis, MRSA, on broad-spectrum antibiotic. Plan: 1. Repeat bronchoscopy was done, noted large amount of secretions and mucosal changes consistent with caustic material escobar. 2. Change the position of central line from right femoral to left IJ. 3. Start hydrocortisone for stress dose use. 4. Continue amiodarone drip for rate control. 5. Continue GI prophylaxis. 6. Titrate fentanyl and propofol down as tolerated. 7. Patient is continued on doxycycline and cefazolin. 8. Long Discussion Took Pl. with the family, they believe that the patient wishes is not to be intubated at this point, should he be extubated. I will honor his wishes, the patient continued to be DNR and DNI. Once the patient is extubated we would not consider reintubation. 9. Once the patient is extubated, he will need a dedicated swallow eval. 10. Titrate PEEP and FiO2 down. 11. I will start the patient on CPAP trial in the morning hopefully to extubate. Case discussed with the staff, with the family in details, critical care time spent with the patient was 60 minutes excluding procedure time. Subjective The patient remains vented, he failed extubation earlier, the patient is status post BKA on the left, debridement on the right, MRSA cellulitis, recurrent intubation, related to aspiration. Status post bronchoscopy as well. Review of system was not obtainable from this patient was already intubated and sedated. When I interviewed him today, he appeared to be somewhat agitated, could not follow any commands. Lethargic. Review of Systems Review of Systems: Review of system is not obtainable. Physical Exam Physical Exam: Agitated, does not follow any commands, vital signs are stable, S1-S2 regular rate and rhythm, lungs with distant crackles bilaterally, abdomen is benign, sternal wound with poor healing, surgically wrapped left BKA and right cellulitic changes. Neurologically he is agitated and difficult to assess. Results & Data Vital Signs (Past 12 Hours) Vital Signs Temp Pulse Resp BP Pulse Ox 05/31/18 13:00 86 91/54 L 100 05/31/18 12:06 94 H 97/61 L 97 05/31/18 12:01 92 H 97/61 L 97 05/31/18 11:30 99 H 96 05/31/18 11:10 77 25 H 91 05/31/18 11:01 85 80/50 L 99 05/31/18 10:30 83 100 05/31/18 10:02 92 H 96/55 L 100 05/31/18 09:30 94 H 100 05/31/18 09:01 106 H 87/56 L 100 05/31/18 09:00 97 H 100 05/31/18 08:30 87 100 05/31/18 08:00 36.9 C 93 H 95/63 L 100 05/31/18 07:45 91 H 24 100 05/31/18 07:30 95 H 100 05/31/18 07:08 97 H 26 H 100 05/31/18 07:01 96 H 79/55 L 98 05/31/18 07:00 90 99 05/31/18 06:45 91 H 99 05/31/18 06:36 99 H 05/31/18 06:07 128 H 127/63 100 05/31/18 06:02 108 H 120/55 L 92 05/31/18 06:00 130 H 99 05/31/18 05:45 0 L 27 H 05/31/18 05:30 88 23 89 L 05/31/18 05:15 91 H 24 92 05/31/18 05:00 89 22 92 05/31/18 04:00 36.4 C L 91 H 24 94/52 L 95 05/31/18 03:00 83 22 91/55 L 94 Laboratory Results Labs were reviewed which showed leukocytosis, stable hematocrit, ABG consistent with respiratory acidosis. Diagnostic Findings Chest x-ray and CAT scan both reviewed personally which showed bilateral extensive infiltrate affecting mainly the upper lobes. No sizable lymphadenopathy.
[2018-05-31] MEDS: CEFAZOLIN 2000MG 2,000 MG/15 ML SYR IV SCH ×2 (14:53→19:49)
--- NOTE | 2018-05-31 14:57 | Procedure Note ---
Procedure Note Date of Service May 31, 2018 Note Central line was placed in the left IJ position, indication is the need to change the femoral line IJ and the patient was infected with MRSA. Consent obtained from the sister who is the healthcare proxy. Risk and benefit explained details, agreed to the procedure. The procedure was done under ultrasound guidance, under strict sterile field, using chlorhexidine to prep the skin, injected with 5 mL of 1% lidocaine, using Seldinger technique, a dilator without scalpel, the line was placed to 15 cm, secured with 2 sutures, covered with surgical dressing, no immediate complication, small hematoma noted at the site, the patient is known to have easy bruisability. Chest x-ray confirmed the position of the line, no pneumothorax. The tip of the catheter is at the SVC. May use a line. Coding
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
[2018-05-31 23:07] LABS: Hemoglobin 8.2 g/dL (14.0-18.0)
[2018-06-01 00:13] LABS: iSTAT Arterial Bld Gas O2 Sat 95; iSTAT FiO2 35 %; iSTAT Hematocrit 24 % (42-52); iSTAT Hemoglobin 8.2 g/dl (14.0-18.0); iSTAT Potassium 2.9 mEq/L (3.3-5.0); iSTAT Site Art Line; iSTAT Sodium 138 mEq/L (135-144)
[2018-06-01] MEDS: fentaNYL DRIP 1,250 MCG/250 ML BAG IV SCH (01:16)
[2018-06-01] MEDS: PROPOFOL 1,000 MG/100 ML VIAL IV PRN (02:22)
[2018-06-01] MEDS: ALBUT/IPRATROP 3MG/0.5MG NEB 3 ML VIAL INH SCH ×6 (03:43→22:55)
[2018-06-01 04:43] LABS: Hematocrit (blood only) 25.9 % (42-52); Hemoglobin 8.5 g/dL (14.0-18.0); Mean Corpuscular Hgb Conc 32.8 g/dL (32-36); Mean Corpuscular Volume 85.5 fL (80-100); RDW Coefficient of Variation 17.3 % (11.5-14.5); Red Blood Count 3.03 M/uL (4.7-6.1); White Blood Count 9.96 K/uL (4.8-10.8)
[2018-06-01 04:45] LABS: Platelet Count 88 K/uL (130-400)
[2018-06-01] MEDS: CEFAZOLIN 2000MG 2,000 MG/15 ML SYR IV SCH ×3 (04:52→20:06)
[2018-06-01 05:01] LABS: BUN Creatinine Ratio 50.9 (10-20); Calcium 7.7 mg/dl (8.5-10.1); Creatinine Clr Calc Pharmacy 157.6 ml/min; Est GFR (African American) 126.4; Magnesium 2.1 mg/dl (1.8-2.4); Potassium 2.9 mmol/L (3.5-5.1)
[2018-06-01 05:02] LABS: Acanthocytes 1+; Basophils # (auto) 0.01 K/uL (0-0.2); Basophils % (auto) 0.1 %; Immature Granulocytes # (auto) 0.05 K/uL (0.00-0.02); Immature Granulocytes % (auto) 0.5 %; Lymphocytes # (auto) 0.32 K/uL (1.2-3.4); Lymphocytes % (auto) 3.2 %; Monocytes # (auto) 0.42 K/uL (0.11-0.59); Monocytes % (auto) 4.2 %; Neutrophils # (auto) 9.16 K/uL (1.4-6.5)
[2018-06-01] MEDS: INSULIN ASPART 100 UNITS/ML 3 ML PEN SC SCH ×5 (05:02→20:05)
[2018-06-01 05:14] LABS: Phosphorus 1.6 mg/dl (2.5-4.9)
[2018-06-01] MEDS: POTASSIUM CHLORIDE / WTR 20 MEQ/100 ML PLCT IV SCH ×2 (06:26→09:44)
[2018-06-01] MEDS ORDERED: PROPOFOL 1,000 MG/100 ML VIAL IV SCH (06:54)
--- NOTE | 2018-06-01 07:18 | Hospitalist Progress Note ---
Date of Service delayed entry date of service 05/31/18 June 01, 2018 Assessment & Plan (1) Wound of lower extremity: OSTEOMYELITIS LEFT ANKLE Hx PVD. Hx MRSA started on intravenous Zosyn, vancomycin L Ankle xray: Periostitis the level of medial malleolus. Given history of overl sebastien wound, this may indicate osteomyelitis. Presumed neuropathic changes within the midfoot. Blood cultures negative so far Wound cultures positive for staph Appreciate Ortho input and recommendation; Orthopedic is recommending amputation. s/p left below-knee amputation and right foot debridement patient reintubated for Bronchoscopy Hydrocortisone added Further management per ICU service Continue IV antibiotics (2) PVD (peripheral vascular disease): Pt follows with vascular surgery in [place] Dr Fonseca. Pts sister report s that pt had recent bilateral leg revascularization in the past 1-2 months --Holding Plavix and Xarelto in light of recent surgery -Vascular surgery has been consulted for peripheral vascular disease evaluation and any further treatment -Duplex scan of the lower extremity noted; showed no flow within the right posterior tibial artery which is likely occluded, occlusion of the left profunda femoral artery. -Vascular surgery consulted for recommendation-no further intervention (3) Anemia: Acute Blood Loss Anemia from Lower Leg Wound Bleeding Stool has been negative for any blood Complicated by chronic disease and malnutrition -- s/p 1 more unit of pRBC to maintain Hg >9 no overt GI bleed noted (4) Diarrhea: C. difficile negative resolved (5) History of aortic valve replacement with bioprosthetic valve: Aortic stenosis s/p bioprosthetic valve replacement in 09/2017 at [facility] ECHO: Left ventricle is normal with moderate concentric left ventricular hypertrophy, left ventricular wall motion is normal, and is hyperdynamic, EF is more than 70%, grade 3 diastolic dysfunction consistent with markedly increased left atrial pressure, there is a bioprosthetic aortic valve with normal gradient, aortic regurg regurgitation is present, there is moderate to severe annular calcification, there is no mitral valvular stenosis --Monitor volume status (6) CAD (coronary artery disease): CAD s/p CABG x 2 in 09/2017 at [facility] Plavix on hold Metoprolol on hold (7) Atrial fibrillation: Hx a-fib after cardiac surgery in 09/2017, requiring cardioversion -- (+) afib in RVR -- Amiodarone Toprol on hold, Xarelto on hold (8) Chronic diastolic heart failure: Monitor volume status closely (9) Cirrhosis: Hx cirrhosis. LFT's chronically elevated with AST: 56, ALT: 45, Alk Phos: 123, normal bili. (04/2018: AST: 54, ALT: 46, Alk Phos: 136) (10) BPH (benign prostatic hyperplasia): (11) Urinary retention: Hx BPH and chronic urinary retention. Follows with [facility]. Reported consideration for suprapubic cath placement in future. 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 Status post bronchoscopy as well. Review of system was not obtainable from this patient was already intubated and sedated. When I interviewed him today, he appeared to be somewhat agitated, could not follow any commands. Lethargic. Review of Systems Review of Systems: Unobtainable due to cognitive status Physical Exam Physical Exam: General- sedated no effort or accessory muscle use Eyes- anicteric Neck- no JVD Lungs- mild rhonchi bilaterally Heart- normal rate, regular rhythm; no murmurs Abdomen- normal bowel sounds, nondistended, soft, nontender Extremities- s/p L BKA dressing in place no bleeeding/discharge no edema Neuro-sedated Skin- warm & dry Results & Data Vital Signs (Past 12 Hours) Vital Signs Temp Pulse Resp BP Pulse Ox 06/01/18 06:00 95 H 108/49 L 98 06/01/18 05:40 104 H 18 97 06/01/18 05:00 91 H 97/61 L 98 06/01/18 04:00 37.1 C 94 H 91/52 L 98 06/01/18 03:00 85 98 04/23/19 02:36 87 20 99 06/01/18 02:00 93 H 97/56 L 99 06/01/18 01:00 92 H 81/51 L 98 06/01/18 00:00 37.5 C 90 97 05/31/18 23:38 88 20 94 05/31/18 23:00 94 H 91/52 L 97 05/31/18 22:00 85 98 05/31/18 21:00 101 H 97 05/31/18 20:00 37.0 C 100 H 96/56 L 96 05/31/18 19:25 90 20 97 (1) Anemia Anemia type: unspecified type Qualified Code(s): D64.9 - Anemia, unspecified
--- NOTE | 2018-06-01 08:09 | XRay Report ---
XR chest 1V portable CLINICAL HISTORY: acute hypoxia dyspnea COMPARISON STUDY: 05/31/2018 FINDINGS: Endotracheal tube remains 3 cm above the rose. Central catheter remains in the lower aspe ct of left internal jugular vein. Findings of pulmonary edema are slightly improved. Slight improveme nt in aeration over the pulmonary apices. Nasogastric tube remains within the stomach. IMPRESSION: 1. Pulmonary edema slightly improved from the prior study. 2. Endotracheal tube 3 cm above the rose. The above report was generated using voice recognition software. It may contain grammatical, syntax or spelling errors. Electronically signed by: Kole Ro M.D. 06/01/2018 8:07 AM
[2018-06-01] MEDS ORDERED: POTASSIUM PHOS 3 MMOL/1 ML INFUSION IV STA (08:19)
[2018-06-01] MEDS: HYDROmorphone INJ 0.5 MG/0.5 ML SYR IV SCH ×4 (08:49→20:06)
[2018-06-01] MEDS: DOXYCYCLINE HYCLATE 100 MG in DEXTROSE 5% 100 ML IV SCH ×2 (08:49→21:08)
[2018-06-01] MEDS: MIDAZOLAM HCL 125 MG/250 ML BAG IV SCH (08:49)
[2018-06-01] MEDS: NORMOSOL-R 1,000 ML IV SCH ×2 (08:50→21:10)
[2018-06-01] MEDS: FAMOTIDINE 20 MG in SYRINGE 3 ML IV SCH ×2 (08:50→21:09)
[2018-06-01] MEDS ORDERED: POTASSIUM PHOSPHATE 30 MMOL in SODIUM CHLORIDE 0.9% 500 ML IV ONE (09:00)
[2018-06-01] MEDS ORDERED: INSULIN GLARGINE SOLOSTAR 100 UNITS/ML 3 ML PEN SC ONE (09:00)
[2018-06-01] MEDS: HYDROCORTISONE SOD 100 MG in SYRINGE 0 ML IV SCH (09:09)
[2018-06-01] MEDS: D5W NORMOSOL-R 1,000 ML IV SCH (09:44)
[2018-06-01] MEDS: GABAPENTIN 800 MG TAB PO SCH ×2 (10:05→16:33)
[2018-06-01] MEDS: LACTULOSE SYRUP 30 GM/45 ML UDP PO PRN ×2 (10:05→16:36)
[2018-06-01] MEDS: methylPREDNISolone 40 MG in SYRINGE 0 ML IV SCH ×2 (10:06→21:08)
[2018-06-01] MEDS: AMIODARONE / D5W 360 MG/200 ML BAG IV SCH ×2 (10:07→22:45)
[2018-06-01 10:19] LABS: iSTAT Arterial Blood Gas HCO3 22 meg/L (19-24); iSTAT Arterial Blood Gas pCO2 33 mmHg (35-46); iSTAT Arterial Blood Gas pH 7.45 (7.35-7.45); iSTAT Carbon Dioxide 23 mEq/l (24-31); iSTAT FiO2 35 %; iSTAT Site Art Line
[2018-06-01] MEDS ORDERED: VANCOMYCIN TROUGH ONE (11:30)
[2018-06-01] MEDS: NOREPINEPHRINE BIT INJ 8 MG in DEXTROSE 5% 500 ML IV SCH (12:40)
--- NOTE | 2018-06-01 13:55 | Pharmacy Report ---
Pharmacy Glycemic Short Note 2 - Date of Service June 01, 2018 - Glycemic Short BSG Results (Last 24 hours): 05/31/18 05/31/18 05/31/18 07:23 07:38 17:24 Glucose POC Glucose 66 L* 101 H POC Glucose (other) 156 H 05/31/18 05/31/18 06/01/18 19:55 23:52 04:29 Glucose 221 H POC Glucose POC Glucose (other) 170 H 202 H 06/01/18 06/01/18 06/01/18 04:59 08:01 12:08 Glucose POC Glucose POC Glucose (other) 228 H 221 H 201 H Outpatient Anti-diabetic Regimen: * Glipizide 2.5 mg po qAM * A1c = 5.5 % on 05/19/18 The patient is currently receiving: * Basal insulin: no basal since Lantus 5 units on 05/28 PM and 20 units on 05/29 @ 1200 * Correctional Insulin: Novolog - none received since Lantus yesterday * Oral Agents: on hold Risk Factors for Insulin Resistance: * Steroids: hydrocortisone 100 mg IV q 8 hrs --> Solu-medrol 40mg IV Q 12 hours * Infection: Sepsis 2nd PNA and osteomyelitis * Pressors: norepinephrine * Recent Surgery: POD 4 s/p BKA * Mechanical Ventilation: YES ASSESSMENT: 06/01 * Patient remains on mech vent this AM. Pressors continue (norepi) * There are concerns for ALI/ARDS due to increasing O2 needs * Steroid is being changed to Solu-Medrol for ALI indication today by [employer] --> This dose of Solu-Medrol will likely lead to greater insulin resistance due to greater glucocorticoid effect. * BSGs are in the 200s this AM. No basal insulin is on board due to h/o hypoglycemia on 05/30 and 05/31. Dextrose containing IVF's (D5-Normosol R was running this AM), however these maint fluids will be changed to Normosol-R. He remains NPO at this time (no enteral feeds). * Will give a single dose of Lantus today, however the dose will be 50% of what was given on 05/29 which may have led to hypoglycemic episode * Will increase the dose of Novolog correction given anticipated increased insulin resistance w/ steroid change and continue to check BSG Q 4 hrs PLAN FOR INPATIENT GLYCEMIC CONTROL: * Basal insulin (dose increase) * Lantus 10 units SQ x 1; reassess needs tomorrow AM * Bolus insulin (dose increase) * NovoLog per scale q4h * Goal Range: Low 120 mg/dL - High 160 mg/dL * Correction Factor: 20 mg/dL/unit * Nutritional / Prandial insulin per carb ratio of 1 unit per 15 grams CHO consumed * If BSGs remain > 180 x 2 more checks, would recommend starting IV insulin drip per MODERATE stress, goal range 110-180mg/dL
[2018-06-01 15:18] LABS: iSTAT Arterial Blood Gas HCO3 24 meg/L (19-24); iSTAT Arterial Blood Gas pCO2 32 mmHg (35-46); iSTAT Arterial Blood Gas pH 7.47 (7.35-7.45); iSTAT Carbon Dioxide 24 mEq/l (24-31)
--- NOTE | 2018-06-01 16:56 | Critical Care Progress Note ---
Date of Service June 01, 2018 Assessment & Plan (1) Cellulitis of left leg: Impression: 1. Sepsis secondary to MRSA cellulitis. 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 2. Recurrent aspiration, etiology could be related to pharyngeal muscle weakness with exposure to sedation and multiple intubations. 3. History of coronary artery disease status post CABG, difficult to heal sternal wound. 4. Diabetes with diabetic foot. Noted recurrent hypoglycemia, likely related to adrenal insufficiency. 5. Acute lung injury resulted in the above. 6. GERD. 7. Easy bruisability, concerning for bleeding disorder. The patient is off Xarelto. 8. Osteomyelitis, MRSA, on broad-spectrum antibiotic. Plan: 1. Change steroids to Solu-Medrol 40 mg IV every 12 hours. 2. VBG was done from the central line and confirmed the position. 3. Continue current antibiotics. 4. I will change amiodarone to OG tube. 5. Continue GI prophylaxis. 6. Discontinue propofol, the patient received significant amount over the past 4 days. 7. Start Versed drip instead. 8. Dilaudid for pain. The patient has been taking significant amount of pain management as an outpatient. 9. I will start the patient on Neurontin, he was taking high doses of Lyrica which is not amenable to NG tube. 10. Daily CPAP trials. 11. Family updated at the bedside. Case discussed with the staff, critical care time spent with the patient was 45 minutes. Subjective Review of systems not obtainable, the patient remains vented and sedated. He failed CPAP overnight. Review of Systems Review of Systems: Review of systems not obtainable due to the patient being sedated and intubated. Physical Exam Physical Exam: Vital signs are stable, S1-S2 regular rate and rhythm, lungs with rhonchi bilaterally, abdomen is benign, BKA on the left, debridement of the right foot. Neurologically difficult to assess, wound dehiscence at the sternal. Results & Data Vital Signs (Past 12 Hours) Vital Signs Temp Pulse Resp BP Pulse Ox 06/01/18 16:49 73 20 100 06/01/18 14:35 73 20 100 06/01/18 12:30 75 99 06/01/18 12:00 37 C 80 85/56 L 99 06/01/18 11:41 78 20 100 06/01/18 11:30 84 100 06/01/18 11:00 76 84/53 L 100 06/01/18 10:30 77 99 06/01/18 10:00 77 81/48 L 99 06/01/18 09:30 92 H 100 06/01/18 09:00 84 81/50 L 100 06/01/18 08:30 86 98 06/01/18 08:01 37.5 C 96 H 89/64 L 96 06/01/18 07:42 89 25 H 94 06/01/18 07:30 94 H 98 06/01/18 07:00 92 H 87/54 L 99 06/01/18 06:00 95 H 108/49 L 98 06/01/18 05:40 104 H 18 97 06/01/18 05:00 91 H 97/61 L 98 Laboratory Results No leukocytosis, hematocrit is stable, platelets also are stable. ABG was noted, and VBG was drawn from the central line and confirmed the position of the central line. Diagnostic Findings Chest x-ray showed cardiomegaly, pulmonary vascular congestion, or lines are supportive, the presence of the central line although noted going to the left but it was confirmed with VBG that it is in the vein.
--- NOTE | 2018-06-01 19:13 | Orthopedic Progress Note ---
Date of Service June 01, 2018 Assessment & Plan (1) Osteomyelitis of ankle, left, acute: POD#4:PROCEDURE: 1. Left below knee amputation. 2. Right foot debridement ischemic ulcer, first metatarsophalangeal joint including skin, fascia, joint capsule, and subcutaneous fat. 3. Right foot debridement ischemic ulcer, separate site, fifth metatarsophalangeal joint involving skin, fascia, subcutaneous fat, and joint capsule. 4. Right foot debridement ischemic ulcer, separate site, posterior heel 1.5 cm in diameter involving skin, subcutaneous fat, and fascia. 5. Right foot debridement ischemic ulcer, separate site, lateral foot involving skin, subcutaneous fat, and fascia. Plan to do dressing change with wound care team on right foot tomorrow. Daily dressing changes on the left BKA wound. Sutures will stay in place at the BKA for 4-6 weeks. (2) Diabetic foot ulcer associated with type 2 diabetes mellitus: Subjective POD 4 Left BKA/Right Foot debridement Pt currently intubated. Not resonding to voice but does have some response when examining his left leg. Physical Exam Physical Exam: Left BKA dressing changed. Wound appears benign. No overt erythema. Mild drainage on the dressing. Suture line intact. Redressed with adaptic,4x4's,kerlix, and wraps. Dressing on right foot intact. Results & Data Vital Signs (Past 12 Hours) Vital Signs Temp Pulse Resp BP Pulse Ox 06/01/18 18:30 69 97 06/01/18 18:12 77 84/52 L 98 06/01/18 18:00 81 96 06/01/18 17:30 70 100 06/01/18 17:00 73 85/57 L 99 06/01/18 16:49 73 20 100 06/01/18 16:30 70 99 06/01/18 16:00 37 C 71 77/53 L 100 06/01/18 15:30 76 100 06/01/18 15:00 73 86/52 L 100 06/01/18 14:35 73 20 100 06/01/18 14:30 75 100 06/01/18 14:00 73 85/59 L 100 06/01/18 13:36 73 85/56 L 100 06/01/18 13:00 77 79/50 L 100 06/01/18 12:30 75 99 06/01/18 12:00 37 C 80 85/56 L 99 06/01/18 11:41 78 20 100 06/01/18 11:30 84 100 06/01/18 11:00 76 84/53 L 100 06/01/18 10:30 77 99 06/01/18 10:00 77 81/48 L 99 06/01/18 09:30 92 H 100 06/01/18 09:00 84 81/50 L 100 06/01/18 08:30 86 98 06/01/18 08:01 37.5 C 96 H 89/64 L 96 06/01/18 07:42 89 25 H 94 06/01/18 07:30 94 H 98
[2018-06-01] MEDS ORDERED: NovoLIN-R BOLUS FROM BAG IV ONE (21:30)
[2018-06-01] MEDS: INSULIN REGULAR 250 UNITS in SODIUM CHLORIDE 0.9% 247.5 ML IV SCH (22:29)
[2018-06-02] MEDS: GABAPENTIN 800 MG TAB PO SCH ×3 (00:47→16:39)
[2018-06-02] MEDS: HYDROmorphone INJ 0.5 MG/0.5 ML SYR IV SCH ×6 (00:47→20:29)
[2018-06-02] MEDS: ALBUT/IPRATROP 3MG/0.5MG NEB 3 ML VIAL INH SCH ×6 (03:07→23:10)
[2018-06-02] MEDS: CEFAZOLIN 2000MG 2,000 MG/15 ML SYR IV SCH ×3 (03:46→20:29)
[2018-06-02] MEDS: fentaNYL DRIP 1,250 MCG/250 ML BAG IV SCH (04:14)
[2018-06-02 04:57] LABS: Hemoglobin 8.1 g/dL (14.0-18.0); Mean Corpuscular Hgb Conc 32.4 g/dL (32-36); RDW Coefficient of Variation 17.5 % (11.5-14.5); RDW Standard Deviation 54.6 fL (36.4-46.3); Red Blood Count 2.94 M/uL (4.7-6.1); White Blood Count 5.09 K/uL (4.8-10.8)
[2018-06-02 05:04] LABS: INR 1.5 (0.9-1.1); Prothrombin Time 14.6 Seconds (9.0-12.0)
[2018-06-02 05:15] LABS: Mean Platelet Volume 10.3 fL (7.4-10.4); Platelet Count 90 K/uL (130-400)
[2018-06-02 05:21] LABS: Echinocytes 1+; Immature Granulocytes # (auto) 0.01 K/uL (0.00-0.02); Immature Granulocytes % (auto) 0.2 %; Lymphocytes # (auto) 0.42 K/uL (1.2-3.4); Lymphocytes % (auto) 8.3 %; Monocytes # (auto) 0.42 K/uL (0.11-0.59); Monocytes % (auto) 8.3 %; Neutrophils # (auto) 4.24 K/uL (1.4-6.5); Neutrophils % (auto) 83.2 %
--- NOTE | 2018-06-02 05:28 | Hospitalist Progress Note ---
Date of Service delayed entry date of service 06/01/18 June 02, 2018 Assessment & Plan (1) Wound of lower extremity: OSTEOMYELITIS LEFT ANKLE Hx PVD. Hx MRSA started on intravenous Zosyn, vancomycin L Ankle xray: Periostitis the level of medial malleolus. Given history of overl sebastien wound, this may indicate osteomyelitis. Presumed neuropathic changes within the midfoot. Blood cultures negative so far Wound cultures positive for staph Appreciate Ortho input and recommendation; Orthopedic is recommending amputation. s/p left below-knee amputation and right foot debridement now on Solumedrol daily weaning trial further management per Registered Nurse Nursery Continue IV antibiotics Ortho on board (2) PVD (peripheral vascular disease): Pt follows with vascular surgery in [place] Dr Fonseca. Pts sister reports that pt had recent bilateral leg revascularization in the past 1-2 months --Holding Plavix and Xarelto in light of recent surgery -Vascular surgery has been consulted for peripheral vascular disease evaluation and any further treatment -Duplex scan of the lower extremity noted; showed no flow within the right posterior tibial artery which is likely occluded, occlusion of the left profunda femoral artery. -Vascular surgery consulted for recommendation-no further intervention (3) Anemia: Acute Blood Loss Anemia from Lower Leg Wound Bleeding Stool has been negative for any blood Complicated by chronic disease and malnutrition -- s/p 1 more unit of pRBC to maintain Hg >9 no overt GI bleed noted (4) Diarrhea: C. difficile negative resolved (5) History of aortic valve replacement with bioprosthetic valve: Aortic stenosis s/p bioprosthetic valve replacement in 09/2017 at [facility] ECHO: Left ventricle is normal with moderate concentric left ventricular hypertrophy, left ventricular wall motion is normal, and is hyperdynamic, EF is more than 70%, grade 3 diastolic dysfunction consistent with markedly increased left atrial pressure, there is a bioprosthetic aortic valve with normal gradient, aortic regurg regurgitation is present, there is moderate to severe annular calcification, there is no mitral valvular stenosis --Monitor volume status (6) CAD (coronary artery disease): CAD s/p CABG x 2 in 09/2017 at [place] Plavix on hold Metoprolol on hold (7) Atrial fibrillation: Hx a-fib after cardiac surgery in 09/2017, requiring cardioversion -- (+) afib in RVR -- Amiodarone Toprol on hold, Xarelto on hold (8) Chronic diastolic heart failure: Monitor volume status closely (9) Cirrhosis: Hx cirrhosis. LFT's chronically elevated with AST: 56, ALT: 45, Alk Phos: 123, normal bili. (04/2018: AST: 54, ALT: 46, Alk Phos: 136) (10) BPH (benign prostatic hyperplasia): (11) Urinary retention: Hx BPH and chronic urinary retention. Follows with Urology [facility]. Reported consideration for suprapubic cath placement in future. 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 Nursing states he was tried on CPAP for a short time. Wound care team present to do dressing change on right foot. Review of Systems Review of Systems: Unobtainable due to endotracheal tube and Unobtainable due to reduced consciousness Physical Exam Physical Exam: General-sedated; no effort or accessory muscle use Eyes- anicteric Neck- no JVD Lungs- mild rhonchi b/l Heart- normal rate, regular rhythm; no murmurs Abdomen- normal bowel sounds, nondistended, soft, nontender Extremities- (+) s/p L BKA no bleeding, discharge no edema Neuro-sedated Skin- warm & dry Results & Data Vital Signs (Past 12 Hours) Vital Signs Temp Pulse Resp BP Pulse Ox 06/02/18 05:00 68 91/55 L 100 06/02/18 04:00 36.9 C 85 111/61 98 06/02/18 03:07 77 20 99 06/02/18 03:00 67 98/56 L 100 06/02/18 02:00 72 98/60 L 99 06/02/18 01:00 79 96/55 L 100 06/02/18 00:00 36.7 C 84 96/54 L 99 06/01/18 23:11 80 105/57 L 100 06/01/18 23:01 68 20 98 06/01/18 23:00 66 68/37 L 97 06/01/18 22:00 96 06/01/18 21:00 72 98 06/01/18 20:00 36.7 C 77 81/43 L 98 06/01/18 19:10 61 20 99 06/01/18 19:00 74 81/44 L 100 06/01/18 18:30 69 97 06/01/18 18:12 77 84/52 L 98 06/01/18 18:00 81 96 06/01/18 17:30 70 100 Laboratory Results noted, reviewed (1) Anemia Anemia type: unspecified type Qualified Code(s): D64.9 - Anemia, unspecified
[2018-06-02 05:30] LABS: Albumin Level 1.5 gm/dl (3.4-5.0); BUN Creatinine Ratio 47.5 (10-20); Bilirubin Direct 0.4 mg/dl (0-0.2); Calcium 7.6 mg/dl (8.5-10.1); Creatinine Clr Calc Pharmacy 140.7 ml/min; Est GFR (African American) 120.6; Est GFR (Non-African American) 104.1; Magnesium 2.1 mg/dl (1.8-2.4); Potassium 2.9 mmol/L (3.5-5.1)
[2018-06-02 05:36] LABS: Bilirubin,Total 0.5 mg/dl (0.2-1); Phosphorus 2.4 mg/dl (2.5-4.9)
[2018-06-02] MEDS: LACTULOSE SYRUP 30 GM/45 ML UDP PO PRN (05:39)
[2018-06-02 05:48] LABS: iSTAT Arterial Blood Gas HCO3 24 meg/L (19-24); iSTAT Arterial Blood Gas pCO2 31 mmHg (35-46); iSTAT Carbon Dioxide 25 mEq/l (24-31); iSTAT FiO2 35 %; iSTAT Site Art Line
[2018-06-02] MEDS ORDERED: POTASSIUM PHOS 3 MMOL/1 ML INFUSION IV STA (06:00)
[2018-06-02] MEDS: POTASSIUM CHLORIDE / WTR 10 MEQ/100 ML PLCT IV SCH ×4 (06:42→10:32)
[2018-06-02] MEDS ORDERED: POTASSIUM PHOSPHATE 6 MMOL in SODIUM CHLORIDE 0.9% 250 ML IV SCH (06:45)
--- NOTE | 2018-06-02 06:55 | XRay Report ---
XR chest 1V portable HISTORY: 72 years-old Male f/u follow-up study in a patient with acute respiratory failure COMPARISON: Chest radiograph 06/01/2018 TECHNIQUE: Portable AP view of the chest FINDINGS: Prior median sternotomy. Cardiomediastinal and hilar silhouettes are unchanged. Calcification of the thoracic aortic arch. Endotracheal tube overlies the midline, 3.6 cm superior to the rose. Left int ernal jugular central venous catheter appears unchanged. Enteric tube is noted coursing below the lev el of the diaphragm. Mild right hemidiaphragmatic elevation is unchanged. Pulmonary vascular congesti on with interstitial coarsening. Mild right index metacarpal elevation with small bilateral pleural e ffusions. No pneumothorax identified. Degenerative changes of the shoulders and spine. IMPRESSION: 1. Persistent pulmonary edema pattern with small bilateral pleural effusions. 2. Lines and tubes as above. The above report was generated using voice recognition software. It may contain grammatical, syntax o r spelling errors. Electronically signed by: Josh Machuca M.D. 06/02/2018 6:54 AM
[2018-06-02] MEDS: INSULIN ASPART 100 UNITS/ML 3 ML PEN SC SCH ×4 (08:24→20:32)
[2018-06-02] MEDS: DOXYCYCLINE HYCLATE 100 MG in DEXTROSE 5% 100 ML IV SCH ×2 (08:26→20:32)
[2018-06-02] MEDS: methylPREDNISolone 40 MG in SYRINGE 0 ML IV SCH ×2 (08:26→20:30)
[2018-06-02] MEDS: FAMOTIDINE 20 MG in SYRINGE 3 ML IV SCH ×2 (09:34→20:31)
[2018-06-02] MEDS: AMIODARONE 200 MG TAB PO SCH ×2 (09:47→20:32)
[2018-06-02] MEDS: NORMOSOL-R 1,000 ML IV SCH (09:48)
--- NOTE | 2018-06-02 11:05 | Critical Care Progress Note ---
Date of Service June 02, 2018 Assessment & Plan (1) Cellulitis of left leg: Impression: 1. Sepsis secondary to MRSA cellulitis. 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 2. Recurrent aspiration, etiology could be related to pharyngeal muscle weakness with exposure to sedation and multiple intubations. 3. History of coronary artery disease status post CABG, difficult to heal sternal wound. 4. Diabetes with diabetic foot. Noted recurrent hypoglycemia, likely related to adrenal insufficiency. 5. Acute lung injury resulted in the above. 6. GERD. 7. Easy bruisability, concerning for bleeding disorder. The patient is off Xarelto. 8. Osteomyelitis, MRSA, on broad-spectrum antibiotic. 9. Malnourishment. 10. Fluid overload. Plan: 1. Discontinue IV fluid. 2. Lasix 40 mg IV now. 3. Continue current antibiotics. 4. change amiodarone to OG tube. 5. Continue GI prophylaxis. 6. Discontinue Versed drip. 7. Continue with Dilaudid and Neurontin. 8. CPAP of 5 pressure support of 5. He seems to tolerated with tidal volume of 590 and a respiratory rate of 17. 9. Avoid excessive amount of sedatives. 10. Wean norepinephrine to off. 11. Family updates. 12. Replete his electrolytes. Case discussed with the staff, critical care time spent with the patient was 45 minutes. Subjective The patient is well sedated, review of system was not obtainable, no events overnight, electrolytes has been replaced by my colleague, the patient is on CPAP trial and he has been tolerating it very well. Review of Systems Review of Systems: Review of system is not obtainable. Physical Exam Physical Exam: Vital signs are stable O2 sat is 97%. S1-S2, and A. fib. Lungs with rhonchi bilaterally. Abdomen is benign. Left BKA and right debridement of the foot. Skin wound dehiscence of the sternotomy. Neurologically difficult to assess as the patient being comatose. ET tube without any oral lesion, scrotal edema. Results & Data Vital Signs (Past 12 Hours) Vital Signs Temp Pulse Resp BP Pulse Ox 06/02/18 07:41 81 10 L 98 06/02/18 06:00 75 96/54 L 100 06/02/18 05:38 67 20 100 06/02/18 05:00 68 91/55 L 100 06/02/18 04:00 36.9 C 85 111/61 98 06/02/18 03:07 77 20 99 06/02/18 03:00 67 98/56 L 100 06/02/18 02:00 72 98/60 L 99 06/02/18 01:00 79 96/55 L 100 06/02/18 00:00 36.7 C 84 96/54 L 99 06/01/18 23:11 80 105/57 L 100 06/01/18 23:01 68 20 98 Laboratory Results Labs are acceptable, hematocrit is low but without his baseline. Hypokalemia and hypophosphatemia, will replace. Hyperglycemia well controlled. Albumin is on the low side but just started on tube feeding. Diagnostic Findings Chest x-ray with pulmonary vascular congestion and cardiomegaly.
[2018-06-02 11:26] LABS: iSTAT Arterial Blood Gas HCO3 23 meg/L (19-24); iSTAT Arterial Blood Gas pCO2 40 mmHg (35-46); iSTAT Arterial Blood Gas pH 7.37 (7.35-7.45); iSTAT Carbon Dioxide 24 mEq/l (24-31); iSTAT FiO2 35 %; iSTAT Site R Femoral
[2018-06-02] MEDS: MIDAZOLAM HCL 125 MG/250 ML BAG IV SCH (11:27)
[2018-06-02] MEDS ORDERED: FUROSEMIDE 40 MG in SYRINGE 0 ML IV ONE (11:30)
[2018-06-02] MEDS: DEXTROSE 50% 50 ML SYRINGE IV PRN (11:59)
--- NOTE | 2018-06-02 13:55 | Orthopedic Progress Note ---
Date of Service June 02, 2018 Assessment & Plan (1) Osteomyelitis of ankle, left, acute: POD#5:PROCEDURE: 1. Left below knee amputation. 2. Right foot debridement ischemic ulcer, first metatarsophalangeal joint including skin, fascia, joint capsule, and subcutaneous fat. 3. Right foot debridement ischemic ulcer, separate site, fifth metatarsophalangeal joint involving skin, fascia, subcutaneous fat, and joint capsule. 4. Right foot debridement ischemic ulcer, separate site, posterior heel 1.5 cm in diameter involving skin, subcutaneous fat, and fascia. 5. Right foot debridement ischemic ulcer, separate site, lateral foot involving skin, subcutaneous fat, and fascia. Discussed case with Dr Joel. Continue conservative measures for now. Dressing changes of the right foot per WC team. Daily dressing changes on the left BKA wound. Sutures will stay in place at the BKA for 4-6 weeks. (2) Diabetic foot ulcer associated with type 2 diabetes mellitus: Subjective Pt remains intubated and sedated. Nursing states he was tried on CPAP for a short time. Wound care team present to do dressing change on right foot. Physical Exam Physical Exam: All dressings were removed by wound care team/nursing on my arrival. Left BKA wound continues to remain benign. Nursing states he did have drainage on the dressing that was put on last night. Right foot wounds appear to be looking better. Less dryness noted over the medial and lateral ulcers. Medial ulcer with small area of darkended (brown) tissue on the lower half of the wound extending slightly up into central portion. Remain central portion with yellow fibrous tissue. No overt purulence, no odor. Lateral wound less dry/crusting eschar. Wound edges look viable with a central portion of yellow fibrous tissue with with a light brown central portion. Heel wound looking ok. Central yellow fibrous tissue with only a small darkened area at one edge. Results & Data Vital Signs (Past 12 Hours) Vital Signs Temp Pulse Resp BP Pulse Ox 06/02/18 12:00 37 C 103 H 134/71 97 06/02/18 11:30 23 06/02/18 11:00 88 119/67 99 06/02/18 10:00 68 95/55 L 99 06/02/18 09:00 79 99/55 L 97 06/02/18 08:00 36.8 C 86 112/61 98 06/02/18 07:41 81 10 L 98 06/02/18 07:00 77 101/65 100 06/02/18 06:00 75 96/54 L 100 06/02/18 05:38 67 20 100 06/02/18 05:00 68 91/55 L 100 06/02/18 04:00 36.9 C 85 111/61 98 06/02/18 03:07 77 20 99 06/02/18 03:00 67 98/56 L 100 06/02/18 02:00 72 98/60 L 99
[2018-06-02] MEDS: NOREPINEPHRINE BIT INJ 8 MG in DEXTROSE 5% 500 ML IV SCH (13:56)
--- NOTE | 2018-06-02 14:14 | Procedure Note ---
Procedure Note Date of Service June 02, 2018 I was called to the ICU by Johny Jefferson PA-C to assist with airway mgmt of a patient who was unstable. Upon my arrival, preparations being made for sedation and intubation at bedside. Pt tachycardic on the monitor and being bagged with assistance of RT. Pt had briefly been asystolic and ROSC was achieved. Pt did have a BP at that time and was being monitored with use of an A-line. Pt still had an intact gag reflex at this time, so I asked for pt to be given 50 mcg fentanyl to assist with sedation and pt intubated suing video laryngoscopy so I could help assess the airway and potential need for interventions. intubation performed by Johny Jefferson with my assistance. Visualized ETT passing thru the cords, breath sounds heard b/l, condensation in tube, positive color capnography noted. Tube secured with assistance of RT and baggin continued until pt connected to the vent. Tachycardia improved slightly with intubation, no significant change in BP during procedure. CXR to confirm ordered by DUNIA. Coding
[2018-06-02] MEDS: INSULIN REGULAR 250 UNITS in SODIUM CHLORIDE 0.9% 247.5 ML IV SCH (21:24)
[2018-06-03] MEDS: HYDROmorphone INJ 0.5 MG/0.5 ML SYR IV SCH ×3 (00:35→08:50)
[2018-06-03] MEDS: GABAPENTIN 800 MG TAB PO SCH ×2 (00:36→08:04)
[2018-06-03] MEDS: ALBUT/IPRATROP 3MG/0.5MG NEB 3 ML VIAL INH SCH ×6 (03:50→23:09)
[2018-06-03 04:48] LABS: Hematocrit (blood only) 27.5 % (42-52); Hemoglobin 8.9 g/dL (14.0-18.0); Mean Corpuscular Hgb Conc 32.4 g/dL (32-36); Mean Corpuscular Volume 84.6 fL (80-100); RDW Coefficient of Variation 17.7 % (11.5-14.5); RDW Standard Deviation 55.3 fL (36.4-46.3); Red Blood Count 3.25 M/uL (4.7-6.1); White Blood Count 7.56 K/uL (4.8-10.8)
[2018-06-03] MEDS: CEFAZOLIN 2000MG 2,000 MG/15 ML SYR IV SCH ×3 (05:11→19:48)
[2018-06-03 05:13] LABS: Mean Platelet Volume 9.8 fL (7.4-10.4); Platelet Count 81 K/uL (130-400)
[2018-06-03 05:16] LABS: Acanthocytes 1+; Basophils # (auto) 0.01 K/uL (0-0.2); Basophils % (auto) 0.1 %; Immature Granulocytes # (auto) 0.03 K/uL (0.00-0.02); Immature Granulocytes % (auto) 0.4 %; Lymphocytes # (auto) 0.47 K/uL (1.2-3.4); Lymphocytes % (auto) 6.2 %; Monocytes # (auto) 0.67 K/uL (0.11-0.59); Monocytes % (auto) 8.9 %; Neutrophils # (auto) 6.38 K/uL (1.4-6.5); Neutrophils % (auto) 84.4 %
[2018-06-03 05:19] LABS: BUN Creatinine Ratio 45.6 (10-20); Calcium 8.2 mg/dl (8.5-10.1); Creatinine Clr Calc Pharmacy 138.2 ml/min; Est GFR (African American) 119.7; Est GFR (Non-African American) 103.3; Magnesium 1.9 mg/dl (1.8-2.4); Phosphorus 2.8 mg/dl (2.5-4.9); Potassium 3.8 mmol/L (3.5-5.1)
--- NOTE | 2018-06-03 05:33 | Hospitalist Progress Note ---
Date of Service delayed entry date of service 06/02/18 June 03, 2018 Assessment & Plan (1) Wound of lower extremity: OSTEOMYELITIS LEFT ANKLE Hx PVD. Hx MRSA started on intravenous Zosyn, vancomycin L Ankle xray: Periostitis the level of medial malleolus. Given history of overl sebastien wound, this may indicate osteomyelitis. Presumed neuropathic changes within the midfoot. Blood cultures negative so far Wound cultures positive for staph Appreciate Ortho input and recommendation; Orthopedic is recommending amputation. s/p left below-knee amputation and right foot debridement Acute Respiratory Failure, likely from Aspiration remains intubated, weaning trial daily on Solumedrol Continue IV antibiotics Ortho following further management per Filter Filler (2) PVD (peripheral vascular disease): Pt follows with vascular surgery in [place] Dr Fonseca. Pts sister reports that pt had recent bilateral leg revascularization in the past 1-2 months -obtain outside records --Holding Plavix and Xarelto in light of recent surgery -Vascular surgery has been consulted for peripheral vascular disease evaluation and any further treatment -Duplex scan of the lower extremity noted; showed no flow within the right po sterior tibial artery which is likely occluded, occlusion of the left profunda femoral artery. -Vascular surgery consulted for recommendation-no further intervention (3) Anemia: Acute Blood Loss Anemia from Lower Leg Wound Bleeding Stool has been negative for any blood Complicated by chronic disease and malnutrition -- s/p 1 more unit of pRBC to maintain Hg >9 no overt GI bleed noted (4) Diarrhea: C. difficile negative Resolved (5) History of aortic valve replacement with bioprosthetic valve: Aortic stenosis s/p bioprosthetic valve replacement in 09/2017 at [facility] ECHO: Left ventricle is normal with moderate concentric left ventricular hypertrophy, left ventricular wall motion is normal, and is hyperdynamic, EF is more than 70%, grade 3 diastolic dysfunction consistent with markedly increased left atrial pressure, there is a bioprosthetic aortic valve with normal gradient, aortic regurg regurgitation is present, there is moderate to severe annular calcification, there is no mitral valvular stenosis Monitor volume status (6) CAD (coronary artery disease): CAD s/p CABG x 2 in 09/2017 at [place] Plavix on hold Metoprolol on hold (7) Atrial fibrillation: Hx a-fib after cardiac surgery in 09/2017, requiring cardioversion -- (+) afib in RVR -- Amiodarone Toprol on hold, Xarelto on hold (8) Chronic diastolic heart failure: Monitor volume status closely (9) Cirrhosis: Hx cirrhosis. LFT's chronically elevated with AST: 56, ALT: 45, Alk Phos: 123, normal bili. (04/2018: AST: 54, ALT: 46, Alk Phos: 136) (10) BPH (benign prostatic hyperplasia): (11) Urinary retention: Hx BPH and chronic urinary retention. Follows with Urology [facility]. Reported consideration for suprapubic cath placement in future. 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 DVT Prophylaxis Xarelto -on hold now Restart Xarelto and Plavix when hemostasis is stable Subjective ff up for s/p L BKA remains intubated sedation off occasionally opens eyes , moves hands not in distress Review of Systems Review of Systems: Unobtainable due to endotracheal tube and Unobtainable due to reduced consciousness Physical Exam Physical Exam: General- occasionally opens eyes, not in distess, no effort or accessory muscle use Eyes- anicteric Neck- no JVD Lungs- mild rhonchi billaterally, no wheezing Heart- normal rate, regular rhythm; no murmurs Abdomen- normal bowel sounds, nondistended, soft, nontender Extremities- s/p l BKA: no bleeding discharge Neuro- alert, oriented x 3; no gross focal neurologic deficits Skin- warm & dry Results & Data Vital Signs (Past 12 Hours) Vital Signs Temp Pulse Pulse Resp BP Pulse Ox 06/03/18 05:01 99 H 127/68 98 06/03/18 04:34 104 H 128/95 97 06/03/18 04:01 37.3 C 93 H 97/55 L 97 06/03/18 03:50 87 99 06/03/18 03:02 89 121/58 L 97 06/03/18 02:00 81 90/57 L 98 06/03/18 01:35 88 10 L 99 06/03/18 01:10 85 90/56 L 99 06/03/18 01:00 81 88/51 L 98 06/03/18 00:46 85 93/56 L 98 06/03/18 00:39 90 101/64 97 06/03/18 00:01 37.4 C 90 96/56 L 98 06/02/18 23:48 101 H 126/75 98 06/02/18 23:15 88 12 99 06/02/18 23:01 92 H 108/60 99 06/02/18 22:30 83 10 L 99 06/02/18 22:00 84 12 75/58 L 99 06/02/18 21:00 96 H 15 117/64 96 06/02/18 20:00 36.6 C 97 H 24 123/65 100 06/02/18 19:20 93 H 20 98 06/02/18 19:00 36.6 C 74 14 75/44 L 98 06/02/18 18:00 77 12 82/51 L 98 Laboratory Results noted and reviewed (1) Anemia Anemia type: unspecified type Qualified Code(s): D64.9 - Anemia, unspecified
[2018-06-03 05:47] LABS: iSTAT Arterial Blood Gas HCO3 25 meg/L (19-24); iSTAT Arterial Blood Gas pCO2 37 mmHg (35-46); iSTAT Arterial Blood Gas pH 7.44 (7.35-7.45); iSTAT Carbon Dioxide 26 mEq/l (24-31); iSTAT FiO2 35 %; iSTAT Site Art Line
--- NOTE | 2018-06-03 07:08 | XRay Report ---
XR chest 1V portable CLINICAL HISTORY: Respiratory failure. Follow-up study. COMPARISON STUDY: 06/02/2018 FINDINGS: There is a nasogastric tube which passes into the stomach. There is a left internal jugular central venous catheter with its tip projected over the aortic knob. There is an endotracheal tube p ositioned 29 mm above the rose. There are extensive bilateral pulmonary airspace opacities stable t o minimally progressive when compared the preceding study. Advanced arthritic changes are present wit hin the shoulders.[ IMPRESSION: Persistent extensive bilateral pulmonary airspace opacities Electronically signed by: Osbaldo Hoover M.D. 06/03/2018 7:06 AM
[2018-06-03] MEDS ORDERED: INSULIN GLARGINE SOLOSTAR 100 UNITS/ML 3 ML PEN SC ONE ×2 (07:30→09:00)
[2018-06-03] MEDS: FAMOTIDINE 20 MG in SYRINGE 3 ML IV SCH (08:03)
[2018-06-03] MEDS: AMIODARONE 200 MG TAB PO SCH ×2 (08:04→20:03)
[2018-06-03] MEDS: DOXYCYCLINE HYCLATE 100 MG in DEXTROSE 5% 100 ML IV SCH ×2 (08:04→20:04)
[2018-06-03] MEDS: methylPREDNISolone 40 MG in SYRINGE 0 ML IV SCH ×2 (08:05→20:12)
[2018-06-03] MEDS: LACTULOSE SYRUP 30 GM/45 ML UDP PO PRN (08:49)
[2018-06-03] MEDS: INSULIN ASPART 100 UNITS/ML 3 ML PEN SC SCH ×3 (08:50→18:11)
[2018-06-03] MEDS ORDERED: FUROSEMIDE 40 MG/4 ML VIAL IV STA (10:39)
[2018-06-03] MEDS: HYDROmorphone INJ 0.5 MG/0.5 ML SYR IV PRN ×3 (11:30→21:40)
--- NOTE | 2018-06-03 13:55 | XRay Report ---
XR KUB/Abdomen 1 view CLINICAL HISTORY: constipation vs ileus ABDOMINAL DISTENTION COMPARISON STUDY: 05/30/2018 , CT scan dated 05/31/2018 FINDINGS: The study was performed in a portable fashion. There is gaseous distention of the colon torsten n to the level of the sigmoid. The findings likely represent a colonic ileus. Note is made of a nasog astric tube within the stomach. IMPRESSION: 1. Gaseous distention of the colon down to the level of the sigmoid. The findings likely represent a colonic ileus. Electronically signed by: Osbaldo Hoover M.D. 06/03/2018 1:54 PM
[2018-06-03] MEDS: GABAPENTIN 400 MG CAP PO SCH ×2 (14:09→14:28)
--- NOTE | 2018-06-03 14:24 | Pharmacy Report ---
Pharmacy Glycemic Short Note 2 - Date of Service June 03, 2018 - Glycemic Short BSG Results (Last 24 hours): 06/02/18 06/02/18 06/02/18 14:14 15:07 17:09 Glucose POC Glucose 128 H 127 H 123 H 06/02/18 06/02/18 06/03/18 19:35 21:15 01:00 Glucose POC Glucose 113 H 117 H 120 H 06/03/18 06/03/18 06/03/18 04:39 05:15 06:22 Glucose 84 POC Glucose 88 85 06/03/18 06/03/18 06/03/18 06:44 08:23 11:37 Glucose POC Glucose 86 90 102 H Outpatient Anti-diabetic Regimen: * Glipizide 2.5 mg po qAM * A1c = 5.5 % on 05/19/18 The patient is currently receiving: * Basal insulin: no basal since Lantus 5 units on 05/28 PM and 20 units on 05/29 @ 1200 * Correctional Insulin: Novolog - none received since Lantus yesterday * Oral Agents: on hold Risk Factors for Insulin Resistance: * Steroids: hydrocortisone 100 mg IV q 8 hrs --> Solu-medrol 40mg IV Q 12 hours * Infection: Sepsis 2nd PNA and osteomyelitis * Pressors: norepinephrine * Recent Surgery: POD 4 s/p BKA * Mechanical Ventilation: YES ASSESSMENT: 06/03: * Patient transitioned off drip this morning. Insulin drip off since 614, BSGs in highs 80s/90s. * 5 units of insulin was given this morning, no additional novolog has been needed thus far. Patient diet pending a swallow eval * No further orders for basal insulin will be placed today given BSGs within rnage and history of hypoglycemia * IV steroids to continue through 06/05 06/01 * Patient remains on mech vent this AM. Pressors continue (norepi) * There are concerns for ALI/ARDS due to increasing O2 needs * Steroid is being changed to Solu-Medrol for ALI indication today by Line Up Examiner --> This dose of Solu-Medrol will likely lead to greater insulin resistance due to greater glucocorticoid effect. * BSGs are in the 200s this AM. No basal insulin is on board due to h/o hypoglycemia on 05/30 and 05/31. Dextrose containing IVF's (D5-Normosol R was running this AM), however these maint fluids will be changed to Normosol-R. He remains NPO at this time (no enteral feeds). * Will give a single dose of Lantus today, however the dose will be 50% of what was given on 05/29 which may have led to hypoglycemic episode * Will increase the dose of Novolog correction given anticipated increased insulin resistance w/ steroid change and continue to check BSG Q 4 hrs PLAN FOR INPATIENT GLYCEMIC CONTROL: * Basal insulin (dose increase) * Lantus 10 units SQ x 1; reassess needs tomorrow AM * Bolus insulin (dose increase) * NovoLog per scale q4h * Goal Range: Low 120 mg/dL - High 160 mg/dL * Correction Factor: 20 mg/dL/unit * Nutritional / Prandial insulin per carb ratio of 1 unit per 15 grams CHO consumed * If BSGs remain > 180 x 2 more checks, would recommend starting IV insulin drip per MODERATE stress, goal range 110-180mg/dL
--- NOTE | 2018-06-03 14:37 | Critical Care Progress Note ---
Date of Service June 03, 2018 Assessment & Plan (1) Cellulitis of left leg: Impression: 1. Sepsis secondary to MRSA cellulitis. 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 2. Recurrent aspiration, etiology could be related to pharyngeal muscle weakness with exposure to sedation and multiple intubations. 3. History of coronary artery disease status post CABG, difficult to heal sternal wound. 4. Diabetes with diabetic foot. Noted recurrent hypoglycemia, likely related to adrenal insufficiency. 5. Acute lung injury resulted in the above. 6. GERD. 7. Easy bruisability, concerning for bleeding disorder. The patient is off Xarelto. 8. Osteomyelitis, MRSA, on broad-spectrum antibiotic. 9. Malnourishment. 10. Fluid overload. Plan: 1. Off IV fluids. 2. Diuresis with Lasix x1 dose. 3. Continue current antibiotics, cefazolin and doxycycline. 4. Use of G-tube for medications. 5. Continue GI prophylaxis. 6. Discontinue Versed drip. 7. Change Neurontin to 400 mg NG tube 3 times daily, change Dilaudid 2.5 mg IV every 4 hours as needed. 8. Extubate the patient, done successfully. 9. Minimize sedation. 10. Discontinue Levophed. 11. Family updates. 12. Replete his electrolytes. 13. Glucose control. 14. Discontinue Ultram. 15. Discontinue Solu-Medrol by the end of 06/05/2018 for acute lung injury. 16. Continue Plavix. 17. Avoid full anticoagulation given his recurrent GI bleeding. 18. Trial of neostigmine for recurrent ileus, likely related to narcotic use. Case discussed with the staff, critical care time spent with the patient was 45 minutes. Subjective The patient is awake and following commands, extubated successfully, no other events overnight. Review of Systems Review of Systems: After extubation, the patient appeared to be confused, he denies any pain, no nausea or vomiting, no shortness of breath, no abdominal pain, unclear if the patient had a bowel movement reported overnight. Physical Exam Physical Exam: Physical exam reveals stable vital signs, respiratory rate is 25, agitated at times, no fever, 91% on nasal cannula, no JVD, S1-S2 regular rate and rhythm, distant breath sounds bilaterally, abdomen is benign nondistended, BKA on the left and debridement on the right. Skin rash noted by the staff on the right leg, etiology is unknown. Neurologically the patient is confused and difficult to assess. No oral lesions. Results & Data Vital Signs (Past 12 Hours) Vital Signs Temp Pulse Pulse Pulse Resp BP Pulse Ox 06/03/18 14:00 102 H 28 H 86/65 L 91 06/03/18 13:00 92 H 17 121/68 96 06/03/18 12:02 95 H 18 97 06/03/18 12:00 36.8 C 93 H 14 122/75 98 06/03/18 11:00 89 16 106/63 98 06/03/18 10:00 91 H 14 95/55 L 97 06/03/18 09:00 94 H 23 119/68 100 06/03/18 08:00 36.7 C 110 H 20 119/70 98 06/03/18 07:23 117 H 21 98 06/03/18 07:00 107 H 19 137/97 98 06/03/18 05:53 87 13 97 06/03/18 05:01 99 H 127/68 98 06/03/18 04:34 104 H 128/95 97 06/03/18 04:01 37.3 C 93 H 97/55 L 97 06/03/18 03:50 87 99 06/03/18 03:02 89 121/58 L 97 Laboratory Results CBC is acceptable, BMP is also acceptable, Diagnostic Findings Abdominal x-ray was reviewed which showed dilated bowel loops consistent with ileus.
[2018-06-03] MEDS ORDERED: ATROPINE SULFATE 0.1 MG/ML 10ML SYR IV PRN (14:56)
[2018-06-03] MEDS ORDERED: SODIUM CHLORIDE 0.9% IV ONE (15:15)
[2018-06-03] MEDS ORDERED: NEOSTIGMINE METHYLSULFATE IV ONE (15:15)
[2018-06-03] MEDS: GABAPENTIN 250 MG/5 ML 470 ML BTL NG SCH ×2 (15:57→21:42)
[2018-06-03] MEDS: FAMOTIDINE 20 MG TAB PO SCH (20:03)
[2018-06-03] MEDS: ATORVASTATIN 40 MG TAB PO SCH (20:03)
[2018-06-03] MEDS ORDERED: DOXYCYCLINE HYCLATE 100 MG CAP PO SCH (21:00)
[2018-06-03] MEDS ORDERED: DOXYCYCLINE CALCIUM PO SCH (21:00)
[2018-06-04] MEDS: INSULIN ASPART 100 UNITS/ML 3 ML PEN SC SCH ×3 (00:14→12:23)
[2018-06-04] MEDS: ALBUT/IPRATROP 3MG/0.5MG NEB 3 ML VIAL INH SCH ×6 (03:23→22:57)
[2018-06-04] MEDS: CEFAZOLIN 2000MG 2,000 MG/15 ML SYR IV SCH ×3 (03:42→20:44)
--- NOTE | 2018-06-04 05:29 | Hospitalist Progress Note ---
Date of Service delayed entry date of service as noted below June 03, 2018 Assessment & Plan (1) Wound of lower extremity: OSTEOMYELITIS LEFT ANKLE Hx PVD. Hx MRSA started on intravenous Zosyn, vancomycin L Ankle xray: Periostitis the level of medial malleolus. Given history of overlying wound, this may indicate osteomyelitis. Presumed neuropathic changes within the midfoot. Blood cultures negative so far Wound cultures positive for staph Appreciate Ortho input and recommendation; Orthopedic is recommending amputation. s/p left below-knee amputation and right foot debridement Acute Respiratory Failure, likely from Aspiration s/p Extubation repeat CXR noted on Solumedrol Lasix given, IV fluids d/cd Continue IV antibiotics Ortho following further management per Geodetic Technician (2) PVD (peripheral vascular disease): Pt follows with vascular surgery in [place] Dr Fonseca. Pts sister reports that pt had recent bilateral leg revascularization in the past 1-2 months -obtain outside records --Holding Plavix and Xarelto in light of recent surgery -Vascular surgery has been consulted for peripheral vascular disease evaluation and any further treatment -Duplex scan of the lower extremity noted; showed no flow within the right posterior tibial artery which is likely occluded, occlusion of the left profunda femoral artery. -Vascular surgery consulted for recommendation-no further intervention (3) Anemia: Acute Blood Loss Anemia from Lower Leg Wound Bleeding Stool has been negative for any blood Complicated by chronic disease and malnutrition -- s/p 1 more unit of pRBC to maintain Hg >9 no overt GI bleed noted (4) Diarrhea: C. difficile negative Resolved (5) History of aortic valve replacement with bioprosthetic valve: Aortic stenosis s/p bioprosthetic valve replacement in 09/2017 at [facility] ECHO: Left ventricle is normal with moderate concentric left ventricular hypertrophy, left ventricular wall motion is normal, and is hyperdynamic, EF is more than 70%, grade 3 diastolic dysfunction consistent with markedly increased left atrial pressure, there is a bioprosthetic aortic valve with normal gradient, aortic regurg regurgitation is present, there is moderate to severe annular calcification, there is no mitral valvular stenosis --Monitor volume status (6) CAD (coronary artery disease): CAD s/p CABG x 2 in 09/2017 at [place] Plavix on hold Metoprolol on hold (7) Atrial fibrillation: Hx a-fib after cardiac surgery in 09/2017, requiring cardioversion -- (+) afib in RVR -- Amiodarone Toprol on hold, Xarelto on hold (8) Chronic diastolic heart failure: Possible Acute on chronic diastolic CHF Lasix given IV fluids discontinued monitor (9) Cirrhosis: Hx cirrhosis. LFT's chronically elevated with AST: 56, ALT: 45, Alk Phos: 123, normal bili. (04/2018: AST: 54, ALT: 46, Alk Phos: 136) (10) BPH (benign prostatic hyperplasia): (11) Urinary retention: Hx BPH and chronic urinary retention. Follows with Urology [facility]. Reported consideration for suprapubic cath placement in future. 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 (14) Malnutrition: Hx protein-calorie malnutrition -deli clerk consult DVT Prophylaxis Xarelto -on hold now Restart Xarelto and Plavix when hemostasis is stable Subjective ff up sp l BKA, respiratory failure sp extubation appears weak but alert confused, but oriented to person denies pain denies shortness of breath denies other symptoms Review of Systems Review of Systems: Unobtainable due to cognitive status Physical Exam Physical Exam: General- oriented x 1, not in distress, speaks in sentences with no effort or accessory muscle use Eyes- anicteric Neck- no JVD Lungs- mild rales at the bases, no wheezing Heart- normal rate, regular rhythm; no murmurs Abdomen- normal bowel sounds, nondistended, soft, nontender Extremities- s/p L BKA: dressing in place, no bleeding right lower leg: (+) dressing, no discharge/bleeding (+) small areas of erythema on the posterior lower leg Neuro- alert, oriented x 3; no gross focal neurologic deficits Skin- warm & dry Results & Data Vital Signs (Past 12 Hours) Vital Signs Temp Pulse Pulse Pulse Resp BP Pulse Ox 06/03/18 17:02 93 H 06/03/18 17:01 85 24 106/60 91 06/03/18 16:01 95 H 22 113/62 89 L 06/03/18 15:34 112 H 24 92 06/03/18 15:01 36.8 C 99 H 19 119/57 L 90 04/25/19 14:00 102 H 28 H 86/65 L 91 06/03/18 13:00 92 H 17 121/68 96 06/03/18 12:02 95 H 18 97 06/03/18 12:00 36.8 C 93 H 14 122/75 98 06/03/18 11:00 89 16 106/63 98 06/03/18 10:00 91 H 14 95/55 L 97 06/03/18 09:00 94 H 23 119/68 100 06/03/18 08:00 36.7 C 110 H 20 119/70 98 06/03/18 07:23 117 H 21 98 06/03/18 07:00 107 H 19 137/97 98 (1) Anemia Anemia type: unspecified type Qualified Code(s): D64.9 - Anemia, unspecified
[2018-06-04] MEDS: GABAPENTIN 250 MG/5 ML 470 ML BTL NG SCH ×3 (05:53→21:49)
[2018-06-04] MEDS ORDERED: FUROSEMIDE 40 MG/4 ML VIAL IV STA (08:31)
[2018-06-04] MEDS ORDERED: INSULIN GLARGINE SOLOSTAR 100 UNITS/ML 3 ML PEN SC ONE (09:00)
[2018-06-04] MEDS ORDERED: DOCUSATE SODIUM 100 MG CAP PO SCH (09:00)
[2018-06-04] MEDS ORDERED: IMPACT LIQD 1.0 CAL 1,000 ML BAG NG SCH (09:00)
[2018-06-04] MEDS ORDERED: POLYETHYLENE (MIRALAX) 17 GM PACK PO SCH (09:00)
[2018-06-04 09:52] LABS: BUN Creatinine Ratio 41.7 (10-20); Creatinine Clr Calc Pharmacy 127.1 ml/min; Est GFR (African American) 115.7; Est GFR (Non-African American) 99.8; Potassium 3.5 mmol/L (3.5-5.1)
--- NOTE | 2018-06-04 09:54 | Orthopedic Progress Note ---
Date of Service June 04, 2018 Assessment & Plan (1) Status post below knee amputation of left lower extremity: Plans to be to continue light dressing for the left BKA stump. I will be discussing the case with Dr. Joel and have him review the wounds currently. The patient may need either debridement at the bedside per wound care team versus brought back to the operating room for further debridement by Dr. Joel. Subjective Postop day 7 status post left BKA and right foot wound debridement Patient is now extubated and is awake. He is somewhat difficult to understand when he is talking. He does not appear to be in overt discomfort at this point in time. Physical Exam Physical Exam: Upon examining the left lower extremity, it is noted that he is having more ecchymosis of the left BKA stump than previous. Nursing relates that he had some excessive drainage on the dressing over the last day or so. On looking at his right foot, the medial first MTP wound is showing increased erythema around the wound edge. He has a what appears to be a little more white purulent material over the center of the wound. This moves inferiorly to the inferior wound. There is one small blackened area in the central portion as well with noted hardened dark yellow granular tissue at the superior portion of the wound edge. Looking at the lateral fifth MTP wound, there is an increase in black tissue noted with some white creamy discharge noted at the distal portion of the wound with darkened erythema at the edges the blackened there is blacke juan j area throughout the central portion in a ringlike pattern and also extends up to the inferior edge to a bit. All wounds were redressed by wound care nursing. Plans are to discontinue Lv wrap and only use Kerlix for his left BKA stump. Results & Data Vital Signs (Past 12 Hours) Vital Signs Temp Pulse Pulse Resp BP Pulse Ox 06/04/18 07:17 99 H 20 89 L 06/04/18 06:01 87 24 96/61 L 93 06/04/18 06:00 90 21 89 L 06/04/18 05:00 88 25 H 110/60 93 06/04/18 04:04 88 23 108/64 92 06/04/18 04:00 37.0 C 92 H 27 H 90 06/04/18 03:23 87 18 94 06/04/18 03:00 82 20 95/53 L 95 06/04/18 02:00 86 17 100/57 L 94 06/04/18 01:01 87 21 94/59 L 94 06/04/18 00:00 36.4 C L 82 17 93/51 L 92 06/03/18 23:09 85 18 96 06/03/18 23:01 80 15 84/53 L 96 06/03/18 22:51 83 06/03/18 22:00 37.2 C 78 17 93/53 L 99 06/03/18 21:55 37.2 C
[2018-06-04] MEDS: methylPREDNISolone 40 MG in SYRINGE 0 ML IV SCH (10:07)
[2018-06-04] MEDS: AMIODARONE 200 MG TAB PO SCH ×2 (10:08→21:47)
[2018-06-04] MEDS: FAMOTIDINE 20 MG TAB PO SCH (10:08)
[2018-06-04] MEDS: DOXYCYCLINE HYCLATE 100 MG in DEXTROSE 5% 100 ML IV SCH ×2 (10:15→20:29)
[2018-06-04] MEDS ORDERED: DOCUSATE SODIUM SYRUP 100 MG/10 ML UDC PO SCH (10:30)
[2018-06-04] MEDS: CLOPIDOGREL BISULFATE 75 MG TAB PO SCH (11:41)
--- NOTE | 2018-06-04 13:38 | Critical Care Progress Note ---
Date of Service June 04, 2018 Assessment & Plan (1) Cellulitis of left leg: Impression: 1. Sepsis secondary to MRSA cellulitis. 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 2. Recurrent aspiration, etiology could be related to pharyngeal muscle weakness with exposure to sedation and multiple intubations. 3. History of coronary artery disease status post CABG, difficult to heal sternal wound. 4. Diabetes with diabetic foot. Noted recurrent hypoglycemia, likely related to adrenal insufficiency. 5. Acute lung injury resulted in the above. 6. GERD. 7. Easy bruisability, concerning for bleeding disorder. The patient is off Xarelto. 8. Osteomyelitis, MRSA, on broad-spectrum antibiotic. 9. Malnourishment. 10. Fluid overload. Plan: 1. Continue daily diuresis. 2. Start the patient on bowel regimen with MiraLAX and Colace on a standing not as needed basis. 3. Continue current antibiotics, cefazolin and doxycycline. 4. G-tube for medications and start feeding. 5. Continue GI prophylaxis. 6. Minimize sedation. 7. Continue Neurontin 400 mg 3 times daily and Dilaudid 0.5 mg every 4 hours as needed. It seems to control his symptoms. 8. Remains extubated but confused. 9. Replacement of electrolytes. 10. Repeat labs. 11. Family updates. 12. OT /PT consult 13. Glucose control. 14. Palliative care consult 15. Discontinue Solu-Medrol by the end of 06/05/2018 for acute lung injury. 16. Continue Plavix. 17. Avoid full anticoagulation given his recurrent GI bleeding. 18. Trial of neostigmine for recurrent ileus, was successful. Case discussed with the staff, critical care time spent with the patient was 45 minutes. Subjective Improving slowly, remains confused, did have a large bowel movement overnight, denies any pain, no shortness of breath, he had delusions occasionally about his amputated leg. Review of Systems Review of Systems: Denies shortness of breath, no chest pain, failed swallow eval, continue to have dysphagia, NG tube remains in place. Denies any sore throat, review of systems due to confusion was very limited, however 8 systems been reviewed and apart from the above were unremarkable. Physical Exam Physical Exam: No fever, vital signs are stable, no JVD, S1-S2, A. fib, rate controlled, lungs with rhonchi bilaterally, sternal wound dehiscence, abdomen is soft and benign, not distended, bowel sounds are positive, left BKA and right debridement, no rash, discoloration at the stump was noted by orthopedic, appreciated. Neurologically the patient is confused. Nonfocal. Results & Data Vital Signs (Past 12 Hours) Vital Signs Temp Pulse Pulse Pulse Resp BP Pulse Ox 06/04/18 11:17 111 H 18 90 06/04/18 07:17 99 H 20 89 L 06/04/18 06:01 87 24 96/61 L 93 06/04/18 06:00 90 21 89 L 06/04/18 05:00 88 25 H 110/60 93 06/04/18 04:04 88 23 108/64 92 06/04/18 04:00 37.0 C 92 H 27 H 90 06/04/18 03:23 87 18 94 06/04/18 03:00 82 20 95/53 L 95 06/04/18 02:00 86 17 100/57 L 94 Laboratory Results Labs were reviewed, showing stable BMP. Diagnostic Findings No new imaging. KUB from yesterday showed ileus but resolved today clinically.
[2018-06-04] MEDS: HYDROmorphone INJ 0.5 MG/0.5 ML SYR IV PRN (14:19)
[2018-06-04] MEDS ORDERED: INSULIN ASPART 100 UNITS/ML 3 ML PEN SC SCH (16:00)
[2018-06-04] MEDS: MoRPHine SULFATE 4 MG/ML 1 ML CARP\\VIAL IV PRN (17:02)
--- NOTE | 2018-06-04 18:33 | Palliative Care Consultation ---
Date of Consultation June 04, 2018 Assessment & Plan (1) Palliative care encounter: Chart reviewed, patient seen and examined in the ICU. Patient's sister who is his POA, Greta, and 2 friends at bedside. Patient is a 72-year-old male who was a resident at [facility]-patient is nonambulatory at baseline, past medical history significant for diabetes, hypertension, HLD, A. fib, PVD, cirrhosis, BPH, and urinary retention who was sent to [facility] emergency room on 05/18 for increased foot pain with bleeding from wounds. Patient had undergone revascularization approximately 1 month ago, patient had a CABG x2 and AVR in September 2017. l patient was found to have osteomyelitis-was treated with IV antibiotics-he also had bacteremia with MRSA. Patient subsequently required a left BKA-this was performed on 05/28. Patient has required intubation x3-twice after aspiration. He underwent bronchoscopy on 05/31 which showed pneumonitis due to aspiration. Patient has continued to decline-wound is not healing well and may require further surgery-patient has not wanted to surgery, the sister does not want any further surgery either. Patient also has wounds on the right lower extremity that were debrided-the tumor not healing well. Patient's mental status has declined-patient's sister reports that prior to admission patient was alert and oriented, had no history of dementia. Patient did not recognize his sister yesterday, however he did recognize her today. Patient is restless, asking to go home, easily agitated. Spoke with patient's sister at length regarding goals of care at this point- patient sister does not want any further aggressive treatment, goal is to keep patient comfortable.\ Discussed with Dr. Lau as well as Dr. Hicks -patient will be transferred to the fourth floor for comfort care. We will continue patient's NG feeds at 10 mL's per hour, will continue amiodarone as well as PPI, will continue O2 for comfort. Will allow comfort feeds. Provided support to patient's sister with medical decision making. -Palliative encounter-discussed goals of care at length with patient's sister, decision was made for the goal of comfort care -PVD/osteomyelitis-status post left BKA-not healing well due to poor nutritional status-goals comfort care, continue IV antibiotics and doxycycline for now -Hypoxia-continue O2 for comfort, continue duo nebs -Diabetes-discontinue Accu-Cheks and as needed SSI -A. fib-continue amiodarone for rate control -BPH/urinary retention-Plunkett in place -Pain-PRN IV morphine at 4 mg every 2 hours- -Anxiety-PRN Ativan at 0.5 mg every 4 hours as needed -Sister understands that patient is approaching [id number]-nb-sbrf-feels he has s uffered enough-goal is comfort care. (2) Status post below knee amputation of left lower extremity: Goal is comfort care (3) Sepsis associated hypotension: (4) Atrial fibrillation: -Continue IV antibiotics and doxycycline for now (5) Malnutrition: NG feeds at 10/h, allow comfort feeds (6) Urinary retention: Continue Plunkett catheter (7) Osteomyelitis: Continue antibiotics Laterality: left Osteomyelitis location: ankle Osteomyelitis type: unspecified type Qualified Code(s): M86.9 - Osteomyelitis, unspecified History of Present Illness Reason for Consultation: Establish goals of care, assist with medical decision making Requesting Physician: Dr. Juan Whitley Attending Physician: Walt Hicks MD History of Present Illness Chart reviewed, patient seen and examined in the ICU. Patient's sister who is his ANKITA, Greta, and 2 friends at bedside. Patient is a 72-year-old male who was a resident at [facility]-patient is nonambulatory at baseline, past medical history significant for diabetes, hypertension, HLD, A. fib, PVD, cirrhosis, BPH, and urinary retention who was sent to [facility] emergency room on 05/18 for increased foot pain with bleeding from wounds. Patient had undergone revascularization approximately 1 month ago, patient had a CABG x2 and AVR in September 2017. l patient was found to have osteomyelitis-was treated with IV antibiotics-he also had bacteremia with MRSA. Patient subsequently required a left BKA-this was performed on 05/28. Patient has required intubation x3-twice after aspiration. He underwent bronchoscopy on 05/31 which showed pneumonitis due to aspiration. Patient has continued to decline-wound is not healing well and may require further surgery-patient has not wanted to surgery, the sister does not want any further surgery either. Patient also has wounds on the right lower extremity that were debrided-the tumor not healing well. Patient's mental status has declined-patient's sister reports that prior to admission patient was alert and oriented, had no history of dementia. Patient did not recognize his sister yesterday, however he did recognize her today. Patient is restless, asking to go home, easily agitated. Spoke with patient's sister at length regarding goals of care at this point- patient sister does not want any further aggressive treatment, goal is to keep patient comfortable.\ Discussed with Dr. Lau as well as Dr. Hicks -patient will be transferred to the fourth floor for comfort care. We will continue patient's NG feeds at 10 mL's per hour, will continue amiodarone as well as PPI, will continue O2 for comfort. Will allow comfort feeds. Provided support to patient's sister with medical decision making. -Palliative encounter-discussed goals of care at length with patient's sister, decision was made for the goal of comfort care -PVD/osteomyelitis-status post left BKA-not healing well due to poor nutritional status-goals comfort care, continue IV antibiotics and doxycycline for now -Hypoxia-continue O2 for comfort, continue duo nebs -Diabetes-discontinue Accu-Cheks and as needed SSI -A. fib-continue amiodarone for rate control -BPH/urinary retention-Plunkett in place -Pain-PRN IV morphine at 4 mg every 2 hours- -Anxiety-PRN Ativan at 0.5 mg every 4 hours as needed -Sister understands that patient is approaching mnl-[id number]-[id number]-feels he has suffered enough-goal is comfort care. Allergies Allergy/AdvReac Type Severity Reaction Status Date / Time heparin Allergy Unknown Verified 05/18/18 16:18 Home Medications Home Medications Medication Instructions Recorded Confirmed Type Milindvyn Gentle Border Lite 1 applic TOPICAL UD 05/18/18 05/18/18 History Aquacel Ag Dressing 1 applic TOPICAL Q OTHER DAY 05/18/18 05/18/18 History Med Pass Supplement 200 ml PO TID 05/18/18 05/18/18 History Silicone Border Dressing 1 applic TOPICAL UD 05/18/18 05/18/18 History Silver Alginate 1 applic TOPICAL Q OTHER DAY 05/18/18 05/18/18 History acetaminophen [Tylenol Extra 500 mg PO Q4 PRN 05/18/18 05/18/18 History Strength] amiodarone 200 mg PO AMHS 05/18/18 05/18/18 History ascorbic acid (vitamin C) [Vitamin 500 mg PO QAM 05/18/18 05/18/18 History C] atorvastatin 40 mg PO HS 05/18/18 05/18/18 History bumetanide 1 mg PO DAILY 05/18/18 05/18/18 History bumetanide 2 mg PO DAILY 05/18/18 05/18/18 History clopidogrel 75 mg PO DAILY 05/18/18 05/18/18 History doxycycline hyclate 100 mg PO BID 05/18/18 05/18/18 History duloxetine 60 mg PO DAILY 05/18/18 05/18/18 History ferrous sulfate 325 mg PO BID 05/18/18 05/18/18 History glipizide 2.5 mg PO QAM 05/18/18 05/18/18 History hydrocodone-acetaminophen [[place]] 1 tab PO Q6H PRN 05/18/18 05/18/18 History ipratropium-albuterol 3 ml INHALATION Q6 PRN 05/18/18 05/18/18 History magnesium oxide 400 mg PO BID 05/18/18 05/18/18 History melatonin 5 mg PO HS 05/18/18 05/18/18 History metoprolol succinate 12.5 mg PO DAILY 05/18/18 05/18/18 History omeprazole 20 mg PO DAILYBB 05/18/18 05/18/18 History oxycodone 5 mg PO QID 05/18/18 05/18/18 History polyethylene glycol 3350 17 g PO TID 05/18/18 05/18/18 History potassium chloride 10 meq PO DAILY 05/18/18 05/18/18 History pregabalin [Lyrica] 100 mg PO TID 05/18/18 05/18/18 History rivaroxaban [Xarelto] 20 mg PO HS 05/18/18 05/18/18 History tamsulosin 0.4 mg PO HS 05/18/18 05/18/18 History cfle-gsu-[id number]-C-Zn-Cu-tos 1 dose PO BID 05/18/18 05/18/18 History [ArgiMent AT] zinc oxide 1 applic TOPICAL QS 05/18/18 05/18/18 History Patient History Medical History Cirrhosis (Chronic) 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) Chronic diastolic heart failure (Chronic) Atrial fibrillation (Chronic) PVD (peripheral vascular disease) (Chronic) Malnutrition (Chronic) Aortic stenosis (Chronic) CAD (coronary artery disease) (Chronic) Diastolic heart failure (Chronic) Urinary retention (Chronic) BPH (benign prostatic hyperplasia) (Chronic) Diabetes mellitus, type II (Chronic) GERD (gastroesophageal reflux disease) HLD (hyperlipidemia) (Chronic) Hypertension (Chronic) Surgical History History of cholecystectomy (Chronic) History of aortic valve replacement with bioprosthetic valve (Chronic) History of coronary artery bypass graft x 2 (Chronic) Family History Other Cancer Coronary heart disease Diabetes Social History Preferred Language: German Communication Ability: Effective Beliefs That Will Affect Care: None marital status: Single Current Living Situation: Halfway Other Information That Helps Us Care for You: No Feels Safe at Home: Yes Smoking Status: Former smoker Hx Alcohol Use: No Hx Substance Use: No Results & Data Vital Signs (Past 12 Hours) Vital Signs Temp Pulse Pulse Pulse Resp BP Pulse Ox 06/04/18 16:05 105 H 20 90 06/04/18 16:00 97.7 F 105 H 22 102/68 96 06/04/18 15:01 93 H 27 H 106/71 97 06/04/18 15:00 98 H 27 H 106/71 96 06/04/18 14:00 103 H 28 H 143/103 H 94 06/04/18 13:00 101 H 31 H 113/70 92 06/04/18 12:00 98.2 F 100 H 26 H 106/41 L 90 06/04/18 11:17 111 H 18 90 06/04/18 11:00 89 25 H 114/71 91 06/04/18 10:00 97 H 24 127/78 92 06/04/18 09:00 100 H 27 H 126/67 86 L 06/04/18 08:00 98.8 F 99 H 23 125/72 85 L 06/04/18 07:17 99 H 20 89 L 06/04/18 07:00 96 H 29 H 137/118 H 89 L Time Spent Attending Total time spent 105 minutes with greater than 50% of the time spent at bedside discussing treatment options as well as goals of care
[2018-06-04] MEDS: LORazepam 0.5 MG/1 ML VIAL IV PRN (19:45)
--- NOTE | 2018-06-04 21:33 | Hospitalist Progress Note ---
Date of Service June 04, 2018 Assessment & Plan (1) Wound of lower extremity: OSTEOMYELITIS LEFT ANKLE Hx PVD. Hx MRSA started on intravenous Zosyn, vancomycin L Ankle xray: Periostitis the level of medial malleolus. Given history of overlying wound, this may indicate osteomyelitis. Presumed neuropathic changes within the midfoot. Blood cultures negative so far Wound cultures positive for staph Appreciate Ortho input and recommendation; Orthopedic is recommending amputati on. s/p left below-knee amputation and right foot debridement Acute Respiratory Failure, likely from Aspiration s/p Extubation -- Palliative Care consulted -- transitioned to comfort measures discussed with Dr. Silveira continue antibiotics for now PRN Morphine, Ativan (2) PVD (peripheral vascular disease): Pt follows with vascular surgery in [place] Dr Fonseca. Pts sister reports that pt had recent bilateral leg revascularization in the past 1-2 months -obtain outside records --Holding Plavix and Xarelto in light of recent surgery -Vascular surgery has been consulted for peripheral vascular disease evaluation and any further treatment -Duplex scan of the lower extremity noted; showed no flow within the right p osterior tibial artery which is likely occluded, occlusion of the left profunda femoral artery. -Vascular surgery consulted for recommendation-no further intervention (3) Anemia: Acute Blood Loss Anemia from Lower Leg Wound Bleeding Stool has been negative for any blood Complicated by chronic disease and malnutrition -- s/p 1 more unit of pRBC to maintain Hg >9 no overt GI bleed noted (4) Diarrhea: C. difficile negative Resolved (5) History of aortic valve replacement with bioprosthetic valve: Aortic stenosis s/p bioprosthetic valve replacement in 09/2017 at [facility] ECHO: Left ventricle is normal with moderate concentric left ventricular hypertrophy, left ventricular wall motion is normal, and is hyperdynamic, EF is more than 70%, grade 3 diastolic dysfunction consistent with markedly increased left atrial pressure, there is a bioprosthetic aortic valve with normal gradient, aortic regurg regurgitation is present, there is moderate to severe annular calcification, there is no mitral valvular stenosis (6) CAD (coronary artery disease): CAD s/p CABG x 2 in 09/2017 at [place] (7) Atrial fibrillation: Hx a-fib after cardiac surgery in 09/2017, requiring cardioversion -- (+) afib in RVR -- Amiodarone given (8) Chronic diastolic heart failure: Possible Acute on chronic diastolic CHF Lasix given IV fluids discontinued (9) Cirrhosis: Hx cirrhosis. LFT's chronically elevated with AST: 56, ALT: 45, Alk Phos: 123, normal bili. (04/2018: AST: 54, ALT: 46, Alk Phos: 136) (10) BPH (benign prostatic hyperplasia): (11) Urinary retention: Hx BPH and chronic urinary retention. Follows with Urology [facility]. Reported consideration for suprapubic cath placement in future. 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 (14) Malnutrition: Hx protein-calorie malnutrition -cellar worker consult Disposition now on comfort measures status only Subjective ff up s/p L BKA transitioned to comfort measures seen in 4east sleeping but easily rousable denies pain, shortness of breath mostly confused, but not in distress reassured Review of Systems Review of Systems: Unobtainable due to cognitive status Physical Exam Physical Exam: General- not oriented, not in distress,no accessory muscle use Eyes- anicteric Neck- no JVD Lungs- clear breath sounds bilaterally Heart- normal rate, regular rhythm; no murmurs Abdomen- normal bowel sounds, nondistended, soft, nontender Extremities- dressings in place Neuro- not oriented, no new gross focal deficits Skin- warm & dry Results & Data Vital Signs (Past 12 Hours) Vital Signs Temp Pulse Pulse Pulse Resp BP Pulse Ox 06/04/18 19:01 88 20 100 06/04/18 16:05 105 H 20 90 06/04/18 16:00 36.5 C 105 H 22 102/68 96 06/04/18 15:01 93 H 27 H 106/71 97 06/04/18 15:00 98 H 27 H 106/71 96 06/04/18 14:00 103 H 28 H 143/103 H 94 06/04/18 13:00 101 H 31 H 113/70 92 06/04/18 12:00 36.8 C 100 H 26 H 106/41 L 90 06/04/18 11:17 111 H 18 90 06/04/18 11:00 89 25 H 114/71 91 06/04/18 10:00 97 H 24 127/78 92 (1) Anemia Anemia type: unspecified type Qualified Code(s): D64.9 - Anemia, unspecified
[2018-06-05] MEDS: ALBUT/IPRATROP 3MG/0.5MG NEB 3 ML VIAL INH SCH ×5 (03:50→19:05)
[2018-06-05] MEDS: MoRPHine SULFATE 4 MG/ML 1 ML CARP\\VIAL IV PRN ×5 (04:16→18:49)
[2018-06-05] MEDS: LORazepam 0.5 MG/1 ML VIAL IV PRN ×4 (05:15→21:00)
[2018-06-05] MEDS: CEFAZOLIN 2000MG 2,000 MG/15 ML SYR IV SCH (05:15)
[2018-06-05] MEDS: GABAPENTIN 250 MG/5 ML 470 ML BTL NG SCH (06:02)
[2018-06-05] MEDS: DOXYCYCLINE HYCLATE 100 MG in DEXTROSE 5% 100 ML IV SCH ×2 (08:37→21:01)
[2018-06-05] MEDS: AMIODARONE 200 MG TAB PO SCH (08:43)
--- NOTE | 2018-06-05 08:51 | Hospitalist Progress Note ---
Date of Service June 05, 2018 Assessment & Plan (1) Wound of lower extremity: OSTEOMYELITIS LEFT ANKLE Hx PVD. Hx MRSA started on intravenous Zosyn, vancomycin L Ankle xray: Periostitis the level of medial malleolus. Given history of overlying wound, this may indicate osteomyelitis. Presumed neuropathic changes within the midfoot. Blood cultures negative so far Wound cultures positive for staph Appreciate Ortho input and recommendation; Orthopedic is recommending amputati on. s/p left below-knee amputation and right foot debridement Acute Respiratory Failure, likely from Aspiration s/p Extubation -- Palliative Care consulted -- transitioned to comfort measures discussed with Dr. Silveira continue antibiotics for now PRN Morphine, Ativan 06/05 Given Lasix Discussed with patient's sister and daughter at length and in detail Including NG tube at this time, discontinue tube feeding antibiotics Focus on comfort measures (2) PVD (peripheral vascular disease): Pt follows with vascular surgery in [place] Dr Fonseca. Pts sister reports that pt had recent bilateral leg revascularization in the past 1-2 months -obtain outside records --Holding Plavix and Xarelto in light of recent surgery -Vascular surgery has been consulted for peripheral vascular disease evaluation and any further treatment -Duplex scan of the lower extremity noted; showed no flow within the right posterior tibial artery which is likely occluded, occlusion of the left profunda femoral artery. -Vascular surgery consulted for recommendation-no further intervention (3) Anemia: Acute Blood Loss Anemia from Lower Leg Wound Bleeding Stool has been negative for any blood Complicated by chronic disease and malnutrition -- s/p 1 more unit of pRBC to maintain Hg >9 no overt GI bleed noted (4) Diarrhea: C. difficile negative Resolved (5) History of aortic valve replacement with bioprosthetic valve: Aortic stenosis s/p bioprosthetic valve replacement in 09/2017 at [facility] ECHO: Left ventricle is normal with moderate concentric left ventricular hypertrophy, left ventricular wall motion is normal, and is hyperdynamic, EF is more than 70%, grade 3 diastolic dysfunction consistent with markedly increased left atrial pressure, there is a bioprosthetic aortic valve with normal gradient, aortic regurg regurgitation is present, there is moderate to severe annular calcification, there is no mitral valvular stenosis (6) CAD (coronary artery disease): CAD s/p CABG x 2 in 09/2017 at [place] (7) Atrial fibrillation: Hx a-fib after cardiac surgery in 09/2017, requiring cardioversion -- (+) afib in RVR -- Amiodarone given (8) Chronic diastolic heart failure: Possible Acute on chronic diastolic CHF Lasix given IV fluids discontinued (9) Cirrhosis: Hx cirrhosis. LFT's chronically elevated with AST: 56, ALT: 45, Alk Phos: 123, normal bili. (04/2018: AST: 54, ALT: 46, Alk Phos: 136) (10) BPH (benign prostatic hyperplasia): (11) Urinary retention: Hx BPH and chronic urinary retention. Follows with Urology [facility]. Reported consideration for suprapubic cath placement in future. 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 (14) Malnutrition: Hx protein-calorie malnutrition -captain room service consult Disposition now on comfort measures status only Family is agreeable comfortable with the plan of care Subjective Follow-up for left BKA, comfort measures status Seen mostly drowsy, tachypneic But not in distress No other symptoms per air liaison and special staff Review of Systems Review of Systems: All systems reviewed & are unremarkable except as noted in HPI & below Physical Exam Physical Exam: General-tachypneic, but not in distress Lungs-positive rales bilaterally, no wheezing Heart- normal rate, regular rhythm; no murmurs Abdomen- normal bowel sounds, nondistended, soft, nontender Extremities-dressing in place Neuro-drowsy Skin- warm & dry Results & Data Vital Signs (Past 12 Hours) Vital Signs Pulse Resp Pulse Ox 06/05/18 06:56 96 H 18 98 06/05/18 03:50 88 20 93 06/04/18 22:57 85 20 95 (1) Anemia Anemia type: unspecified type Qualified Code(s): D64.9 - Anemia, unspecified
[2018-06-05] MEDS ORDERED: FUROSEMIDE 40 MG/4 ML VIAL IV STA (08:55)
[2018-06-05] MEDS ORDERED: FUROSEMIDE 40 MG in SYRINGE 0 ML IV ONE (09:15)
--- NOTE | 2018-06-05 11:27 | XRay Report ---
XR KUB/Abdomen 1 view CLINICAL HISTORY: NG tube placement tube position COMPARISON STUDY: 06/03/2018 FINDINGS: Nasogastric tube is positioned at or slightly inferior to the gastroesophageal junction. Di ffuse bilateral parenchymal infiltrative changes of the chest which have been described previously. IMPRESSION: Nasogastric tube placed at an/or slightly distal to the gastroesophageal junction. Diffu se bilateral parenchymal infiltrates of the lungs which has been described previously. The above report was generated using voice recognition software. It may contain grammatical, syntax or spelling errors. Electronically signed by: Kole Ro M.D. 06/05/2018 11:26 AM
[2018-06-06] MEDS: ALBUT/IPRATROP 3MG/0.5MG NEB 3 ML VIAL INH SCH ×4 (03:59→11:09)
[2018-06-06] MEDS: MoRPHine SULFATE 4 MG/ML 1 ML CARP\\VIAL IV PRN ×2 (08:04→10:05)
[2018-06-06] MEDS: LORazepam 0.5 MG/1 ML VIAL IV PRN (09:22)
--- NOTE | 2018-06-07 12:13 | Discharge Summary ---
Date of Service June 07, 2018 Admission HPI Per Admitting Provider Pt is 72 y/o M with complex past medical history, CAD s/p CABG x 2 in 09/2017 at [place], aortic stenosis s/p bioprosthetic valve replacement in 09/2017 at [facility], atrial fibrillation after surgery requiring cardioversion, HLD, DM II, diastolic HF, malnutrition, depression, BPH and urinary retention with chronic denis catheter, HIT, PVD, iron deficiency anemia presented to ER from [facility] with bleeding lower extremity wounds. Pt with chronic bilateral leg, ankle, feet ulcers. Reported that pt has been following Dr Aldana podiatry in [place] and wound clinic in [place]. Also has been following with vascular surgery in [place] Dr Fonseca. Pts sister reports that pt had recent bilateral leg revascularization in the past 1-2 months and she is unsure if stents were placed. Pts sister states that pt has been having bleeding from wounds but seems worse today. Reports chronic pain to bilateral feet. Pt also with sacral ulcer. Sister reports pt has been eating and drinking ok. Denies vomiting or diarrhea. Denies fever/chills, diaphoresis, GORMAN, dizziness, syncope, vision changes, neck pain, CP, SOB, orthopnea, palpitations, cough, sore throat, choking, otalgia, rhinorrhea, abdominal pain, extremity edema. Pt with hx rectal bleeding after cardiac surgery. It is reported that at that time pt had normal EGD and pt had to have rectal artery embolization. Denies recent melena, hematochezia, hematuria. Hx sternotomy wound seeping intermittently since surgery in 09/2017 with reported recurrent seeping over the past week and pt was started on doxycycline yesterday at [facility]. 02/23/[address] Gould: Normal esophagus, gastritis. EUS: Dilation common bile duct 10 mm History of hospitalization at [facility] 03/01/18-03/04/18 for extremity wounds/cellulitis, discharge summary report MRSA, lower extremity arterial Dopplers without significant stenosis, MRI left foot no osteomyelitis, MRI left tib-fib and right tib-fib no acute stenosis Admission Exam Per Admitting Provider Temp 36.5 C 05/18/18 20:53 Pulse 57 L 05/18/18 20:53 Resp 16 05/18/18 20:53 BP 95/57 L 05/18/18 20:53 Pulse Ox 97 04/09/19 20:53 Physical Exam: General: chronic ill appearing elderly male Head: normocephalic, atraumatic Eyes: PERRL, EOM's intact, conjunctiva non-injected, anicteric ENT: normal inspection external ears, nose, mucous membranes dry Neck: supple, trachea midline Lungs: clear, no respiratory distress CV: RRR, systolic murmur Abd: normal BS, soft, non-tender Ext: no calf tenderness, bilateral ankles and feet with multiple wounds, ulcers, escar, right medial ankle with some venous bleeding, left ankle without acute bleeding Neuro: Alert, oriented to person, place, flat affect Skin: warm, dry, sacral ulcer, as above in extremities Principal Diagnosis LEFT ANKLE OSTEOMYELITIS, BLEEDING FROM CHRONIC LOWER EXTREMITY WOUNDS Discharge Exam patient Discharge Data Allergies Allergy/AdvReac Type Severity Reaction Status Date / Time heparin Allergy Unknown Verified 05/18/18 16:18 Consultations 05/18/18 16:12 ED Decision to Admit Stat 05/18/18 20:09 Consult Health Information Management Routine Consult Wound Care Provider Routine 05/18/18 21:02 Consult Case Management - Discharge Planning Routine 05/19/18 14:08 Consult Infectious Diseases Routine Consult Orthopedic Surgery Routine 05/26/18 14:21 Consult Vascular Surgery Routine 05/28/18 20:02 Consult Case Management - Discharge Planning Routine 05/28/18 20:11 Consult Curriculum Assistant Routine 06/04/18 08:32 Consult Palliative Care Routine Procedures Performed Operation Date: 05/28/18 12:40 Actual Procedures p Left Below Knee Amputation,, (Left) - Leno Joel DO s Right Foot Debridement of Ulcers, 1st, and 5th MTP and base of heel(Right) - Leno Joel DO Ordered Studies 05/19/18 00:53 MR ankle LT wo/w con Routine 05/27/18 09:19 US arterial duplex LE BI Routine 05/28/18 19:01 US point of care ultrasound Stat 05/31/18 06:06 CT abd pelvis IV con only Stat CT angio chest PE protocol Stat CT head/brain wo con Stat 05/31/18 09:34 US point of care ultrasound Routine Hospital Course (1) Wound of lower extremity: OSTEOMYELITIS LEFT ANKLE Hx PVD. Hx MRSA started on intravenous Zosyn, vancomycin L Ankle xray: Periostitis the level of medial malleolus. Given history of overlying wound, this may indicate osteomyelitis. Presumed neuropathic changes within the midfoot. Blood cultures negative so far Wound cultures positive for staph Appreciate Ortho input and recommendation; Orthopedic is recommending amputation. s/p left below-knee amputation and right foot debridement Acute Respiratory Failure, likely from Aspiration -- patient required mechanical ventilation, pressors post op while in the ICU had difficulty weaning off ventilator as well -- Palliative Care consulted -- transitioned to comfort measures per family request patient pronounced 06/06/28 (2) PVD (peripheral vascular disease): Pt follows with vascular surgery in [place] Dr Fonseca. Pts sister reports that pt had recent bilateral leg revascularization in the past 1-2 months -obtain outside records --Holding Plavix and Xarelto in light of recent surgery -Vascular surgery has been consulted for peripheral vascular disease evaluation and any further treatment -Duplex scan of the lower extremity noted; showed no flow within the right posterior tibial artery which is likely occluded, occlusion of the left profunda femoral artery. -Vascular surgery consulted for recommendation-no further intervention (3) Anemia: Acute Blood Loss Anemia from Lower Leg Wound Bleeding Stool has been negative for any blood Complicated by chronic disease and malnutrition -- s/p 1 more unit of pRBC to maintain Hg >9 no overt GI bleed noted (4) Diarrhea: C. difficile negative Resolved (5) History of aortic valve replacement with bioprosthetic valve: Aortic stenosis s/p bioprosthetic valve replacement in 09/2017 at [facility] ECHO: Left ventricle is normal with moderate concentric left ventricular hypertrophy, left ventricular wall motion is normal, and is hyperdynamic, EF is more than 70%, grade 3 diastolic dysfunction consistent with markedly increased left atrial pressure, there is a bioprosthetic aortic valve with normal gradient, aortic regurg regurgitation is present, there is moderate to severe annular calcification, there is no mitral valvular stenosis (6) CAD (coronary artery disease): CAD s/p CABG x 2 in 09/2017 at [place] (7) Atrial fibrillation: Hx a-fib after cardiac surgery in 09/2017, requiring cardioversion -- (+) afib in RVR -- Amiodarone given (8) Chronic diastolic heart failure: Possible Acute on chronic diastolic CHF Lasix given IV fluids discontinued (9) Cirrhosis: Hx cirrhosis. LFT's chronically elevated with AST: 56, ALT: 45, Alk Phos: 123, normal bili. (04/2018: AST: 54, ALT: 46, Alk Phos: 136) (10) BPH (benign prostatic hyperplasia): (11) Urinary retention: Hx BPH and chronic urinary retention. Follows with Urology [facility]. Reported consideration for suprapubic cath placement in future. 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 ; Feliciano Chen ; Tonja Kiran ; Luis Bruce ; Rayna Ta ; Rizwan Ravi ; Leno Joel ; Quincy Crabtree ; Amber Zaman ; Maldonado Angulo ; Iris Lanza ; Robin Hutchinson ; Kole Hernandez ; Feliciano Edmonds ; Kole Donaldson ; Kyaw Headley ; Feliciano Alvarez ; Darrian Arshad ; Zeyad Solis ; Luis Bond ; Jonas Dockery ; Emanuel Lopez ; Igor Liriano ; Vishal Chaparro ; Iris Gaines ; Josh Barrios ; Rafael Tejada ; Branden Pink ; Elton Mascorro ; Matthew Frias ; Kody Rubio ; Brenda Pelaez Service: Medical Other DC Date/Time DO NOT enter until pt leaves facility: 06/06/18 10:15
== END 2018-06-06 10:15 | disposition expired | DRG 616 ==
LOC: ED 13:38 → 2S 17:50 → SUATTDRO 17:50 → 2S 19:30 → 2W 05-22 13:46 → 1E 05-28 18:54 → 4E 06-04 16:29